=== PATIENT | female | born 1955 | race Caucasian/White ===

== ENCOUNTER → 2019-02-06 | Outpatient (CLI) | payer OTHER, MEDICARE, SELFPAY ==
[2019-02-06 11:37] VITALS: BMI 38.0
--- NOTE | 2019-02-06 12:14 | RAD_ITS ---
STUDY: X-RAY CHEST REASON FOR EXAM: Female, 63 years old. Cough. Cold like symptoms. TECHNIQUE: PA and lateral views of the chest. COMPARISON: None. FINDINGS: Minimal increased markings at the right lung base suggestive of atelectasis and/or early infiltrate. Hyperinflation. There is no demonstrated pleural abnormality. Normal size heart. Normal mediastinum and jenifer. Normal visualized pulmonary arteries. There is atherosclerotic calcification of the aortic arch with tortuosity. There are diffuse degenerative changes of the visualized thoracic spine. Normal visualized ribs, clavicles, and shoulders. There is no demonstrated abnormality of the visualized soft tissue structures of the upper abdomen. RAD/Chest PA and Lateral IMPRESSION: Mild degree of increased markings at the right lung base suggestive of atelectasis and/or early infiltrate. Hyperinflation. Electronically Signed: Aubrey Powell, at 12:35 EDT , Service support ,
== END | disposition home or self-care (01) ==
LOC: HPRAD 12:13
PROVIDERS: Family Provider Family Medicine; PCP Family Medicine; Referring Provider Physician Assistant Surgical; Visit Provider Physician Assistant Surgical
DX: R50.9 Fever, unspecified (principal); R05 Cough
CPT/HCPCS: 71046

== ENCOUNTER → 2019-11-26 11:34 | Outpatient (CLI) | payer OTHER, SELFPAY ==
[2019-11-26 09:08] VITALS: BMI 38.0
== END ==
PROVIDERS: PCP Family Medicine; Visit Provider Physician Assistant
DX: Z20.828 Contact with and (suspected) exposure to other viral communicable diseases (principal)
CPT/HCPCS: 87635; G2023; U0003

== ENCOUNTER → 2019-11-26 | Outpatient (CLI) | payer OTHER, MEDICARE, SELFPAY ==
[2019-11-26 09:08] VITALS: BMI 38.0
--- NOTE | 2019-11-26 09:30 | RAD_ITS ---
STUDY: X-RAY CHEST REASON FOR EXAM: Female, 64 years old. COUGH AND SORE THROAT X1 DAY TECHNIQUE: PA and lateral views of the chest. COMPARISON: 02/06/2019 FINDINGS: The lungs are clear and expanded. There is no demonstrated pleural abnormality. Normal size heart. Normal mediastinum and jenifer. Normal visualized pulmonary arteries. Normal visualized aortic arch and descending thoracic aorta. There are diffuse degenerative changes of the visualized thoracic spine. Normal visualized ribs, clavicles, and shoulders. There is no demonstrated abnormality of the visualized soft tissue structures of the upper abdomen. RAD/Chest PA and Lateral IMPRESSION: No acute pulmonary process Electronically Signed: Wilmer Benites MD at 9:47 EDT , Service support ,
== END | disposition home or self-care (01) ==
LOC: HPRAD 09:26
PROVIDERS: PCP Family Medicine; Referring Provider Physician Assistant; Visit Provider Physician Assistant
DX: R05 Cough (principal)
CPT/HCPCS: 71046

== ENCOUNTER → 2020-02-02 | Outpatient (CLI) | payer OTHER, SELFPAY ==
[2019-11-26 09:08] VITALS: BMI 38.0
--- NOTE | 2020-02-02 11:03 | BD_ITS ---
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 COMPARISON: None. FINDINGS: Lumbar Spine (L1-L4): g/cm2 (0.990) / T-score (-1.6) / Z-score (0.0) Findings are suggestive of osteopenia with a moderate fracture risk. Left Femur Total: g/cm2 (0.694) / T-score (-2.5) / Z-score (-1.2) Left Femoral Neck: g/cm2 (0.624) / T-score (-3.0) / Z-score (-1.5) Right Femur Total: g/cm2 (0.731) / T-score (-2.2) / Z-score (-0.9) Right Femoral Neck: g/cm2 (0.685) / T-score (-2.5) / Z-score (-1.0) BD/Dexa Bone Density Study IMPRESSION: The patient is considered osteoporotic as outlined below according to World Marcin Organization (WHO) criteria with a high fracture risk. Reference Information: The T-score is the number of standard deviations above or below the standard which is normal for young adults at their peak bone mineral density. The World Health Organization (WHO) interprets the T-scores as follows: Above -1 Normal bone density Between -1 and -2.5 Osteopenia Equal to / or below -2.5 Osteoporosis As a practical clinical guideline, osteopenia may be graded as follows: Mild -1 through -1.5 Moderate -1.6 through -2.0 Severe -2.1 through -2.4 The Z-score is the number of standard deviations above or below age-matched controls. A Z-score of less than -1.5 would be considered abnormal. References: 1. NIH Osteoporosis and Related Bone Diseases http://www.osteo.org 2. International Society for Clinical Densitometry http://www.iscd.org 3. National Osteoporosis Foundation http://www.nof.org Electronically Signed: Aubrey Powell, at 15:44 EDT , Service support ,
== END | disposition home or self-care (01) ==
LOC: OPBD 10:58
PROVIDERS: PCP Family Medicine; Referring Provider Nurse Practitioner Family; Visit Provider Nurse Practitioner Family
DX: Z78.0 Asymptomatic menopausal state (principal); Z13.820 Encounter for screening for osteoporosis
CPT/HCPCS: 77080

== ENCOUNTER → 2021-03-03 13:07 | Outpatient (CLI) | payer OTHER, SELFPAY ==
--- NOTE | 2021-03-03 11:57 | BI_ITS ---
MAMMOGRAPHY - BILATERAL SCREENING REASON FOR EXAM: Female, 65 years old. Routine annual screening examination. PERTINENT HISTORY: Non-contributory. TECHNIQUE: Digital bilateral breast neris (3D mammographic acquisition) in the CC and MLO projections. 2-D mediolateral oblique (MLO) and craniocaudad (CC) views of both breasts were obtained. CAD: Full Field Digital Mammography with Computer Added Detection was performed. COMPARISON: Comparison is made with prior outside examination dated 02/25/2020. FINDINGS: Breast Composition: The breasts are almost entirely fatty. There are no dominant masses or suspicious calcifications. Stable small benign-appearing bilateral axillary lymph nodes. No other significant abnormalities are identified. There has been no significant change since the prior study. BI/SCRN MAMM (CAD)W/NERIS BILAT IMPRESSION: Stable bilateral screening mammogram. Yearly follow-up mammogram recommended. (A) ASSESSMENT CATEGORY: BIRADS Category 2: Benign. A letter regarding these results will be sent to the patient by the facility within 30 days. Approximately 10% of breast cancers are not detected by mammography. A normal mammogram should not delay biopsy of a clinically suspicious abnormality. [id number] Electronically Signed: Aubrey Powell MD at 13:13 EDT , Service support ,
== END ==
PROVIDERS: PCP Family Medicine; Referring Provider Physician Assistant; Visit Provider Physician Assistant
DX: Z12.31 Encounter for screening mammogram for malignant neoplasm of breast (principal)
CPT/HCPCS: 77063; 77067

== ENCOUNTER → 2022-03-22 | Outpatient (CLI) | payer OTHER, SELFPAY ==
--- NOTE | 2022-03-22 10:31 | BI_ITS ---
MAMMOGRAPHY - BILATERAL SCREENING 3-D TOMOSYNTHESIS REASON FOR EXAM: Female, 66 years old. Routine screening PERTINENT HISTORY: No significant family history. TECHNIQUE: 2-D mammograms and 3-D Tomosynthesis of the breast (s) were performed. CAD was performed. COMPARISON: 2020, 2019 FINDINGS: The breast composition is almost entirely fat. Scattered benign calcifications are seen. No dense spiculated masses or suspicious microcalcifications are identified. No architectural distortion is identified. There is no skin thickening or retraction. There has been no significant change since the prior study. BI/SCRN MAMM (CAD)W/NERIS BILAT IMPRESSION: No mammographic signs of malignancy. Routine yearly mammograms recommended. ASSESSMENT CATEGORY: BIRADS Category 1: Negative. A letter regarding these results will be sent to the patient by the facility within 30 days. FOLLOW UP RECOMMENDATION: Yearly follow up mammogram recommended. (A) Approximately 10% of breast cancers are not detected by mammography. A normal mammogram should not delay biopsy of a clinically suspicious abnormality. Electronically Signed: Wilmer Benites MD at 13:20 EDT ,
--- NOTE | 2022-03-22 10:50 | BD_ITS ---
STUDY: DUAL ENERGY X-RAY ABSORPTIOMETRY / DXA REASON FOR EXAM: Female, 66 years old. M810 TECHNIQUE: Bone Mineral Density (BMD) measurements of lumbar spine and bilateral hips were obtained. COMPARISON: Comparison is made with prior study dated 02/02/2020. FINDINGS: Lumbar Spine (L1-L4): g/cm2 (0.845) / T-score (-2.3) / Z-score (-0.2) Findings are suggestive of osteopenia with a high fracture risk. Left Femur Total: g/cm2 (0.687) / T-score (-2.1) / Z-score (-0.7) Left Femoral Neck: g/cm2 (0.436) / T-score (-3.7) / Z-score (-2.0) Right Femur Total: g/cm2 (0.734) / T-score (-1.7) / Z-score (-0.3) Right Femoral Neck: g/cm2 (0.528) / T-score (-2.9) / Z-score (-1.2) The T-Scores on the most recent prior examination were: Lumbar Spine (L1-L4): There has been worsening of bone density since the previous examination. Left Femur Total: which represents an improvement of 80%. Right Femur Total: which represents an improvement of 9.2%. BD/Dexa Bone Density Study IMPRESSION: The patient is considered osteoporotic as outlined below according to World Marcin Organization (WHO) criteria with a high fracture risk. There has been improvement of bone density since the previous examination. Reference Information: The T-score is the number of standard deviations above or below the standard which is normal for young adults at their peak bone mineral density. The World Health Organization (WHO) interprets the T-scores as follows: Above -1 Normal bone density Between -1 and -2.5 Osteopenia Equal to / or below -2.5 Osteoporosis As a practical clinical guideline, osteopenia may be graded as follows: Mild -1 through -1.5 Moderate -1.6 through -2.0 Severe -2.1 through -2.4 The Z-score is the number of standard deviations above or below age-matched controls. A Z-score of less than -1.5 would be considered abnormal. References: 1. NIH Osteoporosis and Related Bone Diseases www osteo.org 2. International Society for Clinical Densitometry www iscd.org 3. National Osteoporosis Foundation www nof.org Electronically Signed: Aubrey Powell MD at 13:53 EDT ,
== END | disposition home or self-care (01) ==
LOC: OPBD 10:29
PROVIDERS: PCP Family Medicine; Referring Provider Physician Assistant; Visit Provider Physician Assistant
DX: Z12.31 Encounter for screening mammogram for malignant neoplasm of breast (principal); M81.0 Age-related osteoporosis without current pathological fracture
CPT/HCPCS: 77063; 77067; 77080

== ENCOUNTER 2023-01-16 14:36 | Emergency (ER) | payer OTHER, SELFPAY ==
[2023-01-16 14:38] VITALS: BP 150/89; PULSE 76; RESP 18; TEMP 36.1; O2SAT 95; BMI 40.1
--- NOTE | 2023-01-16 15:15 | EKG12_ITS ---
Test Reason : DIZZY Blood Pressure : / mmHG Vent. Rate : 065 BPM Atrial Rate : 065 BPM P-R Int : 134 ms QRS Dur : 070 ms QT Int : 432 ms P-R-T Axes : 059 017 017 degrees QTc Int : 449 ms Normal sinus rhythm Normal ECG Confirmed by TERESA RODRIGUEZ ([id number]), assistant film editor STORMY GRAHAM ([id number]) on 01/17/2023 11:33:47 AM Referred By: Confirmed By:TERESA RODRIGUEZ
--- NOTE | 2023-01-16 15:16 | EDS_ITS ---
HPI History of Present Illness Chief Complaint: Dizziness Informant: patient Onset/Context/Timing Onset: Today Narrative Narrative: Patient presents with vertigo symptoms that started overnight. She states each time she would get up to the restroom overnight she would feel dizzy and as if the room was spinning. It got worse each time. This morning she had some vomiting because of the dizziness. When she sits at rest she does not have symptoms. She went to a local urgent care who was concerned that she may be having a stroke and sent her to the emergency room. Patient does report 1 prior incidence of vertigo that got better with some oral medication. She states she did recently have a change in her blood pressure medications. [facility] Medical History (Updated 01/16/23 @ 17:[address] Ellen Browne MD) Hypertension Home Medications alendronate 70 mg tablet 70 mg PO QWEEK 01/30/22 [History Last Taken Unknown] mirabegron 50 mg tablet,extended release 24 hr (Myrbetriq) 50 mg PO DAILY 01/30/22 [History Last Taken Unknown] benzonatate 100 mg capsule 200 mg (2 x 100 mg) PO TID PRN cough #30 caps 07/16/22 [Rx Last Taken Unknown] triamcinolone acetonide 55 mcg nasal spray aerosol (Nasacort) 2 spray intranasal DAILY #16.9 mL 07/16/22 [Rx Last Taken Unknown] meclizine 25 mg tablet 25 mg PO TID PRN dizziness #14 tabs 01/16/23 [Rx Last Taken Unknown] Allergy/AdvReac Type Severity Reaction Status Date / Time venom-honey bee Allergy Unknown Verified 01/16/23 14:37 lisinopril AdvReac headache Verified 01/16/23 14:38 Family History Other Diabetes Surgical History History of back surgery Social History Smoking Status: Never smoker alcohol intake: never ROS ROS ED Constitutional Constitutional ED: Denies chills or fever(s) Eyes Eyes: Denies change in vision or discharge from eye(s) ENT ENT ED: Denies discharge from eye(s), rhinorrhea or sore throat Cardiovascular Cardiovascular: Denies chest pain or palpitations Respiratory/Chest Respiratory/Chest: Denies cough or dyspnea Gastrointestinal Gastrointestinal: Reports nausea and vomiting; Denies abdominal pain or diarrhea Genitourinary Genitourinary ED: Denies dysuria Musculoskeletal Musculoskeletal: Denies back pain or extremity pain Integumentary Denies Abrasions or rash Neurologic Neurologic: Denies headache(s) or weakness Psychiatric Psychiatric: Denies anxiety or depression Allergic/Immunologic Allergic/Immunologic ED: Denies lip swelling or urticaria EXAM Physical Exam Const Vital Signs: 01/16/23 14:38 01/16/23 14:59 Temperature 97 F L Temperature Source Temporal Pulse Rate 76 Respiratory Rate 18 Respiratory Effort Normal Non-Labored Respiratory Pattern Normal Blood Pressure 150/89 H Blood Pressure Mean 109 Pulse Ox 95 Oxygen Delivery Method Room Air Positive well nourished and well developed General Appearance ED: well developed HEENT Reports normocephalic and head/scalp atraumatic Eyes PERRL and EOMs intact bilaterally Neck supple Chest Wall inspection of chest normal and palpation of chest normal Resp normal respiratory effort and clear to auscultation bilaterally Cardio regular rate and regular rhythm GI normal to inspection, nondistended, normoactive bowel sounds Palpation: soft Extremity normal to inspection Neuro oriented x3 and no sensory deficits noted Neuro Narrative: Slight horizontal nystagmus noted. No evidence of facial droop or slurred speech at this time Sensorium / Orientation: alert Motor Exam: strength 5/5 throughout Psych mental status grossly normal Skin no rashes or lesions noted MDM MDM MDM Narrative Medical decision making narrative: Patient placed on personnel monitor. EKG obtained to evaluate for cardiac arrhythmia/ischemia. Labwork obtained to evaluate for leukocytosis, anemia, and electrolyte derangement. Patient given IV fluids along with meclizine. Lab Data Attestation: I reviewed the patient's lab results. Labs: Laboratory Results - last 24 hr 01/16/23 15:41 WBC 6.4 RBC 5.13 Hgb 15.3 H Hct 48.5 H MCV 94.5 MCH 29.8 MCHC 31.5 L RDW Std Deviation 49.1 H RDW Coeff of Shira 14.0 Plt Count 273 MPV 10.3 Immature Gran % (Auto) 0.200 Neut % (Auto) 74.7 H Lymph % (Auto) 17.4 L [place] % (Auto) 6.6 Eos % (Auto) 0.6 Baso % (Auto) 0.5 Absolute Neuts (auto) 4.8 Absolute Lymphs (auto) 1.11 Nucleated RBC % 0 Sodium 141 Potassium 4.0 Chloride 106 Carbon Dioxide 32.0 Anion Gap 3 L BUN 14 Creatinine 0.82 Estim Creat Clear Calc 51.21 Est GFR (MDRD) Af Amer 89 Est GFR (MDRD) Non-Af 74 BUN/Creatinine Ratio 17.1 Glucose 104 Calcium 9.1 EKG Initial EKG: Attestation: I personally reviewed and interpreted this EKG as follows: Interpretation: Sinus Rhythm (Sinus at 65 with no acute ischemia.) Treatment and Re-Evaluation :: Repeat evaluation patient feeling significantly improved. She is able to turn h er head side to side with no further episodes of dizziness. CBC reveals hemoglobin slightly concentrated at 15.3. Chemistry studies unremarkable. EKG is sinus rhythm with no acute ischemia. At this time patient's exam and findings are all consistent with peripheral vertigo. I will treat her with meclizine. I will also give her instructions on Kenneth maneuvers if she should need these at home. At this time patient reports significant improvement. Discharge Plan Triage Chief Complaint: Dizziness ED Provider: Ellen Browne Dx/Rx/DC Orders Clinical Impression: Peripheral vertigo Instructions: ED BPV Vertigo Prescriptions: New meclizine 25 mg tablet 25 mg PO TID PRN (Reason: dizziness) Qty: 14 0RF No Action Myrbetriq 50 mg tablet extended release 24 hr 50 mg PO DAILY alendronate 70 mg tablet 70 mg PO QWEEK benzonatate 100 mg capsule 200 mg PO TID PRN (Reason: cough) Qty: 30 0RF triamcinolone acetonide [Nasacort] 55 mcg aerosol,spray 2 spray intranasal DAILY Qty: 16.9 0RF Rx Instructions: administer into each nostril Primary Care Provider: Jamie Polanco Referrals: Jamie Polanco MD [Primary Care Provider] - 1-2 Weeks Disposition Disposition: Home, Self Care
--- NOTE | 2023-01-16 15:20 | NURSING ---
NO OLD EKGS
[2023-01-16] MEDS: Acetaminophen 500 MG Tablet 1000 MG PO (15:28)
[2023-01-16] MEDS: 0.9% Normal Saline 1,000 ML 150 ML IV (15:47)
[2023-01-16] MEDS: Meclizine HCl 25 MG Tablet PO (15:48)
[2023-01-16 16:10] LABS: Absolute Lymphocyte Count 1.11 X10^3/uL (0.83-4.51); Absolute Neutrophil Count 4.8 X10^3/uL (2.0-7.7); Basophil# 0.03 X10^3/uL; Basophil% 0.5 % (0-1); Eosinophil# 0.04 X10^3/uL; Eosinophils% 0.6 % (0-5); Hematocrit 48.5 % (37-47); Hemoglobin 15.3 g/dL (12.0-15.0); Lymphocyte # 1.11 X10^3/ul (0.83-4.51); Lymphocyte % 17.4 % (19-41); Mean Corp Hgb Conc 31.5 g/dL (32-36); Mean Corpuscular Hgb 29.8 pg (27.0-32.0); Mean Corpuscular Volume 94.5 fL (81-99); Mean Platelet Vol. 10.3 fl (6.2-12.0); Monocyte# 0.42 X10^3/uL; Monocyte% 6.6 % (0-10); NRBC Flagged by Analyzer 0 % (0-5); Neutrophil # 4.78 X10^3/uL (2.7-7.7); Neutrophil % 74.7 % (47-70); Platelet Count 273 K/mm3 (150-450); RBC Distribution Width SD 49.1 fl (35.1-43.9); Red Blood Count 5.13 M/mm3 (4.2-5.4); White Blood Count 6.4 K/mm3 (4.4-11.0)
[2023-01-16 16:41] LABS: Anion Gap 3 (5-15); BUN 14 mg/dL (7-18); BUN/Creat Ratio 17.1 RATIO (10-20); Calcium,Total 9.1 mg/dL (8.5-10.1); Chloride 106 mmol/L (98-107); Creatinine, Serum 0.82 mg/dL (0.55-1.02); EST Glomerular Filtration Rate 74 mL/min (>60); Est Glom Filt Rate - Afr Amer 89 mL/min (>60); Estimated Creatinine Clearance 51.21 ml/min; Glucose 104 mg/dL (74-106); Sodium Level 141 mmol/L (136-145)
[2023-01-16 17:42] VITALS: BP 134/69; PULSE 72; RESP 15; O2SAT 97
== END 2023-01-16 17:49 | disposition home or self-care (01) ==
PROVIDERS: Emergency Provider Emergency Medicine; PCP Family Medicine; Visit Provider Emergency Medicine
DX: H81.399 Other peripheral vertigo, unspecified ear (principal); I10 Essential (primary) hypertension; Z79.899 Other long term (current) drug therapy
CPT/HCPCS: 80048; 85025; 93005; 96360; 96361; 99284; J7030; A4216

== ENCOUNTER → 2023-03-25 | Outpatient (CLI) | payer OTHER, SELFPAY ==
--- NOTE | 2023-03-25 10:51 | BI_ITS ---
MAMMOGRAPHY - BILATERAL SCREENING REASON FOR EXAM: Female, 67 years old. Routine annual screening examination. PERTINENT HISTORY: Non-contributory. TECHNIQUE: Digital bilateral breast neris (3D mammographic acquisition) in the CC and MLO projections. 2-D mediolateral oblique (MLO) and craniocaudad (CC) views of both breasts were obtained. CAD: Full Field Digital Mammography with Computer Added Detection was performed. COMPARISON: Comparison is made with prior study March 22, 2022 and March 03, 2021. FINDINGS: Breast Composition: The breasts are almost entirely fatty. There are no dominant masses or suspicious calcifications. Stable small benign-appearing bilateral axillary lymph nodes. No other significant abnormalities are identified. There has been no significant change since the prior study. BI/SCRN MAMM (CAD)W/NERIS BILAT IMPRESSION: Stable bilateral screening mammogram. Yearly follow-up mammogram recommended. (A) ASSESSMENT CATEGORY: BIRADS Category 2: Benign. A letter regarding these results will be sent to the patient by the facility within 30 days. Approximately 10% of breast cancers are not detected by mammography. A normal mammogram should not delay biopsy of a clinically suspicious abnormality. [id number] Electronically Signed: Aubrey Powell MD at 12:14 EDT ,
== END | disposition home or self-care (01) ==
PROVIDERS: PCP Family Medicine; Referring Provider Physician Assistant; Visit Provider Physician Assistant
DX: Z12.31 Encounter for screening mammogram for malignant neoplasm of breast (principal)
CPT/HCPCS: 77063; 77067

== ENCOUNTER 2024-02-07 14:20 | Observation (INO) | payer OTHER, MEDICARE, SELFPAY ==
[2024-02-07] VITALS (8 sets, daily range): BP systolic 128–199; BP diastolic 67–97; PULSE 55–84; RESP 12–18; TEMP 35.8–36.6; O2SAT 94–96; BMI 42.0; BMI 40.6
--- NOTE | 2024-02-07 16:12 | ED.RN ---
PT C/O DIZZINESS AND SLIGHT HEADACHE FOR TWO DAYS. DENIES ANY OTHER SYMPTOMS AT THIS TIME.
--- NOTE | 2024-02-07 16:38 | EKG12_ITS ---
Test Reason : DIZZINESS Blood Pressure : / mmHG Vent. Rate : 056 BPM Atrial Rate : 056 BPM P-R Int : 142 ms QRS Dur : 072 ms QT Int : 450 ms P-R-T Axes : 050 018 018 degrees QTc Int : 434 ms Sinus bradycardia Otherwise normal ECG Confirmed by JOIE RUSH, SHANON ([id number]), editorial cartoonist STORMY GRAHAM ([id number]) on 02/10/2024 6:48:54 AM Referred By: Confirmed By:SHANON SALTER MD
--- NOTE | 2024-02-07 16:39 | EDS_ITS ---
HPI History of Present Illness Chief Complaint: Dizziness Narrative Narrative: 68-year-old female past medical history of hypertension, previous vertigo for which she takes Antivert, presents with 2 days of dizziness and vertiginous type symptoms. It is associated with mild nausea but no vomiting. No fevers or chills, no headache. She states she went to urgent care, they sent her to the emergency department because her pulse ox was 91% on room air. She denies overt history of COPD, but states she used to be a smoker but quit remotely. She denies any chest pain or shortness of breath. She states that over the last 2 days, she has had intermittent vertigo, it is worse when she wakes up and sits up in bed. States the room starts spinning and she feels off balance. Last time this happened to her was in May of last year, over 6 months ago, but she took Antivert and it went away. She states she is followed up with physicians regarding this. She is currently out of her meclizine. She denies other symptoms. No paresthesias. [facility] Medical History Hypertension Home Medications ?Medication ?Instructions ?Recorded ?Last Taken ?Type alendronate 70 mg tablet 70 mg PO QWEEK 01/30/22 Unknown History mirabegron 50 mg tablet,extended 50 mg PO DAILY 01/30/22 Unknown History release 24 hr (Myrbetriq) benzonatate 100 mg capsule 200 mg (2 x 100 mg) PO TID PRN 07/16/22 Unknown Rx cough #30 caps triamcinolone acetonide 55 mcg 2 spray intranasal DAILY #16.9 mL 07/16/22 Unknown Rx nasal spray aerosol (Nasacort) meclizine 25 mg tablet 25 mg PO TID PRN dizziness #14 tabs 01/16/23 Unknown Rx meclizine 25 mg tablet 25 mg PO TID #30 tabs 05/18/23 Unknown Rx ondansetron 4 mg disintegrating 4 mg PO Q8H #10 tabs 05/18/23 Unknown Rx tablet Allergy/AdvReac Type Severity Reaction Status Date / Time venom-honey bee Allergy Unknown Verified 02/07/24 14:21 lisinopril AdvReac headache Verified 02/07/24 14:21 Family History Other Diabetes Surgical History History of back surgery Social History Smoking Status: Never smoker alcohol intake: never ROS ROS ED ROS Narrative Constitutional: No fever, no chills. HEENT: No sore throat. No neck pain. No loss of vision. No rhinorrhea. Cardiovascular: No chest pain. No palpitations. No pedal edema. Respiratory: No cough, no shortness of breath. Abdominal: No abdominal pain. Slight nausea. No vomiting. Genitourinary: No dysuria. No hematuria. Musculoskeletal: No myalgias. No arthralgias. Neurologic: No headaches. Positive vertigo/dizziness. Worse when wakes up and sits up in bed. No lightheadedness. Skin: No rash. No change in color. Psychiatric: No depression. No anxiety. EXAM Physical Exam Narrative Exam Narrative: Afebrile. Vital signs noted. HEENT: Normocephalic. Atraumatic. PERRL, EOMI. Neck soft and supple. No point tenderness or step off. No meningismus. Cardiovascular: Regular rate and rhythm. No murmurs, rubs, or gallops appreciated. Respiratory: No tachypnea. Lungs clear to auscultation bilaterally. Gastrointestinal: Abdomen soft, nontender, with normoactive bowel sounds. No rebound or guarding. Neurological: Awake. Alert. Nonfocal, nonlateralizing. Exacerbation of vertiginous symptoms with movement of head [id number]. Neurovascular intact bilateral lower extremities. Normal cerebellar functioning as tested. Skin: No rash. Normal color. No pallor. Musculoskeletal: No pedal edema. Full range of motion extremities. Const Vital Signs: 02/07/24 14:23 02/07/24 16:20 02/07/24 18:00 Temperature 96.4 F L Temperature Source Temporal Pulse Rate 68 55 L 60 Respiratory Rate 18 12 13 Blood Pressure 138/82 H 155/97 H 199/89 H Blood Pressure Mean 100 116 125 Pulse Ox 95 94 96 Oxygen Delivery Method Room Air Room Air 02/07/24 18:42 02/07/24 20:23 Temperature Temperature Source Pulse Rate 72 71 Respiratory Rate 17 12 Blood Pressure 180/90 H Blood Pressure Mean 120 Pulse Ox 96 94 Oxygen Delivery Method MDM MDM MDM Narrative Medical decision making narrative: Differential diagnosis includes presyncope versus benign positional vertigo versus stroke. I have low suspicion for stroke because she shows no other symptoms. I do not feel CT of the brain is indicated as she has normal cerebellar functioning. She will be given a meclizine. I will check an EKG and basic laboratory work to look for signs of dehydration as she states she feels more off balance. EKG was obtained and interpreted by myself independently as sinus bradycardia at 56 bpm without ectopy or acute ST changes. No STEMI. I reviewed her laboratory work and she has normal white count of 4.8, hemoglobin 14.8 with hematocrit 47.0 platelet count normal at 248. Electrolyte panel is grossly unremarkable except for anion gap low at 4, glucose appropriately elevated at 98, normal sodium and normal potassium. Her blood pressure has normalized or at least come down to 150 systolic. Attempt was made to ambulate her but she needed assistance. As she had continued unsteady gait, I obtained a CT of the brain and reviewed the radiology report. She has no acute process, no hemorrhage. I saw her ambulating back to her room from the bathroom and she still had an unsteady gait. With concern for posterior circulation problem, I discussed patient with Dr. Deshpande for observation on PCU. Patient is in stable condition. History & Record Review Discussion w/independent historian: Patient Lab Data Attestation: I reviewed the patient's lab results. Labs: Laboratory Results - last 24 hr 02/07/24 16:44 WBC 4.8 RBC 5.05 Hgb 14.8 Hct 47.0 MCV 93.1 MCH 29.3 MCHC 31.5 L RDW Std Deviation 45.9 H RDW Coeff of Shira 13.4 Plt Count 248 MPV 10.0 Immature Gran % (Auto) 0.200 Neut % (Auto) 56.7 Lymph % (Auto) 30.4 [place] % (Auto) 9.4 Eos % (Auto) 2.3 Baso % (Auto) 1.0 Absolute Neuts (auto) 2.7 Absolute Lymphs (auto) 1.45 Nucleated RBC % 0 Sodium 140 Potassium 3.8 Chloride 104 Carbon Dioxide 32.0 Anion Gap 4 L BUN 15 Creatinine 0.71 Est GFR (MDRD) Af Amer 104 Est GFR (MDRD) Non-Af 86 BUN/Creatinine Ratio 21.0 H Glucose 98 Calcium 9.9 Radiography Diagnostic Testing: Clinical Impression(s) from Imaging Studies Brain CT 02/07/24 18:45 IMPRESSION: 1. Negative unenhanced CT scan of the brain. Electronically Signed: David Barrow MD at 21:04 EDT Reading Location ID and State: [facility] / [place] , Service support , Discharge Plan Triage Chief Complaint: Dizziness ED Provider: Tigre Lockhart Dx/Rx/DC Orders Prescriptions: No Action Myrbetriq 50 mg tablet extended release 24 hr 50 mg PO DAILY alendronate 70 mg tablet 70 mg PO QWEEK benzonatate 100 mg capsule 200 mg PO TID PRN (Reason: cough) Qty: 30 0RF triamcinolone acetonide [Nasacort] 55 mcg aerosol,spray 2 spray intranasal DAILY Qty: 16.9 0RF Rx Instructions: administer into each nostril meclizine 25 mg tablet 25 mg PO TID Qty: 30 0RF ondansetron 4 mg tablet,disintegrating 4 mg PO Q8H Qty: 10 0RF meclizine 25 mg tablet 25 mg PO TID PRN (Reason: dizziness) Qty: 14 0RF Primary Care Provider: Jamie Polanco Referrals: Jamie Polanco MD [Primary Care Provider] - Print Language: Upper Sorbian
[2024-02-07] MEDS: Meclizine HCl 25 MG Tablet PO ×2 (16:45→23:56)
[2024-02-07 16:55] LABS: Absolute Lymphocyte Count 1.45 X10^3/uL (0.83-4.51); Absolute Neutrophil Count 2.7 X10^3/uL (2.0-7.7); Basophil# 0.05 X10^3/uL; Eosinophil# 0.11 X10^3/uL; Eosinophils% 2.3 % (0-5); Hemoglobin 14.8 g/dL (12.0-15.0); Lymphocyte # 1.45 X10^3/ul (0.83-4.51); Lymphocyte % 30.4 % (19-41); Mean Corp Hgb Conc 31.5 g/dL (32-36); Mean Corpuscular Hgb 29.3 pg (27.0-32.0); Mean Corpuscular Volume 93.1 fL (81-99); Monocyte# 0.45 X10^3/uL; Monocyte% 9.4 % (0-10); NRBC Flagged by Analyzer 0 % (0-5); Neutrophil % 56.7 % (47-70); Platelet Count 248 K/mm3 (150-450); RBC Distribution Width CV 13.4 % (11.6-14.6); RBC Distribution Width SD 45.9 fl (35.1-43.9); Red Blood Count 5.05 M/mm3 (4.2-5.4); White Blood Count 4.8 K/mm3 (4.4-11.0)
[2024-02-07 17:09] LABS: Anion Gap 4 (5-15); BUN 15 mg/dL (7-18); Calcium,Total 9.9 mg/dL (8.5-10.1); Chloride 104 mmol/L (98-107); Creatinine, Serum 0.71 mg/dL (0.55-1.02); EST Glomerular Filtration Rate 86 mL/min (>60); Est Glom Filt Rate - Afr Amer 104 mL/min (>60); Glucose 98 mg/dL (74-106); Potassium 3.8 mmol/L (3.5-5.1); Sodium Level 140 mmol/L (136-145)
[2024-02-07] MEDS: hydrALAZINE 20 MG/ML Vial 10 MG IV (18:06)
--- NOTE | 2024-02-07 18:45 | CT_ITS ---
STUDY: CT BRAIN WITHOUT CONTRAST REASON FOR EXAM: Female, 68 years old. DIZZINESS. RADIATION DOSAGE (If Supplied By Facility): CTDIvol = ( 44.99 ) mGy, DLP = ( 812.98 ) mGycm TECHNIQUE: Transaxial CT imaging of the brain was performed without administration of intravenous contrast material. Individualized dose optimization techniques were used for this CT. COMPARISON: None. FINDINGS: Normal soft tissue structures. Normal calvarium. 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 Normal size ventricles and extra-axial spaces for the patient''s age. Normal white matter tracts of the cerebral hemispheres. There are small punctate calcifications of the basal ganglia which are seen in the aging brain as a normal variant. Normal brainstem. Normal cerebellum. There is no intracranial hemorrhage. There are no findings of an acute ischemic infarction. Normal visualized paranasal sinuses. CT/Brain/Head without Contrast IMPRESSION: 1. Negative unenhanced CT scan of the brain. Electronically Signed: David Barrow MD at 21:04 EDT ,
--- NOTE | 2024-02-07 21:35 | PCM.HP.STD ---
HPI - General General Date of Admission: 02/07/24 Date of Service: 02/07/24 Chief Complaint: Dizziness/imbalance, vertigo HPI Narrative The patient is a 68 y/o F w/ PMHx: Obesity, Suspected likely KELSEY, Former tobacco use, HTN, Hx BPPV who presents to the [facility] ED on 02/07/24 with history of 2 days of dizziness, vertiginous symptoms with mild nausea without emesis with difficulty ambulating with urgent care evaluation with concern as pulse oximeter reportedly 91% on room air prompting referral to the ED be cautious. She notes that her symptoms have been worse with movement more so to the right moving her head then to the left with the room sensation of spinning and being off balance similar to previous but given it has been ongoing to be cautious prompted ED evaluation. Workup in the ED includes T96.4, heart rate 68, BP 130/82, respiratory rate 18, 95% room air with BP increasing up to 199/89 transiently in the ED, CBC with WC 4.8, hemoglobin 14.8, platelet 248 without shift, unremarkable BMP, CT of the brain with no acute intracranial findings, EKG with sinus bradycardia with no acute evidence of ischemia. In the ED patient administered hydralazine 10 mg IV x 1 as well as meclizine 25 mg p.o. x 1. In the ED upon evaluation she does report that her symptoms are better and she is able to turn her neck without any significant vertiginous symptoms but still has issues with ambulation attempts. [facility] Medical History BPPV (benign paroxysmal positional vertigo) Obesity Suspected sleep apnea Hypertension Home Medications ?Medication ?Instructions ?Recorded ?Last Taken ?Type alendronate 70 mg tablet 70 mg PO QWEEK 01/30/22 Unknown History mirabegron 50 mg tablet,extended 50 mg PO DAILY 01/30/22 Unknown History release 24 hr (Myrbetriq) benzonatate 100 mg capsule 200 mg (2 x 100 mg) PO TID PRN 07/16/22 Unknown Rx cough #30 caps triamcinolone acetonide 55 mcg 2 spray intranasal DAILY #16.9 mL 07/16/22 Unknown Rx nasal spray aerosol (Nasacort) meclizine 25 mg tablet 25 mg PO TID PRN dizziness #14 tabs 01/16/23 Unknown Rx meclizine 25 mg tablet 25 mg PO TID #30 tabs 05/18/23 Unknown Rx ondansetron 4 mg disintegrating 4 mg PO Q8H #10 tabs 05/18/23 Unknown Rx tablet Allergy/AdvReac Type Severity Reaction Status Date / Time venom-honey bee Allergy Unknown Verified 02/07/24 14:21 lisinopril AdvReac headache Verified 02/07/24 14:21 Family History Mother Diabetes Father Heart disease Surgical History History of bilateral tubal ligation History of back surgery Social History household members: children and other details: Her son and her live in the same house on different sides. Smoking Status: Former smoker how long ago did patient quit smoking: Quit ~ 25 yrs prior, smoked 1/2 ppd since 16 years old until quit. alcohol intake: never substance use type: does not use ROS ROS Narrative Admission Review of Systems: CONSTITUTIONAL: No weight loss, fever, chills, + weakness or fatigue. HEENT: + Vertiginous symptoms especially with head movement. Eyes: No visual loss, blurred vision, double vision or yellow sclerae. Ears, Nose, Throat: No hearing loss, sneezing, congestion, runny nose or sore throat. SKIN: No rash or itching, lesions, wounds. CARDIOVASCULAR: No chest pain, chest pressure or chest discomfort, palpitations, edema, orthopnea, syncopal events. RESPIRATORY: No shortness of breath, cough or sputum, wheezing, hemoptysis. GASTROINTESTINAL: + Nausea, decreased appetite. No vomiting or diarrhea, abdominal pain, melena, BRBPR. GENITOURINARY: No dysuria, frequency, urgency or retention. NEUROLOGICAL: + Gait imbalance, vertiginous symptoms. No headache, syncope, paralysis, numbness or tingling in the extremities, focal weakness, change in bowel or bladder control, seizure. MUSCULOSKELETAL: + muscle, back pain, joint pain or stiffness. HEMATOLOGIC: No anemia, bleeding or bruising. LYMPHATICS: No enlarged nodes. No history of splenectomy. PSYCHIATRIC: No history of depression or anxiety. ENDOCRINOLOGIC: No reports of sweating, cold or heat intolerance. No polyuria or polydipsia. ALLERGIES: No history of asthma, hives, eczema or rhinitis. Vital Signs Vital Signs Vital Signs: 02/07/24 14:23 02/07/24 16:20 02/07/24 18:00 Temperature 96.4 F L Temperature Source Temporal Pulse Rate 68 55 L 60 Respiratory Rate 18 12 13 Blood Pressure 138/82 H 155/97 H 199/89 H Blood Pressure Mean 100 116 125 Pulse Ox 95 94 96 Oxygen Delivery Method Room Air Room Air 02/07/24 18:42 02/07/24 20:23 Temperature Temperature Source Pulse Rate 72 71 Respiratory Rate 17 12 Blood Pressure 180/90 H Blood Pressure Mean 120 Pulse Ox 96 94 Oxygen Delivery Method Physical Exam Narrative Physical Examination: General: Awake, alert, oriented x 3 and cooperative, seated upright in the ED bed, notes feeling improved since initial ED arrival, denies any current vertiginous symptoms. Skin: Normal color, normal turgor, no icterus, no cyanosis. HEENT: AT/NC, EOMI, PERRLA, dry MM, no carotid bruits or JVD noted. Lungs: CTA bilaterally, moderate effort, mild decrease BL bases, no rales, ronchi or wheezing. Heart: Regular rate and rhythm; no gallop, rub audible. Abdomen: Soft, obese, NTTP, mildly hyperactive BS, difficult to discern distention and HSM given habitus. Extremities: No cyanosis, no clubbing, mild bilateral ankle not markedly pitting edema. Neurological: Patient awake, alert, oriented as noted, cognitive function intact; pupils equally reactive to light and accommodation, cranial nerves gross normal, moving all 4 extremities, no focal deficits, strength preserved, sensation intact, finger-nose and [id number] appropriate, equivocal Babinski, unable to currently reproduce any vertiginous symptoms and no nystagmus noted. Psychiatric: Affect appears fatigued otherwise normal, no acute evidence of depressive or anxiety feelings. Results Lab / Micro Data 02/07/24 16:44 02/07/24 16:44 Labs: Laboratory Results - last 24 hr 02/07/24 16:44: WBC 4.8, RBC 5.05, Hgb 14.8, Hct 47.0, MCV 93.1, MCH 29.3, MCHC 31.5 L, RDW Std Deviation 45.9 H, RDW Coeff of Shira 13.4, Plt Count 248, MPV 10.0, Immature Gran % (Auto) 0.200, Neut % (Auto) 56.7, Lymph % (Auto) 30.4, Calhoun % (Auto) 9.4, Eos % (Auto) 2.3, Baso % (Auto) 1.0, Absolute Neuts (auto) 2.7, Absolute Lymphs (auto) 1.45, Nucleated RBC % 0, Sodium 140, Potassium 3.8, Chloride 104, Carbon Dioxide 32.0, Anion Gap 4 L, BUN 15, Creatinine 0.71, Est GFR (MDRD) Af Amer 104, Est GFR (MDRD) Non-Af 86, BUN/Creatinine Ratio 21.0 H, Glucose 98, Calcium 9.9 Imaging Radiology Impression Brain CT 02/07/24 18:45 IMPRESSION: 1. Negative unenhanced CT scan of the brain. Electronically Signed: David Barrow MD at 21:04 EDT Reading Location ID and State: [facility] / [place] , Service support , Assessment & Plan Assessment/Plan (1) Unsteady gait: (2) Vertigo: PLAN: Plan The patient is a 68 y/o F w/ PMHx: Obesity, Suspected likely KELSEY, HTN, Hx BPPV, Former tobacco use who presents to the [facility] ED on 02/07/24 with history of 2 days of dizziness, vertiginous symptoms with mild nausea without emesis with difficulty ambulating with urgent care evaluation with eventual referral to the ED. #1. Imbalance, Vertigo, suspect BPPV but cannot rule out TIA/CVA posteriorly: Will admit to PCU, will obtain CTA head and neck, will obtain MRI Brain, ECHO, PT/OT/Speech/Nutrition evaluation per protocol. Will allow permissive HTN, maintain on asa, statin w/ AM FLP, fall precautions. Mag, TSH, FLP, HgbA1c requested. Maintain on meclizine given symptoms improved with this regimen in the ED. If any concerning findings on MRI may consider Neurology involvement. #2. Hypertension: Will maintain permissive hypertension with as needed agents per stroke protocol. #3. Obesity: Weight loss and lifestyle changes encouraged. #4. Suspected KELSEY: Per discussion with patient and family present high suspicion for sleep apnea, will maintain on trending pulse oximeter but would benefit from outpatient assessment. #5. Former tobacco use: Encourage continued tobacco cessation. #6. DVT prophylaxis: Lovenox. #7. CODE status: Full Code. Charges/Coding Visit Charges Inpatient E&M: 06332 Init Hosp L2
--- NOTE | 2024-02-07 21:41 | CT_ITS ---
STUDY: CTA HEAD AND NECK WITH CONTRAST REASON FOR EXAM: Female, 68 years old. DIZZINESS DIZZINESS AND NAUSEA X 2 DAYS HX:HTN,VERTIGO RADIATION DOSAGE (If Supplied By Facility): CTDIvol = ( 18.18 ) mGy, DLP = ( 676.55 ) mGycm TECHNIQUE: CT angiography was performed with a multi-detector CT scanner. Data acquisition was obtained from the skull base through the vertex following intravenous administration of IV 100mL Isovue-370. MIP images were reconstructed from the axial data set. Post-processing of the angiographic images was performed, with multiplanar reformation and 3D reconstruction. Individualized dose optimization techniques were used for this CT. COMPARISON: Noncontrast head CT dated February 07, 2024 FINDINGS: Normal bilateral petrous carotid arteries. There is calcified plaque formation of the right cavernous carotid artery, without a cross-sectional luminal stenosis. There is calcified plaque formation of the left cavernous carotid artery, without a cross-sectional luminal stenosis. Normal right A1 segments of the anterior cerebral artery. Normal left A1 segments of the anterior cerebral artery. Normal intact anterior communicating artery (ACOM). Normal bilateral A2 segments of the anterior cerebral arteries. Normal right M1 and M2 segments of the middle cerebral arteries, with a normal M1 bifurcation. Normal left M1 and M2 segments of the middle cerebral arteries, with a normal M1 bifurcation. Normal right posterior communicating artery (PCOM). Normal left posterior communicating artery (PCOM). Normal bilateral vertebral arteries. Normal basilar artery with a normal basilar bifurcation. The visualized bilateral superior cerebellar (SCA) arteries are normal. Normal bilateral P1, P2 and visualized P3 segments of the posterior cerebral arteries. There is no demonstrated aneurysm of the [place]. No demonstrated thrombus or occlusion or hemodynamically significant stenosis of the major intracranial arteries. The major venous sinuses are completely patent and normally opacified. NECK CTA: Mild reactive subcentimeter superior mediastinal lymphadenopathy is partially visualized. AORTIC ARCH: There is atherosclerotic calcific plaque formation of the aortic arch and great vessels arising from the aortic arch, without a hemodynamically significant stenosis. There is a normal origin of the brachiocephalic, left common carotid, and left subclavian arteries. Normal origins of the brachiocephalic, left common carotid, and left subclavian arteries. RIGHT CAROTID ARTERIES: Normal right common carotid artery (CCA). There is mild atherosclerotic plaque formation with minimal narrowing of the right carotid bulb. Normal origin of the right internal carotid (ICA) artery without a hemodynamically significant stenosis. Normal visualized cervical portion of the right internal carotid artery. Normal origin of the right external carotid artery (ECA). LEFT CAROTID ARTERIES: Normal left common carotid artery (CCA). There is mild atherosclerotic plaque formation with minimal narrowing of the left carotid bulb. There is mild atherosclerotic plaque formation of the origin of the left internal carotid artery with less than 50% cross sectional diameter stenosis. Normal visualized cervical portion of the left internal carotid artery. Normal origin of the left external carotid artery (ECA). VERTEBRAL ARTERIES: Normal bilateral vertebral arteries. CT/CTA Head AND Neck W/ Contrast IMPRESSION: 1. Head CTA: There is no demonstrated aneurysm of the [place]. No demonstrated thrombus or occlusion or hemodynamically significant stenosis of the major intracranial arteries. The major venous sinuses are completely patent and normally opacified. 2. Neck CTA: Mild atherosclerotic stenosis of the right carotid bulb and origin of the left internal carotid artery. No hemodynamically significant stenosis or occlusion or thrombus is present. Electronically Signed: David Barrow MD at 22:44 EDT ,
--- NOTE | 2024-02-07 23:06 | ECHOCS_ITS ---
Reason For Study: TIA/CVA Procedure This was a 2D Doppler, Color Flow transthoracic echocardiogram. The study was technically difficult. Contrast injection was performed. Exam performed portable in patient room. Left Ventricle Normal LV size. Left ventricular systolic function is normal. The left ventricular ejection fraction is 55 %. Stage 1 diastolic dysfunction. No regional wall motion abnormalities noted. Right Ventricle Normal RV size. Normal systolic function. Atria Normal left atrium. Normal right atrium. Mitral Valve Normal mitral valve. Tricuspid Valve Normal tricuspid valve. Aortic Valve Normal aortic valve. Pulmonic Valve Normal pulmonic valve. Great Vessels Normal aortic root. The pulmonary artery is normal size. Normal inferior vena cava. Pericardium/Pleural No pericardial effusion. Medication Performed a rapid injection of agitated mix of 9 cc saline and 1cc air to assess for atrial septal defect. Diluted definity 2ml given slow IV push to enhance endocardial definition. MMode/2D Measurements & Calculations LVIDd: 4.1 cm IVSd: 1.2 cm LVOT diam: 1.9 cm LVIDs: 2.4 cm LVPWd: 1.0 cm RVDd: 3.1 cm FS: 42.0 % LVOT area: 2.9 cm2 Ao root diam: 2.6 cm LAV(MOD-bp): 38.7 ml LVAd ap4: 28.3 cm2 LAV(MOD-bp) Indexed: 18.9 ml/m2 LVLd ap4: 8.0 cm LAV(MOD-sp2): 37.1 ml EDV(MOD-sp4): 83.2 ml LAV(MOD-sp4): 40.2 ml EDV(sp4-el): 85.4 ml LVAs ap4: 18.8 cm2 LVLs ap4: 7.3 cm ESV(MOD-sp4): 42.5 ml ESV(sp4-el): 41.3 ml EF(MOD-sp4): 48.9 % EF(sp4-el): 51.7 % LVAd ap2: 30.4 cm2 SV(MOD-sp4): 40.7 ml SV(MOD-sp2): 53.3 ml LVLd ap2: 7.9 cm EDV(MOD-sp2): 93.4 ml EDV(sp2-el): 99.1 ml LVAs ap2: 17.5 cm2 LVLs ap2: 6.4 cm ESV(MOD-sp2): 40.1 ml ESV(sp2-el): 40.2 ml EF(MOD-sp2): 57.0 % SV(sp4-el): 44.1 ml LA dimension(2D): 4.1 cm LA A4 area: 15.8 cm2 RA A4 area: 11.6 cm2 TAPSE: 2.1 cm Time Measurements MV dec time: 0.24 sec Doppler Measurements & Calculations MV E max mckinley: 63.4 cm/sec Lat Peak E' Mckinley: 12.1 cm/sec Med Peak E' Mckinley: 10.5 cm/sec MV A max mckinley: 72.3 cm/sec E/E' lat: 5.3 E/E' med: 6.0 MV E/A: 0.88 Ao V2 max: 143.8 cm/sec LV V1 max: 115.5 cm/sec MV dec slope: 268.1 cm/sec2 Ao max P.3 mmHg LV V1 max P.3 mmHg Ao V2 mean: 103.4 cm/sec LV V1 mean P.2 mmHg Ao mean P.6 mmHg LV V1 mean: 87.4 cm/sec Ao V2 VTI: 31.0 cm LV V1 VTI: 25.9 cm AV (velocity ratio): 0.84 BRIDEGTTE(I,D): 2.4 cm2 BRIDGETTE(V,D): 2.3 cm2 SV(LVOT): 75.2 ml PA V2 max: 100.4 cm/sec PA max PG (full): 2.3 mmHg ECHO/Echo Complete W/ Contrast Interpretation Summary Normal LV size. Left ventricular systolic function is normal. The left ventricular ejection fraction is 55 %. Stage 1 diastolic dysfunction. Contrast injection was performed. Ordering Physician: Tammie Deshpande Performed By: Agnes Delgado RDCS
[2024-02-07 23:36] LABS: Magnesium 2.2 mg/dL (1.6-2.6)
[2024-02-07] MEDS: 0.9% Normal Saline (1000mL) 1,000 ML 100 ML IV (23:56)
[2024-02-07] MEDS: 0.9% Saline Lock 10 ML Syringe IV (23:58)
[2024-02-08] VITALS (9 sets, daily range): BP systolic 128–143; BP diastolic 53–98; PULSE 65–77; RESP 14–18; TEMP 36.3–36.6; O2SAT 90–97; BMI 40.6
[2024-02-08] MEDS: Aspirin 325 MG Tablet PO
--- NOTE | 2024-02-08 04:58 | NURSING ---
Previously in the night, patient was noted to be 30% with a good waveform on overnight trending pulse. At that time, improved rapidly when pt woke up. Noted alarm again, responded to room to find SpO2 at 49% with a good waveform. Woke patient up and saturations improved rapidly to the 90s. Respiratory therapy notified. Patient placed on 2L nasal cannula at this time.
[2024-02-08 06:39] LABS: Absolute Lymphocyte Count 1.39 X10^3/uL (0.83-4.51); Basophil# 0.04 X10^3/uL; Basophil% 0.8 % (0-1); Eosinophil# 0.16 X10^3/uL; Eosinophils% 3.1 % (0-5); Hematocrit 44.7 % (37-47); Hemoglobin 14.1 g/dL (12.0-15.0); Lymphocyte # 1.39 X10^3/ul (0.83-4.51); Lymphocyte % 27.3 % (19-41); Mean Corp Hgb Conc 31.5 g/dL (32-36); Mean Corpuscular Hgb 29.6 pg (27.0-32.0); Mean Corpuscular Volume 93.9 fL (81-99); Mean Platelet Vol. 10.2 fl (6.2-12.0); Monocyte% 9.8 % (0-10); NRBC Flagged by Analyzer 0 % (0-5); Neutrophil # 3.01 X10^3/uL (2.7-7.7); Platelet Count 243 K/mm3 (150-450); RBC Distribution Width CV 13.4 % (11.6-14.6); RBC Distribution Width SD 46.2 fl (35.1-43.9); Red Blood Count 4.76 M/mm3 (4.2-5.4); White Blood Count 5.1 K/mm3 (4.4-11.0)
[2024-02-08] MEDS: Meclizine HCl 25 MG Tablet PO ×2 (06:49→13:34)
[2024-02-08 07:15] LABS: AST(SGOT) 13 U/L (15-37); Alanine Aminotransfer ALT/SGPT 13 U/L (13-56); Alkaline Phosphatase 59 U/L (45-117); Anion Gap 5 (5-15); BUN 14 mg/dL (7-18); BUN/Creat Ratio 21.7 RATIO (10-20); Calcium,Total 8.6 mg/dL (8.5-10.1); Chloride 108 mmol/L (98-107); Cholesterol 153 mg/dL (200); Creatinine, Serum 0.64 mg/dL (0.55-1.02); EST Glomerular Filtration Rate 97 mL/min (>60); Est Glom Filt Rate - Afr Amer 117 mL/min (>60); Estimated Creatinine Clearance 74.07 ml/min; Glucose 96 mg/dL (74-106); High Density Lipoprotein 46 mg/dL; Potassium 3.7 mmol/L (3.5-5.1); Sodium Level 142 mmol/L (136-145); Triglycerides 55 mg/dL; Very Low Density Lipoprotein 11 mg/dL (5-40)
--- NOTE | 2024-02-08 07:50 | PCM.PN.HOSP ---
Reason for Visit Reason for Visit: Diagnoses Unsteadiness on feet (02/07/24) Dizziness and giddiness (02/07/24) Subjective Subjective Patient is a 68-year-old lady admitted with dizziness of 2 days duration Objective Data Objective Data Vital Signs: Vital Signs Temp Pulse Resp BP Pulse Ox O2 Del Method O2 Flow Rate 97.5 F L 65 16 132/72 H 97 Room Air 2 02/08/24 05:23 02/08/24 05:23 02/08/24 05:23 02/08/24 05:23 02/08/24 05:23 02/08/24 05:23 02/08/24 04:40 FiO2 21 02/08/24 00:55 Oxygen Flow Rate (L/min) 2 Oxygen Delivery Method Room Air Weight: 104.1 kg Body Mass Index (BMI) 40.6 Intake & Output: Intake and Output for Last 24 Hours 02/06/24 02/07/24 02/08/24 23:59 23:59 23:59 Intake Total 220 / 220 0 / 0 Balance 220 / 220 0 / 0 Lab / Micro Data 02/08/24 06:05 02/08/24 06:05 Labs: Laboratory Results - last 24 hr 02/07/24 16:44: WBC 4.8, RBC 5.05, Hgb 14.8, Hct 47.0, MCV 93.1, MCH 29.3, MCHC 31.5 L, RDW Std Deviation 45.9 H, RDW Coeff of Shira 13.4, Plt Count 248, MPV 10.0, Immature Gran % (Auto) 0.200, Neut % (Auto) 56.7, Lymph % (Auto) 30.4, Elliott % (Auto) 9.4, Eos % (Auto) 2.3, Baso % (Auto) 1.0, Absolute Neuts (auto) 2.7, Absolute Lymphs (auto) 1.45, Nucleated RBC % 0, Sodium 140, Potassium 3.8, Chloride 104, Carbon Dioxide 32.0, Anion Gap 4 L, BUN 15, Creatinine 0.71, Est GFR (MDRD) Af Amer 104, Est GFR (MDRD) Non-Af 86, BUN/Creatinine Ratio 21.0 H, Glucose 98, Calcium 9.9, Magnesium 2.2 02/08/24 06:05: WBC 5.1, RBC 4.76, Hgb 14.1, Hct 44.7, MCV 93.9, MCH 29.6, MCHC 31.5 L, RDW Std Deviation 46.2 H, RDW Coeff of Shira 13.4, Plt Count 243, MPV 10.2, Immature Gran % (Auto) 0.000, Neut % (Auto) 59.0, Lymph % (Auto) 27.3, Elliott % (Auto) 9.8, Eos % (Auto) 3.1, Baso % (Auto) 0.8, Absolute Neuts (auto) 3.0, Absolute Lymphs (auto) 1.39, Nucleated RBC % 0, Sodium 142, Potassium 3.7, Chloride 108 H, Carbon Dioxide 29.0, Anion Gap 5, BUN 14, Creatinine 0.64, Estim Creat Clear Calc 74.07, Est GFR (MDRD) Af Amer 117, Est GFR (MDRD) Non-Af 97, BUN/Creatinine Ratio 21.7 H, Glucose 96, Calcium 8.6, Total Bilirubin 0.60, AST 13 L, ALT 13, Alkaline Phosphatase 59, Total Protein 6.0 L, Albumin 3.0 L, Globulin 3.0, Albumin/Globulin Ratio 1.0, Triglycerides 55, Cholesterol 153, LDL Cholesterol 96, VLDL Cholesterol 11, HDL Cholesterol 46, TSH 3.150 Radiography Diagnostic Testing: Radiology Impression Brain CT 02/07/24 18:45 IMPRESSION: 1. Negative unenhanced CT scan of the brain. Electronically Signed: David Barrow MD at 21:04 EDT Reading Location ID and State: [address] [place] [address] , Service support , Physical Exam Narrative GENERAL: cooperative HEENT: Atraumatic; normocephalic EYES; Anicteric, Normal Conjunctiva NECK; supple, normal thyroid, RESPIRATORY: Diminished to auscultation CARDIOVASCULAR: Regular S1 S2, GI: soft, normoactive bowel sounds, : No Renal angle tenderness; EXTREMITIES: No edema, no clubbing, MUSCULOSKELETAL: no muscle wasting NEURO: Awake; no lateralizing signs. SKIN: No Rash PSYCH; Flat affect Assessment & Plan Assessment/Plan (1) Unsteady gait: (2) Vertigo: PLAN: Plan A 68-year-old female admitted with acute vertigo 1. Acute vertigo ? Suspected to secondary to BPPV. Patient has already been admitted to a monitored bed posterior circulation be ruled out with an MRI 2. Hypertension ? Blood pressure controlled, home medications continued with dose adjustment as needed 3. Class III obesity with BMI of 42.0 ? Complicating care weight loss advised 4. Osteoporosis ? Patient is on alendronate q. weekly 5. Overreactive bladder ? Patient is on mirabegron, continue 6. DVT prophylaxis ? On enoxaparin Charges/Coding Visit Charges Inpatient E&M: 42308 Subs Hosp L2
--- NOTE | 2024-02-08 09:00 | MRI_ITS ---
STUDY: MRI BRAIN WITHOUT CONTRAST REASON FOR EXAM: Female, 68 years old. Vertigo TECHNIQUE: Standardized multiplanar fat and water weighted pulse sequences were obtained. COMPARISON: CTA brain CT brain February 07, 2024 FINDINGS: Normal size of the ventricles and extra-axial spaces for the patient''s age. Normal white matter tracts of the supratentorial brain. There is no evidence for recent intracranial ischemia or other cause of cytotoxic edema on diffusion weighted imaging (DWI). Remote lacunar infarct right caudate. Normal thalami. There is no extra-axial fluid accumulation. Normal flow voids within the major intracranial circulation suggesting patency by spin echo criteria. Normal sella turcica, pituitary gland, infundibular stalk, optic chiasm and hypothalamus. Normal tectal plate and pineal gland. Normal midbrain, tee and medulla. Normal cerebellum. Normal basal cisterns. Normal bilateral temporal bones. Normal bilateral internal auditory canals. No demonstrated orbital abnormality, within the constraints of a routine brain study. Normal visualized paranasal sinuses. Normal calvarium and skull base. Normal visualized soft tissue structures. Normal visualized upper cervical spine. MRI/Brain without Contrast IMPRESSION: No acute disease Electronically Signed: Francis Koch MD at 16:32 EDT ,
[2024-02-08] MEDS: Vibegron 75 MG TABLET PO (10:07)
[2024-02-08] MEDS: Aspirin 81 MG TAB.CHEW PO (10:07)
[2024-02-08] MEDS: Enoxaparin 40 MG/0.4 ML Syringe SC (10:08)
--- NOTE | 2024-02-08 13:08 | CASEMGMT ---
MALI ARTHUR NOTE: Per therapy, aramals completed, pt ambulated w/hallway w/use of walker, and FWW is recommended. They also state vestibular therapy may be helpful and Dr Ortega provided script for OP vestibular therapy. Per therapy, pt did report some lightheadedness while ambulating in hallway and they state they will notify RN. MALI ARTHUR to room. Introduced self and role. Pt resting in bed. Discussed discharge planning. Pt states she lives in a [id number] suite next to her son and dtr-in-law. She states is aware a FWW is recommended and if needed, she would be agreeable to have one sent home w/her @ [place], and aware this would be billed through her insurance. She denies having preference of DME co and okay w/getting one through [facility]. She is aware they are affiliated w/[facility]. Discussed OP/vestibular therapy. She states she has done this in the past and it was helpful after just one therapy session but she is not sure if she will go again or if it will be needed. She states [place] it [place] so she can use if she decides to do this and aware she can take to any location of choice. She states her dtr-in-law would most likely be able to take her, but if not, she was made aware of [facility] tranportation option. She denies having other discharge needs/concerns. Green sheet placed on chart w/scripts for FWW and OP/vestibular therapy. FWW to be sent home w/pt and script for OP therapy to be given to pt. Tom DUTTON RN, CM
--- NOTE | 2024-02-08 14:27 | PCM.DC.SUM ---
Providers Date of Admission: 02/07/24 Date of Discharge: 02/08/24 Primary Care Physician: Dr. Jamie Polanco MD Reason For Visit: VERTIGO/IMBALANCE Diagnosis Discharge Diagnosis (1) Unsteady gait: Status: Acute Code(s): R26.81 - Unsteadiness on feet (2) Vertigo: Status: Acute Code(s): R42 - Dizziness and giddiness Plan A 68-year-old female admitted with acute vertigo 1. Acute vertigo ? Suspected to secondary to BPPV. Patient has already been admitted to a monitored bed posterior circulation be ruled out with an MRI ? Subsequent evaluation with a 2D echo did show Normal LV size. Left ventricular systolic function is normal. The left ventricular ejection fraction is 55 %. Stage 1 diastolic dysfunction. -MRI of the brain did show no acute disease. Was discharged home with outpatient vestibular therapy 2. Hypertension ? Blood pressure controlled, home medications continued with dose adjustment as needed 3. Class III obesity with BMI of 42.0 ? Complicating care weight loss advised 4. Osteoporosis ? Patient is on alendronate q. weekly 5. Overreactive bladder ? Patient is on mirabegron, continue 6. DVT prophylaxis ? On enoxaparin Medications at Discharge Home Medications alendronate 70 mg tablet 70 mg PO QWEEK 01/30/22 mirabegron 50 mg tablet,extended release 24 hr (Myrbetriq) 50 mg PO DAILY 01/30/22 calcium carbonate 500 mg-vitamin D3 3.125 mcg (125 unit) tablet 1 tab PO BID 02/07/24 hydrochlorothiazide 12.5 mg capsule 12.5 mg PO DAILY 02/07/24 losartan 25 mg tablet 25 mg PO DAILY 02/07/24 meclizine 25 mg tablet 25 mg PO TID #20 tabs 02/08/24 Physical Exam Narrative GENERAL: cooperative HEENT: Atraumatic; normocephalic EYES; Anicteric, Normal Conjunctiva NECK; supple, normal thyroid, RESPIRATORY: Diminished to auscultation CARDIOVASCULAR: Regular S1 S2, GI: soft, normoactive bowel sounds, : No Renal angle tenderness; EXTREMITIES: No edema, no clubbing, MUSCULOSKELETAL: no muscle wasting NEURO: Awake; no lateralizing signs. SKIN: No Rash PSYCH; Flat affect Weight / BMI Weight Weight: 104.1 kg Body Mass Index (BMI) 40.6 ABG / Lab / Microbiology Data 02/08/24 06:05 02/08/24 06:05 Laboratory: Laboratory Results - last 24 hr 02/07/24 16:44: WBC 4.8, RBC 5.05, Hgb 14.8, Hct 47.0, MCV 93.1, MCH 29.3, MCHC 31.5 L, RDW Std Deviation 45.9 H, RDW Coeff of Shira 13.4, Plt Count 248, MPV 10.0, Immature Gran % (Auto) 0.200, Neut % (Auto) 56.7, Lymph % (Auto) 30.4, [place] % (Auto) 9.4, Eos % (Auto) 2.3, Baso % (Auto) 1.0, Absolute Neuts (auto) 2.7, Absolute Lymphs (auto) 1.45, Nucleated RBC % 0, Sodium 140, Potassium 3.8, Chloride 104, Carbon Dioxide 32.0, Anion Gap 4 L, BUN 15, Creatinine 0.71, Est GFR (MDRD) Af Amer 104, Est GFR (MDRD) Non-Af 86, BUN/Creatinine Ratio 21.0 H, Glucose 98, Calcium 9.9, Magnesium 2.2 02/08/24 06:05: WBC 5.1, RBC 4.76, Hgb 14.1, Hct 44.7, MCV 93.9, MCH 29.6, MCHC 31.5 L, RDW Std Deviation 46.2 H, RDW Coeff of Shira 13.4, Plt Count 243, MPV 10.2, Immature Gran % (Auto) 0.000, Neut % (Auto) 59.0, Lymph % (Auto) 27.3, [place] % (Auto) 9.8, Eos % (Auto) 3.1, Baso % (Auto) 0.8, Absolute Neuts (auto) 3.0, Absolute Lymphs (auto) 1.39, Nucleated RBC % 0, Sodium 142, Potassium 3.7, Chloride 108 H, Carbon Dioxide 29.0, Anion Gap 5, BUN 14, Creatinine 0.64, Estim Creat Clear Calc 74.07, Est GFR (MDRD) Af Amer 117, Est GFR (MDRD) Non-Af 97, BUN/Creatinine Ratio 21.7 H, Glucose 96, Calcium 8.6, Total Bilirubin 0.60, AST 13 L, ALT 13, Alkaline Phosphatase 59, Total Protein 6.0 L, Albumin 3.0 L, Globulin 3.0, Albumin/Globulin Ratio 1.0, Triglycerides 55, Cholesterol 153, LDL Cholesterol 96, VLDL Cholesterol 11, HDL Cholesterol 46, TSH 3.150 Radiography Diagnostic Testing: Radiology Impression Brain CT 02/07/24 18:45 IMPRESSION: 1. Negative unenhanced CT scan of the brain. Electronically Signed: David Barrow MD at 21:04 EDT Reading Location ID and State: [facility] / [place] , Service support , D/C Instructions Discharge Diet: No restrictions Discharge Activity: Return to Normal Activity Call your doctor if you observe: Fever of 101 or Higher, Shortness of breath, Fainting spells and Chest pain Meaningful Use Info Meaningful Use Meaningful Use Diagnoses (Choose all that apply): None applicable Ischemic Stroke Statin Dosing Therapy Reference: STATIN DOSE THERAPY REFERENCE: * Patients > 75 years receive moderate or high dose statin therapy. * Patients 75 years or YOUNGER should receive HIGH intensity statin dose unless contraindicated. You will be required to document reason for non-treatment if statin daily dose does not meet guidelines. HIGH DOSE STATIN THERAPY DAILY Atorvastatin > than or = to 40 mg Rosuvastatin > than or = to 20 mg Amlodipine + Atorvastatin > than or = to 2.5/40 mg Ezetimibe + Simvastatin 10/80 mg Simvastatin 80mg Discharge Plan Admission Admit Date/Time: 02/07/24 21:37 Attending Provider: Kalin Ortega Primary Care Provider: Jamie Polanco Consulting Providers: Tammie Deshpande Discharge Orders/Prescriptions Prescriptions: New meclizine 25 mg tablet 25 mg PO TID Qty: 20 0RF Continued Myrbetriq 50 mg tablet extended release 24 hr 50 mg PO DAILY alendronate 70 mg tablet 70 mg PO QWEEK losartan 25 mg tablet 25 mg PO DAILY calcium carbonate-vitamin D3 500 mg-3.125 mcg (125 unit) tablet 1 tab PO BID hydrochlorothiazide 12.5 mg capsule 12.5 mg PO DAILY Referrals / Follow Up: Jamie Polanco MD [Primary Care Provider] - Disposition Disposition (needs filled in before D/C Order can be placed): Home, Self Care Charges/Coding Visit Charges Inpatient E&M: 81596 Disch Hosp >30min
[2024-02-10 08:04] LABS: Hemoglobin A1c 5.9 % (3.8-5.6)
== END 2024-02-08 16:43 | disposition home or self-care (01) ==
LOC: ED 21:26 → PCU 02-08 02:05
PROVIDERS: Admitting Provider Family Medicine; Emergency Provider Emergency Medicine; PCP Family Medicine; Visit Provider Internal Medicine
DX: R42 Dizziness and giddiness (principal); Z68.41 Body mass index [BMI] 40.0-44.9, adult; E66.01 Morbid (severe) obesity due to excess calories; I10 Essential (primary) hypertension; R26.81 Unsteadiness on feet; Z87.891 Personal history of nicotine dependence; Z79.899 Other long term (current) drug therapy; N32.81 Overactive bladder; M81.0 Age-related osteoporosis without current pathological fracture
CPT/HCPCS: 36415; 70450; 70496; 70498; 70551; 80048; 80053; 80061; 83036; 83735; 84443; 85025; 92610; 93005; 93306; 94762; 96361; 96372; 96374; 97162; 97166; 99221; 99285; J7030; Q9957; Q9967; A4216; C8929; G0378

== ENCOUNTER 2024-02-25 15:21 | Emergency (ER) | payer OTHER, SELFPAY ==
[2024-02-25] VITALS (7 sets, daily range): BP systolic 135–169; BP diastolic 69–92; PULSE 58–91; RESP 16–18; TEMP 36.2–36.7; O2SAT 95–99
[2024-02-25] MEDS: Meclizine HCl 25 MG Tablet PO (16:09)
[2024-02-25] MEDS: Acetaminophen 500 MG Tablet 1000 MG PO (16:32)
--- NOTE | 2024-02-25 17:29 | EDS_ITS ---
HPI History of Present Illness Chief Complaint: Dizziness Informant: patient Narrative Narrative: Dizziness with spinning while driving to work today. No nausea or vomiting. States headache. Denies head injuries. Similar symptoms ever worsen earlier this month, states he had multiple imagings that were negative. She is sent home with meclizine. States she would have in the mornings will take it and it would help her. She has been doing physical therapy last seen yesterday. She is shown maneuvers. She states yesterday was told by the therapist to stop her meclizine. However driving today she did have her medication she came dizzy she came to emergency department. Unsteady gait. Prior to earlier this month no similar symptoms in the past. She feels sinus congestion on the way to work today. No ear pain drainage or ringing. Prior similar symptoms: Yes PFSH PFSH Medical History BPPV (benign paroxysmal positional vertigo) Obesity Suspected sleep apnea Hypertension Home Medications ?Medication ?Instructions ?Recorded ?Last Taken ?Type alendronate 70 mg tablet 70 mg PO QWEEK 01/30/22 Unknown History mirabegron 50 mg tablet,extended 50 mg PO DAILY 01/30/22 Unknown History release 24 hr (Myrbetriq) calcium carbonate 500 mg-vitamin 1 tab PO BID 02/07/24 Unknown History D3 3.125 mcg (125 unit) tablet hydrochlorothiazide 12.5 mg capsule 12.5 mg PO DAILY 02/07/24 Unknown History losartan 25 mg tablet 25 mg PO DAILY 02/07/24 Unknown History meclizine 25 mg tablet 25 mg PO TID #20 tabs 02/08/24 Unknown Rx Allergy/AdvReac Type Severity Reaction Status Date / Time venom-honey bee Allergy Unknown Verified 02/25/24 15:23 lisinopril AdvReac headache Verified 02/25/24 15:23 Family History Mother Diabetes Father Heart disease Surgical History History of bilateral tubal ligation History of back surgery Social History household members: children and other details: Her son and her live in the same house on different sides. Smoking Status: Former smoker how long ago did patient quit smoking: Quit ~ 25 yrs prior, smoked 1/2 ppd since 16 years old until quit. alcohol intake: never substance use type: does not use EXAM Physical Exam Const Vital Signs: 02/25/24 15:23 02/25/24 17:23 02/25/24 17:23 Temperature 97.2 F L Temperature Source Temporal Pulse Rate 77 91 58 L Respiratory Rate 18 16 16 Blood Pressure 137/87 H 135/69 H 135/69 H Blood Pressure Mean 103 91 91 Pulse Ox 95 95 Oxygen Delivery Method Room Air 02/25/24 19:00 02/25/24 19:05 02/25/24 20:03 Temperature 97.6 F L Temperature Source Pulse Rate 78 Respiratory Rate 18 Blood Pressure 136/92 H 136/92 H Blood Pressure Mean 106 106 Pulse Ox 98 98 98 Oxygen Delivery Method Room Air Room Air 02/25/24 21:00 Temperature Temperature Source Pulse Rate 78 Respiratory Rate Blood Pressure 165/91 H Blood Pressure Mean 115 Pulse Ox 99 Oxygen Delivery Method Room Air Positive well nourished and well developed General Appearance ED: well developed and NAD HEENT Reports TM's clear and moist mucous membranes normocephalic and atraumatic Tympanic Membrane ED: Yes TM's clear Eyes PERRL, EOMs intact bilaterally and conjunctivae normal Eyes Narrative: No nystagmus General Eye ED: Yes normal appearance of both eyes Neck no lymphadenopathy and supple General: Negative for tenderness Chest Wall Chest: Negative for tenderness Resp normal respiratory effort and normal air movement Effort and Inspection: symmetric chest movement; Negative for respiratory distress Cardio regular rate, regular rhythm and no murmurs Peripheral Pulses: pulses 2+ throughout GI normal to inspection, nondistended, normoactive bowel sounds and non-tender Palpation: Negative for guarding or rebound tenderness present Back/Spine no CVA tenderness and no thoracic nor lumbar tenderness Extremity normal to inspection General Extremety ED: Negative for edema or tenderness General Extremity: Negative for edema Neuro oriented x3, CN's II-XII intact bilaterally and no sensory deficits noted Neuro Narrative: No focal deficits. NIH of 0. Sensorium / Orientation: awake and alert Skin no rashes or lesions noted and no wounds MDM MDM MDM Narrative Medical decision making narrative: Interventions / MDM: Differential diagnosis: Vertigo Diagnosis considered but do not suspect: ACS however EKG with no ischemic findings cardiac enzymes negative. My EKG interpretation: Sinus rhythm rate of 63, no ST or T wave changes. Imaging independently reviewed and interpreted by myself: 1 view chest x-ray: No acute process also read by radiology. External documents reviewed: Workup from earlier this month CT CT angiogram negative. MRI was negative. Test considered but not ordered:N/A ED course: Vertigo symptoms extensive workup recently with on and off symptoms. He has no nystagmus no focal deficits. Meclizine ordered in the ED will monitor. Reevaluation mildly improved symptoms ambulate here she is still has slight vertigo. Valium ordered for further treatment. Tylenol given for headache symptoms. 1919: Reevaluation after Valium clinically feeling better is ambulating more stability. However he states she had some chest, after taking the Valium. Headache improved. EKG ordered. 1939: EKG normal. 1954: Given water states she had mild burning discomfort in her mid chest. Cardiac labs will be ordered for further evaluation due to new symptoms while in the emergency room. 2224: Currently chest pain-free. Initial cardiac enzymes negative. Chest x-ray negative. Awaiting results of delta troponin. 2301: Delta troponin negative. Remains symptom-free. Vertigo symptoms also improved. Discharged with return precautions. Work note provided. Re-evaluation: stable Disposition discussed with patient/family/significant other: Patient Case discussed with consulting clinician: N/A This note was generated with [employer] dictation software. It may contain incorrect words, spelling, and punctuation that were not noted in checking the note before signing. Lab Data Attestation: I reviewed the patient's lab results. Labs: Laboratory Results - last 24 hr 02/25/24 02/25/24 20:00 21:58 WBC 5.5 RBC 4.99 Hgb 14.7 Hct 46.4 MCV 93.0 MCH 29.5 MCHC 31.7 L RDW Std Deviation 45.4 H RDW Coeff of Shira 13.4 Plt Count 254 MPV 9.8 Immature Gran % (Auto) 0.200 Neut % (Auto) 57.5 Lymph % (Auto) 28.8 [place] % (Auto) 10.0 Eos % (Auto) 2.6 Baso % (Auto) 0.9 Absolute Neuts (auto) 3.2 Absolute Lymphs (auto) 1.58 Nucleated RBC % 0 Sodium 140 Potassium 3.9 Chloride 106 Carbon Dioxide 31.0 Anion Gap 3 L BUN 15 Creatinine 0.73 Est GFR (MDRD) Af Amer 101 Est GFR (MDRD) Non-Af 84 BUN/Creatinine Ratio 20.6 H Glucose 105 Calcium 9.0 Troponin I High Sens 6 7 Radiography Diagnostic Testing: Clinical Impression(s) from Imaging Studies Chest X-Ray 02/25/24 20:05 IMPRESSION: No radiographic evidence of acute cardiopulmonary disease. Electronically Signed: Miles Abrams MD at 20:48 EDT , Discharge Plan Triage Chief Complaint: Dizziness ED Provider: Piero Gregory Dx/Rx/DC Orders Clinical Impression: Vertigo, Chest pain Instructions: ED Chest Pain, Uncertain Cause, ED Vertigo, Unspecified Prescriptions: No Action Myrbetriq 50 mg tablet extended release 24 hr 50 mg PO DAILY alendronate 70 mg tablet 70 mg PO QWEEK losartan 25 mg tablet 25 mg PO DAILY calcium carbonate-vitamin D3 500 mg-3.125 mcg (125 unit) tablet 1 tab PO BID hydrochlorothiazide 12.5 mg capsule 12.5 mg PO DAILY meclizine 25 mg tablet 25 mg PO TID Qty: 20 0RF Stand Alone Forms: ED Work / School Excuse Primary Care Provider: Jamie Polanco Referrals: Jamie Polanco MD [Primary Care Provider] - 3-5 Days Activity Restrictions/Additional Instructions: Recurrent vertigo symptoms. Your recent workup negative CT and MRIs. Symptoms improved medication ED. He developed chest pain in the ED. Cardiac workup negative including 2 heart enzymes. Follow-up with your doctor. If you develop recurrent symptoms worsen, return to the ED for reevaluation. Print Language: Danish Disposition Disposition: Home, Self Care
[2024-02-25] MEDS: diazePAM 5 MG Tablet 2.5 MG PO (17:52)
--- NOTE | 2024-02-25 19:55 | EKG12_ITS ---
Test Reason : DYSRHYTHMIA Blood Pressure : / mmHG Vent. Rate : 063 BPM Atrial Rate : 063 BPM P-R Int : 142 ms QRS Dur : 068 ms QT Int : 456 ms P-R-T Axes : 049 027 029 degrees QTc Int : 466 ms Normal sinus rhythm Normal ECG Confirmed by Michelet Langford ([id number]), script editor TUCKER SIMMONS ([id number]) on 02/26/2024 10:34:11 AM Referred By: Confirmed By:Michelet Langford
--- NOTE | 2024-02-25 20:05 | RAD_ITS ---
EXAM: XR CHEST, 1 VIEW CLINICAL INDICATION: chest pain TECHNIQUE: Frontal view of the chest. COMPARISON: 11/26/2019 FINDINGS: LUNGS AND PLEURAL SPACES: Unremarkable. No consolidation or edema. No pneumothorax. No effusion. HEART: Unremarkable. Cardiac silhouette not enlarged. MEDIASTINUM: Central airways and mediastinal contour are unremarkable. BONES/JOINTS: Unremarkable. No acute fracture. SOFT TISSUES: Unremarkable. RAD/Chest 1 View (Portable) IMPRESSION: No radiographic evidence of acute cardiopulmonary disease. Electronically Signed: Miles Abrams MD at 20:48 EDT ,
[2024-02-25 20:07] LABS: Absolute Lymphocyte Count 1.58 X10^3/uL (0.83-4.51); Absolute Neutrophil Count 3.2 X10^3/uL (2.0-7.7); Basophil# 0.05 X10^3/uL; Basophil% 0.9 % (0-1); Eosinophil# 0.14 X10^3/uL; Eosinophils% 2.6 % (0-5); Hematocrit 46.4 % (37-47); Hemoglobin 14.7 g/dL (12.0-15.0); Lymphocyte # 1.58 X10^3/ul (0.83-4.51); Lymphocyte % 28.8 % (19-41); Mean Corp Hgb Conc 31.7 g/dL (32-36); Mean Corpuscular Hgb 29.5 pg (27.0-32.0); Mean Platelet Vol. 9.8 fl (6.2-12.0); Monocyte# 0.55 X10^3/uL; NRBC Flagged by Analyzer 0 % (0-5); Neutrophil # 3.15 X10^3/uL (2.7-7.7); Neutrophil % 57.5 % (47-70); Platelet Count 254 K/mm3 (150-450); RBC Distribution Width CV 13.4 % (11.6-14.6); RBC Distribution Width SD 45.4 fl (35.1-43.9); Red Blood Count 4.99 M/mm3 (4.2-5.4); White Blood Count 5.5 K/mm3 (4.4-11.0)
[2024-02-25 20:50] LABS: Anion Gap 3 (5-15); BUN 15 mg/dL (7-18); BUN/Creat Ratio 20.6 RATIO (10-20); Chloride 106 mmol/L (98-107); Creatinine, Serum 0.73 mg/dL (0.55-1.02); EST Glomerular Filtration Rate 84 mL/min (>60); Est Glom Filt Rate - Afr Amer 101 mL/min (>60); Glucose 105 mg/dL (74-106); Potassium 3.9 mmol/L (3.5-5.1); Sodium Level 140 mmol/L (136-145); Troponin-I HS (w/2H Reflex) 6 pg/mL (3.0-54.0)
[2024-02-25 22:04] LABS: Reflex Troponin-HS? (from REC) Y
[2024-02-25 23:01] LABS: Troponin-I HS 7 pg/mL (3.0-54.0)
== END 2024-02-25 23:21 | disposition home or self-care (01) ==
PROVIDERS: Emergency Provider Emergency Medicine; PCP Family Medicine; Visit Provider Emergency Medicine
DX: H81.10 Benign paroxysmal vertigo, unspecified ear (principal); R51.9 Headache, unspecified; R07.89 Other chest pain; I10 Essential (primary) hypertension; E66.9 Obesity, unspecified; Z79.899 Other long term (current) drug therapy; Z87.891 Personal history of nicotine dependence
CPT/HCPCS: 71045; 80048; 84484; 85025; 93005; 99285; A4216

== ENCOUNTER → 2024-02-28 | Outpatient (CLI) | payer OTHER, SELFPAY ==
[2024-02-28 12:41] LABS: ALB/GLOB Ratio 0.9 RATIO (0.9-2.4); AST(SGOT) 13 U/L (15-37); Alanine Aminotransfer ALT/SGPT 16 U/L (13-56); Albumin, Serum 3.2 g/dL (3.2-5.0); Alkaline Phosphatase 76 U/L (45-117); Anion Gap 3 (5-15); BUN 15 mg/dL (7-18); BUN/Creat Ratio 17.2 RATIO (10-20); Calcium,Total 9.1 mg/dL (8.5-10.1); Chloride 105 mmol/L (98-107); Cholesterol 159 mg/dL (200); Creatinine, Serum 0.87 mg/dL (0.55-1.02); EST Glomerular Filtration Rate 68 mL/min (>60); Est Glom Filt Rate - Afr Amer 82 mL/min (>60); Globulin 3.5 g/dL (2.2-4.2); Glucose 94 mg/dL (74-106); High Density Lipoprotein 44 mg/dL; Potassium 3.5 mmol/L (3.5-5.1); Protein, Total 6.7 g/dL (6.4-8.2); Sodium Level 140 mmol/L (136-145); Triglycerides 139 mg/dL; Very Low Density Lipoprotein 28 mg/dL (5-40)
[2024-02-28 13:07] LABS: Bacteria 0 SEEN /hpf (None Seen); Mucous, Urine 0 SEEN /hpf (<or=2+); Red Blood Cells-Urine 0 SEEN /hpf (0-5); White Blood Cells 0 SEEN /hpf (0-5)
[2024-02-28 14:00] LABS: Color, Urine Yellow (Yellow); Glucose, Dipstick Normal (Normal); Ketone-Dipstick Negative (Negative); Leukocyte Esterase-Dipstick Negative /ul (Negative); Nitrite-Dipstick Negative (Negative); Occult Blood-Urine Negative /ul (Negative); Protein-Dipstick Negative (Negative); Urine Bilirubin Dipstick Negative (Negative); Urine Clarity Clear (Clear); Urine Urobilinogen Normal (Normal)
[2024-02-28 14:34] LABS: Squamous Epithelial Cells - UA 0-5 SEEN /hpf (5-10)
[2024-02-28 14:56] LABS: Hemoglobin A1c 5.9 % (3.8-5.6)
== END | disposition home or self-care (01) ==
LOC: LAB 11:42
PROVIDERS: PCP Family Medicine; Referring Provider Family Medicine; Visit Provider Family Medicine
DX: I10 Essential (primary) hypertension (principal); R73.09 Other abnormal glucose
CPT/HCPCS: 36415; 80053; 80061; 81001; 83036

== ENCOUNTER → 2024-02-28 | Outpatient (CLI) | payer OTHER, SELFPAY | END | disposition home or self-care (01) | LOC: SL 19:52 | PROVIDERS: PCP Family Medicine; Referring Provider Nurse Practitioner Family; Visit Provider Nurse Practitioner Family | DX: G47.30 Sleep apnea, unspecified (principal) | CPT/HCPCS: 95811 ==

== ENCOUNTER → 2024-03-13 | Outpatient (CLI) | payer OTHER, SELFPAY | END | disposition home or self-care (01) | LOC: SL 11:54 | PROVIDERS: PCP Family Medicine; Visit Provider Nurse Practitioner Family | DX: Z46.89 Encounter for fitting and adjustment of other specified devices (principal) ==

== ENCOUNTER 2024-03-30 12:30 | Outpatient (RCR) | payer OTHER, SELFPAY ==
--- NOTE | 2024-02-19 14:34 | HP.PTEVAL_ITS ---
Patient's Visit Information Visit Information Visit Information: LEANDRO FONTANEZ is a 68 year old F referred to Physical Therapy by Dr. Kalin Ortega MD with a diagnosis of vertigo. Date of Evaluation: 02/19/24 Physical Therapist: Robert Batista, DPT, OCS, CSCS Visit Plan Frequency: 1-2x /Week Duration: 2-4 Weeks Plan: 1-2x/week as needed for 2-4 weeks for positional treatments and balance as needed/gait progression Subjective Subjective: H/o vertigo. This bout started early in february. Got bad enough to visit ER 02/06. Getting up at night the room spins, eases quickly, stand up and it spins. Better now where it is more floaty and not spinny. Can wallk now but could not earlier in the month. Still has to be careful. Yucky in between these episodes. Looking up can cause. ER checked BP and O2, many tests, catscan. US to heart, MRI, All tests were OK. Meclizine given adn it helps. Still takes it. Seen at F since then and getting more meclizine. Balance is no good when spinning. Feels a little off. No falls, No AD used but has walker at home that she used at first. 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 Has to be careful with movements. Sleep is OK, maybe sleep apnea. Lives with son in house. All I. drives Ok. Objective Objective: Walks into PT I with wide ALEJANDRO, somewhat unsteady but able, slow to move upon standing. Trasnfers are I albeit slow chair and bed. Steps with 2 rails with either leg, holding on. cervical aROM WFL and without pain. - R HD. + L HD for up torsional nystagmus of 10 seconds. Treated with L mery and then negative test. Educated on keeping head movement to minimum and using walker as needed. Balance/Special Test Scores Functional Gait Assessment Score: 22 % Disability: 26.6700 Dizziness Score: 26 Goals Goal 1:: Pt feel 100% back to normal activity and sensations Goal Time Frame: 2-4 Weeks Goal 2:: 25/30 FGA to minimize fallr isk. Goal Time Frame: 2-4 Weeks Goal 3:: abolkish vertigo Goal Time Frame: 2-4 Weeks Goal 4:: DHI score 10 or less Goal Time Frame: 2-4 Weeks Rehabilitation Potential Physical Therapy Diagnosis: dizzyness with positional changes effecting balance and activity Rehabilitation Potential: Good Anticipated Interventions Patient/Client Instruction: Educate patient on: Condition and Plan of Care For the Purpose of:: To increase tolerance to activity/condition/position and To improve safety Therapeutic Exercise to Include: Balance training Comment: positional exercises and maneuvers. For the Purpose of:: To increase tolerance to activity/condition/position Text: Thank you for the opportunity to evaluate your patient. For Medicare and Medicare HMO plans, please review the plan of care and approve it. It will need to be FAXED BACK to us at [phone] for Medicare purposes. For Medicare only, by signing this I certify the plan of care. Please let me know if there are questions or concerns regarding this plan of care. Physician Signature: Date:
--- NOTE | 2024-03-30 13:04 | HP.PTDCSUM ---
Discharge Summary D/C summary: It has been my pleasure to treat LEANDRO FONTANEZ referred by Dr. Kalin Ortega MD, with the diagnosis of vertigo for a total of 6 visit(s). Discharge Date: 03/30/24 Please see the following information for a summary of their discharge status. Subjective Subjective: Same old aactivities. Still doing exercises daily, still gets a little bit lying and sitting up for short time. No other problems with dizzyness. Doing all activities at home normally. No doctor visit until August.Sleeps on back with pillow or on L side. Overall Improvement % Improvement: 99 Objective Objective/Function: FGA normal for age and much better than day one. - R HD adn still positive slight L HD for dizzyness and treated with mery again. Since no funcitonal deficts at this point and BD make her worse feeling adn nothing else does, then we shall stop the exercise at home adn pt to live life adn let doctor know if diuzzyness returns. culomotor WNL today without nystagmus , - skew eye deviation, - ocular tilt Goals Goal 1:: Pt feel 100% back to normal activity and sensations Goal Progress: 99% Goal 2:: FGA to minimize fallr isk. Goal Progress: Goal Met Goal 3:: abolkish vertigo Goal Progress: 99% Goal 4:: DHI score 10 or less Goal Progress: Progressing Plan Plan: d/c D/C Information Discharge Comments: Pt with stubbornly positive L HD but negative for any dizzyness now effecting her life and back to normal balance. Will hold on BD exercises which were the only thing stirring up her problem and let doctor know if problem resumes. Discontinue PT at this time. d/c sentence: If there are questions or concerns regarding this patient's physical therapy, please feel free to call me at [phone]. Thank you for the referral of this patient. Sincerely, Robert Batista, DPT, OCS, CSCS Balance/Gait/Functional tests Balance/Special Test Scores Functional Gait Assessment Score: 26 % Disability: 13.3400 Dizziness Score: 12 Improvement % Improvement: 99
== END 2024-03-30 19:00 | disposition home or self-care (01) ==
LOC: PT 12:30
PROVIDERS: PCP Family Medicine; Referring Provider Internal Medicine; Visit Provider Internal Medicine
DX: R42 Dizziness and giddiness (principal)
CPT/HCPCS: 97161; 97164; 97530

== ENCOUNTER → 2024-03-31 | Outpatient (CLI) | payer OTHER, SELFPAY ==
--- NOTE | 2024-03-31 13:31 | BI_ITS ---
MAMMOGRAPHY - BILATERAL SCREENING REASON FOR EXAM: Female, 68 years old. Routine annual screening examination. PERTINENT HISTORY: Non-contributory. TECHNIQUE: Digital bilateral breast neris (3D mammographic acquisition) in the CC and MLO projections. 2-D mediolateral oblique (MLO) and craniocaudad (CC) views of both breasts were obtained. CAD: Full Field Digital Mammography with Computer Added Detection was performed. COMPARISON: Comparison is made with prior study March 25, 2023 and March 22, 2022. FINDINGS: Breast Composition: The breasts are almost entirely fatty. There are no dominant masses or suspicious calcifications. Stable small benign-appearing bilateral axillary lymph nodes. No other significant abnormalities are identified. There has been no significant change since the prior study. BI/SCRN MAMM (CAD)W/NERIS BILAT IMPRESSION: Stable bilateral screening mammogram. Yearly follow-up mammogram recommended. (A) ASSESSMENT CATEGORY: BIRADS Category 2: Benign. A letter regarding these results will be sent to the patient by the facility within 30 days. Approximately 10% of breast cancers are not detected by mammography. A normal mammogram should not delay biopsy of a clinically suspicious abnormality. [id number] Electronically Signed: Aubrey Powell MD at 14:49 EDT ,
--- NOTE | 2024-03-31 13:35 | BD_ITS ---
STUDY: DUAL ENERGY X-RAY ABSORPTIOMETRY / DXA REASON FOR EXAM: Female, 68 years old. 733.00OsteoporosisBONE DENSITY REASON FOR EXAM TECHNIQUE: Bone Mineral Density (BMD) measurements of lumbar spine and bilateral hips were obtained. COMPARISON: Comparison is made with prior study March 22, 2022. FINDINGS: Lumbar Spine (L1-L4): g/cm2 (0.825) / T-score (-2.5) / Z-score (-0.2) Findings are suggestive of osteopenia with a high fracture risk. Left Femur Total: g/cm2 (0.672) / T-score (-2.2) / Z-score (-0.7) Left Femoral Neck: g/cm2 (0.501) / T-score (-3.1) / Z-score (-1.3) Right Femur Total: g/cm2 (0.695) / T-score (-2.0) / Z-score (-0.5) Right Femoral Neck: g/cm2 (0.544) / T-score (-2.7) / Z-score (-0.9) The T-Scores on the most recent prior examination were: Lumbar Spine (L1-L4): There has been worsening of bone density since the previous examination. Left Femur Total: which represents a worsening of 2.3%. Right Femur Total: which represents a worsening of 5.4%. BD/Dexa Bone Density Study IMPRESSION: The patient is considered osteoporotic as outlined below according to World Marcin Organization (WHO) criteria with a high fracture risk. There has been worsening of bone density since the previous examination. Reference Information: The T-score is the number of standard deviations above or below the standard which is normal for young adults at their peak bone mineral density. The World Health Organization (WHO) interprets the T-scores as follows: Above -1 Normal bone density Between -1 and -2.5 Osteopenia Equal to / or below -2.5 Osteoporosis As a practical clinical guideline, osteopenia may be graded as follows: Mild -1 through -1.5 Moderate -1.6 through -2.0 Severe -2.1 through -2.4 The Z-score is the number of standard deviations above or below age-matched controls. A Z-score of less than -1.5 would be considered abnormal. References: 1. NIH Osteoporosis and Related Bone Diseases www osteo.org 2. International Society for Clinical Densitometry www iscd.org 3. National Osteoporosis Foundation www nof.org Electronically Signed: Aubrey Powell MD at 13:49 EDT ,
--- OUTSIDE RECORDS SUMMARY | 2024-03-31 19:08 | XMS RPT_ITS | CCD ---
Author Organization [facility] Care Team Providers Care Pals Nurse Name Role Phone Jamie Juarez MD Primary Care Provider JAMIE JUAREZ Primary Care Unavailable VERONIQUE FUENTES Referring Unavailable Jamie Juarez MD Primary Care Provider [phone] JAMIE JUAREZ Primary Care Unavailable RONNIE LAY Referring Unavailable LARRY, JAMIE A Primary Care Unavailable LARRY, JAMIE Fatima Referring Unavailable LARRY, JAMIE A Primary Care Unavailable LARRY, JAMIE A Primary Care Unavailable EVE CUI Attending Unavailable LARRY, JAMIE A Primary Care Unavailable DAVID BERGER Referring Unavailable LARRY, JAMIE A Primary Care Unavailable DAVID BERGER Referring Unavailable LARRY, JAMIE A Primary Care Unavailable DAVID BERGER Referring Unavailable CANDELARIO HALL Attending Unavailable LARRY, JAMIE A Primary Care Unavailable DAVID BERGER Referring Unavailable CANDELARIO HALL Attending Unavailable LARRY, JAMIE A Primary Care Unavailable DAVID BERGER Referring Unavailable CANDELARIO HALL Attending Unavailable LARRY, JAMIE A Primary Care Unavailable LARRYJAMIE SR Attending Unavailable LARRY, JAMIE A Primary Care Unavailable SELF Referring Unavailable EVE CUI Attending Unavailable LARRY, JAMIE A Primary Care Unavailable LARRY, JAMIE A Referring Unavailable SHAHRZAD EWING Attending Unavailable LARRY, JAMIE A Primary Care Unavailable LARRY, JAMIE A Primary Care Unavailable RONNIE LAY Referring Unavailable DAVID BERGER Attending Unavailable LARRY, JAMIE A Primary Care Unavailable LARRY, JAMIE A Primary Care Unavailable ALBINA SALCEDO Referring Unavailable LARRY JAMIE A Attending Unavailable LARRY, JAMIE A Primary Care Unavailable MEME CROW Referring Unavailable LARRY, JAMIE A Primary Care Unavailable SHAHRZAD EWING Referring Unavailable LARRY, JAMIE A Referring Unavailable LARRY, JAMIE A Primary Care Unavailable LARRYJAMIE SR A Attending Unavailable LARRY, JAMIE A Primary Care Unavailable DAVID BERGER Referring Unavailable CANDELARIO HALL Attending Unavailable JAMIE JUAREZ Primary Care Unavailable DAVID BERGER Referring Unavailable JAMIE JUAREZ Primary Care Unavailable DAVID BERGER Referring Unavailable JAMIE JUAREZ Primary Care Unavailable JAMIE JUAREZ Referring Unavailable JAMIE JUAREZ Primary Care Unavailable JAMIE JUAREZ Referring Unavailable JAMIE JUAREZ Primary Care Unavailable SHAHRZAD EWING Referring Unavailable JAMIE JUAREZ Primary Care Unavailable JAMIE JUAREZ Primary Care Unavailable DAVID BERGER Referring Unavailable JAMIE JUAREZ Primary Care Unavailable DAVID BERGER Referring Unavailable CANDELARIO HALL Attending Unavailable Allergies Allergy Classification Reported Allergen(s) Allergy Type Date of Onset Reaction(s) Facility Angiotensin Converting Enzyme (STEVO) Inhibitors (1 source) Lisinopril Drug Allergy 11-27-2022 [facility] (20 sources) Bee Sting; Translations: [BEE STING] Propensity to adverse reactions 01-25-2015 [facility] Work Phone: (20 sources) Lisinopril; Translations: [LISINOPRIL] Drug Allergy 11-27-2022 [facility] Work Phone: Medications Current Medications Medication Drug Class(es) Dates Sig (Normalized) Sig (Original) acetaminophen 500 mg oral tablet (20 sources) take 2 tablets by mouth once daily acetaminophen (TYLENOL EXTRA STRENGTH) 500 mg tablet Take 1,000 mg by mouth once daily. Active alendronic acid 70 mg oral tablet (20 sources) Bisphosphonate Start: 08-02-2021 End: 01-01-2024 take 1 tablet by mouth every week alendronate (FOSAMAX) 70 mg tablet Take 1 tablet by mouth one time a week. Take with a full glass of water, on an empty stomach; do NOT lie down for 30minutes. 4 tablet 11 01/01/2024 Active Start: 02-05-2020 End: 01-27-2021 take 1 tablet by mouth every week alendronate (FOSAMAX) 70 mg tablet Take 1 tablet by mouth one time a week. Take with a full glass of water, on an empty stomach; do NOT lie down for 30minutes. 12 tablet 3 02/05/2020 01/27/2021 Discontinued Comment on above: Take 1 tablet by [facility] one time a week. Take with a full glass of water, on an empty stomach; do NOT lie down for 30minutes. amoxicillin 875 mg / clavulanate 125 mg oral tablet (2 sources) Penicillin-class Antibacterial Start: 11-04-19 End: 11-09-19 take 1 tablet by mouth twice daily amoxicillin-clavulan ic acid (AUGMENTIN) 875-125 mg per tablet Take 1 tablet by mouth twice daily for 5 days. 10 tablet 0 11/03/2022 11/08/2022 Active Comment on above: Take 1 tablet by [facility] twice daily for 5 days. azithromycin 250 mg oral tablet (3 sources) Macrolide Antimicrobial Start: 08-30-19 End: 09-04-19 azithromycin (ZITHROMAX Z-YAW) 250 mg tablet Take 2 tablets day one, then, 1 tablet daily until gone. 6 tablet 0 08/30/2023 09/04/2023 Active Start: 11-03-2022 End: 11-08-2022 take 2 tablets by mouth once daily, then take 1 tablet by mouth once daily azithromycin (ZITHROMAX) 250 mg tablet Take 2 tablets by mouth once daily for 1 day, THEN 1 tablet once daily for 4 days. 6 tablet 0 11/03/2022 11/08/2022 Active Comment on above: Take 2 tablets by [facility] once daily for 1 day, THEN 1 tablet once daily for 4 days. Take 2 tablets day o ne, then, 1 tablet daily until gone. calcium carbonate 1500 mg / cholecalciferol 1000 unt oral capsule (20 sources) Vitamin D Start: 2019 take 1 capsule by mouth twice daily calcium carbonate-vitamin D3 600mg (1,500mg) -1,000 unit cap Take 1 capsule by mouth twice daily. 02/04/2020 Active Comment on above: Take 1 capsule by [facility] twice daily. codeine phosphate 2 mg/ml / guaiFENesin 20 mg/ml oral solution (1 source) Opioid Agonist Start: 2022 End: 2022 take 5 mL by mouth three times daily as needed for cough codeine-guaiFENesin (ROBITUSSIN AC) 10-100 mg/5 mL syrup Indications: Bacterial pneumonia Take 5 mL by mouth three times daily as needed for cough for up to 5 days. 120 mL 0 11/05/2022 11/10/2022 Active Comment on above: Take 5 mL by mouth t hree times daily as needed for cough for up to 5 days. hydroCHLOROthiazide 12.5 mg oral capsule (17 sources) Thiazide Diuretic Start: 2023 take 1 capsule by mouth once daily hydroCHLOROthiazide 12.5 mg capsule Take 1 capsule by mouth once daily. 30 capsule 5 01/14/2024 Active losartan potassium 25 mg oral tablet (20 sources) Angiotensin 2 Receptor Werner Start: 2022 End: 2023 take 1 tablet by mouth once daily losartan (COZAAR) 25 mg tablet Indications: Hypertension, essential Take 1 tablet by mouth once daily. 90 tablet 1 03/02/2024 Active Start: 11-27-2022 take 1 tablet by maida th once daily losartan (COZAAR) 25 mg tablet Take 1 tablet by mouth once daily. 30 tablet 5 11/27/2022 Active Comment on above: Take 1 tablet by maida th once daily. meclizine hydrochloride 25 mg oral tablet (16 sources) Antiemetic Start: End: take 1 tablet by mouth three times daily meclizine (ANTIVERT) 25 mg tab Indications: Benign paroxysmal positional vertigo, unspecified laterality Take 1 tablet by mouth three times a day. 30 tablet 02/28/2024 Active Start: 07-04-2021 End: 11-27-2022 take 1 tablet by mouth every six hours as needed for dizziness and dizziness meclizine (ANTIVERT) 25 mg tab Indications: Dizziness Take 1 tablet by mouth every 6 hours as needed (dizziness). 60 tablet 1 07/04/2021 11/27/2022 Discontinued Comment on above: Take 1 tablet by maida th every 6 hours as needed (dizziness). methylPREDNISolone (1 source) Corticosteroid Start: 2023 End: 2023 methylPREDNISolone (MEDROL, YAW,) 4 mg Dose-Pack Follow dosing instructions, take with food. 21 tablet 0 08/30/2023 09/05/2023 Active Comment on above: Follow dosing instru ctions, take with food. 24 hr mirabegron 50 mg extended release oral tablet (20 sources) beta3-Adrenergic Agonist Start: 2021 End: 2023 take 1 tablet by mouth once daily mirabegron (MYRBETRIQ) 50 mg Tb24 Take 1 tablet by mouth once daily. 90 tablet 3 12/19/2023 Active Comment on above: Take 1 tablet by maida th once daily. multivitamin tablet (20 sources) take 1 tablet by mouth once daily multivitamin tablet Take 1 tablet by mouth once daily. Active take 1 tablet by mouth once jennifer y multivitamin tablet Take 1 tablet by mouth once daily. 0 Active Comment on above: Take 1 tablet by maida th once daily. predniSONE 20 mg oral tablet (1 source) Start: 10-11-2023 End: 10-16-2023 take 1 tablet by mouth once daily predniSONE (DELTASONE) 20 mg tablet Indications: Pain Take 1 tablet by mouth once daily for 5 days. 5 tablet 0 10/11/2023 10/16/2023 Active Completed/Discontinued Medications Medication Drug Class(es) Dates Sig (Normalized) Sig (Original) [id number] 200 actuat albuterol 0.09 mg/actuat metered dose inhaler (2 sources) beta2-Adrenergic Agonist Start: 06-14-2023 take 2 puff(s) by inhalation every six hours as needed albuterol HFA (PROAIR HFA) 90 mcg/actuation inhaler Indications: Viral URI Inhale 2 Puffs as instructed every 6 hours as needed. 1 Each 0 06/14/2023 Active Comment on above: Inhale 2 Puffs as in structed every 6 hours as needed. benzonatate 100 mg oral capsule (5 sources) Non-narcotic Antitussive Start: 06-14-2023 take 2 capsules by mouth three times daily as needed benzonatate (TESSALON PERLES) 100 mg capsule Indications: Viral URI Take 2 capsules by mouth three times a day as needed. 30 capsule 0 06/14/2023 Active Start: 11-03-2022 End: 11-27-2022 take 1 capsule by mouth every eight hours as needed Benzonatate 200 mg capsule Take 1 capsule by mouth three times daily as needed. 21 capsule 0 11/03/2022 11/27/2022 Discontinued Comment on above: Take 1 capsule by mo uth three times daily as needed. Take 2 capsules by m outh three times a day as needed. cholecalciferol 0.025 mg oral capsule (13 sources) Vitamin D End: take 1 capsule by mouth once daily Cholecalciferol, Vitamin D3, 25 mcg (1,000 unit) cap Take 1,000 Units by mouth once daily. 03/01/2023 Discontinued Comment on above: Take 1,000 Units by mouth once daily. cyclobenzaprine hydrochloride 10 mg oral tablet (20 sources) Muscle Relaxant Start: End: take 1 tablet by mouth every eight hours as needed cyclobenzaprine (FLEXERIL) 10 mg tablet Take 1 tablet by mouth three times a day as needed for muscle spasm. 20 tablet 03/01/2023 02/28/2024 Discontinued Comment on above: Take 1 tablet by maida three times a day as needed for muscle spasm. Ibuprofen (20 sources) Nonsteroidal Anti-inflammatory Drug End: IBUPROFEN (MOTRIN ORAL) Take by mouth once daily. 02/28/2024 Discontinued IBUPROFEN (MOTRI N ORAL) Take by mouth once daily. Active IBUPROFEN (MOTRI N ORAL) Take by mouth once daily. 0 Active Comment on above: Take by mouth once d aily. lisinopril 10 mg oral tablet (4 sources) Angiotensin Converting Enzyme Inhibitor Start: 08-30-19 End: 11-28-19 take 1 tablet by mouth once daily lisinopril (ZESTRIL) 10 mg tablet Take 1 tablet by mouth once daily. 30 tablet 5 08/29/2022 11/27/2022 Discontinued (Side Effects) Comment on above: Take 1 tablet by maida once daily. loperamide hydrochloride 2 mg oral capsule (2 sources) Opioid Agonist Start: 11-06-19 End: 11-28-19 take 1 capsule by mouth every six hours as needed loperamide (IMODIUM A-D) 2 mg cap(s) Take 1 capsule by mouth four times daily as needed for diarrhea. 30 capsule 0 11/05/2022 11/27/2022 Discontinued Comment on above: Take 1 capsule by mo [facility] four times daily as needed for diarrhea. meloxicam 15 mg oral tablet (3 sources) Nonsteroidal Anti-inflammatory Drug Start: 09-24-19 End: 05-23-20 24 take 1 tablet by mouth once daily meloxicam (MOBIC) 15 mg tablet Take 1 tablet by mouth once daily. 30 tablet 1 09/24/2023 10/24/2023 oxybutynin chloride 5 mg oral tablet (1 source) Cholinergic Muscarinic Antagonist Start: 04-18-20 End: 10-26-19 21 take 1 tablet by mouth four times daily oxybutynin (DITROPAN) 5 mg tablet Indications: Urge incontinence Take 1 tablet by mouth four times daily. 360 tablet 1 04/18/2020 10/25/2020 Discontinued Problems Active Problems Problem Classification Problem Date Documented Da te Episodic/Chronic Essential hypertension (20 sources) Essential hypertension; Translations: [Essential (primary) hypertension] Onset: 08-29-2022 Chronic Genitourinary symptoms and ill-defined conditions (20 sources) Urge incontinence of urine; Translations: [Urge incontinence] Onset: 01-25-2015 08-02-2021 Chronic Immunizations and screening for infectious disease (2 sources) Vaccination needed; Translations: [Encounter for immunization] Onset: 02-28-2024 02-28-2024 Episodic Osteoarthritis (3 sources) 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; Translations: [Secondary osteoarthritis, unspecified ankle and foot] Onset: 09-23-2023 09-23-2023 Chronic Osteoporosis (20 sources) Senile osteoporosis; Translations: [Age-related osteoporosis without current pathological fracture] Onset: 02-04-2020 Chronic Other aftercare (1 source) Post-discharge follow-up; Translations: [Encounter for follow-up examination after completed treatment for conditions other than malignant neoplasm] 02-11-2024 Episodic Other aftercare (1 source) Encounter for follow-up examination after completed treatment for conditions other than malignant neoplasm; Translations: [Hospital discharge follow-up] Onset: 02-11-2024 Episodic Other connective tissue disease (1 source) Swelling of lower leg; Translations: [Pain in unspecified lower leg] 01-08-2024 Episodic Other connective tissue disease (2 sources) Swelling of lower limb; Translations: [Other specified soft tissue disorders] 01-14-2024 Episodic Other connective tissue disease (1 source) Other specified soft tissue disorders; Translations: [Leg swelling] Onset: 01-28-2024 Episodic Other gastrointestinal disorders (1 source) Diarrhea; Translations: [Diarrhea, unspecified] Episodic Other injuries and conditions due to external causes (2 sources) Injury of left foot; Translations: [Unspecified injury of left foot, initial encounter] Episodic Other lower respiratory disease (3 sources) Cough; Translations: [Acute cough] Episodic Other lower respiratory disease (2 sources) Wheezing; Translations: [Wheezing] Episodic Other lower respiratory disease (1 source) Chronic cough; Translations: [Chronic cough] Episodic Other lower respiratory disease (2 sources) Dyspnea; Translations: [Shortness of breath] 01-14-2024 Episodic Other lower respiratory disease (1 source) Hypoxia; Translations: [Hypoxemia] 02-07-2024 Episodic Other lower respiratory disease (1 source) Shortness of breath; Translations: [SOB (shortness of breath)] Onset: 01-28-2024 Episodic Other nervous system disorders (1 source) Other chronic pain; Translations: [Chronic bilateral low back pain without sciatica] Onset: 11-22-2023 Chronic Other non-traumatic joint disorders (3 sources) Ankle pain; Translations: [Pain in right ankle and joints of right foot] 09-19-2023 Episodic Other non-traumatic joint disorders (1 source) Acute ankle pain; Translations: [Pain in left ankle and joints of left foot] 07-15-2020 Episodic Other nutritional; endocrine; and metabolic disorders (20 sources) Body mass index 40+ - severely obese; Translations: [Morbid (severe) obesity due to excess calories] Onset: 01-22-2020 Chronic Other nutritional; endocrine; and metabolic disorders (1 source) Morbid obesity; Translations: [Morbid (severe) obesity due to excess calories] 11-08-2023 Chronic Other nutritional; endocrine; and metabolic disorders (1 source) Morbid (severe) obesity due to excess calories; Translations: [Obesity, Class III, BMI 40-49.9 (morbid obesity) (HCC)] Onset: 08-02-2021 Chronic Pneumonia (except that caused by tuberculosis or sexually transmitted disease) (3 sources) Bacterial pneumonia; Translations: [Unspecified bacterial pneumonia] Episodic Prolapse of female genital organs (20 sources) Midline cystocele; Translations: [Cystocele, midline] Onset: 06-13-2015 11-08-2015 Chronic Residual codes; unclassified (2 sources) Sleep apnea; Translations: [Sleep apnea, unspecified] 02-11-2024 Chronic Residual codes; unclassified (1 source) Sleep apnea, unspecified; Translations: [Sleep apnea, unspecified type] Onset: 02-11-2024 Chronic Residual codes; unclassified (2 sources) Pain; Translations: [Pain, unspecified] 10-11-2023 Episodic Screening and history of mental health and substance abuse codes (1 source) Encounter for screening for depression; Translations: [Screening for depression] Onset: 03-02-2024 Episodic Unclassified (1 source) Chronic bilateral low back pain without sciatica; Translations: [Chronic bilateral low back pain without sciatica] Onset: 11-22-2023 Unclassified (1 source) Acute cough; Translations: [Acute cough] Onset: 06-14-2023 Past or Other Problems Problem Classification Problem Date Documented Da te Episodic/Chronic Acute and chronic tonsillitis (1 source) Acute tonsillitis, unspecified; Translations: [Tonsillitis] Onset: 08-30-2023 Episodic Administrative/social admission (20 sources) Advance directive discussed with patient; Translations: [Other specified counseling] Onset: 02-27-2022 Episodic Chronic obstructive pulmonary disease and bronchiectasis (1 source) Bronchitis, not specified as acute or chronic; Translations: [Bronchitis] Onset: 08-30-2023 Episodic Conditions associated with dizziness or vertigo (20 sources) Benign paroxysmal positional vertigo; Translations: [Benign paroxysmal vertigo, unspecified ear] Onset: 07-13-2021 Episodic Diabetes mellitus without complication (20 sources) High hemoglobin A1c level; Translations: [Other abnormal glucose] Onset: 01-22-2020 Episodic Malaise and fatigue (20 sources) Physical deconditioning; Translations: [Other malaise] Onset: 11-22-2023 11-08-2023 Episodic Other circulatory disease (5 sources) Elevated blood-pressure reading without diagnosis of hypertension; Translations: [Elevated blood-pressure reading, without diagnosis of hypertension] Onset: 01-25-2015 Episodic Other connective tissue disease (20 sources) Right achilles tendonitis; Translations: [Achilles tendinitis, right leg] Onset: 01-25-2015 07-12-2017 Episodic Other non-traumatic joint disorders (20 sources) Hip pain; Translations: [Pain in left hip] Onset: 06-03-2016 01-22-2020 Episodic Other non-traumatic joint disorders (1 source) Pain in right ankle and joints of right foot; Translations: [Bilateral ankle pain, unspecified chronicity] Onset: 09-23-2023 Episodic Other non-traumatic joint disorders (1 source) Pain in left ankle and joints of left foot; Translations: [Bilateral ankle pain, unspecified chronicity] Onset: 09-23-2023 Episodic Other screening for suspected conditions (not mental disorders or infectious disease) (20 sources) Patient encounter status; Translations: [Encounter for screening mammogram for malignant neoplasm of breast] Onset: 11-01-2015 Episodic Other skin disorders (20 sources) Mass of head; Translations: [Localized swelling, mass and lump, head] Onset: 01-25-2015 07-12-2017 Episodic Other upper respiratory infections (1 source) Acute upper respiratory infection, unspecified; Translations: [URI, acute] Onset: 08-30-2023 Episodic Residual codes; unclassified (20 sources) Peripheral edema; Translations: [Edema, unspecified] Onset: 01-27-2021 Episodic Residual codes; unclassified (1 source) Localized edema; Translations: [Peripheral edema] Onset: 08-02-2021 Episodic Residual codes; unclassified (1 source) Pain, unspecified; Translations: [Pain] Onset: 10-11-2023 Episodic Spondylosis; intervertebral disc disorders; other back problems (20 sources) Chronic low back pain; Translations: [Chronic bilateral low back pain without sciatica] Onset: 11-22-2023 11-08-2023 Episodic Results Test Name Value Interpretation Reference Range Facility [facility] 03-02-2024 [facility] Office Visit ([facility] ) LEANDRO FONTANEZ ([id number]) 1955 F Date Time Provider Department 03/02/24 2:20 PM EVE CUI During your visit today, we recorded the following information about you: Pulse Respiration Blood pressure Weight 79/minute 16/minute 117/78 106.6 kg Eve Cui, [email or web address]PLICATION DEVELOPER 03/02/2024 2:43 PM Signed Chief Complaint Patient presents with: Follow Up HPI Leandro Fontanez is a 68 year old female who presents here today for Above Complaints.. Patient is here for a follow-up for blood pressure. No concerns today. Currently have a flare of vertigo, saw PT earlier day. Past medical history, appointments, medications, allergies reviewed. Previous Medical History PAST MEDICAL HISTORY Diagnosis Date Benign paroxysmal positional vertigo 07/13/2021 Chronic bilateral low back pain without sciatica 11/22/2023 Elevated hemoglobin A1c 01/22/2020 Hypertension, essential 08/29/2022 Left hip pain 2016 Obesity, Class III, BMI 40-49.9 (morbid obesity) ([facility]) 01/22/2020 Peripheral edema 01/27/2021 Urge incontinence 01/25/2015 Previous Surgical History PAST SURGICAL HISTORY Procedure Laterality Date COLONOSCOPY FLX DX W/COLLJ SPEC WHEN PFRMD 07/15/15 normal 10 year follow up DANDC (INCOMPLETE AB), ANY TRIMESTER FECAL OCCULT BLOOD TEST 07/15/2017 negative LAMINECTOMY W/O FFD 1/2 VERT SEG LUMBAR N/A 1999 Family History FAMILY HISTORY Problem Relation Age of Onset Heart Mother Diabetes Mother Heart Father not sure of exact issue No Known Problems Brother No Known Problems Brother No Known Problems Brother Diabetes Maternal Grandmother No Known Problems Daughter No Known Problems Son No Known Problems Son No Known Problems Son Patient Allergies ALLERGIES Allergen Reactions Bee Sting Swelling Has not had SOB or other issues other than extreme swelling at site of sting Lisinopril Cough Current Medications Current Outpatient Medications on File Prior to Visit Medication Sig meclizine (ANTIVERT) 25 mg tab Take 1 tablet by mouth three times a day. hydroCHLOROthiazide 12.5 mg capsule Take 1 capsule by mouth once daily. alendronate (FOSAMAX) 70 mg tablet Take 1 tablet by mouth one time a week. Take with a full glass of water, on an empty stomach; do NOT lie down for 30minutes. mirabegron (MYRBETRIQ) 50 mg Tb24 Take 1 tablet by mouth once daily. losartan (COZAAR) 25 mg tablet Take 1 tablet by mouth once daily. acetaminophen (TYLENOL EXTRA STRENGTH) 500 mg tablet Take 1,000 mg by mouth once daily. calcium carbonate-vitamin D3 600mg (1,500mg) -1,000 unit cap Take 1 capsule by mouth twice daily. multivitamin tablet Take 1 tablet by mouth once daily. No current facility-administered medications on file prior to visit. Social History Social History Tobacco Use Smoking status: Former Current packs/day: 0.00 Average packs/day: 0.5 packs/day for 7.0 years (3.5 ttl pk-yrs) Types: Cigarettes Start date: 05/03/1996 Quit date: 05/03/2003 Years since quittin.8 Smokeless tobacco: Never Vaping Use Vaping status: Never Used Substance Use Topics Alcohol use: No Drug use: No Review of Symptoms REVIEW OF SYSTEMS SEE HPI EXAM: BP 117/78 Pulse 79 Resp 16 Wt 106.6 kg (235 lb) BMI 43.25 kg/m? General Appearance: Well appearing, alert, in no acute distress, well-hydrated, well nourished.. Skin: Skin color, texture, turgor normal, no suspicious rashes or lesions. Lungs: Lungs clear to auscultation. No wheezing, rhonchi, rales.. Heart: RRR without murmur, gallop, or rubs. No ectopy. Abdomen: Normal abdominal exam, Abdomen soft, non-tender. Bowel sounds normal. No masses, organomegaly. Musculoskeletal: No joint swelling, deformity, or tenderness. Health Maintenance List Depression Screening Never done Bone Density Screening due on 02/01/2022 Mammogram Screening due on 03/22/2023 Influenza Vaccine(1) due on 11/30/2024 RSV Vaccine(1 - Risk 60-74 years 1-dose series) due on 02/27/2025 Anxiety Screening due on 02/27/2025 Annual PCP Team Chronic Disease Visit due on 02/27/2025 BP Controlled (<130/80) due on 02/27/2025 Colorectal Cancer Screening due on 07/15/2025 Diabetes Screening due on 02/27/2027 Lipid Screening due on 02/27/2029 DTaP,Tdap,Td Vaccine(3 - Td or Tdap) due on 02/27/2034 Advance Directive Discussion Completed Hepatitis C Screening Completed Shingrix Vaccine Completed Pneumococcal Vaccine: 65+ Completed Covid-19 Vaccine Discontinued Data reviewed Labs reviewed from [facility] ASSESSMENT/PLAN: 1. Hypertension, essential - ICD9: 401.9, ICD10: I10 (primary diagnosis) - Controlled - Continue current medications - Recommend home blood pressure monitoring, to bring results to next visit - Encouraged sodium restriction, DASH or Mediterranean diet - Recommend regular aerobic exercise - Discussed nee (more content not included)... Normal [facility] CNPNon 03-02-2024 CNPN Telephone (FAMPWS) LEANDRO FONTANEZ ([id number]) 1955 F Date Time Provider Department 03/02/24 J[facility]AREZ [facility] During your visit today, we recorded the following information about you: Jamie Juarez MD 03/02/2024 1:34 PM Signed Let patient know A1c is still slightly elevated at 5.9%. continue to work on reduced sugars, sweets, carbs and starches in diet to help get it below 5.7%. Rest of the labs were ok. Susie Rios LPN 03/02/2024 2:24 PM Signed Spoke with pt gave information provided. Pt voices understanding. Allergies As of Date: 03/02/2024 Noted Allergy Reaction BEE STING 01/25/2015 7 - Swelling Comments: Has not had SOB or other issues other than extreme swelling at site of sting LISINOPRIL 11/27/2022 3 - Cough Date Reviewed: 03/02/2024 Reviewed by: Saima Carlson MA - Fully Assessed Reason for Visit: Results [95] Prescriptions as of 03/02/2024 - meclizine (ANTIVERT) 25 mg tab Take 1 tablet by mouth three times a day. - hydroCHLOROthiazide 12.5 mg capsule Take 1 capsule by mouth once daily. - alendronate (FOSAMAX) 70 mg tablet Take 1 tablet by mouth one time a week. Take with a full glass of water, on an empty stomach; do NOT lie down for 30minutes. - mirabegron (MYRBETRIQ) 50 mg Tb24 Take 1 tablet by mouth once daily. - losartan (COZAAR) 25 mg tablet Take 1 tablet by mouth once daily. - acetaminophen (TYLENOL EXTRA STRENGTH) 500 mg tablet Take 1,000 mg by mouth once daily. - calcium carbonate-vitamin D3 600mg (1,500mg) -1,000 unit cap Take 1 capsule by mouth twice daily. - multivitamin tablet Take 1 tablet by mouth once daily. Problem List As Of Date 03/02/2024 Noted Resolved Urge incontinence [N39.41] 01/25/2015 Tendonitis, Achilles, right [M76.61] 01/25/2015 Head lump [R22.0] 01/25/2015 Midline cystocele [N81.11] 06/13/2015 Encounter for routine gynecological examination*11/08/2015 Well adult exam [Z00.00] 11/08/2015 Encounter for screening mammogram for breast ca*07/12/2017 Screening for colon cancer [Z12.11] 07/12/2017 Left hip pain [M25.552] 2017 Obesity, Class III, BMI 40-49.9 (morbid obesity*01/22/2020 Elevated hemoglobin A1c [R73.09] 01/22/2020 Age-related osteoporosis without current pathol*02/04/2020 Peripheral edema [R60.0] 01/27/2021 Benign paroxysmal positional vertigo [H81.10] 07/13/2021 Advance directive discussed with patient [Z71.8*02/27/2022 Hypertension, essential [I10] 08/29/2022 Chronic bilateral low back pain without sciatic*11/22/2023 Physical deconditioning [R53.81] 11/22/2023 Encounter Status:Closed by SUSIE RIOS on 03/02/24 [facility] CNOVon 02-28-2024 CNOV Office Visit (FAMPWS ) LEANDRO FONTANEZ ([id number]) 1955 F Date Time Provider Department 02/28/24 10:20 AM JAMIE JUAREZ During your visit today, we recorded the following information about you: Pulse Respiration Blood pressure Weight 93/minute 16/minute 118/66 105.8 kg Height 1.57 m Jamie Juarez MD 02/28/2024 11:47 AM Signed Chief Complaint Patient presents with: Physical HPI Leandro Fontanez is a 68 year old female who presents here today for physical. Patient still on private insurance Patient with hx of HTN, BPPV, elevated a1c, osteoporosis, and those as below. Patient was seen in the ER 02/25/2024 for dizziness/chest pain. D/C summary instructed patient to follow up in 3-5 days. Patient was seen in in early Feb for BPV and hd CT head, MRI head and Echo which were all normal. Last hospital follow up; patient was placed on meclizine and told to follow up with PT Patient is in PHYSICAL THERAPY for vestibular Tx. Has noted reduced frequency of symptoms. Past medical history, appointments, medications, allergies reviewed. Previous Medical History PAST MEDICAL HISTORY Diagnosis Date Benign paroxysmal positional vertigo 07/13/2021 Elevated hemoglobin A1c 01/22/2020 Hypertension, essential 08/29/2022 Left hip pain 2016 Obesity, Class III, BMI 40-49.9 (morbid obesity) ([facility]) 01/22/2020 Peripheral edema 01/27/2021 Urge incontinence 01/25/2015 Previous Surgical History PAST SURGICAL HISTORY Procedure Laterality Date COLONOSCOPY FLX DX W/COLLJ SPEC WHEN PFRMD 07/15/15 normal 10 year follow up DANDC (INCOMPLETE AB), ANY TRIMESTER FECAL OCCULT BLOOD TEST 07/15/2017 negative LAMINECTOMY W/O FFD 1/2 VERT SEG LUMBAR N/A 1999 Family History FAMILY HISTORY Problem Relation Age of Onset Heart Mother Diabetes Mother Heart Father not sure of exact issue No Known Problems Brother No Known Problems Brother No Known Problems Brother Diabetes Maternal Grandmother No Known Problems Daughter No Known Problems Son No Known Problems Son No Known Problems Son Patient Allergies ALLERGIES Allergen Reactions Bee Sting Swelling Has not had SOB or other issues other than extreme swelling at site of sting Lisinopril Cough Current Medications Current Outpatient Medications on File Prior to Visit Medication Sig meclizine (ANTIVERT) 25 mg tab Take 1 tablet by mouth three times a day. hydroCHLOROthiazide 12.5 mg capsule Take 1 capsule by mouth once daily. alendronate (FOSAMAX) 70 mg tablet Take 1 tablet by mouth one time a week. Take with a full glass of water, on an empty stomach; do NOT lie down for 30minutes. mirabegron (MYRBETRIQ) 50 mg Tb24 Take 1 tablet by mouth once daily. losartan (COZAAR) 25 mg tablet Take 1 tablet by mouth once daily. acetaminophen (TYLENOL EXTRA STRENGTH) 500 mg tablet Take 1,000 mg by mouth once daily. cyclobenzaprine (FLEXERIL) 10 mg tablet Take 1 tablet by mouth three times a day as needed for muscle spasm. (Patient not taking: Reported on 08/30/2023) calcium carbonate-vitamin D3 600mg (1,500mg) -1,000 unit cap Take 1 capsule by mouth twice daily. multivitamin tablet Take 1 tablet by mouth once daily. IBUPROFEN (MOTRIN ORAL) Take by mouth once daily. (Patient not taking: Reported on 11/08/2023) No current facility-administered medications on file prior to visit. Social History Social History Tobacco Use Smoking status: Former Current packs/day: 0.00 Average packs/day: 0.5 packs/day for 7.0 years (3.5 ttl pk-yrs) Types: Cigarettes Start date: 05/03/1996 Quit date: 05/03/2003 Years since quittin.8 Smokeless tobacco: Never Vaping Use Vaping status: Never Used Substance Use Topics Alcohol use: No Drug use: No Review of Symptoms REVIEW OF SYSTEMS GENERAL: No weight loss, malaise or fevers HEENT: Negative for frequent or significant headaches, No changes in hearing or vision, no nose bleeds or other nasal problems NECK: Negative for lumps, goiter, pain and significant neck swelling RESPIRATORY: Negative for cough, hemoptysis, wheezing, COPD, dyspnea or shortness of breath CARDIOVASCULAR: Negative for chest pain, leg swelling, hypertension, CHF or palpitations GI: No nausea, vomiting, or diarrhea, No heartburn or reflux symptoms, and no blood : No history of dysuria, frequency or blood MUSCULOSKELETAL: Negative for new or changes in her typical joint pain or swelling, back pain or muscle pain SKIN: Negative for lesions, rash, and itching PSYCH: Negative for sleep disturbance, mood disorder and recent psychosocial stressors HEMATOLOGY/LYMPHOLOGY: Negative for prolonged bleeding, bruising easily or swollen nodes ENDOCRINE: Negative for cold or heat intolerance, polyuria, polydipsia and goiter NEURO: No history of headaches, syncope, paralysis, seizures or tremors. See HPI EXAM: B (more content not included)... [facility] LEAN[facility]ONT[facility] ([id number]) 1955 F Date Time Provider Department 02/17/24 EVE CUI [facility] During your visit today, we recorded the following information about you: Kaylan Ruiz LPN 02/17/2024 11:55 AM Signed Pt was seen 02/10 for hospital discharge for vertigo. Pt was prescribed meclizine 25 mg tid and set up with [facility] for 02/18 for vestibular therapy. Pt reports vertigo was only bothering her when she got up in the morning and at night. Pt reports today she has had vertigo the whole morning. Pt reports whenever she moves her head. Pt reports she is about out of meclizine and is asking if provider will send in a rx for medication. Pt is also asking if she needs to be seen or if she can wait it out until vestibular therapy on . Pt also asking if there is anything else she should or could do for the dizziness. Please review and advise. TONIO Manzo Danielle, APRN.SQL APPLICATION DEVELOPER 02/17/2024 1:00 PM Signed Recommend seeing PT on Saturday. Herminia Holder MA 02/17/2024 1:14 PM Signed Pt notified and voiced understanding. Herminia Holder MA Allergies As of Date: 02/17/2024 Noted Allergy Reaction BEE STING 01/25/2015 7 - Swelling Comments: Has not had SOB or other issues other than extreme swelling at site of sting LISINOPRIL 11/27/2022 3 - Cough Date Reviewed: 02/11/2024 Reviewed by: Saima Carlson MA - Fully Assessed Reason for Visit: Vertigo [3853] Primary Visit Diagnosis:Benign paroxysmal positional vertigo, unspecified laterality [H81.10] Order(s):meclizine (ANTIVERT) 25 mg tabTake 1 tablet by mouth three times a day.Disp: 30 tabletRfl: 0 Prescriptions as of 02/17/2024 - meclizine (ANTIVERT) 25 mg tab Take 1 tablet by mouth three times a day. - hydroCHLOROthiazide 12.5 mg capsule Take 1 capsule by mouth once daily. - alendronate (FOSAMAX) 70 mg tablet Take 1 tablet by mouth one time a week. Take with a full glass of water, on an empty stomach; do NOT lie down for 30minutes. - mirabegron (MYRBETRIQ) 50 mg Tb24 Take 1 tablet by mouth once daily. - losartan (COZAAR) 25 mg tablet Take 1 tablet by mouth once daily. - acetaminophen (TYLENOL EXTRA STRENGTH) 500 mg tablet Take 1,000 mg by mouth once daily. - cyclobenzaprine (FLEXERIL) 10 mg tablet Take 1 tablet by mouth three times a day as needed for muscle spasm. - calcium carbonate-vitamin D3 600mg (1,500mg) -1,000 unit cap Take 1 capsule by mouth twice daily. - multivitamin tablet Take 1 tablet by mouth once daily. - IBUPROFEN (MOTRIN ORAL) Take by mouth once daily. Problem List As Of Date 02/17/2024 Noted Resolved Urge incontinence [N39.41] 01/25/2015 Tendonitis, Achilles, right [M76.61] 01/25/2015 Head lump [R22.0] 01/25/2015 Midline cystocele [N81.11] 06/13/2015 Encounter for screening for cardiovascular diso*11/01/2015 Encounter for routine gynecological examination*11/08/2015 Well adult exam [Z00.00] 11/08/2015 Encounter for screening mammogram for breast ca*07/12/2017 Screening for colon cancer [Z12.11] 07/12/2017 Left hip pain [M25.552] 2017 Obesity, Class III, BMI 40-49.9 (morbid obesity*01/22/2020 Elevated hemoglobin A1c [R73.09] 01/22/2020 Age-related osteoporosis without current pathol*02/04/2020 Peripheral edema [R60.0] 01/27/2021 Benign paroxysmal positional vertigo [H81.10] 07/13/2021 Advance directive discussed with patient [Z71.8*02/27/2022 Hypertension, essential [I10] 08/29/2022 Chronic bilateral low back pain without sciatic*11/22/2023 Physical deconditioning [R53.81] 11/22/2023 Prescriptions ordered this encounter Disp Refills Start End MECLIZINE 25 MG TABLET 30 t* 0 02/17/2024 Route: ORAL Sig: Take 1 tablet by mouth three times a day. Encounter Status:Closed by EVE CUI on 02/17/24 [facility] CNOVon 02-11-2024 CNOV [facility] LEANDRO FONTANEZ ([id number]) 1955 F Date Time Provider Department 02/11/24 9:20 AM EVE CUI During your visit today, we recorded the following information about you: Pulse Respiration Blood pressure Weight 88/minute 16/minute 119/77 106.1 kg Eve Cui, [email or web address] APPLICATION DEVELOPER 02/11/2024 9:41 AM Signed Chief Complaint Patient presents with: ER F/U HPI Leandro Chapmannes is a 68 year old female who presents here today for Above Complaints.. Patient presents for hospital follow up. Patient reports she was admitted for dizziness and CT and echo were done. Echo shows stage 1 diastolic dysfunction with normal EF. CT and MRI negative for stroke. Given referral to PT for vestibular therapy. Was noted to have low pulse ox at night during hospital stay and recommended to have sleep study done. Past medical history, appointments, medications, allergies reviewed. Previous Medical History PAST MEDICAL HISTORY 07/13/2021: Benign paroxysmal positional vertigo 01/22/2020: Elevated hemoglobin A1c 08/29/2022: Hypertension, essential 2017: Left hip pain 01/22/2020: Obesity, Class III, BMI 40-49.9 (morbid obesity) ([facility]) 01/27/2021: Peripheral edema 01/25/2015: Urge incontinence Previous Surgical History PAST SURGICAL HISTORY 07/15/15: COLONOSCOPY FLX DX W/COLLJ SPEC WHEN PFRMD Comment: normal 10 year follow up No date: DANDC (INCOMPLETE AB), ANY TRIMESTER 07/15/2017: FECAL OCCULT BLOOD TEST Comment: negative 1999: LAMINECTOMY W/O FFD 06/04 VERT SEG LUMBAR; N/A Family History FAMILY HISTORY Problem Relation Age of Onset Heart Mother Diabetes Mother Heart Father not sure of exact issue No Known Problems Brother No Known Problems Brother No Known Problems Brother Diabetes Maternal Grandmother No Known Problems Daughter No Known Problems Son No Known Problems Son No Known Problems Son Patient Allergies ALLERGIES Allergen Reactions Bee Sting Swelling Has not had SOB or other issues other than extreme swelling at site of sting Lisinopril Cough Current Medications Current Outpatient Medications on File Prior to Visit Medication Sig hydroCHLOROthiazide 12.5 mg capsule Take 1 capsule by mouth once daily. alendronate (FOSAMAX) 70 mg tablet Take 1 tablet by mouth one time a week. Take with a full glass of water, on an empty stomach; do NOT lie down for 30minutes. mirabegron (MYRBETRIQ) 50 mg Tb24 Take 1 tablet by mouth once daily. losartan (COZAAR) 25 mg tablet Take 1 tablet by mouth once daily. acetaminophen (TYLENOL EXTRA STRENGTH) 500 mg tablet Take 1,000 mg by mouth once daily. cyclobenzaprine (FLEXERIL) 10 mg tablet Take 1 tablet by mouth three times a day as needed for muscle spasm. (Patient not taking: Reported on 08/30/2023) calcium carbonate-vitamin D3 600mg (1,500mg) -1,000 unit cap Take 1 capsule by mouth twice daily. multivitamin tablet Take 1 tablet by mouth once daily. IBUPROFEN (MOTRIN ORAL) Take by mouth once daily. (Patient not taking: Reported on 11/08/2023) No current facility-administered medications on file prior to visit. Social History Social History Tobacco Use Smoking status: Former Current packs/day: 0.00 Average packs/day: 0.5 packs/day for 7.0 years (3.5 ttl pk-yrs) Types: Cigarettes Start date: 05/03/1996 Quit date: 05/03/2003 Years since quittin.7 Smokeless tobacco: Never Vaping Use Vaping status: Never Used Substance Use Topics Alcohol use: No Drug use: No Review of Symptoms REVIEW OF SYSTEMS SEE HPI EXAM: BP 119/77 Pulse 88 Resp 16 Wt 106.1 kg (234 lb) SpO2 97% BMI 41.45 kg/m? General Appearance: Well appearing, alert, in no acute distress, well-hydrated, well nourished.. Lungs: Lungs clear to auscultation. No wheezing, rhonchi, rales.. Heart: RRR without murmur, gallop, or rubs. No ectopy. Peripheral Pulses: Normal. Neurologic: Gait normal. Reflexes normal and symmetric. Sensation grossly intact.. Health Maintenance List Depression Screening Never done Anxiety Screening Never done BP Controlled (<130/80) Never done RSV Vaccine(1 - 1-dose 60+ series) Never done Bone Density Screening due on 02/01/2022 Mammogram Screening due on 03/22/2023 Advance Directive Discussion due on 06/03/2023 DTaP,Tdap,Td Vaccine(2 - Td or Tdap) due on 07/06/2023 Covid-19 Vaccine(3 - 2022- season) due on 02/02/2024 Influenza Vaccine(1) due on 02/02/2024 Annual PCP Team Chronic Disease Visit due on 01/13/2025 Colorectal Cancer Screening due on 07/15/2025 Diabetes Screening due on 01/13/2027 Lipid Screening due on 02/21/2028 Hepatitis C Screening Completed Shingrix Vaccine Completed Pneumococcal Vaccine: 65+ Completed ASSESSMENT/PLAN: 1. Hospital discharge follow-up - ICD9: V67.59, ICD10: Z09 (primary diagnosis) -Patient d/c'd 02/07 [facility] for BPPV 2. Sleep apnea, unspecifie (more content not included)... Normal [facility] Felicity [facility] LEANDRO FONTANEZ ([id number]) 1955 F Date Time Provider Department 02/11/24 EVE CUI During your visit today, we recorded the following information about you: Alicia Lopez LPN 02/11/2024 12:26 PM Signed Patient is asking for an order Sleep Study to go to [facility]. Advised Patient once the order, information needed has been faxed, [facility] will contact her to schedule. Eve Moeller LPN, APRN.SQL APPLICATION DEVELOPER 02/11/2024 1:32 PM Signed This order was placed and faxed during patient appt. Saima Carlson MA 02/11/2024 1:39 PM Signed Refaxed- pt notified and verbalized understanding Saima Carlson MA Allergies As of Date: 02/11/2024 Noted Allergy Reaction BEE STING 01/25/2015 7 - Swelling Comments: Has not had SOB or other issues other than extreme swelling at site of sting LISINOPRIL 11/27/2022 3 - Cough Date Reviewed: 02/11/2024 Reviewed by: Saima Carlson MA - Fully Assessed Reason for Visit: Results [95] Prescriptions as of 02/11/2024 - hydroCHLOROthiazide 12.5 mg capsule Take 1 capsule by mouth once daily. - alendronate (FOSAMAX) 70 mg tablet Take 1 tablet by mouth one time a week. Take with a full glass of water, on an empty stomach; do NOT lie down for 30minutes. - mirabegron (MYRBETRIQ) 50 mg Tb24 Take 1 tablet by mouth once daily. - losartan (COZAAR) 25 mg tablet Take 1 tablet by mouth once daily. - acetaminophen (TYLENOL EXTRA STRENGTH) 500 mg tablet Take 1,000 mg by mouth once daily. - cyclobenzaprine (FLEXERIL) 10 mg tablet Take 1 tablet by mouth three times a day as needed for muscle spasm. - calcium carbonate-vitamin D3 600mg (1,500mg) -1,000 unit cap Take 1 capsule by mouth twice daily. - multivitamin tablet Take 1 tablet by mouth once daily. - IBUPROFEN (MOTRIN ORAL) Take by mouth once daily. Problem List As Of Date 02/11/2024 Noted Resolved Urge incontinence [N39.41] 01/25/2015 Tendonitis, Achilles, right [M76.61] 01/25/2015 Head lump [R22.0] 01/25/2015 Midline cystocele [N81.11] 06/13/2015 Encounter for screening for cardiovascular diso*11/01/2015 Encounter for routine gynecological examination*11/08/2015 Well adult exam [Z00.00] 11/08/2015 Encounter for screening mammogram for breast ca*07/12/2017 Screening for colon cancer [Z12.11] 07/12/2017 Left hip pain [M25.552] 2016 Obesity, Class III, BMI 40-49.9 (morbid obesity*01/22/2020 Elevated hemoglobin A1c [R73.09] 01/22/2020 Age-related osteoporosis without current pathol*02/04/2020 Peripheral edema [R60.0] 01/27/2021 Benign paroxysmal positional vertigo [H81.10] 07/13/2021 Advance directive discussed with patient [Z71.8*02/27/2022 Hypertension, essential [I10] 08/29/2022 Chronic bilateral low back pain without sciatic*11/22/2023 Physical deconditioning [R53.81] 11/22/2023 Encounter Status:Closed by SAIMA CARLSON CMA on 02/11/24 Normal [facility] CNOVdavid 02-07-2024 CNOV Office Visit (UCWSTR ) LEANDRO FONTANEZ ([id number]) 1955 F Date Time Provider Department 02/07/24 2:15 PM ESTEE KAUR [facility] During your visit today, we recorded the following information about you: Temperature Pulse Respiration Blood pressure 97.5 degrees 66/minute 18/minute 147/91 Weight 105.5 kg Estee Kaur PA 02/07/2024 2:11 PM Signed This note was created using tab ticketbroker. Subjective Leandro Fontanez is a 68 year old female. HPI 68-year-old female presents for dizziness. Patient states that she has been dizzy upon standing for the past 3 days. She states that today the dizziness is more constant. She states whenever she stands, turns her head she becomes dizzy. She has unable to walk without holding onto somebody or the wall due to dizziness and feeling off balance. No numbness or weakness in the arms or legs. She has been diagnosed with vertigo in the past and states that she has been given a pill which helps. However, she states that today's dizziness seems worse than normal. She denies any headaches. No chest pain or shortness of breath. No cough. Patient was seen about a month ago for leg swelling and had a DVT study which was negative. She denies any recent travel, hospitalization or surgery. PAST MEDICAL HISTORY 07/13/2021: Benign paroxysmal positional vertigo 01/22/2020: Elevated hemoglobin A1c 08/29/2022: Hypertension, essential 2017: Left hip pain 01/22/2020: Obesity, Class III, BMI 40-49.9 (morbid obesity) ([facility]) 01/27/2021: Peripheral edema 01/25/2015: Urge incontinence PAST SURGICAL HISTORY 07/15/15: COLONOSCOPY FLX DX W/COLLJ SPEC WHEN PFRMD Comment: normal 10 year follow up No date: DANDC (INCOMPLETE AB), ANY TRIMESTER 07/15/2017: FECAL OCCULT BLOOD TEST Comment: negative 1999: LAMINECTOMY W/O FFD 1/2 VERT SEG LUMBAR; N/A ALLERGIES Bee Sting and Lisinopril MEDICATIONS hydroCHLOROthiazide 12.5 mg capsule Take 1 capsule by mouth once daily. alendronate (FOSAMAX) 70 mg tablet Take 1 tablet by mouth one time a week. Take with a full glass of water, on an empty stomach; do NOT lie down for 30minutes. mirabegron (MYRBETRIQ) 50 mg Tb24 Take 1 tablet by mouth once daily. losartan (COZAAR) 25 mg tablet Take 1 tablet by mouth once daily. acetaminophen (TYLENOL EXTRA STRENGTH) 500 mg tablet Take 1,000 mg by mouth once daily. cyclobenzaprine (FLEXERIL) 10 mg tablet Take 1 tablet by mouth three times a day as needed for muscle spasm. (Patient not taking: Reported on 08/30/2023) calcium carbonate-vitamin D3 600mg (1,500mg) -1,000 unit cap Take 1 capsule by mouth twice daily. multivitamin tablet Take 1 tablet by mouth once daily. IBUPROFEN (MOTRIN ORAL) Take by mouth once daily. (Patient not taking: Reported on 11/08/2023) FAMILY HISTORY Problem Relation Age of Onset Heart Mother Diabetes Mother Heart Father not sure of exact issue No Known Problems Brother No Known Problems Brother No Known Problems Brother Diabetes Maternal Grandmother No Known Problems Daughter No Known Problems Son No Known Problems Son No Known Problems Son Social History Tobacco Use Smoking status: Former Current packs/day: 0.00 Average packs/day: 0.5 packs/day for 7.0 years (3.5 ttl pk-yrs) Types: Cigarettes Start date: 05/03/1996 Quit date: 05/03/2003 Years since quittin.7 Smokeless tobacco: Never Vaping Use Vaping status: Never Used Substance Use Topics Alcohol use: No Drug use: No Review of Systems Constitutional: Negative for chills and fever. HENT: Negative for congestion, ear pain and sore throat. Respiratory: Negative for cough and shortness of breath. Cardiovascular: Negative for chest pain. Gastrointestinal: Negative for diarrhea and vomiting. Neurological: Positive for dizziness. Objective BP 147/91 Pulse 66 Temp 36.4 ?C (97.5 ?F) Resp 18 Wt 105.5 kg (232 lb 9.4 oz) SpO2 91% BMI 41.20 kg/m? Physical Exam Vitals and nursing note reviewed. Constitutional: General: She is not in acute distress. Appearance: Normal appearance. She is not toxic-appearing. Eyes: Extraocular Movements: Extraocular movements intact. Conjunctiva/sclera: Conjunctivae normal. Pupils: Pupils are equal, round, and reactive to light. Cardiovascular: Rate and Rhythm: Normal rate and regular rhythm. Pulmonary: Effort: Pulmonary effort is normal. Breath sounds: Normal breath sounds. Skin: General: Skin is warm and dry. Neurological: Mental Status: She is alert and oriented to person, place, and time. Cranial Nerves: No facial asymmetry. Gait: Gait abnormal. Comments: No facial asymmetry. No arm drift. Patient unable to ambulate straight. She needs to hold onto the wall to ambulate. Assessment and Plan ASSESSMENT/PLAN: 1. Dizziness - ICD9: 780.4, ICD10: R42 (primary diagnosis) -Dizziness today, patient states worse than her (more content not included)... Normal [facility] 02-03-2024 [facility] Telephone (FAMWS) LEANDRO FONTANEZ ([id number]) 1955 F Date Time Provider Department 02/03/24 JAMIE JUAREZ [facility] During your visit today, we recorded the following information about you: Jamie Juraez MD 02/03/2024 1:45 PM Signed Let patient know the US of her heart was ok. Barb Garcia LPN 02/04/2024 9:12 AM Signed Left message for pt to contact office. TONIO Nielsen Krista, LPN 02/04/2024 1:08 PM Signed Pt notified of results. Kaylan Ruiz LPN Allergies As of Date: 02/03/2024 Noted Allergy Reaction BEE STING 01/25/2015 7 - Swelling Comments: Has not had SOB or other issues other than extreme swelling at site of sting LISINOPRIL 11/27/2022 3 - Cough Date Reviewed: 01/14/2024 Reviewed by: Jamie Juarez MD - Fully Assessed Reason for Visit: Results [95] Prescriptions as of 02/04/2024 - hydroCHLOROthiazide 12.5 mg capsule Take 1 capsule by mouth once daily. - alendronate (FOSAMAX) 70 mg tablet Take 1 tablet by mouth one time a week. Take with a full glass of water, on an empty stomach; do NOT lie down for 30minutes. - mirabegron (MYRBETRIQ) 50 mg Tb24 Take 1 tablet by mouth once daily. - losartan (COZAAR) 25 mg tablet Take 1 tablet by mouth once daily. - acetaminophen (TYLENOL EXTRA STRENGTH) 500 mg tablet Take 1,000 mg by mouth once daily. - cyclobenzaprine (FLEXERIL) 10 mg tablet Take 1 tablet by mouth three times a day as needed for muscle spasm. - calcium carbonate-vitamin D3 600mg (1,500mg) -1,000 unit cap Take 1 capsule by mouth twice daily. - multivitamin tablet Take 1 tablet by mouth once daily. - IBUPROFEN (MOTRIN ORAL) Take by mouth once daily. Problem List As Of Date 02/03/2024 Noted Resolved Urge incontinence [N39.41] 01/25/2015 Tendonitis, Achilles, right [M76.61] 01/25/2015 Head lump [R22.0] 01/25/2015 Midline cystocele [N81.11] 06/13/2015 Encounter for screening for cardiovascular diso*11/01/2015 Encounter for routine gynecological examination*11/08/2015 Well adult exam [Z00.00] 11/08/2015 Encounter for screening mammogram for breast ca*07/12/2017 Screening for colon cancer [Z12.11] 07/12/2017 Left hip pain [M25.552] 2017 Obesity, Class III, BMI 40-49.9 (morbid obesity*01/22/2020 Elevated hemoglobin A1c [R73.09] 01/22/2020 Age-related osteoporosis without current pathol*02/04/2020 Peripheral edema [R60.0] 01/27/2021 Benign paroxysmal positional vertigo [H81.10] 07/13/2021 Advance directive discussed with patient [Z71.8*02/27/2022 Hypertension, essential [I10] 08/29/2022 Chronic bilateral low back pain without sciatic*11/22/2023 Physical deconditioning [R53.81] 11/22/2023 Encounter Status:Closed by KAYLAN RUIZ on 02/04/24 Normal [facility] ECHOon 01-28-2024 Echocardiography Echocardiography Report: Transthoracic Echo [facility] Date of service: 01/28/2024 10:28:25 AM CLERK Ordering physician: JAMIE JUAREZ Indication: Shortness of Breath Technologist: Diya Edmondson [facility] Interpreting physician: Jamie Esquivel MD PATIENT: Name: MS. LEANDRO FONTANEZ : 1955 Age: 68 years Gender: F History of hypertension. Primary rhythm: sinus. Height: 160.02 cm BSA: 2.17 m Weight: 106.14 kg BMI: 41.5 kg/m Heart rate 82 bpm Technically difficult exam due to body habitus. Color Doppler was utilized to interrogate the cardiac valves assessed and spectral Doppler was utilized to determine the flow velocities and pressure gradients reported in this exam. MEASUREMENTS: Value Indexed Normal Max aortic dimension 2.7 cm Ao < 3.8 LV ID (diastole) 3.8 cm (2D) 1.77 cm/m LV ID (systole) 2.4 cm (2D) 1.12 cm/m IVS, leaflet tips 0.9 cm (2D) Posterior wall thickness 1.0 cm (2D) Left ventricular mass 114 g (2D) 53 g/m Ejection Fraction 55 % (visual est.) EF > 54 FINDINGS: LEFT VENTRICLE The left ventricle is normal in size. Left ventricular systolic function is normal. Grade I left ventricular diastolic dysfunction. Wall Motion: All scored segments are normal. RIGHT VENTRICLE The right ventricle is normal in size. Right ventricular systolic function is normal. RV systolic tissue Doppler velocity is 11.0 cm/s. Tricuspid annular displacement is 1.9 cm. Estimated right atrial pressure is not included as the IVC was not seen. LEFT ATRIUM Unable to reliably measure LA volume due to technical limitations. RIGHT ATRIUM Unable to reliably measure RA volume due to technical limitations. MITRAL VALVE The mitral valve leaflets are structurally normal. There is no mitral valve regurgitation. The pressure half time is 65 msec. The peak mitral E/A ratio is 0.82. The mitral flow deceleration time is 223 msec. TRICUSPID VALVE The tricuspid valve leaflets are structurally normal. There is no tricuspid valve regurgitation. AORTIC VALVE The aortic valve cusps are structurally normal. There is no aortic valve regurgitation. Tricuspid aortic valve. The peak gradient is 6 mmHg (peak velocity = 121.3 cm/s). PULMONIC VALVE The pulmonic valve cusps are structurally normal. There is no pulmonic valve regurgitation. AORTA The visualized aorta is normal in size. Measurements - Mid ascending aorta 2.7 cm. INTERATRIAL SEPTUM The interatrial septum is mobile. PERICARDIUM There is no pericardial effusion. There is an epicardial fat pad. CONCLUSIONS: - Technically difficult exam due to body habitus. - Exam indication: Shortness of Breath - The left ventricle is normal in size. Left ventricular systolic function is normal. EF = 55 5% (visual est.) Grade I left ventricular diastolic dysfunction. - The right ventricle is normal in size. Right ventricular systolic function is normal. - There are no significant valvular abnormalities. - Definity unavailable. - The patient has not had a prior CC echocardiographic exam for comparison. * * * Final * * * [facility] [email or web address] [facility] Image : [id number] [id number] Normal [facility] 01-15-2024 [facility] (excentosWS[facility] LEANDRO FONTANEZ ([id number]) 1955 F Date Time Provider Department 01/15/24 ALBINA SALCEDO [facility] During your visit today, we recorded the following information about you: Albina Salcedo PA-C 01/15/2024 12:23 PM Signed Labs look okay. Continue as discussed with dr. Juarez. Barb Garcia LPN 01/15/2024 12:33 PM Signed Left message for pt to contact office. TONIO Nielsen Stephanie, RN 01/15/2024 1:33 PM Signed Patient notified of results and provider's instructions. Patient verbalizes understanding. Diya Quintana RN Allergies As of Date: 01/15/2024 Noted Allergy Reaction BEE STING 01/25/2015 7 - Swelling Comments: Has not had SOB or other issues other than extreme swelling at site of sting LISINOPRIL 11/27/2022 3 - Cough Date Reviewed: 01/14/2024 Reviewed by: Jamie Juarez MD - Fully Assessed Reason for Visit: Results [95] Prescriptions as of 01/15/2024 - hydroCHLOROthiazide 12.5 mg capsule Take 1 capsule by mouth once daily. - alendronate (FOSAMAX) 70 mg tablet Take 1 tablet by mouth one time a week. Take with a full glass of water, on an empty stomach; do NOT lie down for 30minutes. - mirabegron (MYRBETRIQ) 50 mg Tb24 Take 1 tablet by mouth once daily. - losartan (COZAAR) 25 mg tablet Take 1 tablet by mouth once daily. - acetaminophen (TYLENOL EXTRA STRENGTH) 500 mg tablet Take 1,000 mg by mouth once daily. - cyclobenzaprine (FLEXERIL) 10 mg tablet Take 1 tablet by mouth three times a day as needed for muscle spasm. - calcium carbonate-vitamin D3 600mg (1,500mg) -1,000 unit cap Take 1 capsule by mouth twice daily. - multivitamin tablet Take 1 tablet by mouth once daily. - IBUPROFEN (MOTRIN ORAL) Take by mouth once daily. Problem List As Of Date 01/15/2024 Noted Resolved Urge incontinence [N39.41] 01/25/2015 Tendonitis, Achilles, right [M76.61] 01/25/2015 Head lump [R22.0] 01/25/2015 Midline cystocele [N81.11] 06/13/2015 Encounter for screening for cardiovascular diso*11/01/2015 Encounter for routine gynecological examination*11/08/2015 Well adult exam [Z00.00] 11/08/2015 Encounter for screening mammogram for breast ca*07/12/2017 Screening for colon cancer [Z12.11] 07/12/2017 Left hip pain [M25.552] 2017 Obesity, Class III, BMI 40-49.9 (morbid obesity*01/22/2020 Elevated hemoglobin A1c [R73.09] 01/22/2020 Age-related osteoporosis without current pathol*02/04/2020 Peripheral edema [R60.0] 01/27/2021 Benign paroxysmal positional vertigo [H81.10] 07/13/2021 Advance directive discussed with patient [Z71.8*02/27/2022 Hypertension, essential [I10] 08/29/2022 Chronic bilateral low back pain without sciatic*11/22/2023 Physical deconditioning [R53.81] 11/22/2023 Encounter Status:Closed by DIYA QUINTANA on 01/15/24 [facility] CNTHERAPYon 01-15-2024 CNTHERAPY OT/PT/Speech Visit (PTWS) LEANDRO FONTANEZ ([id number]) 1955 F Date Time Provider Department 01/15/24 12:00 PM CANDELARIO HALL PTWS Date Time Provider Department [place] 01/15/2024 12:00 PM [id number], BRENT PTWS Liza Monteiro Reason for Visit: PT Progress Note [1596] Physical Therapy [503] PT Discharge [752] Primary Visit Diagnosis:Chronic bilateral low back pain without sciatica [M54.50, G89.29] Other Visit Diagnosis:Physical deconditioning [R53.81] Allergies As of Date: 01/15/2024 Noted Allergy Reaction BEE STING 01/25/2015 7 - Swelling Comments: Has not had SOB or other issues other than extreme swelling at site of sting LISINOPRIL 11/27/2022 3 - Cough Date Reviewed: 01/14/2024 Reviewed by: Jamie Juarez MD - Fully Assessed Prescriptions as of 01/15/2024 - hydroCHLOROthiazide 12.5 mg capsule Take 1 capsule by mouth once daily. - alendronate (FOSAMAX) 70 mg tablet Take 1 tablet by mouth one time a week. Take with a full glass of water, on an empty stomach; do NOT lie down for 30minutes. - mirabegron (MYRBETRIQ) 50 mg Tb24 Take 1 tablet by mouth once daily. - losartan (COZAAR) 25 mg tablet Take 1 tablet by mouth once daily. - acetaminophen (TYLENOL EXTRA STRENGTH) 500 mg tablet Take 1,000 mg by mouth once daily. - cyclobenzaprine (FLEXERIL) 10 mg tablet Take 1 tablet by mouth three times a day as needed for muscle spasm. - calcium carbonate-vitamin D3 600mg (1,500mg) -1,000 unit cap Take 1 capsule by mouth twice daily. - multivitamin tablet Take 1 tablet by mouth once daily. - IBUPROFEN (MOTRIN ORAL) Take by mouth once daily. Manager Economic: Addendum Therapy (PT/OT/Speech/Resp) ID: [id number] 01/15/2024 12:45 PM Author: CANDELARIO HALL Signed by CANDELARIO HALL PT on 01/15/2024 at 12:45 PM * * * This document replaces document [id number] * * * Document text: Program_ID:[id number] Access Code: [email or web address] URL: [email or web address]/ Date: 01-15-2024 Prepared By: Candelario Hall Program Notes Exercises - Hooklying Single Knee to Chest Stretch with Towel - 3 x daily - 7 x weekly - sets - 3 reps - Supine Double Knee to Chest - 3 x daily - 7 x weekly - sets - 3 reps - Supine Transversus Abdominis Bracing - Hands on Ground - 2-3 x daily - 7 x weekly - 2 sets - 10 reps - Supine Pelvic Tilt with Straight Leg Raise - 2-3 x daily - 7 x weekly - 2 sets - 10 reps - Sidelying Hip Abduction - 2-3 x daily - 7 x weekly - 2 sets - 10 reps - Clamshell - 2-3 x daily - 7 x weekly - 2 sets - 10 reps - Seated Anti-Rotation Press With Anchored Resistance - 2 x daily - 7 x weekly - 2 sets - 10 reps - Stir the Pot - 2 x daily - 7 x weekly - 2 sets - 10 reps Normal [facility] THERAPY NTon 01-15-2024 THERAPY NT HNO ID: [id number] Author: CANDELARIO HALL PT Service: ? Author Type: Physical Therapist Type: Therapy (PT/OT/Speech/Resp) Filed: 01/15/2024 12:45 Note Text: Program_ID:[id number] Access Code: [email or web address] URL: [email or web address] Date: 01-15-2024 Prepared By: Candelario Hall Program Notes Exercises - Hooklying Single Knee to Chest Stretch with Towel - 3 x daily - 7 x weekly - sets - 3 reps - Supine Double Knee to Chest - 3 x daily - 7 x weekly - sets - 3 reps - Supine Transversus Abdominis Bracing - Hands on Ground - 2-3 x daily - 7 x weekly - 2 sets - 10 reps - Supine Pelvic Tilt with Straight Leg Raise - 2-3 x daily - 7 x weekly - 2 sets - 10 reps - Sidelying Hip Abduction - 2-3 x daily - 7 x weekly - 2 sets - 10 reps - Clamshell - 2-3 x daily - 7 x weekly - 2 sets - 10 reps - Seated Anti-Rotation Press With Anchored Resistance - 2 x daily - 7 x weekly - 2 sets - 10 reps - Stir the Pot - 2 x daily - 7 x weekly - 2 sets - 10 reps Normal [facility] Basic metabolic 2000 panelon 01-14-2024 Anion gap [Moles/Vol] 13 mmol/L Normal 8-15 [facility] Comment on above: Order Comment: Speci men Type: BLOOD SPECIMENOrdering Facility: [facility] Address: [address] [place], [place] [address] Performed By: #### 2 4321-2, 56090-6 ####[facility] LABCLIA [id number] [address] [address] [place] Calcium [Mass/Vol] 9.3 mg/dL Normal 8.5-10.2 [facility] Comment on above: Order Comment: Speci men Type: BLOOD SPECIMENOrdering Facility: [facility] Address: [address] [place], [place] [address] Performed By: #### 2 4321-2, 83539-3 ####[facility] LABCLIA [id number] [place] [address] [place] Chloride [Moles/Vol] 104 mmol/L Normal 98-107 [facility] Comment on above: Order Comment: Speci men Type: BLOOD SPECIMENOrdering Facility: [facility] Address: [address] [place] [address] Performed By: #### 2 4321-2, 46717-4 ####[facility] LABCLIA [id number] [place] [address] [place] CO2 [Moles/Vol] 27 mmol/L Normal 22-30 [facility] Comment on above: Order Comment: Speci men Type: BLOOD SPECIMENOrdering Facility: [facility] Address: [address] [place], [place] [address] Performed By: #### 2 4321-2, 71072-6 ####[facility] LABCLIA [id number] [place] [id number] [place] Creatinine [Mass/Vol] 0.84 mg/dL Normal 0.58-0.96 [facility] Comment on above: Order Comment: Speci men Type: BLOOD SPECIMENOrdering Facility: [facility] Address: [address] [place], [place] [address] Performed By: #### 2 4321-2, 15738-5 ####[facility] LABCLIA [id number] [place] [address] [place] [address] [facility] Creatinine and Glomerular filtration rate.predicted panel (S/P/Bld) 75 mL/min/1.73m??? Normal >=60 [facility] Comment on above: Order Comment: Ariadne rios Type: BLOOD SPECIMENOrdering Facility: [facility] Address: [address] [place] [address] Result Comment: Prema mated Glomerular Filtration Rate (eGFR) is calculated using the 2020 CKD-EPI creatinine equation. This equation utilizes serum creatinine, sex, and age as parameters. The creatinine assay has traceable calibration to isotope dilution-mass spectrometry. Refer to KDIGO guidelines for clinical interpretation. In patients with unstable renal function, e.g. those with acute kidney injury, the eGFR may not accurately reflect actual GFR. Performed By: #### 2 4321-2, 72011-3 ####[facility] LABCLIA [id number] [place] [address] [place] Glucose [Mass/Vol] 97 mg/dL Normal 74-99 [facility] Comment on above: Order Comment: Ariadne rios Type: BLOOD SPECIMENOrdering Facility: [facility] Address: [address] [place] [address] Result Comment: The [place] [employer] (ADA) provides guidance for cutoff values for fasting glucose and random glucose. The ADA defines fasting as no caloric intake for at least 8 hours. Fasting plasma glucose results between 100 to 125 mg/dL indicate increased risk for diabetes (prediabetes). Fasting plasma glucose results greater than or equal to 126 mg/dL meet the criteria for diagnosis of diabetes. In the absence of unequivocal hyperglycemia, results should be confirmed by repeat testing. In a patient with classic symptoms of hyperglycemia or hyperglycemic crisis, random plasma glucose results greater than or equal to 200 mg/dL meet the criteria for diagnosis of diabetes. Reference: Standards of Medical Care in Diabetes 2016, [place] [employer]. Diabetes Care. 2016.39(Suppl 1). Performed By: #### 2 4321-2, 42558-3 ####[facility] LABCLIA [id number] [place] [address] [place] Potassium [Moles/Vol] 4.2 mmol/L Normal 3.7-5.1 [facility] Comment on above: Order Comment: Speci men Type: BLOOD SPECIMENOrdering Facility: [facility] Address: [address] [place] [address] Performed By: #### 2 4321-2, 12887-1 ####[facility] LABIA [id number] [place] [address] [place] Sodium [Moles/Vol] 144 mmol/L Normal 136-144 [facility] Comment on above: Order Comment: Speci men Type: BLOOD SPECIMENOrdering Facility: [facility] Address: [address] [place] [address] Performed By: #### 2 4321-2, 89441-9 ####[facility] LABIA [id number] [place] [address] [place] Urea nitrogen [Mass/Vol] 15 mg/dL Normal 7-21 [facility] Comment on above: Order Comment: Speci men Type: BLOOD SPECIMENOrdering Facility: [facility] Address: [address] [place] [address] Performed By: #### 2 4321-2, 93973-4 ####[facility] LABIA [id number] [place] [address] [place] CNOVon 01-14-2024 CNOV Office Visit (FAMPWS ) LEANDRO FONTANEZ ([id number]) 1955 F Date Time Provider Department 01/14/24 10:40 AM JAMIE JUAREZ During your visit today, we recorded the following information about you: Pulse Respiration Blood pressure Weight 98/minute 18/minute 128/64 106.3 kg Jamie Juarez MD 01/14/2024 3:24 PM Signed Chief Complaint Patient presents with: Follow Up: Seen in for bilateral leg pain and swelling, US completed which was negative for DVT HPI Leandro Fontanez is a 68 year old female who presents here today for follow up from . Patient was seen in on 01/08/2024 for swelling/pain in lower extremity: US was negative and was instructed to wear compression stockings. Patient did get a pair of compression socks and has been wearing them daily. They do help but still getting swelling in the lower legs and pain with the swelling. Denies excessive salt intake while she was in [place] or increased intake now at home. She has had swelling in her ankles and feet in the past after vacations and this would typically resolve but this is the first time it extended up the legs to the knees. Was not walking or siting an excessive amount while on vacation. No chest pain, palpitations or atypical cough. Slight shortness of breath with climbing a set of steps. Past medical history, appointments, medications, allergies reviewed. Previous Medical History PAST MEDICAL HISTORY 07/13/2021: Benign paroxysmal positional vertigo 01/22/2020: Elevated hemoglobin A1c 08/29/2022: Hypertension, essential 2017: Left hip pain 01/22/2020: Obesity, Class III, BMI 40-49.9 (morbid obesity) ([facility]) 01/27/2021: Peripheral edema 01/25/2015: Urge incontinence Previous Surgical History PAST SURGICAL HISTORY 07/15/15: COLONOSCOPY FLX DX W/COLLJ SPEC WHEN PFRMD Comment: normal 10 year follow up No date: DANDC (INCOMPLETE AB), ANY TRIMESTER 07/15/2017: FECAL OCCULT BLOOD TEST Comment: negative 1999: LAMINECTOMY W/O FFD 1/2 VERT SEG LUMBAR; N/A Family History FAMILY HISTORY Problem Relation Age of Onset Heart Mother Diabetes Mother Heart Father not sure of exact issue No Known Problems Brother No Known Problems Brother No Known Problems Brother Diabetes Maternal Grandmother No Known Problems Daughter No Known Problems Son No Known Problems Son No Known Problems Son Patient Allergies ALLERGIES Allergen Reactions Bee Sting Swelling Has not had SOB or other issues other than extreme swelling at site of sting Lisinopril Cough Current Medications Current Outpatient Medications on File Prior to Visit Medication Sig alendronate (FOSAMAX) 70 mg tablet Take 1 tablet by mouth one time a week. Take with a full glass of water, on an empty stomach; do NOT lie down for 30minutes. mirabegron (MYRBETRIQ) 50 mg Tb24 Take 1 tablet by mouth once daily. losartan (COZAAR) 25 mg tablet Take 1 tablet by mouth once daily. acetaminophen (TYLENOL EXTRA STRENGTH) 500 mg tablet Take 1,000 mg by mouth once daily. cyclobenzaprine (FLEXERIL) 10 mg tablet Take 1 tablet by mouth three times a day as needed for muscle spasm. (Patient not taking: Reported on 08/30/2023) calcium carbonate-vitamin D3 600mg (1,500mg) -1,000 unit cap Take 1 capsule by mouth twice daily. multivitamin tablet Take 1 tablet by mouth once daily. IBUPROFEN (MOTRIN ORAL) Take by mouth once daily. (Patient not taking: Reported on 11/08/2023) No current facility-administered medications on file prior to visit. Social History Social History Tobacco Use Smoking status: Former Packs/day: 0.50 Years: 7.00 Additional pack years: 0.00 Total pack years: 3.50 Types: Cigarettes Quit date: 05/03/2003 Years since quittin.7 Smokeless tobacco: Never Vaping Use Vaping Use: Never used Substance Use Topics Alcohol use: No Drug use: No Review of Symptoms REVIEW OF SYSTEMS See HPI EXAM: BP 128/64 (BP Site: Left Arm, BP Position: Sitting) Pulse 98 Resp 18 Wt 106.3 kg (234 lb 6.4 oz) SpO2 95% BMI 41.52 kg/m? General Appearance: Well appearing, alert, in no acute distress, well-hydrated, well nourished.. Lungs: Lungs clear to auscultation. No wheezing, rhonchi, rales.. Heart: RRR without murmur, gallop, or rubs. No ectopy. Extremities: No deformities, skin discoloration. Good capillary refill. Has 1+ pitting edema up to mid shine on both sides. No calf tenderness to palpation and homans' was neg. Health Maintenance List Depression Screening Never done Anxiety Screening Never done BP Controlled (<130/80) Never done RSV Vaccine(1 - 1-dose 60+ series) Never done Bone Density Screening due on 02/01/2022 Covid-19 Vaccine(3 - season) due on 02/01/2023 Mammogram Screening due on 03/22/2023 Advance Directive Discussion due on 06/03/2023 DTaP,Tdap,Td Vaccine(2 - Td or Tdap) due on (more content not included)... Normal [facility] CNP[facility]-14-2024 [facility]FAM[facility] LEANDRO FONTANEZ ([id number]) 1955 F Date Time Provider Department 01/14/24 [facility] During your visit today, we recorded the following information about you: Jamie Juarez MD 01/14/2024 11:11 PM Signed Let patient know chest x-ray was ok. Barb Garcia LPN 01/15/2024 8:34 AM Signed Pt notified of same. Barb Garcia LPN Allergies As of Date: 01/14/2024 Noted Allergy Reaction BEE STING 01/25/2015 7 - Swelling Comments: Has not had SOB or other issues other than extreme swelling at site of sting LISINOPRIL 11/27/2022 3 - Cough Date Reviewed: 01/14/2024 Reviewed by: Jamie Juarez MD - Fully Assessed Reason for Visit: Results [95] Prescriptions as of 01/15/2024 - hydroCHLOROthiazide 12.5 mg capsule Take 1 capsule by mouth once daily. - alendronate (FOSAMAX) 70 mg tablet Take 1 tablet by mouth one time a week. Take with a full glass of water, on an empty stomach; do NOT lie down for 30minutes. - mirabegron (MYRBETRIQ) 50 mg Tb24 Take 1 tablet by mouth once daily. - losartan (COZAAR) 25 mg tablet Take 1 tablet by mouth once daily. - acetaminophen (TYLENOL EXTRA STRENGTH) 500 mg tablet Take 1,000 mg by mouth once daily. - cyclobenzaprine (FLEXERIL) 10 mg tablet Take 1 tablet by mouth three times a day as needed for muscle spasm. - calcium carbonate-vitamin D3 600mg (1,500mg) -1,000 unit cap Take 1 capsule by mouth twice daily. - multivitamin tablet Take 1 tablet by mouth once daily. - IBUPROFEN (MOTRIN ORAL) Take by mouth once daily. Problem List As Of Date 01/14/2024 Noted Resolved Urge incontinence [N39.41] 01/25/2015 Tendonitis, Achilles, right [M76.61] 01/25/2015 Head lump [R22.0] 01/25/2015 Midline cystocele [N81.11] 06/13/2015 Encounter for screening for cardiovascular diso*11/01/2015 Encounter for routine gynecological examination*11/08/2015 Well adult exam [Z00.00] 11/08/2015 Encounter for screening mammogram for breast ca*07/12/2017 Screening for colon cancer [Z12.11] 07/12/2017 Left hip pain [M25.552] 2017 Obesity, Class III, BMI 40-49.9 (morbid obesity*01/22/2020 Elevated hemoglobin A1c [R73.09] 01/22/2020 Age-related osteoporosis without current pathol*02/04/2020 Peripheral edema [R60.0] 01/27/2021 Benign paroxysmal positional vertigo [H81.10] 07/13/2021 Advance directive discussed with patient [Z71.8*02/27/2022 Hypertension, essential [I10] 08/29/2022 Chronic bilateral low back pain without sciatic*11/22/2023 Physical deconditioning [R53.81] 11/22/2023 Encounter Status:Closed by BARB GARCIA on 01/15/24 Normal [facility] Natriuretic peptide.B prohormone N-Terminal [Mass/Vol] 151 pg/mL High <125 [facility] Comment on above: Order Comment: Speci men Type: BLOOD SPECIMENOrdering Facility: [facility] Address: [address] [place] [address] Performed By: #### 2 4321-2, 40974-6 ####[facility] LABCLIA [id number] [id number] [id number] [place] XR CHEST 2V FRONTAL/LATon XR CHEST 2V FRONTAL/LAT * * *Final Report* * * DATE OF EXAM: Jan 14 2024 11:27AM WOX 5291 - XR CHEST 2V FRONTAL/LAT / PROCEDURE REASON: multiple diagnoses * * * * Physician Interpretation * * * * EXAMINATION: CHEST RADIOGRAPH (2 VIEW FRONTAL and LATERAL) CLINICAL HISTORY: Leg swelling Hypertension, essential MQ: XC2_6 EXAM DATE/TIME: 01/14/2024 11:27 AM COMPARISON: 06/14/2023 RESULT: Lines, tubes, and devices: None. Lungs and pleura: No consolidation. No lung mass. No pleural effusion. No pneumothorax. Cardiomediastinal silhouette: Normal cardiomediastinal silhouette. Bones and soft tissues: Multilevel degenerative change and osteophytosis. IMPRESSION: No acute radiographic abnormality. Banjo Repair Person: KELLY Transcribe Date/Time: Jan 14 2024 4:06P Dictated by : KATIA DA SILVA MD This examination was interpreted and the report reviewed and electronically signed by: KATIA DA SILVA MD on Jan 14 2024 4:09PM EST [id number] Normal [facility] XR Chest PA and Lateralon IMPRESSION: No acute radiographic abnormality. Banjo Repair Person: PSCB Transcribe Date/Time: Jan 14 2024 4:06P Dictated by : KATIA DA SILVA MD This examination was interpreted and the report reviewed and electronically signed by: KATIA DA SILVA MD on Jan 14 2024 4:09PM EST DIVISION OF RADIOLOGY * * *Final Report* * * DATE OF EXAM: Jan 14 2024 11:27AM WOX 5291 - XR CHEST 2V FRONTAL/LAT / PROCEDURE REASON: multiple diagnoses * * * * Physician Interpretation * * * * EXAMINATION: CHEST RADIOGRAPH (2 VIEW FRONTAL & LATERAL) CLINICAL HISTORY: Leg swelling Hypertension, essential MQ: XC2_6 EXAM DATE/TIME: 01/14/2024 11:27 AM COMPARISON: 06/14/2023 RESULT: Lines, tubes, and devices: None. Lungs and pleura: No consolidation. No lung mass. No pleural effusion. No pneumothorax. Cardiomediastinal silhouette: Normal cardiomediastinal silhouette. Bones and soft tissues: Multilevel degenerative change and osteophytosis. DIVISION OF RADIOLOGY Provider, Mikki Sousa - 01/14/2024 * * *Final Report* * * DATE OF EXAM: Jan 14 2024 11:27AM WOX 5291 - XR CHEST 2V FRONTAL/LAT / PROCEDURE REASON: multiple diagnoses * * * * Physician Interpretation * * * * EXAMINATION: CHEST RADIOGRAPH (2 VIEW FRONTAL & LATERAL) CLINICAL HISTORY: Leg swelling Hypertension, essential MQ: XC2_6 EXAM DATE/TIME: 01/14/2024 11:27 AM COMPARISON: 06/14/2023 RESULT: Lines, tubes, and devices: None. Lungs and pleura: No consolidation. No lung mass. No pleural effusion. No pneumothorax. Cardiomediastinal silhouette: Normal cardiomediastinal silhouette. Bones and soft tissues: Multilevel degenerative change and osteophytosis. IMPRESSION IMPRESSION: No acute radiographic abnormality. Banjo Repair Person: PSCDavid Transcribe Date/Time: Jan 14 2024 4:06P Dictated by : KATIA DA SILVA MD This examination was interpreted and the report reviewed and electronically signed by: KATIA DA SILVA MD on Jan 14 2024 4:09PM [facility] Radiology Study observation (narrative) [facility] XR Chest PA and LateralOrder ed By: [facility] Provider on 01-14-2024 [facility] CNTHERAPYon 01-13-2024 CNTHERAPY OT/PT/Speech Visit (PTWS) LEANDRO FONTANEZ ([id number]) 1955 F Date Time Provider Department 01/13/24 11:45 AM JENNIFER SUMMERS PTWS Date Time Provider Department [place] 01/13/2024 11:45 AM [id number], MARIAH PTWS Liza Adair Reason for Visit: Physical Therapy [503] Primary Visit Diagnosis:Chronic bilateral low back pain without sciatica [M54.50, G89.29] Other Visit Diagnosis:Physical deconditioning [R53.81] Allergies As of Date: 01/13/2024 Noted Allergy Reaction BEE STING 01/25/2015 7 - Swelling Comments: Has not had SOB or other issues other than extreme swelling at site of sting LISINOPRIL 11/27/2022 3 - Cough Date Reviewed: 01/08/2024 Reviewed by: Delaney Dunlap MA - Fully Assessed Prescriptions as of 01/13/2024 - alendronate (FOSAMAX) 70 mg tablet Take 1 tablet by mouth one time a week. Take with a full glass of water, on an empty stomach; do NOT lie down for 30minutes. - mirabegron (MYRBETRIQ) 50 mg Tb24 Take 1 tablet by mouth once daily. - losartan (COZAAR) 25 mg tablet Take 1 tablet by mouth once daily. - acetaminophen (TYLENOL EXTRA STRENGTH) 500 mg tablet Take 1,000 mg by mouth once daily. - cyclobenzaprine (FLEXERIL) 10 mg tablet Take 1 tablet by mouth three times a day as needed for muscle spasm. - calcium carbonate-vitamin D3 600mg (1,500mg) -1,000 unit cap Take 1 capsule by mouth twice daily. - multivitamin tablet Take 1 tablet by mouth once daily. - IBUPROFEN (MOTRIN ORAL) Take by mouth once daily. Normal [facility] CNTHERAPYon 01-10-2024 CNTHERAPY OT/PT/Speech Visit (PTWS) LEANDRO FONTANEZ ([id number]) 1955 F Date Time Provider Department 01/10/24 11:15 AM CANDELARIO HALL PTADIS Date Time Provider Department [place] 01/10/2024 11:15 AM [id number] HALL Liza Adair Reason for Visit: Physical Therapy [503] Primary Visit Diagnosis:Chronic bilateral low back pain without sciatica [M54.50, G89.29] Other Visit Diagnosis:Physical deconditioning [R53.81] Allergies As of Date: 01/10/2024 Noted Allergy Reaction BEE STING 01/25/2015 7 - Swelling Comments: Has not had SOB or other issues other than extreme swelling at site of sting LISINOPRIL 11/27/2022 3 - Cough Date Reviewed: 01/08/2024 Reviewed by: Delaney Dunlap MA - Fully Assessed Prescriptions as of 01/10/2024 - alendronate (FOSAMAX) 70 mg tablet Take 1 tablet by mouth one time a week. Take with a full glass of water, on an empty stomach; do NOT lie down for 30minutes. - mirabegron (MYRBETRIQ) 50 mg Tb24 Take 1 tablet by mouth once daily. - losartan (COZAAR) 25 mg tablet Take 1 tablet by mouth once daily. - acetaminophen (TYLENOL EXTRA STRENGTH) 500 mg tablet Take 1,000 mg by mouth once daily. - cyclobenzaprine (FLEXERIL) 10 mg tablet Take 1 tablet by mouth three times a day as needed for muscle spasm. - calcium carbonate-vitamin D3 600mg (1,500mg) -1,000 unit cap Take 1 capsule by mouth twice daily. - multivitamin tablet Take 1 tablet by mouth once daily. - IBUPROFEN (MOTRIN ORAL) Take by mouth once daily. Normal [facility] CNOVon 01-08-2024 CNOV Office Visit (UCWSTR ) LEANDRO FONTANEZ ([id number]) 1955 F Date Time Provider Department 01/08/24 12:45 PM VERONIQUE FUENTES [facility] During your visit today, we recorded the following information about you: Temperature Pulse Respiration Blood pressure 97.8 degrees 64/minute 18/minute 142/102 Weight 108.1 kg Veronique Fuentes APRN.SQL APPLICATION DEVELOPER 01/08/2024 6:39 PM Signed Subjective HPI HPI Leandro Fontanez is a 68 year old female who presents today for CC of bilat lower leg pain/swelling. This started 2 weeks ago while on vacation. Was in car for 12 hours X2 driving and walked a lot on vacation. Has tried nothing for relief. Symptoms are worsened by rom/walking. Denies cp/sob. Denies injury. Reports has not taken bp meds yet today .Patient presents with: Musculoskeletal Problem: bilateral legs painful and swollen x 2 weeks PAST MEDICAL HISTORY 07/13/2021: Benign paroxysmal positional vertigo 01/22/2020: Elevated hemoglobin A1c 08/29/2022: Hypertension, essential 2017: Left hip pain 01/22/2020: Obesity, Class III, BMI 40-49.9 (morbid obesity) ([facility]) 01/27/2021: Peripheral edema 01/25/2015: Urge incontinence PAST SURGICAL HISTORY 07/15/15: COLONOSCOPY FLX DX W/COLLJ SPEC WHEN PFRMD Comment: normal 10 year follow up No date: DANDC (INCOMPLETE AB), ANY TRIMESTER 07/15/2017: FECAL OCCULT BLOOD TEST Comment: negative 1999: LAMINECTOMY W/O FFD /2 VERT SEG LUMBAR; N/A ALLERGIES Bee Sting and Lisinopril MEDICATIONS alendronate (FOSAMAX) 70 mg tablet Take 1 tablet by mouth one time a week. Take with a full glass of water, on an empty stomach; do NOT lie down for 30minutes. mirabegron (MYRBETRIQ) 50 mg Tb24 Take 1 tablet by mouth once daily. losartan (COZAAR) 25 mg tablet Take 1 tablet by mouth once daily. acetaminophen (TYLENOL EXTRA STRENGTH) 500 mg tablet Take 1,000 mg by mouth once daily. calcium carbonate-vitamin D3 600mg (1,500mg) -1,000 unit cap Take 1 capsule by mouth twice daily. multivitamin tablet Take 1 tablet by mouth once daily. cyclobenzaprine (FLEXERIL) 10 mg tablet Take 1 tablet by mouth three times a day as needed for muscle spasm. (Patient not taking: Reported on 08/30/2023) IBUPROFEN (MOTRIN ORAL) Take by mouth once daily. (Patient not taking: Reported on 11/08/2023) FAMILY HISTORY Problem Relation Age of Onset Heart Mother Diabetes Mother Heart Father not sure of exact issue No Known Problems Brother No Known Problems Brother No Known Problems Brother Diabetes Maternal Grandmother No Known Problems Daughter No Known Problems Son No Known Problems Son No Known Problems Son Social History Tobacco Use Smoking status: Former Packs/day: 0.50 Years: 7.00 Additional pack years: 0.00 Total pack years: 3.50 Types: Cigarettes Quit date: 05/03/2003 Years since quittin.6 Smokeless tobacco: Never Vaping Use Vaping Use: Never used Substance Use Topics Alcohol use: No Drug use: No ROS Objective Blood pressure 142/102, pulse 64, temperature 36.6 ?C (97.8 ?F), resp. rate 18, weight 108.1 kg (238 lb 5.1 oz), SpO2 96%. Physical Exam Constitutional: General: She is not in acute distress. Appearance: She is not toxic-appearing or diaphoretic. HENT: Head: Normocephalic and atraumatic. Pulmonary: Effort: Pulmonary effort is normal. No accessory muscle usage or respiratory distress. Neurological: Mental Status: She is alert and oriented to person, place, and time. ASSESSMENT/PLAN: 1. Pain and swelling of lower leg, unspecified laterality - ICD9: 729.5, 729.81, ICD10: M79.669, M79.89 Ultrasound negative Advised compression stalkings Will schedule recheck with pcp in 3-4 days. - US DVT LOWER BILATERAL Veronique Fuentes APRN.SQL APPLICATION DEVELOPER Allergies As of Date: 01/08/2024 Noted Allergy Reaction BEE STING 01/25/2015 7 - Swelling Comments: Has not had SOB or other issues other than extreme swelling at site of sting LISINOPRIL 11/27/2022 3 - Cough Date Reviewed: 01/08/2024 Reviewed by: Delaney Dunlap MA - Fully Assessed Reason for Visit: Musculoskeletal Problem [69] Cmt: bilateral legs painful and swollen x 2 weeks Primary Visit Diagnosis:Pain and swelling of lower leg, unspecified laterality [M79.669, M79.89] Order(s):US DVT LOWER BILATERAL [[id number]] Order #: [id number]. #:[id number] Prescriptions as of 01/08/2024 - alendronate (FOSAMAX) 70 mg tablet Take 1 tablet by mouth one time a week. Take with a full glass of water, on an empty stomach; do NOT lie down for 30minutes. - mirabegron (MYRBETRIQ) 50 mg Tb24 Take 1 tablet by mouth once daily. - losartan (COZAAR) 25 mg tablet Take 1 tablet by mouth once daily. - acetaminophen (TYLENOL EXTRA STRENGTH) 500 mg tablet Take 1,000 mg by mouth once daily. - cyclobenzaprine (FLEXERIL) 10 mg tablet Take 1 tablet by mouth three times a day as needed for muscle spas (more content not included)... Normal [facility] Felicity 01-08-2024 HECTORN Telephone (UCTR) LEANDRO FONTANEZ ([id number]) 1955 F Date Time Provider Department 01/08/24 VERONIQUE FUENTES During your visit today, we recorded the following information about you: Veronique Fuentes APRN.CNP 01/08/2024 5:46 PM Signed I tried calling patient to discuss ultrasound results. Ultrasound negative for dvt. I advise patient to wear compression stalkings and we will call to make follow up appointment next week. Vika Siddiqi MA 01/08/2024 6:27 PM Signed Left VM with both patient and patient son asking for patient to return call to discuss results. WESLEY Matson Alexandra, MA 01/08/2024 7:08 PM Signed Patient notified of results, verbalized understanding of instructions given and will follow up with Dr. Juarez on 01/14/24. Vika Siddiqi MA Allergies As of Date: 01/08/2024 Noted Allergy Reaction BEE STING 01/25/2015 7 - Swelling Comments: Has not had SOB or other issues other than extreme swelling at site of sting LISINOPRIL 11/27/2022 3 - Cough Date Reviewed: 01/08/2024 Reviewed by: Delaney Dunlap MA - Fully Assessed Reason for Visit: Results [95] Prescriptions as of 01/08/2024 - alendronate (FOSAMAX) 70 mg tablet Take 1 tablet by mouth one time a week. Take with a full glass of water, on an empty stomach; do NOT lie down for 30minutes. - mirabegron (MYRBETRIQ) 50 mg Tb24 Take 1 tablet by mouth once daily. - losartan (COZAAR) 25 mg tablet Take 1 tablet by mouth once daily. - acetaminophen (TYLENOL EXTRA STRENGTH) 500 mg tablet Take 1,000 mg by mouth once daily. - cyclobenzaprine (FLEXERIL) 10 mg tablet Take 1 tablet by mouth three times a day as needed for muscle spasm. - calcium carbonate-vitamin D3 600mg (1,500mg) -1,000 unit cap Take 1 capsule by mouth twice daily. - multivitamin tablet Take 1 tablet by mouth once daily. - IBUPROFEN (MOTRIN ORAL) Take by mouth once daily. Problem List As Of Date 01/08/2024 Noted Resolved Urge incontinence [N39.41] 01/25/2015 Tendonitis, Achilles, right [M76.61] 01/25/2015 Head lump [R22.0] 01/25/2015 Midline cystocele [N81.11] 06/13/2015 Encounter for screening for cardiovascular diso*11/01/2015 Encounter for routine gynecological examination*11/08/2015 Well adult exam [Z00.00] 11/08/2015 Encounter for screening mammogram for breast ca*07/12/2017 Screening for colon cancer [Z12.11] 07/12/2017 Left hip pain [M25.552] 2016 Obesity, Class III, BMI 40-49.9 (morbid obesity*01/22/2020 Elevated hemoglobin A1c [R73.09] 01/22/2020 Age-related osteoporosis without current pathol*02/04/2020 Peripheral edema [R60.0] 01/27/2021 Benign paroxysmal positional vertigo [H81.10] 07/13/2021 Advance directive discussed with patient [Z71.8*02/27/2022 Hypertension, essential [I10] 08/29/2022 Chronic bilateral low back pain without sciatic*11/22/2023 Physical deconditioning [R53.81] 11/22/2023 Encounter Status:Closed by VIKA SIDDIQI on 01/08/24 Normal [facility] US DVT LOWER BILon US DVT LOWER TOMI * * *Final Report* * * DATE OF EXAM: Jan 08 2024 3:44PM MDU 1005 - US DVT LOWER TOMI / PROCEDURE REASON: multiple diagnoses * * * * Physician Interpretation * * * * EXAMINATION: RIGHT AND LEFT LOWER EXTREMITY DEEP VENOUS ULTRASOUND WITH DOPPLER IMAGING CLINICAL HISTORY: Bilateral lower extremity swelling TECHNIQUE: Grayscale with compression maneuvers, color Doppler and spectral Doppler imaging of the right and left proximal deep veins was performed. Grayscale with compression maneuvers of the right and left peroneal and posterior tibial veins was performed. The right and left great and small saphenous veins were evaluated at their insertion to the deep system. Images were obtained and stored in a permanent archive. MQ: USLEB_1 COMPARISON: None RESULT: RIGHT LOWER EXTREMITY PROXIMAL DEEP VEINS Distal External Iliac, Common Femoral and Proximal Profunda Veins: Compression: Normal Doppler: Normal, spontaneous respirophasic flow. Normal response to augmentation. Femoral vein: Compression: Normal Doppler: Normal, spontaneous respirophasic flow. Normal response to augmentation. Popliteal vein: Compression: Normal Doppler: Normal, spontaneous respirophasic flow. Normal response to augmentation. CALF DEEP VEINS Peroneal veins: Normal compression. Posterior tibial veins: Normal compression. Gastrocnemius and Soleal veins: Not imaged. SUPERFICIAL VEINS Great saphenous: Patent and compressible at insertion into common femoral vein; not otherwise assessed. Small Saphenous: Patent and compressible in the proximal calf, not otherwise assessed. LEFT LOWER EXTREMITY PROXIMAL DEEP VEINS Distal External Iliac, Common Femoral and Proximal Profunda Veins: Compression: Normal Doppler: Normal, spontaneous respirophasic flow. Normal response to augmentation. Femoral vein: Compression: Normal Doppler: Normal, spontaneous respirophasic flow. Normal response to augmentation. Popliteal vein: Compression: Normal Doppler: Normal, spontaneous respirophasic flow. Normal response to augmentation. CALF DEEP VEINS Peroneal veins: Normal compression. Posterior tibial veins: Normal compression. Gastrocnemius and Soleal veins: Not imaged. SUPERFICIAL VEINS Great saphenous: Patent and compressible at insertion into common femoral vein; not otherwise assessed. Small Saphenous: Patent and compressible in the proximal calf, not otherwise assessed. IMPRESSION: Negative study for proximal DVT in the left and right lower extremities. Negative study for calf DVT in the left and right lower extremities. Negative study for superficial thrombophlebitis in the imaged segments of the left and right lower extremities. Banjo Repair Person: KELLY Transcribe Date/Time: Jan 08 2024 3:45P Dictated by : GEORGE MALONEY MD This examination was interpreted and the report reviewed and electronically signed by: GEORGE MALONEY MD on Jan 08 2024 3:46PM EST [id number] Normal [facility] US Lower extremity vein - bi lateralon 01-08-2024 IMPRESSION: Negative study for proximal DVT in the left and right lower extremities. Negative study for calf DVT in the left and right lower extremities. Negative study for superficial thrombophlebitis in the imaged segments of the left and right lower extremities. Banjo Repair Person: KELLY Transcribe Date/Time: Jan 08 2024 3:45P Dictated by : GEORGE MALONEY MD This examination was interpreted and the report reviewed and electronically signed by: GEORGE MALONEY MD on Jan 08 2024 3:46PM [facility] * * *Final Report* * * DATE OF EXAM: Jan 08 2024 3:44PM [facility] 1005 - US DVT LOWER TOMI / PROCEDURE REASON: multiple diagnoses * * * * Physician Interpretation * * * * EXAMINATION: RIGHT AND LEFT LOWER EXTREMITY DEEP VENOUS ULTRASOUND WITH DOPPLER IMAGING CLINICAL HISTORY: Bilateral lower extremity swelling TECHNIQUE: Grayscale with compression maneuvers, color Doppler and spectral Doppler imaging of the right and left proximal deep veins was performed. Grayscale with compression maneuvers of the right and left peroneal and posterior tibial veins was performed. The right and left great and small saphenous veins were evaluated at their insertion to the deep system. Images were obtained and stored in a permanent archive. MQ: USLEB_1 COMPARISON: None RESULT: RIGHT LOWER EXTREMITY PROXIMAL DEEP VEINS Distal External Iliac, Common Femoral and Proximal Profunda Veins: Compression: Normal Doppler: Normal, spontaneous respirophasic flow. Normal response to augmentation. Femoral vein: Compression: Normal Doppler: Normal, spontaneous respirophasic flow. Normal response to augmentation. Popliteal vein: Compression: Normal Doppler: Normal, spontaneous respirophasic flow. Normal response to augmentation. CALF DEEP VEINS Peroneal veins: Normal compression. Posterior tibial veins: Normal compression. Gastrocnemius and Soleal veins: Not imaged. SUPERFICIAL VEINS Great saphenous: Patent and compressible at insertion into common femoral vein; not otherwise assessed. Small Saphenous: Patent and compressible in the proximal calf, not otherwise assessed. LEFT LOWER EXTREMITY PROXIMAL DEEP VEINS Distal External Iliac, Common Femoral and Proximal Profunda Veins: Compression: Normal Doppler: Normal, spontaneous respirophasic flow. Normal response to augmentation. Femoral vein: Compression: Normal Doppler: Normal, spontaneous respirophasic flow. Normal response to augmentation. Popliteal vein: Compression: Normal Doppler: Normal, spontaneous respirophasic flow. Normal response to augmentation. CALF DEEP VEINS Peroneal veins: Normal compression. Posterior tibial veins: Normal compression. Gastrocnemius and Soleal veins: Not imaged. SUPERFICIAL VEINS Great saphenous: Patent and compressible at insertion into common femoral vein; not otherwise assessed. Small Saphenous: Patent and compressible in the proximal calf, not otherwise assessed. [facility] Provider, Mikki Alegre [facility] - 01/08/2024 * * *Final Report* * * DATE OF EXAM: Jan 08 2024 3:44PM [facility] 1005 - US DVT LOWER TOMI / PROCEDURE REASON: multiple diagnoses * * * * Physician Interpretation * * * * EXAMINATION: RIGHT AND LEFT LOWER EXTREMITY DEEP VENOUS ULTRASOUND WITH DOPPLER IMAGING CLINICAL HISTORY: Bilateral lower extremity swelling TECHNIQUE: Grayscale with compression maneuvers, color Doppler and spectral Doppler imaging of the right and left proximal deep veins was performed. Grayscale with compression maneuvers of the right and left peroneal and posterior tibial veins was performed. The right and left great and small saphenous veins were evaluated at their insertion to the deep system. Images were obtained and stored in a permanent archive. MQ: USLEB_1 COMPARISON: None RESULT: RIGHT LOWER EXTREMITY PROXIMAL DEEP VEINS Distal External Iliac, Common Femoral and Proximal Profunda Veins: Compression: Normal Doppler: Normal, spontaneous respirophasic flow. Normal response to augmentation. Femoral vein: Compression: Normal Doppler: Normal, spontaneous respirophasic flow. Normal response to augmentation. Popliteal vein: Compression: Normal Doppler: Normal, spontaneous respirophasic flow. Normal response to augmentation. CALF DEEP VEINS Peroneal veins: Normal compression. Posterior tibial veins: Normal compression. Gastrocnemius and Soleal veins: Not imaged. SUPERFICIAL VEINS Great saphenous: Patent and compressible at insertion into common femoral vein; not otherwise assessed. Small Saphenous: Patent and compressible in the proximal calf, not otherwise assessed. LEFT LOWER EXTREMITY PROXIMAL DEEP VEINS Distal External Iliac, Common Femoral and Proximal Profunda Veins: Compression: Normal Doppler: Normal, spontaneous respirophasic flow. Normal response to augmentation. Femoral vein: Compression: Normal Doppler: Normal, spontaneous respirophasic flow. Normal response to augmentation. Popliteal vein: Compression: Normal Doppler: Normal, spontaneous respirophasic flow. Normal response to augmentation. CALF DEEP VEINS Peroneal veins: Normal compression. Posterior tibial veins: Normal compression. Gastrocnemius and Soleal veins: Not imaged. SUPERFICIAL VEINS Great saphenous: Patent and compressible at insertion into common femoral vein; not otherwise assessed. Small Saphenous: Patent and compressible in the proximal calf, not otherwise assessed. IMPRESSION IMPRESSION: Negative study for proximal DVT in the left and right lower extremities. Negative study for calf DVT in the left and right lower extremities. Negative study for superficial thrombophlebitis in the imaged segments of the left and right lower extremities. Banjo Repair Person: KELLY Transcribe Date/Time: Jan 08 2024 3:45P Dictated by : GEORGE MALONEY MD This examination was interpreted and the report reviewed and electronically signed by: GEORGE MALONEY MD on Jan 08 2024 3:46PM EST [facility] Radiology Study observation (narrative) [facility] US Lower extremity vein - bi lateralOrdered By: Ccf Provider on 01-08-2024 [facility] CNTHERAPYon 01-06-2024 CNTHERAPY OT/PT/Speech Visit (PTWS) LEANDRO FONTANEZ ([id number]) 1955 F Date Time Provider Department 01/06/24 11:45 AM JENNIFER SUMMERS Date Time Provider Department Center 01/06/2024 11:45 AM [id number], MARIAH PTADIS Monte[place] Reason for Visit: Physical Therapy [503] Primary Visit Diagnosis:Chronic bilateral low back pain without sciatica [M54.50, G89.29] Other Visit Diagnosis:Physical deconditioning [R53.81] Allergies As of Date: 01/06/2024 Noted Allergy Reaction BEE STING 01/25/2015 7 - Swelling Comments: Has not had SOB or other issues other than extreme swelling at site of sting LISINOPRIL 11/27/2022 3 - Cough Date Reviewed: 11/08/2023 Reviewed by: Daniela Carrasquillo MA - Fully Assessed Prescriptions as of 01/06/2024 - alendronate (FOSAMAX) 70 mg tablet Take 1 tablet by mouth one time a week. Take with a full glass of water, on an empty stomach; do NOT lie down for 30minutes. - mirabegron (MYRBETRIQ) 50 mg Tb24 Take 1 tablet by mouth once daily. - losartan (COZAAR) 25 mg tablet Take 1 tablet by mouth once daily. - acetaminophen (TYLENOL EXTRA STRENGTH) 500 mg tablet Take 1,000 mg by mouth once daily. - cyclobenzaprine (FLEXERIL) 10 mg tablet Take 1 tablet by mouth three times a day as needed for muscle spasm. - calcium carbonate-vitamin D3 600mg (1,500mg) -1,000 unit cap Take 1 capsule by mouth twice daily. - multivitamin tablet Take 1 tablet by mouth once daily. - IBUPROFEN (MOTRIN ORAL) Take by mouth once daily. Normal [facility] CNTHERAPYon 12-18-2023 CNTHERAPY OT/PT/Speech Visit (PTWS) LEANDRO FONTANEZ ([id number]) 1955 F Date Time Provider Department 12/18/23 12:00 PM CANDELARIO HALL Date Time Provider Department Center 12/18/2023 12:00 PM [id number], BRENT PTADIS [facility] [place] Reason for Visit: PT Progress Note [1596] Physical Therapy [503] Primary Visit Diagnosis:Chronic bilateral low back pain without sciatica [M54.50, G89.29] Other Visit Diagnosis:Physical deconditioning [R53.81] Allergies As of Date: 12/18/2023 Noted Allergy Reaction BEE STING 01/25/2015 7 - Swelling Comments: Has not had SOB or other issues other than extreme swelling at site of sting LISINOPRIL 11/27/2022 3 - Cough Date Reviewed: 11/08/2023 Reviewed by: Daniela Carrasquillo MA - Fully Assessed Prescriptions as of 12/18/2023 - losartan (COZAAR) 25 mg tablet Take 1 tablet by mouth once daily. - acetaminophen (TYLENOL EXTRA STRENGTH) 500 mg tablet Take 1,000 mg by mouth once daily. - alendronate (FOSAMAX) 70 mg tablet Take 1 tablet by mouth one time a week. Take with a full glass of water, on an empty stomach; do NOT lie down for 30minutes. - cyclobenzaprine (FLEXERIL) 10 mg tablet Take 1 tablet by mouth three times a day as needed for muscle spasm. - mirabegron (MYRBETRIQ) 50 mg Tb24 Take 1 tablet by mouth once daily. - calcium carbonate-vitamin D3 600mg (1,500mg) -1,000 unit cap Take 1 capsule by mouth twice daily. - multivitamin tablet Take 1 tablet by mouth once daily. - IBUPROFEN (MOTRIN ORAL) Take by mouth once daily. Normal [facility] CNTHERAPYon 12-16-2023 CNTHERAPY OT/PT/Speech Visit (PTWS) LEANDRO FONTANEZ ([id number]) 1955 F Date Time Provider Department 12/16/23 11:45 AM JENNIFER SUMMERS PTADIS Date Time Provider Department [place] 12/16/2023 11:45 AM [id number] SUMMERS Reason for Visit: Physical Therapy [503] Primary Visit Diagnosis:Chronic bilateral low back pain without sciatica [M54.50, G89.29] Other Visit Diagnosis:Physical deconditioning [R53.81] Allergies As of Date: 12/16/2023 Noted Allergy Reaction BEE STING 01/25/2015 7 - Swelling Comments: Has not had SOB or other issues other than extreme swelling at site of sting LISINOPRIL 11/27/2022 3 - Cough Date Reviewed: 11/08/2023 Reviewed by: Daniela Carrasquillo MA - Fully Assessed Prescriptions as of 12/16/2023 - losartan (COZAAR) 25 mg tablet Take 1 tablet by mouth once daily. - acetaminophen (TYLENOL EXTRA STRENGTH) 500 mg tablet Take 1,000 mg by mouth once daily. - alendronate (FOSAMAX) 70 mg tablet Take 1 tablet by mouth one time a week. Take with a full glass of water, on an empty stomach; do NOT lie down for 30minutes. - cyclobenzaprine (FLEXERIL) 10 mg tablet Take 1 tablet by mouth three times a day as needed for muscle spasm. - mirabegron (MYRBETRIQ) 50 mg Tb24 Take 1 tablet by mouth once daily. - calcium carbonate-vitamin D3 600mg (1,500mg) -1,000 unit cap Take 1 capsule by mouth twice daily. - multivitamin tablet Take 1 tablet by mouth once daily. - IBUPROFEN (MOTRIN ORAL) Take by mouth once daily. Normal [facility] CNTHERAPYon 12-12-2023 CNTHERAPY OT/PT/Speech Visit (PTWS) LEANDRO FONTANEZ ([id number]) 1955 F Date Time Provider Department 12/12/23 11:45 AM JENNIFER SUMMERS PTWS Date Time Provider Department [place] 12/12/2023 11:45 AM [id number] SUMMERS Liza Monteiro Reason for Visit: Physical Therapy [503] Primary Visit Diagnosis:Chronic bilateral low back pain without sciatica [M54.50, G89.29] Other Visit Diagnosis:Physical deconditioning [R53.81] Allergies As of Date: 12/12/2023 Noted Allergy Reaction BEE STING 01/25/2015 7 - Swelling Comments: Has not had SOB or other issues other than extreme swelling at site of sting LISINOPRIL 11/27/2022 3 - Cough Date Reviewed: 11/08/2023 Reviewed by: Daniela Carrasquillo MA - Fully Assessed Prescriptions as of 12/12/2023 - losartan (COZAAR) 25 mg tablet Take 1 tablet by mouth once daily. - acetaminophen (TYLENOL EXTRA STRENGTH) 500 mg tablet Take 1,000 mg by mouth once daily. - alendronate (FOSAMAX) 70 mg tablet Take 1 tablet by mouth one time a week. Take with a full glass of water, on an empty stomach; do NOT lie down for 30minutes. - cyclobenzaprine (FLEXERIL) 10 mg tablet Take 1 tablet by mouth three times a day as needed for muscle spasm. - mirabegron (MYRBETRIQ) 50 mg Tb24 Take 1 tablet by mouth once daily. - calcium carbonate-vitamin D3 600mg (1,500mg) -1,000 unit cap Take 1 capsule by mouth twice daily. - multivitamin tablet Take 1 tablet by mouth once daily. - IBUPROFEN (MOTRIN ORAL) Take by mouth once daily. Manager Economic: Therapy (PT/OT/Speech/Resp) ID: [id number] 12/12/2023 12:07 PM Author: JENNIFER SUMMERS Signed by JENNIFER SUMMERS ACCESSIONER on 12/12/2023 at 12:07 PM Document text: Program_ID:[id number] Access Code: [email or web address] URL: [email or web address]/ Date: 12-12-2023 Prepared By: Candelario Hall Program Notes Exercises - Hooklying Single Knee to Chest Stretch with Towel - 3 x daily - 7 x weekly - sets - 3 reps - Supine Double Knee to Chest - 3 x daily - 7 x weekly - sets - 3 reps - Supine Transversus Abdominis Bracing - Hands on Ground - 2-3 x daily - 7 x weekly - 2 sets - 10 reps - Supine Pelvic Tilt with Straight Leg Raise - 2-3 x daily - 7 x weekly - 2 sets - 10 reps - Sidelying Hip Abduction - 2-3 x daily - 7 x weekly - 2 sets - 10 reps - Clamshell - 2-3 x daily - 7 x weekly - 2 sets - 10 reps Normal [facility] THERAPY NTon 12-12-2023 THERAPY NT HNO ID: [id number] Author: JENNIFER SUMMERS PTA Service: ? Author Type: Real Property Evaluator Type: Therapy (PT/OT/Speech/Resp) Filed: 12/12/2023 12:07 Note Text: Program_ID:[id number] Access Code: [email or web address] URL: [email or web address]/ Date: 12-12-2023 Prepared By: Candelario Hall Program Notes Exercises - Hooklying Single Knee to Chest Stretch with Towel - 3 x daily - 7 x weekly - sets - 3 reps - Supine Double Knee to Chest - 3 x daily - 7 x weekly - sets - 3 reps - Supine Transversus Abdominis Bracing - Hands on Ground - 2-3 x daily - 7 x weekly - 2 sets - 10 reps - Supine Pelvic Tilt with Straight Leg Raise - 2-3 x daily - 7 x weekly - 2 sets - 10 reps - Sidelying Hip Abduction - 2-3 x daily - 7 x weekly - 2 sets - 10 reps - Clamshell - 2-3 x daily - 7 x weekly - 2 sets - 10 reps Normal [facility] CNTHERAPYon 12-09-2023 CNTHERAPY OT/PT/Speech Visit (PTWS) ESTEELEANDRO Ravi ([id number]) 1955 F Date Time Provider Department 12/09/23 11:45 AM JENNIFER SUMMERS PTADIS Date Time Provider Department Center 12/09/2023 11:45 AM [id number], MARIAH PTWS Liza Monteiro Reason for Visit: Physical Therapy [503] Primary Visit Diagnosis:Chronic bilateral low back pain without sciatica [M54.50, G89.29] Other Visit Diagnosis:Physical deconditioning [R53.81] Allergies As of Date: 12/09/2023 Noted Allergy Reaction BEE STING 01/25/2015 7 - Swelling Comments: Has not had SOB or other issues other than extreme swelling at site of sting LISINOPRIL 11/27/2022 3 - Cough Date Reviewed: 11/08/2023 Reviewed by: Daniela Carrasquillo MA - Fully Assessed Prescriptions as of 12/09/2023 - losartan (COZAAR) 25 mg tablet Take 1 tablet by mouth once daily. - acetaminophen (TYLENOL EXTRA STRENGTH) 500 mg tablet Take 1,000 mg by mouth once daily. - alendronate (FOSAMAX) 70 mg tablet Take 1 tablet by mouth one time a week. Take with a full glass of water, on an empty stomach; do NOT lie down for 30minutes. - cyclobenzaprine (FLEXERIL) 10 mg tablet Take 1 tablet by mouth three times a day as needed for muscle spasm. - mirabegron (MYRBETRIQ) 50 mg Tb24 Take 1 tablet by mouth once daily. - calcium carbonate-vitamin D3 600mg (1,500mg) -1,000 unit cap Take 1 capsule by mouth twice daily. - multivitamin tablet Take 1 tablet by mouth once daily. - IBUPROFEN (MOTRIN ORAL) Take by mouth once daily. Normal [facility] CNTHERAPYon 11-25-2023 CNTHERAPY OT/PT/Speech Visit (PTWS) LEANDRO FONTANEZ ([id number]) 1955 F Date Time Provider Department 11/25/23 9:30 AM CANDELARIO HALL PTADIS Date Time Provider Department [place] 11/25/2023 9:30 AM [id number], BRENT PTADIS Monteiro Reason for Visit: Physical Therapy [503] Primary Visit Diagnosis:Chronic bilateral low back pain without sciatica [M54.50, G89.29] Other Visit Diagnosis:Physical deconditioning [R53.81] Allergies As of Date: 11/25/2023 Noted Allergy Reaction BEE STING 01/25/2015 7 - Swelling Comments: Has not had SOB or other issues other than extreme swelling at site of sting LISINOPRIL 11/27/2022 3 - Cough Date Reviewed: 11/08/2023 Reviewed by: Daniela Carrasquillo MA - Fully Assessed Prescriptions as of 11/25/2023 - acetaminophen (TYLENOL EXTRA STRENGTH) 500 mg tablet Take 1,000 mg by mouth once daily. - alendronate (FOSAMAX) 70 mg tablet Take 1 tablet by mouth one time a week. Take with a full glass of water, on an empty stomach; do NOT lie down for 30minutes. - losartan (COZAAR) 25 mg tablet Take 1 tablet by mouth once daily. - cyclobenzaprine (FLEXERIL) 10 mg tablet Take 1 tablet by mouth three times a day as needed for muscle spasm. - mirabegron (MYRBETRIQ) 50 mg Tb24 Take 1 tablet by mouth once daily. - calcium carbonate-vitamin D3 600mg (1,500mg) -1,000 unit cap Take 1 capsule by mouth twice daily. - multivitamin tablet Take 1 tablet by mouth once daily. - IBUPROFEN (MOTRIN ORAL) Take by mouth once daily. Manager Economic: Addendum Therapy (PT/OT/Speech/Resp) ID: [id number] 11/25/2023 10:21 AM Author: CANDELARIO HALL Signed by CANDELARIO HALL PT on 11/25/2023 at 10:21 AM * * * This document replaces document [id number] * * * Document text: Program_ID:[id number] Access Code: [email or web address] URL: [email or web address]/ Date: 11-25-2023 Prepared By: Candelario Hall Program Notes Exercises - Hooklying Single Knee to Chest Stretch with Towel - 3 x daily - 7 x weekly - sets - 3 reps - Supine Double Knee to Chest - 3 x daily - 7 x weekly - sets - 3 reps - Supine Transversus Abdominis Bracing - Hands on Ground - 2-3 x daily - 7 x weekly - 2 sets - 10 reps - Supine Pelvic Tilt with Straight Leg Raise - 2-3 x daily - 7 x weekly - 2 sets - 10 reps - Sidelying Hip Abduction - 2-3 x daily - 7 x weekly - 2 sets - 10 reps Normal [facility] THERAPY NTon 11-25-2023 THERAPY NT HNO ID: [id number] Author: CANDELARIO HALL PT Service: ? Author Type: Physical Therapist Type: Therapy (PT/OT/Speech/Resp) Filed: 11/25/2023 10:21 Note Text: Program_ID:[id number] Access Code: [email or web address] URL: [email or web address]/ Date: 11-25-2023 Prepared By: Candelario Hall Program Notes Exercises - Hooklying Single Knee to Chest Stretch with Towel - 3 x daily - 7 x weekly - sets - 3 reps - Supine Double Knee to Chest - 3 x daily - 7 x weekly - sets - 3 reps - Supine Transversus Abdominis Bracing - Hands on Ground - 2-3 x daily - 7 x weekly - 2 sets - 10 reps - Supine Pelvic Tilt with Straight Leg Raise - 2-3 x daily - 7 x weekly - 2 sets - 10 reps - Sidelying Hip Abduction - 2-3 x daily - 7 x weekly - 2 sets - 10 reps Normal [facility] CNTHERAPYon 11-22-2023 CNTHERAPY OT/PT/Speech Visit (PTWS) LEANDRO FONTANEZ ([id number]) 1955 F Date Time Provider Department 11/22/23 9:30 AM CANDELARIO HALL PTWS Date Time Provider Department Center 11/22/2023 9:30 AM [id number], BRENT PTWS [facility] [place] Reason for Visit: PT Eval [747] Visit Diagnoses:Chronic bilateral low back pain without sciatica [M54.50, G89.29] Physical deconditioning [R53.81] Allergies As of Date: 11/22/2023 Noted Allergy Reaction BEE STING 01/25/2015 7 - Swelling Comments: Has not had SOB or other issues other than extreme swelling at site of sting LISINOPRIL 11/27/2022 3 - Cough Date Reviewed: 11/08/2023 Reviewed by: Daniela Carrasquillo MA - Fully Assessed Prescriptions as of 11/22/2023 - acetaminophen (TYLENOL EXTRA STRENGTH) 500 mg tablet Take 1,000 mg by mouth once daily. - alendronate (FOSAMAX) 70 mg tablet Take 1 tablet by mouth one time a week. Take with a full glass of water, on an empty stomach; do NOT lie down for 30minutes. - losartan (COZAAR) 25 mg tablet Take 1 tablet by mouth once daily. - cyclobenzaprine (FLEXERIL) 10 mg tablet Take 1 tablet by mouth three times a day as needed for muscle spasm. - mirabegron (MYRBETRIQ) 50 mg Tb24 Take 1 tablet by mouth once daily. - calcium carbonate-vitamin D3 600mg (1,500mg) -1,000 unit cap Take 1 capsule by mouth twice daily. - multivitamin tablet Take 1 tablet by mouth once daily. - IBUPROFEN (MOTRIN ORAL) Take by mouth once daily. Manager Economic: Therapy (PT/OT/Speech/Resp) ID: [id number] 11/22/2023 10:13 AM Author: CANDELARIO HALL Signed by CANDELARIO HALL PT on 11/22/2023 at 10:14 AM Document text: Program_ID:[id number] Access Code: [email or web address] URL: [email or web address]/ Date: 11-22-2023 Prepared By: Candelario Hall Program Notes Exercises - Hooklying Single Knee to Chest Stretch with Towel - 3 x daily - 7 x weekly - sets - 3 reps - Supine Double Knee to Chest - 3 x daily - 7 x weekly - sets - 3 reps Disposition: Return in about 17 days (around 12/09/2023). Follow-up and Disposition History for Encounter Date Provider Department Center 11/22/2023 [id number], BRENT PTWS Liza [facility] THERAPY NTon 11-22-2023 THERAPY NT HNO ID: [id number] Author: CANDELARIO HALL PT Service: ? Author Type: Physical Therapist Type: Therapy (PT/OT/Speech/Resp) Filed: 11/22/2023 10:14 Note Text: Program_ID:[id number] Access Code: [email or web address] URL: [email or web address]/ Date: 11-22-2023 Prepared By: Candelario Hall Program Notes Exercises - Hooklying Single Knee to Chest Stretch with Towel - 3 x daily - 7 x weekly - sets - 3 reps - Supine Double Knee to Chest - 3 x daily - 7 x weekly - sets - 3 reps Normal [facility] CNOVon 11-08-2023 CNOV Office Visit (SPNMED ) LEANDRO FONTANEZ ([id number]) 1955 F Date Time Provider Department 11/08/23 12:30 PM DAVID BERGER SPNMED During your visit today, we recorded the following information about you: Pulse Blood pressure Weight Height 80/minute 132/64 104 kg 1.6 m David Berger PA-C 11/08/2023 1:08 PM Signed [facility]re [facility] [address] [facility] [address] [place] [address] 11/08/2023 ASSESSMENT AND PLAN: Assessment : Encounter Diagnosis ICD-10-CM 1. Chronic bilateral low back pain without sciatica M54.50 CONSULT TO PHYSICAL THERAPY G89.29 2. Physical deconditioning R53.81 CONSULT [facility] CONSULT TO PHYSICAL THERAPY 3. Morbid obesity (HCC) E66.01 CONSULT [facility]AT[facility] Discussion: Ms. Fontanez is a pleasant 68-year-old female here for evaluation of low back pain over a number of years but it has gotten a little bit worse recently and she wanted to have this evaluated. She notices symptoms on the upper posterior buttocks left or right depending on the day. She takes Tylenol at home and it seems to work as well or better than OTC NSAIDs. She had a fairly severe surgical episode back in 1994 that required urgent lumbar decompression for apparent possible cauda equina syndrome EXAM Highlights: A little bit slow to mobilize from sitting standing posture but is able to stand erect. When she walks, she waddles from [id number] and does not pickling solution maker her knees very much at all. Her feet are somewhat everted as she walks. She has pain on palpation bilaterally over PSIS. The remainder of the neurologic exam is normal as noted below. IMAGING: We reviewed her October 11, 2023 lumbar plain radiographs and [facility]. She does have age-appropriate degenerative findings throughout with lower lumbar facet arthrosis but no instability or apparent fracture. Sacrum has a moderately acute kyphotic shape and the tailbone appears to be properly lined up with the distal sacral trajectory. On the spot lateral of the lumbar spine, there appears to be tiny anterior listhesis at the lowest mobile segment. There appears to be some disc space calcification at what would be a transitional segment below the tiny listhesis. The level of the presumed listhesis is just below the level of the iliac crests on the lateral views SUMMARY/PLAN: It appears that her symptoms today are limited to mechanical type pain at bilateral PSIS. I do not see any neurologic deficit. I think she would benefit from supervised PT and home exercises. I also would like her to consider nonsurgical bariatric care at [facility] to see if it could also help her with her low back symptoms over a longer course of time. Plan : REFERAL FOR SERVICES: -Physical therapy will be instituted. -Referral to [facility] nonsurgical bariatrics ACTIVITY RECOMMENDATIONS: -The patient is encouraged to avoid bed rest and maintain normal activity. NUTRITION RECOMMENDATIONS: -The patient is carrying a significant amount of weight above an ideal BMI. We discussed how this impacts overall health and back pain. FOLLOW-UP: -The patient is instructed to return as needed. ADDITIONAL DISCUSSION: -We discussed the difference between hurt vs harm as it relates to chronic pain. This document has been created with the use of voice recognition technology. It may contain inaccuracies: (e.g. misspellings, inaccurate syntax or word sense) that have escaped review. Time spent: 40 minutes today with this patient visit. This includes mgpb-gj-zkje time, review of chart records regarding conservative care history, spine-pertinent imaging, and communication/care coordination with referring provider, problem-specific history-taking and counseling/education regarding treatment options. cc: Ronnie Lay [address] [place] [phone] Results of consultation to be transmitted via electronic medical record for those providers who practice within [facility] or with access to [employer] via MD Connect, or via letter. ___ ####################### ####################### ####################### ### CHIEF COMPLAINT: Patient is here for the lower back pain, and buttocks area, both sides- pain goes from left to right buttocks area. Has this pain for years. Level of the pain is at 3/10. Pain will get worse depends on what she was going. HPI: see Discussion above History of bowel or bladder dysfunction (not IBS or constipation): Yes, Urge incontinence, frequency History of previous spinal surgery: Yes, performed in 1994 at [place]. The procedure was a Lumbar. Before surgery she could barely walk, and couldn't control her bladder. (more content not included)... Normal [facility] CNOVon 10-11-2023 CNOV Office Visit (UCWSTR ) LEANDRO FONTANEZ ([id number]) 1955 F Date Time Provider Department 10/11/23 11:30 AM RONNIE LAY [facility] During your visit today, we recorded the following information about you: Temperature Pulse Respiration Blood pressure 97.5 degrees 85/minute 22/minute 128/82 Weight 104 kg Ronnie Lay APRN.SQL APPLICATION DEVELOPER 10/11/2023 12:44 PM Signed Subjective Patient came in with complaints of lower back pain. Patient says she did not injure it in any way. Patient says it tends to hurt more after she has worked all day on it. Patient says it just feels achy. Denies any radiating pain numbness or tingling down the leg. Denies any difficulty having bowel movements or urinating. Scribes the pain as an achy pain The history is provided by the patient. No language teacher was used. Back Pain Review of Systems Constitutional: Negative. Musculoskeletal: Positive for back pain. Skin: Negative. Objective Physical Exam Constitutional: Appearance: Normal appearance. Pulmonary: Effort: Pulmonary effort is normal. Skin: Comments: Patient says she is has pain in the area marked above slightly tender when palpated no deformities noted. Patient was able to lift legs and range of motion within normal limits. Neurological: Mental Status: She is alert. PAST MEDICAL HISTORY Diagnosis Date Benign paroxysmal positional vertigo 07/13/2021 Elevated hemoglobin A1c 01/22/2020 Hypertension, essential 08/29/2022 Left hip pain 2016 Obesity, Class III, BMI 40-49.9 (morbid obesity) ([facility]) 01/22/2020 Peripheral edema 01/27/2021 Urge incontinence 01/25/2015 PAST SURGICAL HISTORY Procedure Laterality Date COLONOSCOPY FLX DX W/COLLJ SPEC WHEN PFRMD 07/15/15 normal 10 year follow up DANDC (INCOMPLETE AB), ANY TRIMESTER FECAL OCCULT BLOOD TEST 07/15/2017 negative LAMINECTOMY W/O FFD / VERT SEG LUMBAR N/A 1999 ALLERGIES Bee Sting and Lisinopril MEDICATIONS meloxicam (MOBIC) 15 mg tablet Take 1 tablet by mouth once daily. alendronate (FOSAMAX) 70 mg tablet Take 1 tablet by mouth one time a week. Take with a full glass of water, on an empty stomach; do NOT lie down for 30minutes. losartan (COZAAR) 25 mg tablet Take 1 tablet by mouth once daily. mirabegron (MYRBETRIQ) 50 mg Tb24 Take 1 tablet by mouth once daily. calcium carbonate-vitamin D3 600mg (1,500mg) -1,000 unit cap Take 1 capsule by mouth twice daily. multivitamin tablet Take 1 tablet by mouth once daily. IBUPROFEN (MOTRIN ORAL) Take by mouth once daily. cyclobenzaprine (FLEXERIL) 10 mg tablet Take 1 tablet by mouth three times a day as needed for muscle spasm. (Patient not taking: Reported on 08/30/2023) FAMILY HISTORY Problem Relation Age of Onset Heart Mother Diabetes Mother Heart Father not sure of exact issue No Known Problems Brother No Known Problems Brother No Known Problems Brother Diabetes Maternal Grandmother No Known Problems Daughter No Known Problems Son No Known Problems Son No Known Problems Son Social History Tobacco Use Smoking status: Former Packs/day: 0.50 Years: 7.00 Additional pack years: 0.00 Total pack years: 3.50 Types: Cigarettes Quit date: 05/03/2003 Years since quittin.4 Smokeless tobacco: Never Vaping Use Vaping Use: Never used Substance Use Topics Alcohol use: No Drug use: No ASSESSMENT/PLAN: 1. Pain - ICD9: 780.96, ICD10: R52 - XR SACRUM/COCCYX 3V AP/LAT - XR LUMBAR GENERAL 3V AP/LAT/L5-S1 * * * * Physician Interpretation * * * * X-ray lumbosacral spine, AP, lateral and L5-S1 views X-ray sacrum and coccyx, AP and lateral views Indication: Low back pain Comparison: X-ray lumbar spine 01/22/2020 Counting reference: Lumbosacral junction. For the purposes of this report, L5S1 is considered the last lumbar type disc space and L4-5 is considered the level of the iliac crest. Transitional vertebra at S1. No fracture is visualized. There is good alignment of the vertebrae. There is degenerative disc disease at multiple levels of the lumbar spine with endplate sclerosis, intervertebral disc space narrowing and osteophyte formation. Sacroiliac joints appear normal. IMPRESSION IMPRESSION: No acute fracture. Degenerative disease of the lumbar spine. Banjo Repair Person: KELLY Transcribe Date/Time: Oct 11 2023 12:32P Dictated by : ERYN MEADOWS MD - CONSULT TO SPINE [facility] Is on daily for 5 days. Patient will make her own spine appointment. Was okay with this care plan. Ronnie Lay APRN.SQL APPLICATION DEVELOPER Allergies As of Date: 10/11/2023 Noted Allergy Reaction BEE STING 01/25/2015 7 - Swelling Comments: Has not had SOB or other issues other than extreme swelling at site of sting LISINOPRIL 11/27/2022 3 - Cough Date Reviewed: 10/11/2023 Reviewed by: Arlet Smith LPN - Fully Assessed Reason for Visit: Back Pain [12] Cmt: Lower back pain (more content not included)... Normal [facility] No Panel Informationon 10-10 IMPRESSION: No acute fracture. Degenerative disease of the lumbar spine. Banjo Repair Person: KELLY Transcribe Date/Time: Oct 11 2023 12:32P Dictated by : ERYN MEADOWS MD This examination was interpreted and the report reviewed and electronically signed by: ERYN MEADOWS MD on Oct 11 2023 12:35PM [facility] DIVISION OF RADIOLOGY Radiology Study observation (narrative) [facility] No Panel InformationOrdered By: Ccf Provider on 10-11-2023 [facility] XR LUMBAR 3V AP/LAT/L5-S1on 10-11-2023 XR LUMBAR 3V AP/LAT/L5-S1 * * *Final Report* * * DATE OF EXAM: Oct 11 2023 12:17PM WOX 5228 - XR LUMBAR 3V AP/LAT/L5-S1 / PROCEDURE REASON: Pain * * * * Physician Interpretation * * * * X-ray lumbosacral spine, AP, lateral and L5-S1 views X-ray sacrum and coccyx, AP and lateral views Indication: Low back pain Comparison: X-ray lumbar spine 01/22/2020 Counting reference: Lumbosacral junction. For the purposes of this report, L5S1 is considered the last lumbar type disc space and L4-5 is considered the level of the iliac crest. Transitional vertebra at S1. No fracture is visualized. There is good alignment of the vertebrae. There is degenerative disc disease at multiple levels of the lumbar spine with endplate sclerosis, intervertebral disc space narrowing and osteophyte formation. Sacroiliac joints appear normal. IMPRESSION: No acute fracture. Degenerative disease of the lumbar spine. Banjo Repair Person: KELLY Transcribe Date/Time: Oct 11 2023 12:32P Dictated by : ERYN MEADOWS MD This examination was interpreted and the report reviewed and electronically signed by: ERYN MEADOWS MD on Oct 11 2023 12:35PM EST [id number] Normal [facility] XR Lumbar spine 3 Viewson * * *Final Report* * * DATE OF EXAM: Oct 11 2023 12:17PM WOX 5228 - XR LUMBAR 3V AP/LAT/L5-S1 / PROCEDURE REASON: Pain * * * * Physician Interpretation * * * * X-ray lumbosacral spine, AP, lateral and L5-S1 views X-ray sacrum and coccyx, AP and lateral views Indication: Low back pain Comparison: X-ray lumbar spine 01/22/2020 Counting reference: Lumbosacral junction. For the purposes of this report, L5S1 is considered the last lumbar type disc space and L4-5 is considered the level of the iliac crest. Transitional vertebra at S1. No fracture is visualized. There is good alignment of the vertebrae. There is degenerative disc disease at multiple levels of the lumbar spine with endplate sclerosis, intervertebral disc space narrowing and osteophyte formation. Sacroiliac joints appear normal. DIVISION OF RADIOLOGY [facility] * * *Final Report* * * DATE OF EXAM: Oct 11 2023 12:17PM WOX 5228 - XR LUMBAR 3V AP/LAT/L5-S1 / PROCEDURE REASON: Pain * * * * Physician Interpretation * * * * X-ray lumbosacral spine, AP, lateral and L5-S1 views X-ray sacrum and coccyx, AP and lateral views Indication: Low back pain Comparison: X-ray lumbar spine 01/22/2020 Counting reference: Lumbosacral junction. For the purposes of this report, L5S1 is considered the last lumbar type disc space and L4-5 is considered the level of the iliac crest. Transitional vertebra at S1. No fracture is visualized. There is good alignment of the vertebrae. There is degenerative disc disease at multiple levels of the lumbar spine with endplate sclerosis, intervertebral disc space narrowing and osteophyte formation. Sacroiliac joints appear normal. IMPRESSION IMPRESSION: No acute fracture. Degenerative disease of the lumbar spine. Banjo Repair Person: KELLY Transcribe Date/Time: Oct 11 2023 12:32P Dictated by : ERYN MEADOWS MD This examination was interpreted and the report reviewed and electronically signed by: ERYN MEADOWS MD on Oct 11 2023 12:35PM [facility] XR SACRUM/COCCYX 3V AP/LATon 10-11-2023 XR SACRUM/COCCYX 3V AP/LAT * * *Final Report* * * DATE OF EXAM: Oct 11 2023 12:17PM WOX 5246 - XR SACRUM/COCCYX 3V AP/LAT / PROCEDURE REASON: Pain * * * * Physician Interpretation * * * * X-ray lumbosacral spine, AP, lateral and L5-S1 views X-ray sacrum and coccyx, AP and lateral views Indication: Low back pain Comparison: X-ray lumbar spine 01/22/2020 Counting reference: Lumbosacral junction. For the purposes of this report, L5S1 is considered the last lumbar type disc space and L4-5 is considered the level of the iliac crest. Transitional vertebra at S1. No fracture is visualized. There is good alignment of the vertebrae. There is degenerative disc disease at multiple levels of the lumbar spine with endplate sclerosis, intervertebral disc space narrowing and osteophyte formation. Sacroiliac joints appear normal. IMPRESSION: No acute fracture. Degenerative disease of the lumbar spine. Banjo Repair Person: KELLY Transcribe Date/Time: Oct 11 2023 12:32P Dictated by : ERYN MEADOWS MD This examination was interpreted and the report reviewed and electronically signed by: ERYN MEADOWS MD on Oct 11 2023 12:35PM EST [id number] Normal [facility] XR Sacrum and Coccyx 3 Views on 10-11-2023 * * *Final Report* * * DATE OF EXAM: Oct 11 2023 12:17PM WOX 5246 - XR SACRUM/COCCYX 3V AP/LAT / PROCEDURE REASON: Pain * * * * Physician Interpretation * * * * X-ray lumbosacral spine, AP, lateral and L5-S1 views X-ray sacrum and coccyx, AP and lateral views Indication: Low back pain Comparison: X-ray lumbar spine 01/22/2020 Counting reference: Lumbosacral junction. For the purposes of this report, L5S1 is considered the last lumbar type disc space and L4-5 is considered the level of the iliac crest. Transitional vertebra at S1. No fracture is visualized. There is good alignment of the vertebrae. There is degenerative disc disease at multiple levels of the lumbar spine with endplate sclerosis, intervertebral disc space narrowing and osteophyte formation. Sacroiliac joints appear normal. DIVISION OF RADIOLOGY Provider, [facility] - 10/11/2023 * * *Final Report* * * DATE OF EXAM: Oct 11 2023 12:17PM WOX 5246 - XR SACRUM/COCCYX 3V AP/LAT / PROCEDURE REASON: Pain * * * * Physician Interpretation * * * * X-ray lumbosacral spine, AP, lateral and L5-S1 views X-ray sacrum and coccyx, AP and lateral views Indication: Low back pain Comparison: X-ray lumbar spine 01/22/2020 Counting reference: Lumbosacral junction. For the purposes of this report, L5S1 is considered the last lumbar type disc space and L4-5 is considered the level of the iliac crest. Transitional vertebra at S1. No fracture is visualized. There is good alignment of the vertebrae. There is degenerative disc disease at multiple levels of the lumbar spine with endplate sclerosis, intervertebral disc space narrowing and osteophyte formation. Sacroiliac joints appear normal. IMPRESSION IMPRESSION: No acute fracture. Degenerative disease of the lumbar spine. Banjo Repair Person: PSCB Transcribe Date/Time: Oct 11 2023 12:32P Dictated by : ERYN MEADOWS MD This examination was interpreted and the report reviewed and electronically signed by: ERYN MEADOWS MD on Oct 11 2023 12:35PM [facility] CNOVon 09-23-2023 CNOV Office Visit (PODIWS ) LEANDRO FONTANEZ ([id number]) 1955 F Date Time Provider Department 09/23/23 10:15 AM SHAHRZAD EWING PODIWS During your visit today, we recorded the following information about you: Melany Vargas RN 09/23/2023 11:00 AM Signed AMB ROOMING INTAKE FLOWSHEET DATA Pain Pain Level: 5 Pain Location: Other: See Comment (bilateral ankles) Description: Throbbing, Aching Duration Units: Years Frequency: Continuous Intervention/Comfort measure: Relaxation, Reposition Patient presents with: Right Ankle - New, Pain, Swelling Left Ankle - New, Pain, Swelling Patient presents for bilateral ankle pain and swelling. States that it has been ongoing for years and worsened recently. Patient states that Left is worse than right. Pain and swelling worse at the end of the day. XR prior to appointment. Shahrzad Ewing 09/23/2023 11:00 AM Signed Consultation requested by Dr. Juarez for an opinion regarding b/l ankle pain. My final recommendations will be communicated back to the requesting physician by way of shared Medical record or letter to requesting physician via US mail. Initial Podiatric Office Visit: Chief Complaint: This 68 year old female who presents with chief complaint: b/l ankle pain HPI Patient presents to clinic with complaint of b/l ankle pain. She has pain to b/l lower extremity that has been present for several years. She states the pain is very intermittent, worse with walking. Does fear that her ankles are going to give out. Currently not doing much for the pain Has xrays to review. If the pain gets really bad, she will take motrin PAIN EVALUATION 09/23/2023 1027 Pain Level: 5 Pain Location: Other: See Comment bilateral ankles Description: Throbbing;Aching Duration Units: Years Frequency: Continuous Intervention/Comfort measure: Relaxation;Reposition Hemoglobin A1C (%) Date Value 02/20/2023 5.7 01/26/2022 6.0 08/02/2021 5.8 01/27/2021 5.9 01/25/2020 5.9 08/08/2018 5.8 07/15/2017 5.8 Hemoglobin A1C (POCT) (%) Date Value 08/29/2022 5.9 PCP: Jamie Juarez MD PAST MEDICAL HISTORY Diagnosis Date Benign paroxysmal positional vertigo 07/13/2021 Elevated hemoglobin A1c 01/22/2020 Hypertension, essential 08/29/2022 Left hip pain 2016 Obesity, Class III, BMI 40-49.9 (morbid obesity) (HCC) 01/22/2020 Peripheral edema 01/27/2021 Urge incontinence 01/25/2015 Current Outpatient Medications Medication Sig alendronate (FOSAMAX) 70 mg tablet Take 1 tablet by mouth one time a week. Take with a full glass of water, on an empty stomach; do NOT lie down for 30minutes. losartan (COZAAR) 25 mg tablet Take 1 tablet by mouth once daily. mirabegron (MYRBETRIQ) 50 mg Tb24 Take 1 tablet by mouth once daily. calcium carbonate-vitamin D3 600mg (1,500mg) -1,000 unit cap Take 1 capsule by mouth twice daily. multivitamin tablet Take 1 tablet by mouth once daily. IBUPROFEN (MOTRIN ORAL) Take by mouth once daily. cyclobenzaprine (FLEXERIL) 10 mg tablet Take 1 tablet by mouth three times a day as needed for muscle spasm. (Patient not taking: Reported on 08/30/2023) No current facility-administered medications for this visit. ALLERGIES Allergen Reactions Bee Sting Swelling Has not had SOB or other issues other than extreme swelling at site of sting Lisinopril Cough PAST SURGICAL HISTORY Procedure Laterality Date COLONOSCOPY FLX DX W/COLLJ SPEC WHEN PFRMD 07/15/15 normal 10 year follow up DANDC (INCOMPLETE AB), ANY TRIMESTER FECAL OCCULT BLOOD TEST 07/15/2017 negative LAMINECTOMY W/O FFD 06/04 VERT SEG LUMBAR N/A 1999 FAMILY HISTORY Problem Relation Age of Onset Heart Mother Diabetes Mother Heart Father not sure of exact issue No Known Problems Brother No Known Problems Brother No Known Problems Brother Diabetes Maternal Grandmother No Known Problems Daughter No Known Problems Son No Known Problems Son No Known Problems Son Social History Tobacco Use Smoking status: Former Packs/day: 0.50 Years: 7.00 Additional pack years: 0.00 Total pack years: 3.50 Types: Cigarettes Quit date: 05/03/2003 Years since quittin.4 Smokeless tobacco: Never Vaping Use Vaping Use: Never used Substance Use Topics Alcohol use: No Drug use: No REVIEW OF SYSTEMS GENERAL: Negative for Malaise, significant weight loss, fever RESPIRATORY: Negative for cough, wheezing and shortness of breath CARDIOVASCULAR: Negative for chest pain, leg swelling and palpitations GI: Negative for abdominal discomfort, blood in stools or black stools and change in bowel habits : Negative for dysuria, frequency and incontinence MUSCULOSKELETAL: Negative for joint pain or swelling, back pain, and muscle pain. SKIN: Negative for lesions, rash, and itching. HEMATOLOGY/LYMPHOLOGY Negative for prolonged bleeding, bruising easily, and (more content not included)... Normal [facility] (PODIWS) LEANDRO FONTANEZ ([id number]) 1955 F Date Time Provider Department 09/23/23 SHAHRZAD EWING During your visit today, we recorded the following information about you: Shahrzad Ewing 09/23/2023 12:42 PM Signed Please call patient to inform her that her blood work is fine. If she wishes for me to call in an anti-inflammatory, let us know what pharmacy works the best and I will call that in. CHARLOTTE Briceno Amanda, MALI 09/23/2023 1:57 PM Signed Attempted to call patient to relay below message. No answer, left voicemail for her to call office back Ellen Stacy 09/23/2023 3:55 PM Signed Pt returned called. Message below from Dr. Ewing received. She said she would try the anti-inflammatory. [facility] pharmacy would be her choice for pharmacy. Macrina Sheldon LPN 09/24/2023 8:15 AM Signed Shahrzad Ewing 39 minutes ago (7:36 AM) Order for mobic sent to [facility]. She can take once daily with food. CHARLOTTE Briceno Amelia, LPN 09/25/2023 9:07 AM Signed Called patient to inform her medication had been sent in. No response. Left VM. TONIO Pierce Amelia, LPN 09/30/2023 4:13 PM Signed Patient picked up medication. Macrina Sheldon LPN Allergies As of Date: 09/23/2023 Noted Allergy Reaction BEE STING 01/25/2015 7 - Swelling Comments: Has not had SOB or other issues other than extreme swelling at site of sting LISINOPRIL 11/27/2022 3 - Cough Date Reviewed: 09/23/2023 Reviewed by: Melany Vargas, RN - Fully Assessed Reason for Visit: Patient Update [1234] Prescriptions as of 09/30/2023 - meloxicam (MOBIC) 15 mg tablet Take 1 tablet by mouth once daily. - alendronate (FOSAMAX) 70 mg tablet Take 1 tablet by mouth one time a week. Take with a full glass of water, on an empty stomach; do NOT lie down for 30minutes. - losartan (COZAAR) 25 mg tablet Take 1 tablet by mouth once daily. - cyclobenzaprine (FLEXERIL) 10 mg tablet Take 1 tablet by mouth three times a day as needed for muscle spasm. - mirabegron (MYRBETRIQ) 50 mg Tb24 Take 1 tablet by mouth once daily. - calcium carbonate-vitamin D3 600mg (1,500mg) -1,000 unit cap Take 1 capsule by mouth twice daily. - multivitamin tablet Take 1 tablet by mouth once daily. - IBUPROFEN (MOTRIN ORAL) Take by mouth once daily. Problem List As Of Date 09/23/2023 Noted Resolved Urge incontinence [N39.41] 01/25/2015 Tendonitis, Achilles, right [M76.61] 01/25/2015 Head lump [R22.0] 01/25/2015 Midline cystocele [N81.11] 06/13/2015 Encounter for screening for cardiovascular diso*11/01/2015 Encounter for routine gynecological examination*11/08/2015 Well adult exam [Z00.00] 11/08/2015 Encounter for screening mammogram for breast ca*07/12/2017 Screening for colon cancer [Z12.11] 07/12/2017 Left hip pain [M25.552] 2016 Obesity, Class III, BMI 40-49.9 (morbid obesity*01/22/2020 Elevated hemoglobin A1c [R73.09] 01/22/2020 Age-related osteoporosis without current pathol*02/04/2020 Peripheral edema [R60.0] 01/27/2021 Benign paroxysmal positional vertigo [H81.10] 07/13/2021 Advance directive discussed with patient [Z71.8*02/27/2022 Hypertension, essential [I10] 08/29/2022 Encounter Status:Closed by MACRINA SHELDON on 09/30/23 Normal [facility] Comprehensive metabolic 2000 panelOrdered By: Maxine Norwood on 09-23-2023 Albumin [Mass/Vol] 3.9 g/dL 3.9 - 4.9 g/dL [facility] ALP [Catalytic activity/Vol] 80 U/L 34 - 123 U/L [facility] ALT [Catalytic activity/Vol] 12 U/L 7 - 38 U/L [facility] Anion gap [Moles/Vol] 7 mmol/L Low 9 - 18 mmol/L [facility] AST [Catalytic activity/Vol] 14 U/L 13 - 35 U/L [facility] Bilirubin [Mass/Vol] 0.5 mg/dL 0.2 - 1 .3 mg/dL [facility] Calcium [Mass/Vol] 9.7 mg/dL 8.5 - 10. 2 mg/dL [facility] Chloride [Moles/Vol] 103 mmol/L 97 - 10 5 mmol/L [facility] CO2 [Moles/Vol] 31 mmol/L High 22 - 30 mmol/L [facility] Creatinine [Mass/Vol] 0.77 mg/dL 0.58 - 0.96 mg/dL [facility] GFR/1.73 sq M.predicted among non-blacks MDRD (S/P/Bld) [Vol rate/Area] 83 mL/min/{1.73_m2} - PINF [facility] Comment on above: Estimated Glomerular Filtration Rate (eGFR) is calculated using the 2020 CKD-EPI creatinine equation. This equation utilizes serum creatinine, sex, and age as parameters. The creatinine assay has traceable calibration to isotope dilution-mass spectrometry. Refer to KDIGO guidelines for clinical interpretation. In patients with unstable renal function, e.g. those with acute kidney injury, the eGFR may not accurately reflect actual GFR. Glucose [Mass/Vol] 79 mg/dL 74 - 99 mg/dL [facility] Comment on above: The [place] [employer] (ADA) provides guidance for cutoff values for fasting glucose and random glucose. The ADA defines fasting as no caloric intake for at least 8 hours. Fasting plasma glucose results between 100 to 125 mg/dL indicate increased risk for diabetes (prediabetes). Fasting plasma glucose results greater than or equal to 126 mg/dL meet the criteria for diagnosis of diabetes. In the absence of unequivocal hyperglycemia, results should be confirmed by repeat testing. In a patient with classic symptoms of hyperglycemia or hyperglycemic crisis, random plasma glucose results greater than or equal to 200 mg/dL meet the criteria for diagnosis of diabetes. Reference: Standards of Medical Care in Diabetes 2016, [employer] [place] [employer]. Diabetes Care. 2016.39(Suppl 1). Interpretation and review of laboratory results Abnormal [facility] Potassium [Moles/Vol] 3.9 mmol/L 3.7 - 5.1 mmol/L [facility] Protein [Mass/Vol] 6.8 g/dL 6.3 - 8.0 g/dL [facility] Sodium [Moles/Vol] 141 mmol/L 136 - 144 mmol/L [facility] Urea nitrogen [Mass/Vol] 15 mg/dL 7 - 21 mg/dL [facility] Comprehensive metabolic 2000 panelon 09-23-2023 Albumin [Mass/Vol] 3.9 g/dL Normal 3.9-4.9 [facility] Comment on above: Order Comment: Speci men Type: BLOOD SPECIMENOrdering Facility: [facility] Address: [address] [place] [address] Performed By: #### 2 4323-8 ####[facility] LIZA MILLTOWNCLIA [id number] [place] [address] [place] ALP [Catalytic activity/Vol] 80 U/L Normal 34-123 [facility] Comment on above: Order Comment: Speci men Type: BLOOD SPECIMENOrdering Facility: [facility] Address: [address] [place] [address] Performed By: #### 2 4323-8 ####[facility] MILLWNCLIA [id number] [place] [address] [place] ALT [Catalytic activity/Vol] 12 U/L Normal 7-38 [facility] Comment on above: Order Comment: Speci men Type: BLOOD SPECIMENOrdering Facility: [facility] Address: [address] [place] [address] Performed By: #### 2 4323-8 ####[facility] MILLTOWNCLIA [id number] [place] [address] [place] Anion gap [Moles/Vol] 7 mmol/L Low 9-18 [facility] Comment on above: Order Comment: Speci men Type: BLOOD SPECIMENOrdering Facility: [facility] Address: [address] [place] [address] Performed By: #### 2 4323-8 ####[facility] LIZA MILLTOWNCLIA [id number] [place] [address] [place] AST [Catalytic activity/Vol] 14 U/L Normal 13-35 [facility] Comment on above: Order Comment: Speci men Type: BLOOD SPECIMENOrdering Facility: [facility] Address: [address] [place] [address] Performed By: #### 2 4323-8 ####[facility] LIZA MILLTOWNCLIA [id number] [place] [address] [place] Bilirubin [Mass/Vol] 0.5 mg/dL Normal 0.2-1.3 [facility] Comment on above: Order Comment: Speci men Type: BLOOD SPECIMENOrdering Facility: [facility] Address: [address] [place] [address] Performed By: #### 2 4323-8 ####[facility] LIZA MILLTOWNCLIA [id number] [place] [address] [place] Calcium [Mass/Vol] 9.7 mg/dL Normal 8.5-10.2 [facility] Comment on above: Order Comment: Speci men Type: BLOOD SPECIMENOrdering Facility: [facility] Address: [address] [place] [address] Performed By: #### 2 4323-8 ####[facility] EMERGENCYWAMINATALIA [id number] [place] [address] [place] Chloride [Moles/Vol] 103 mmol/L Normal 97-105 [facility] Comment on above: Order Comment: Speci men Type: BLOOD SPECIMENOrdering Facility: [facility] Address: [address] [place] [address] Performed By: #### 2 4323-8 ####[facility] MILLWNCLIA [id number] [place] [address] [place] CO2 [Moles/Vol] 31 mmol/L High 22-30 [facility] Comment on above: Order Comment: Speci men Type: BLOOD SPECIMENOrdering Facility: [facility] Address: [address] [place] [address] Performed By: #### 2 4323-8 ####[facility] MILLTOWNCLIA [id number] [place] [address] [place] Creatinine [Mass/Vol] 0.77 mg/dL Normal 0.58-0.96 [facility] Comment on above: Order Comment: Ariadne rios Type: BLOOD SPECIMENOrdering Facility: [facility] Address: [address] [place] [address] Performed By: #### 2 4323-8 ####[facility] [id number] [place] [address] [place] Creatinine and Glomerular filtration rate.predicted panel (S/P/Bld) 83 mL/min/1.73m??? Normal >=60 [facility] Comment on above: Order Comment: Ariadne rios Type: BLOOD SPECIMENOrdering Facility: [facility] Address: [address] [place] [address] Result Comment: Prema mated Glomerular Filtration Rate (eGFR) is calculated using the 2020 CKD-EPI creatinine equation. This equation utilizes serum creatinine, sex, and age as parameters. The creatinine assay has traceable calibration to isotope dilution-mass spectrometry. Refer to KDIGO guidelines for clinical interpretation. In patients with unstable renal function, e.g. those with acute kidney injury, the eGFR may not accurately reflect actual GFR. Performed By: #### 2 4323-8 ####[facility] [id number] [place] [address] [place] Glucose [Mass/Vol] 79 mg/dL Normal 74-99 [facility] Comment on above: Order Comment: Ariadne rios Type: BLOOD SPECIMENOrdering Facility: [facility] Address: [address] [place] [address] Result Comment: The [place] Diabetes [employer] (ADA) provides guidance for cutoff values for fasting glucose and random glucose. The ADA defines fasting as no caloric intake for at least 8 hours. Fasting plasma glucose results between 100 to 125 mg/dL indicate increased risk for diabetes (prediabetes). Fasting plasma glucose results greater than or equal to 126 mg/dL meet the criteria for diagnosis of diabetes. In the absence of unequivocal hyperglycemia, results should be confirmed by repeat testing. In a patient with classic symptoms of hyperglycemia or hyperglycemic crisis, random plasma glucose results greater than or equal to 200 mg/dL meet the criteria for diagnosis of diabetes. Reference: Standards of Medical Care in Diabetes 2016, [place] [employer]. Diabetes Care. 2016.39(Suppl 1). Performed By: #### 2 4323-8 ####[facility] [id number] [place] [address] [place] Potassium [Moles/Vol] 3.9 mmol/L Normal 3.7-5.1 [facility] Comment on above: Order Comment: Speci men Type: BLOOD SPECIMENOrdering Facility: [facility] Address: [address] [place] [address] Performed By: #### 2 4323-8 ####[facility] [id number] [place] [address] [place] Protein [Mass/Vol] 6.8 g/dL Normal 6.3-8.0 [facility] Comment on above: Order Comment: Speci men Type: BLOOD SPECIMENOrdering Facility: [facility] Address: [address] [place] [address] Performed By: #### 2 4323-8 ####[facility] [id number] [place] [address] [place] Sodium [Moles/Vol] 141 mmol/L Normal 136-144 [facility] Comment on above: Order Comment: Speci men Type: BLOOD SPECIMENOrdering Facility: [facility] Address: [address] [place] [address] Performed By: #### 2 4323-8 ####[facility] [id number] [place] [address] [place] Urea nitrogen [Mass/Vol] 15 mg/dL Normal 7-21 [facility] Comment on above: Order Comment: Speci men Type: BLOOD SPECIMENOrdering Facility: [facility] Address: [address] [place] [address] Performed By: #### 2 4323-8 ####[facility] [id number] [place] [id number] [place] [address] [facility] XR ANKLE 3V AP/LAT/OBL BILon 09-23-2023 XR ANKLE 3V AP/LAT/OBL TOMI * * *Final Report* * * DATE OF EXAM: Sep 23 2023 10:06AM [id number] [id number] - XR ANKLE 3V AP/LAT/OBL TOMI / PROCEDURE REASON: multiple diagnoses * * * * Physician Interpretation * * * * EXAMINATION: XR ANKLE 3V AP/LAT/OBL TOMI CLINICAL HISTORY: Bilateral ankle pain Technique: XR ANKLE 3V AP/LAT/OBL TOMI -- BILATERAL with 3 views on 5 images Comparison: X-ray left ankle 07/15/2020 RESULT: Right ankle: No acute fracture or dislocation. Joint spaces are maintained. Posterior calcaneal spur. Left ankle: No acute fracture or dislocation. Joint spaces are maintained. Plantar and posterior calcaneal spurs. IMPRESSION: No acute osseous abnormality Banjo Repair Person: PSCB Transcribe Date/Time: Sep 26 2023 12:01P Dictated by : ERYN MEADOWS MD This examination was interpreted and the report reviewed and electronically signed by: ERYN MEADOWS MD on Sep 26 2023 12:03PM EST [id number] Normal [facility] LEANDRO FONTANEZ ([id number]) 1955 F Date Time Provider Department 09/02/23 ALBINA SALCEDO [facility] During your visit today, we recorded the following information about you: Albina Salcedo PA-C 09/02/2023 8:45 AM Signed Covid/flu/rsv negative. Continue as discussed with Dr. Juarez. Nguyen Lay MA 09/02/2023 8:52 AM Signed Left message for patient to contact office. WESLEY Adan Krista TOOL CLERK 09/02/2023 1:47 PM Signed Pt notified of results and provider message. Kaylan Ruiz LPN Allergies As of Date: 09/02/2023 Noted Allergy Reaction BEE STING 01/25/2015 7 - Swelling Comments: Has not had SOB or other issues other than extreme swelling at site of sting LISINOPRIL 11/27/2022 3 - Cough Date Reviewed: 08/30/2023 Reviewed by: Nguyen Lay MA - Fully Assessed Reason for Visit: Results [95] Prescriptions as of 09/02/2023 - methylPREDNISolone (MEDROL, YAW,) 4 mg Dose-Pack Follow dosing instructions, take with food. - azithromycin (ZITHROMAX Z-YAW) 250 mg tablet Take 2 tablets day one, then, 1 tablet daily until gone. - alendronate (FOSAMAX) 70 mg tablet Take 1 tablet by mouth one time a week. Take with a full glass of water, on an empty stomach; do NOT lie down for 30minutes. - losartan (COZAAR) 25 mg tablet Take 1 tablet by mouth once daily. - cyclobenzaprine (FLEXERIL) 10 mg tablet Take 1 tablet by mouth three times a day as needed for muscle spasm. - mirabegron (MYRBETRIQ) 50 mg Tb24 Take 1 tablet by mouth once daily. - calcium carbonate-vitamin D3 600mg (1,500mg) -1,000 unit cap Take 1 capsule by mouth twice daily. - multivitamin tablet Take 1 tablet by mouth once daily. - IBUPROFEN (MOTRIN ORAL) Take by mouth once daily. Problem List As Of Date 09/02/2023 Noted Resolved Urge incontinence [N39.41] 01/25/2015 Tendonitis, Achilles, right [M76.61] 01/25/2015 Head lump [R22.0] 01/25/2015 Midline cystocele [N81.11] 06/13/2015 Encounter for screening for cardiovascular diso*11/01/2015 Encounter for routine gynecological examination*11/08/2015 Well adult exam [Z00.00] 11/08/2015 Encounter for screening mammogram for breast ca*07/12/2017 Screening for colon cancer [Z12.11] 07/12/2017 Left hip pain [M25.552] 2017 Obesity, Class III, BMI 40-49.9 (morbid obesity*01/22/2020 Elevated hemoglobin A1c [R73.09] 01/22/2020 Age-related osteoporosis without current pathol*02/04/2020 Peripheral edema [R60.0] 01/27/2021 Benign paroxysmal positional vertigo [H81.10] 07/13/2021 Advance directive discussed with patient [Z71.8*02/27/2022 Hypertension, essential [I10] 08/29/2022 Encounter Status:Closed by KAYLAN RUIZ on 09/02/23 Normal [facility] CNOVon 08-30-2023 CNOV Office Visit (FAMPWS ) LEANDRO FONTANEZ ([id number]) 1955 F Date Time Provider Department 08/30/23 11:00 AM JAMIE JUAREZ During your visit today, we recorded the following information about you: Temperature Pulse Respiration Blood pressure 98.8 degrees 82/minute 22/minute 112/70 Weight 103.9 kg Jamie Juarez MD 08/30/2023 12:35 PM Signed Chief Complaint Patient presents with: Cough HPI Leandro Fontanez is a 68 year old female who presents here today for Acute onset of cough.. Patient indicated cough started on Saturday. No fevers or chills. Slight ear discomfort. Headache in the forehead and worse with coughing. No nasal discharge. Post nasal drainage. Slight throat irritation yesterday. Has a dry cough. No nausea, vomiting diarrhea. No new body aches. Past medical history, appointments, medications, allergies reviewed. Previous Medical History PAST MEDICAL HISTORY Diagnosis Date Benign paroxysmal positional vertigo 07/13/2021 Elevated hemoglobin A1c 01/22/2020 Hypertension, essential 08/29/2022 Left hip pain 2017 Obesity, Class III, BMI 40-49.9 (morbid obesity) ([facility]) 01/22/2020 Peripheral edema 01/27/2021 Urge incontinence 01/25/2015 Previous Surgical History PAST SURGICAL HISTORY Procedure Laterality Date COLONOSCOPY FLX DX W/COLLJ SPEC WHEN PFRMD 07/15/15 normal 10 year follow up DANDC (INCOMPLETE AB), ANY TRIMESTER FECAL OCCULT BLOOD TEST 07/15/2017 negative LAMINECTOMY W/O FFD 06/04 VERT SEG LUMBAR N/A 1999 Family History FAMILY HISTORY Problem Relation Age of Onset Heart Mother Diabetes Mother Heart Father not sure of exact issue No Known Problems Brother No Known Problems Brother No Known Problems Brother Diabetes Maternal Grandmother No Known Problems Daughter No Known Problems Son No Known Problems Son No Known Problems Son Patient Allergies ALLERGIES Allergen Reactions Lisinopril Cough Bee Sting Swelling Has not had SOB or other issues other than extreme swelling at site of sting Current Medications Current Outpatient Medications on File Prior to Visit Medication Sig alendronate (FOSAMAX) 70 mg tablet Take 1 tablet by mouth one time a week. Take with a full glass of water, on an empty stomach; do NOT lie down for 30minutes. losartan (COZAAR) 25 mg tablet Take 1 tablet by mouth once daily. mirabegron (MYRBETRIQ) 50 mg Tb24 Take 1 tablet by mouth once daily. calcium carbonate-vitamin D3 600mg (1,500mg) -1,000 unit cap Take 1 capsule by mouth twice daily. multivitamin tablet Take 1 tablet by mouth once daily. IBUPROFEN (MOTRIN ORAL) Take by mouth once daily. albuterol HFA (PROAIR HFA) 90 mcg/actuation inhaler Inhale 2 Puffs as instructed every 6 hours as needed. (Patient not taking: Reported on 08/30/2023) benzonatate (TESSALON PERLES) 100 mg capsule Take 2 capsules by mouth three times a day as needed. (Patient not taking: Reported on 08/30/2023) cyclobenzaprine (FLEXERIL) 10 mg tablet Take 1 tablet by mouth three times a day as needed for muscle spasm. (Patient not taking: Reported on 08/30/2023) No current facility-administered medications on file prior to visit. Social History Social History Tobacco Use Smoking status: Former Packs/day: 0.50 Years: 7.00 Additional pack years: 0.00 Total pack years: 3.50 Types: Cigarettes Quit date: 05/03/2003 Years since quittin.3 Smokeless tobacco: Never Vaping Use Vaping Use: Never used Substance Use Topics Alcohol use: No Drug use: No Review of Symptoms REVIEW OF SYSTEMS See HPI EXAM: BP 112/70 (BP Site: Left Arm, BP Position: Sitting, BP Cuff Size: Large Adult) Pulse 82 Temp 37.1 ?C (98.8 ?F) (Tympanic) Resp 22 Wt 103.9 kg (229 lb) SpO2 94% BMI 41.87 kg/m? General Appearance: Well appearing, alert, in no acute distress, well-hydrated, well nourished. and Morbidly obese. Eyes: Anicteric sclera. Pupils are equally round and reactive to light. Extraocular movements are intact. . Ears: External ears normal, canals clear. Nose/Sinuses: Nares normal, septum midline, mucosa normal, no drainage or sinus tenderness. Oropharynx: Lips, mucosa, and tongue normal, teeth and gums normal, oropharynx normal. Right tonsil is enlarged. Neck: Supple, no adenopathy; thyroid symmetric, normal size, no bruits. Lungs: Lungs clear to auscultation. No wheezing, rhonchi, rales.. Heart: RRR without murmur, gallop, or rubs. No ectopy. Abdomen: Normal abdominal exam, Abdomen soft, non-tender. Bowel sounds normal. No masses, organomegaly. Health Maintenance List BP Controlled (<130/80) Never done RSV Vaccine(1 - 1-dose 60+ series) Never done Covid-19 Vaccine(2022- season) due on 02/01/2023 Mammogram Screening due on 03/22/2023 Advance Directive Discussion due on 06/03/2023 Depression Assessment Never done DTaP,Tdap,Td Vaccine(2 - Td or Tdap (more content not included)... Normal [facility] COVID AND INFLUENZA A/B AND RSV NAAT, ROUTINEon 08-30-2023 SARS-CoV-2 (COVID-19) RNA TITO+probe Ql (Unsp spec) COVID 19 RESULT: Not detected The method used is RT-PCR or an equivalent NAAT method. Reference Range (the expected result in uninfected individuals): Not detected INFLUENZA A PCR: Not detected INFLUENZA B PCR: Not detected RSV PCR: Not detected [facility] Comment on above: Performed By: #### C VFLRS ####[facility] RAD [id number] [place] [address] [place] CNOVon 06-14-2023 CNOV Office Visit (UCWSTR ) LEANDRO FONTANEZ ([id number]) 1955 F Date Time Provider Department 06/14/23 10:00 AM [facility] During your visit today, we recorded the following information about you: Temperature Pulse Respiration Blood pressure 98.4 degrees 84/minute 22/minute 137/85 Weight 102.1 kg Arlet Smith LPN 06/14/2023 10:34 AM Signed 2.5 solution aerosol treatment given per provider's orders. Prior to treatment O2 sat is 90-93%. Treatment completed. O2 sat is 92. Tolerated well. Meme Crow PA-C 06/14/2023 10:59 AM Signed This note was created using DWNLDriter. Subjective Leandro Fontanez is a 67 year old female. HPI Patient presents with a chief complaint of cough, nasal congestion, sore throat over the past 4 days. She was seen at another urgent care and had a COVID flu test that was negative. She states she had gotten the test back within 45 minutes so she thinks it was rapid. She denies shortness of breath. Cough sometimes keeps her up at night. She denies history of asthma or COPD. Sometimes it hurts in her chest when she coughs. No diarrhea or vomiting. Review of Systems Constitutional: Positive for fatigue. Negative for fever. HENT: Positive for congestion, rhinorrhea and sore throat. Negative for ear pain. Respiratory: Positive for cough. Negative for shortness of breath and wheezing. Cardiovascular: Negative. Gastrointestinal: Negative. Genitourinary: Negative. Musculoskeletal: Negative. All other systems reviewed and are negative. PAST MEDICAL HISTORY Diagnosis Date Benign paroxysmal positional vertigo 07/13/2021 Elevated hemoglobin A1c 01/22/2020 Hypertension, essential 08/29/2022 Left hip pain 2016 Obesity, Class III, BMI 40-49.9 (morbid obesity) (HCC) 01/22/2020 Peripheral edema 01/27/2021 Urge incontinence 01/25/2015 Current Outpatient Medications Medication Sig Dispense Refill losartan (COZAAR) 25 mg tablet Take 1 tablet by mouth once daily. 30 tablet 5 cyclobenzaprine (FLEXERIL) 10 mg tablet Take 1 tablet by mouth three times a day as needed for muscle spasm. 20 tablet 0 mirabegron (MYRBETRIQ) 50 mg Tb24 Take 1 tablet by mouth once daily. 90 tablet 3 alendronate (FOSAMAX) 70 mg tablet Take 1 tablet by mouth one time a week. Take with a full glass of water, on an empty stomach; do NOT lie down for 30minutes. 4 tablet 11 calcium carbonate-vitamin D3 600mg (1,500mg) -1,000 unit cap Take 1 capsule by mouth twice daily. multivitamin tablet Take 1 tablet by mouth once daily. IBUPROFEN (MOTRIN ORAL) Take by mouth once daily. albuterol HFA (PROAIR HFA) 90 mcg/actuation inhaler Inhale 2 Puffs as instructed every 6 hours as needed. 1 Each 0 benzonatate (TESSALON PERLES) 100 mg capsule Take 2 capsules by mouth three times a day as needed. 30 capsule 0 No current facility-administered medications for this visit. PAST SURGICAL HISTORY Procedure Laterality Date COLONOSCOPY FLX DX W/COLLJ SPEC WHEN PFRMD 07/15/15 normal 10 year follow up DANWV (INCOMPLETE AB), ANY TRIMESTER FECAL OCCULT BLOOD TEST 07/15/2017 negative LAMINECTOMY W/O FFD 06/04 VERT SEG LUMBAR N/A 1999 FAMILY HISTORY Problem Relation Age of Onset Heart Mother Diabetes Mother Heart Father not sure of exact issue No Known Problems Brother No Known Problems Brother No Known Problems Brother Diabetes Maternal Grandmother No Known Problems Daughter No Known Problems Son No Known Problems Son No Known Problems Son Social History Tobacco Use Smoking status: Former Packs/day: 0.50 Years: 7.00 Additional pack years: 0.00 Total pack years: 3.50 Types: Cigarettes Quit date: 05/03/2003 Years since quittin.1 Smokeless tobacco: Never Vaping Use Vaping Use: Never used Substance Use Topics Alcohol use: No Drug use: No Objective BP 137/85 Pulse 84 Temp 36.9 ?C (98.4 ?F) Resp 22 Wt 102.1 kg (225 lb) SpO2 93% BMI 41.14 kg/m? Physical Exam Vitals reviewed. Constitutional: Appearance: Normal appearance. HENT: Head: Normocephalic and atraumatic. Right Ear: Tympanic membrane, ear canal and external ear normal. Left Ear: Tympanic membrane, ear canal and external ear normal. Nose: Congestion present. Mouth/Throat: Mouth: Mucous membranes are moist. Pharynx: Oropharynx is clear. Cardiovascular: Rate and Rhythm: Normal rate and regular rhythm. Heart sounds: Normal heart sounds. Pulmonary: Effort: Pulmonary effort is normal. Breath sounds: Normal breath sounds. Musculoskeletal: Cervical back: Neck supple. Skin: General: Skin is warm and dry. Findings: No rash. Neurological: General: No focal deficit present. Mental Status: She is alert. Assessment and Plan ASSESSMENT/PLAN: 1. Viral URI - ICD9: 465.9, ICD10: J06.9 - Discussed viral etiology and rationale for treatment. - Symptomatic treatment with prn analgesi (more content not included)... Normal [facility] LEAN[facility] FONTANE[facility] ([id number]) 1955 F Date Time Provider Department 06/14/23 JAMIE MORROW ADIS During your visit today, we recorded the following information about you: Jamie Morrow APRN.CNP 06/14/2023 7:00 PM Signed COVID-19, influenza A, and influenza B PCR test are negative. Continue supportive therapies as discussed during visit. Follow-up with PCP if symptoms are not improving. Jamie Morrow APRN.Vika Brumfield MA 06/14/2023 8:02 PM Signed Left VM instructing patient to return call to receive results. WESLEY MatsonDelaney ulloa 06/16/2023 8:29 AM Signed Patient given results and verbalized understanding of instructions given. Delaney Dunlap Allergies As of Date: 06/14/2023 Noted Allergy Reaction LISINOPRIL 11/27/2022 3 - Cough BEE STING 01/25/2015 7 - Swelling Comments: Has not had SOB or other issues other than extreme swelling at site of sting Date Reviewed: 06/14/2023 Reviewed by: Arlet Smith LPN - Fully Assessed Reason for Visit: Results [95] Prescriptions as of 06/16/2023 - albuterol HFA (PROAIR HFA) 90 mcg/actuation inhaler Inhale 2 Puffs as instructed every 6 hours as needed. - benzonatate (TESSALON PERLES) 100 mg capsule Take 2 capsules by mouth three times a day as needed. - losartan (COZAAR) 25 mg tablet Take 1 tablet by mouth once daily. - cyclobenzaprine (FLEXERIL) 10 mg tablet Take 1 tablet by mouth three times a day as needed for muscle spasm. - mirabegron (MYRBETRIQ) 50 mg Tb24 Take 1 tablet by mouth once daily. - alendronate (FOSAMAX) 70 mg tablet Take 1 tablet by mouth one time a week. Take with a full glass of water, on an empty stomach; do NOT lie down for 30minutes. - calcium carbonate-vitamin D3 600mg (1,500mg) -1,000 unit cap Take 1 capsule by mouth twice daily. - multivitamin tablet Take 1 tablet by mouth once daily. - IBUPROFEN (MOTRIN ORAL) Take by mouth once daily. Problem List As Of Date 06/14/2023 Noted Resolved Urge incontinence [N39.41] 01/25/2015 Tendonitis, Achilles, right [M76.61] 01/25/2015 Head lump [R22.0] 01/25/2015 Midline cystocele [N81.11] 06/13/2015 Encounter for screening for cardiovascular diso*11/01/2015 Encounter for routine gynecological examination*11/08/2015 Well adult exam [Z00.00] 11/08/2015 Encounter for screening mammogram for breast ca*07/12/2017 Screening for colon cancer [Z12.11] 07/12/2017 Left hip pain [M25.552] 2017 Obesity, Class III, BMI 40-49.9 (morbid obesity*01/22/2020 Elevated hemoglobin A1c [R73.09] 01/22/2020 Age-related osteoporosis without current pathol*02/04/2020 Peripheral edema [R60.0] 01/27/2021 Benign paroxysmal positional vertigo [H81.10] 07/13/2021 Advance directive discussed with patient [Z71.8*02/27/2022 Hypertension, essential [I10] 08/29/2022 Encounter Status:Closed by DELANEY DUNLAP on 06/16/23 Normal [facility] COVID AND INFLUENZA A/B AND RSV NAAT, ROUTINEon 06-14-2023 SARS-CoV-2 (COVID-19) RNA TITO+probe Ql (Unsp spec) COVID 19 RESULT: Not detected The method used is RT-PCR or an equivalent NAAT method. Reference Range (the expected result in uninfected individuals): Not detected INFLUENZA A PCR: Not detected INFLUENZA B PCR: Not detected RSV PCR: Not detected Normal [facility] Comment on above: Performed By: #### C VFS ####[facility] LABCLIA [id number] [place] [address] [place] XR CHEST 2V FRONTAL/LATon XR CHEST 2V FRONTAL/LAT * * *Final Report* * * DATE OF EXAM: Jun 14 2023 10:43AM WOX [id number] - XR CHEST 2V FRONTAL/LAT / PROCEDURE REASON: Acute cough * * * * Physician Interpretation * * * * EXAMINATION: CHEST RADIOGRAPH (2 VIEW FRONTAL and LATERAL) CLINICAL HISTORY: Acute cough MQ: XC2_6 EXAM DATE/TIME: 06/14/2023 10:43 AM COMPARISON: Chest x-ray on 11/27/2022 RESULT: Lines, tubes, and devices: None. Lungs and pleura: No consolidation. No lung mass. No pleural effusion. No pneumothorax. Cardiomediastinal silhouette: Stable cardiomediastinal silhouette. Bones and soft tissues: There are degenerative changes in the spine. IMPRESSION: No acute radiographic abnormality. Banjo Repair Person: PSCB Transcribe Date/Time: Jun 14 2023 10:43A Dictated by : BRYSON VELÁSQUEZ MD This examination was interpreted and the report reviewed and electronically signed by: BRYSON VELÁSQUEZ MD on Jun 14 2023 10:44AM EST [id number] Normal [facility] XR Chest PA and Lateralon IMPRESSION: No acute radiographic abnormality. Banjo Repair Person: PSCB Transcribe Date/Time: Jun 14 2023 10:43A Dictated by : BRYSON VELÁSQUEZ MD This examination was interpreted and the report reviewed and electronically signed by: BRYSON VELÁSQUEZ MD on Jun 14 2023 10:44AM EST DIVISION OF RADIOLOGY * * *Final Report* * * DATE OF EXAM: Jun 14 2023 10:43AM WOX [id number] - XR CHEST 2V FRONTAL/LAT / PROCEDURE REASON: Acute cough * * * * Physician Interpretation * * * * EXAMINATION: CHEST RADIOGRAPH (2 VIEW FRONTAL & LATERAL) CLINICAL HISTORY: Acute cough MQ: XC2_6 EXAM DATE/TIME: 06/14/2023 10:43 AM COMPARISON: Chest x-ray on 11/27/2022 RESULT: Lines, tubes, and devices: None. Lungs and pleura: No consolidation. No lung mass. No pleural effusion. No pneumothorax. Cardiomediastinal silhouette: Stable cardiomediastinal silhouette. Bones and soft tissues: There are degenerative changes in the spine. DIVISION OF RADIOLOGY Provider, [facility] - 06/14/2023 * * *Final Report* * * DATE OF EXAM: Jun 14 2023 10:43AM WOX [id number] - XR CHEST 2V FRONTAL/LAT / PROCEDURE REASON: Acute cough * * * * Physician Interpretation * * * * EXAMINATION: CHEST RADIOGRAPH (2 VIEW FRONTAL & LATERAL) CLINICAL HISTORY: Acute cough MQ: XC2_6 EXAM DATE/TIME: 06/14/2023 10:43 AM COMPARISON: Chest x-ray on 11/27/2022 RESULT: Lines, tubes, and devices: None. Lungs and pleura: No consolidation. No lung mass. No pleural effusion. No pneumothorax. Cardiomediastinal silhouette: Stable cardiomediastinal silhouette. Bones and soft tissues: There are degenerative changes in the spine. IMPRESSION IMPRESSION: No acute radiographic abnormality. Banjo Repair Person: PSCB Transcribe Date/Time: Jun 14 2023 10:43A Dictated by : BRYSON VELÁSQUEZ MD This examination was interpreted and the report reviewed and electronically signed by: BRYSON VELÁSQUEZ MD on Jun 14 2023 10:44AM EST [facility] Radiology Study observation (narrative) [facility] XR Chest PA and LateralOrder ed By: [facility] Provider on 06-14-2023 [facility] XR CHEST 2V FRONTAL/LATon [facility] XR Chest PA and Lateralon IMPRESSION: No acute radiographic abnormality. [facility] Repair [facility] Transcribe Date/Time: Nov 27 2022 4:23P Dictated by : KATIA DA SILVA MD This examination was interpreted and the report reviewed and electronically signed by: KATIA DA SILVA MD on Nov 27 2022 4:24PM [facility] DIVISION OF RADIOLOGY * * *Final Report* * * DATE OF EXAM: Nov 27 2022 11:57AM WOX 5291 - XR CHEST 2V FRONTAL/LAT / PROCEDURE REASON: Bacterial pneumonia * * * * Physician Interpretation * * * * EXAMINATION: CHEST RADIOGRAPH (2 VIEW FRONTAL & LATERAL) CLINICAL HISTORY: Bacterial pneumonia MQ: XC2_6 EXAM DATE/TIME: 11/27/2022 11:57 AM COMPARISON: 11/03/2022 RESULT: Lines, tubes, and devices: None. Lungs and pleura: No consolidation. No lung mass. No pleural effusion. No pneumothorax. Cardiomediastinal silhouette: Normal cardiomediastinal silhouette. Bones and soft tissues: Multilevel degenerative change and osteophytosis. [facility] * * *Final Report* * * DATE OF EXAM: Nov 27 2022 11:57AM WOX [id number] - XR CHEST 2V FRONTAL/LAT / PROCEDURE REASON: Bacterial pneumonia * * * * Physician Interpretation * * * * EXAMINATION: CHEST RADIOGRAPH (2 VIEW FRONTAL & LATERAL) CLINICAL HISTORY: Bacterial pneumonia MQ: XC2_6 EXAM DATE/TIME: 11/27/2022 11:57 AM COMPARISON: 11/03/2022 RESULT: Lines, tubes, and devices: None. Lungs and pleura: No consolidation. No lung mass. No pleural effusion. No pneumothorax. Cardiomediastinal silhouette: Normal cardiomediastinal silhouette. Bones and soft tissues: Multilevel degenerative change and osteophytosis. IMPRESSION IMPRESSION: No acute radiographic abnormality. Banjo Repair Person: KELLY Transcribe Date/Time: Nov 27 2022 4:23P Dictated by : KATIA DA SILVA MD This examination was interpreted and the report reviewed and electronically signed by: KATIA DA SILVA MD on Nov 27 2022 4:24PM EST [facility] Radiology Study observation (narrative) [facility] XR Chest PA and LateralOrder ed By: Ccf Provider on 11-27-2022 [facility] XR CHEST 2V FRONTAL/LATon [facility] XR Chest PA and Lateralon IMPRESSION: Findings as discussed under Results portion of report. Banjo Repair Person: KELLY Transcribe Date/Time: Nov 03 2022 12:53P Dictated by : YESSI SHAFER DO This examination was interpreted and the report reviewed and electronically signed by: YESSI SHAFER DO on Nov 03 2022 12:54PM EST DIVISION OF RADIOLOGY * * *Final Report* * * DATE OF EXAM: Nov 03 2022 11:22AM WOX [id number] - XR CHEST 2V FRONTAL/LAT / PROCEDURE REASON: multiple diagnoses * * * * Physician Interpretation * * * * EXAMINATION: CHEST RADIOGRAPH (2 VIEW FRONTAL & LATERAL) CLINICAL HISTORY: Acute cough Wheezing MQ: XC2_6 EXAM DATE/TIME: 11/03/2022 11:22 AM COMPARISON: No relevant prior studies available. RESULT: Lines, tubes, and devices: None. Lungs and pleura: Question some bibasilar atelectasis or infiltrate. Cardiomediastinal silhouette: Normal cardiomediastinal silhouette. Bones and soft tissues: Unremarkable. DIVISION OF RADIOLOGY Provider, Mikki Alegre [facility] - 11/03/2022 * * *Final Report* * * DATE OF EXAM: Nov 03 2022 11:22AM WOX [id number] - XR CHEST 2V FRONTAL/LAT / PROCEDURE REASON: multiple diagnoses * * * * Physician Interpretation * * * * EXAMINATION: CHEST RADIOGRAPH (2 VIEW FRONTAL & LATERAL) CLINICAL HISTORY: Acute cough Wheezing MQ: XC2_6 EXAM DATE/TIME: 11/03/2022 11:22 AM COMPARISON: No relevant prior studies available. RESULT: Lines, tubes, and devices: None. Lungs and pleura: Question some bibasilar atelectasis or infiltrate. Cardiomediastinal silhouette: Normal cardiomediastinal silhouette. Bones and soft tissues: Unremarkable. IMPRESSION IMPRESSION: Findings as discussed under Results portion of report. Banjo Repair Person: KELLY Transcribe Date/Time: Nov 03 2022 12:53P Dictated by : YESSI SHAFER DO This examination was interpreted and the report reviewed and electronically signed by: YESSI SHAFER DO on Nov 03 2022 12:54PM [facility] Radiology Study observation (narrative) [facility] XR Chest PA and LateralOrder ed By: Ccf Provider on 11-03-2022 [facility] XR FOOT GENERAL 3V AP/LAT/OB L LEFTon 08-27-2022 [facility] XR Foot - left AP and Latera l and obliqueon 08-27-2022 IMPRESSION: No acute radiographic abnormalities seen in the left foot. Patient can be reevaluated in 10-14 days if symptoms persist. Banjo Repair Person: KELLY Transcribe Date/Time: Aug 27 2022 11:09A Dictated by : BRYSON VELÁSQUEZ MD This examination was interpreted and the report reviewed and electronically signed by: BRYSON VELÁSQUEZ MD on Aug 27 2022 11:12AM [facility] DIVISION OF RADIOLOGY * * *Final Report* * * DATE OF EXAM: Aug 27 2022 10:49AM WOX [id number] - XR FOOT 3V AP/LAT/OBL LT / PROCEDURE REASON: Injury of left foot, initial encounter * * * * Physician Interpretation * * * * EXAM TITLE: XR FOOT 3V AP/LAT/OBL LT EXAM DATE/TIME: 08/27/2022 10:49 AM COMPARISON: None CLINICAL INDICATION/HISTORY: Injury TECHNIQUE: AP, lateral and oblique views of the left foot are presented. FINDINGS: No acute fractures or subluxations are noted. Achilles/calcaneal enthesophyte is noted. The joint spaces are well preserved. The bones are osteopenic. There is no significant soft tissue swelling. DIVISION OF RADIOLOGY Provider, Mikki Alegre [facility] - 08/27/2022 * * *Final Report* * * DATE OF EXAM: Aug 27 2022 10:49AM WOX [id number] - XR FOOT 3V AP/LAT/OBL LT / PROCEDURE REASON: Injury of left foot, initial encounter * * * * Physician Interpretation * * * * EXAM TITLE: XR FOOT 3V AP/LAT/OBL LT EXAM DATE/TIME: 08/27/2022 10:49 AM COMPARISON: None CLINICAL INDICATION/HISTORY: Injury TECHNIQUE: AP, lateral and oblique views of the left foot are presented. FINDINGS: No acute fractures or subluxations are noted. Achilles/calcaneal enthesophyte is noted. The joint spaces are well preserved. The bones are osteopenic. There is no significant soft tissue swelling. IMPRESSION IMPRESSION: No acute radiographic abnormalities seen in the left foot. Patient can be reevaluated in 10-14 days if symptoms persist. Banjo Repair Person: KELLY Transcribe Date/Time: Aug 27 2022 11:09A Dictated by : BRYSON VELÁSQUEZ MD This examination was interpreted and the report reviewed and electronically signed by: BRYSON VELÁSQUEZ MD on Aug 27 2022 11:12AM EST [facility] Radiology Study observation (narrative) [facility] XR Foot - left AP and Latera l and obliqueOrdered By: Cc Provider on 08-27-2022 [facility] XR Ankle - left AP and Later al and obliqueon 07-15-2020 IMPRESSION: Soft tissue swelling of the ankle. No acute osseous abnormality identified. Banjo Repair Person: [facility] Transcribe Date/Time: Jul 15 2020 2:19P Dictated by : MULU BROWNLEE MD This examination was interpreted and the report reviewed and electronically signed by: MULU BROWNLEE MD on Jul 15 2020 2:20PM [facility] DIVISION OF RADIOLOGY * * *Final Report* * * DATE OF EXAM: Jul 15 2020 2:15PM WOX [id number] - XR ANKLE 3V AP/LAT/OBL LT / PROCEDURE REASON: Acute left ankle pain * * * * Physician Interpretation * * * * Left ankle HISTORY: 65 years old Clinical information: Acute left ankle pain Left medial ankle pain x 1 day after having a muscle spasm. TECHNIQUE: Images: XR ANKLE 3V AP/LAT/OBL LT Comparison: None. RESULT: Findings: No fracture or dislocation. Plantar calcaneal spur. Enthesophyte at the Achilles insertion site on the calcaneus. Ankle mortise is congruent. Soft tissue swelling of the ankle. DIVISION OF RADIOLOGY Provider, Mikki quinn [place] - 07/15/2020 * * *Final Report* * * DATE OF EXAM: Jul 15 2020 2:15PM WOX 5298 - XR ANKLE 3V AP/LAT/OBL LT / PROCEDURE REASON: Acute left ankle pain * * * * Physician Interpretation * * * * Left ankle HISTORY: 65 years old Clinical information: Acute left ankle pain Left medial ankle pain x 1 day after having a muscle spasm. TECHNIQUE: Images: XR ANKLE 3V AP/LAT/OBL LT Comparison: None. RESULT: Findings: No fracture or dislocation. Plantar calcaneal spur. Enthesophyte at the Achilles insertion site on the calcaneus. Ankle mortise is congruent. Soft tissue swelling of the ankle. IMPRESSION IMPRESSION: Soft tissue swelling of the ankle. No acute osseous abnormality identified. Banjo Repair Person[facility] Transcribe Date/Time: Jul 15 2020 2:19P Dictated by : MULU BROWNLEE MD This examination was interpreted and the report reviewed and electronically signed by: MULU BROWNLEE MD on Jul 15 2020 2:20PM EST [facility] Radiology Study observation (narrative) [facility] XR Ankle - left AP and Later al and obliqueOrdered By: Ccf Provider on 07-15-2020 [facility] Vital Signs Date Time Vital Sign Value Performing Clinician Sharif schaffer 03-02-2024 14:04-0400 Body mass index (BMI) [Ratio] 43.25 kg/m2 Eve Cui APRN.CNP Work Phone: [facility] 03-02-2024 14:04-0400 Body weight 106.59 kg Eve Cui APRN.CNP Work Phone: [facility] 03-02-2024 14:04-0400 Diastolic blood pressure 78 mm[Hg] Eve Cui APRN.CNP Work Phone: [facility] 03-02-2024 14:04-0400 Heart rate 79 /min Eve Cui [employer] DEVEL[employer] Work Phone: [facility] 03-02-2024 14:04-0400 Respiratory rate 16 /min Eve Cui [employer] DEVELOPER Work Phone: [facility] 03-02-2024 14:04-0400 Systolic blood pressure 117 mm[Hg] Eve Cui [employer] DEVELOPER Work Phone: [facility] 02-28-2024 10:18-0400 Body height 157 cm Jamie Juarez MD Work Phone: [facility] 02-28-2024 10:18-0400 Body mass index (BMI) [Ratio] 42.91 kg/m2 Jamie Juarez MD Work Phone: [facility] 02-28-2024 10:18-0400 Body weight 105.78 kg Jamie Juarez MD Work Phone: [facility] 02-28-2024 10:18-0400 Diastolic blood pressure 66 mm[Hg] Jamie Juarez MD Work Phone: [facility] 02-28-2024 10:18-0400 Heart rate 93 /min Jamie Juarez MD Work Phone: [facility] 02-28-2024 10:18-0400 Respiratory rate 16 /min Jamie Juarez MD Work Phone: [facility] 02-28-2024 10:18-0400 SaO2% (BldA) [Mass fraction] 93 % Jamie Juarez MD Work Phone: [facility] 02-28-2024 10:18-0400 Systolic blood pressure 118 mm[Hg] Jamie Juarez MD Work Phone: [facility] 02-11-2024 09:21-0400 Body mass index (BMI) [Ratio] 41.45 kg/m2 Eve Cui [employer]EL[employer] Work Phone: [facility] 02-11-2024 09:21-0400 Body weight 106.14 kg Eve Cui APRN.SQL APPLICATION DEVELOPER Work Phone: [facility] 02-11-2024 09:21-0400 Diastolic blood pressure 77 mm[Hg] Eve Cui APRN.SQL APPLICATION DEVELOPER Work Phone: [facility] 02-11-2024 09:21-0400 Heart rate 88 /min Eve Cui APRN.SQL APPLICATION DEVELOPER Work Phone: [facility] 02-11-2024 09:21-0400 Respiratory rate 16 /min Eve Cui APRN.SQL APPLICATION DEVELOPER Work Phone: [facility] 02-11-2024 09:21-0400 SaO2% (BldA) [Mass fraction] 97 % Eve Cui APRN.SQL APPLICATION DEVELOPER Work Phone: [facility] 02-11-2024 09:21-0400 Systolic blood pressure 119 mm[Hg] Eve Cui APRN.SQL APPLICATION DEVELOPER Work Phone: [facility] 02-07-2024 14:03-0400 Body mass index (BMI) [Ratio] 41.2 kg/m2 Krislyn Aberegg PA Work Phone: [facility] 02-07-2024 14:03-0400 Body temperature 97.5 [degF] Krislyn Aberegg PA Work Phone: [facility] 02-07-2024 14:03-0400 Body weight 105.5 kg Krislyn Aberegg PA Work Phone: [facility] 02-07-2024 14:03-0400 Diastolic blood pressure 91 mm[Hg] Krislyn Aberegg PA Work Phone: [facility] 02-07-2024 14:03-0400 Heart rate 66 /min Krislyn Aberegg PA Work Phone: [facility] 02-07-2024 14:03-0400 Respiratory rate 18 /min Krislyn Aberegg PA Work Phone: [facility] 02-07-2024 14:03-0400 SaO2% (BldA) [Mass fraction] 91 % Estee BECERRA Work Phone: [facility] 02-07-2024 14:03-0400 Systolic blood pressure 147 mm[Hg] Estee Kaur PA Work Phone: [facility] 01-14-2024 10:31-0400 Body mass index (BMI) [Ratio] 41.52 kg/m2 Jamie Juarez MD Work Phone: [facility] 01-14-2024 10:31-0400 Body weight 106.32 kg Jamie Juarez MD Work Phone: [facility] 01-14-2024 10:31-0400 Diastolic blood pressure 64 mm[Hg] Jamie Juarez MD Work Phone: [facility] 01-14-2024 10:31-0400 Heart rate 98 /min Jamie Juarez MD Work Phone: [facility] 01-14-2024 10:31-0400 Respiratory rate 18 /min Jamie Juarez MD Work Phone: [facility] 01-14-2024 10:31-0400 SaO2% (BldA) [Mass fraction] 95 % Jamie Juarez MD Work Phone: [facility] 01-14-2024 10:31-0400 Systolic blood pressure 128 mm[Hg] Jamie Juarez MD Work Phone: [facility] 01-08-2024 12:41-0400 Body mass index (BMI) [Ratio] 42.22 kg/m2 Veronique Fuentes APRN.SQL APPLICATION DEVELOPER Work Phone: [facility] 01-08-2024 12:41-0400 Body temperature 97.81 [degF] Veronique Fuentes APRN.SQL APPLICATION DEVELOPER Work Phone: [facility] 01-08-2024 12:41-0400 Body weight 108.1 kg Veronique Fuentes APRN.SQL APPLICATION DEVELOPER Work Phone: [facility] 01-08-2024 12:41-0400 Diastolic blood pressure 102 mm[Hg] Veronique King [employer] DEVELOPER Work Phone: [facility] 01-08-2024 12:41-0400 Heart rate 64 /min Veronique Fuentes [employer] DEVELOPER Work Phone: [facility] 01-08-2024 12:41-0400 Respiratory rate 18 /min Veronique Fuentes [employer] DEVELOPER Work Phone: [facility] 01-08-2024 12:41-0400 SaO2% (BldA) [Mass fraction] 96 % Veronique Fuentes [employer] DEVELOPER Work Phone: [facility] 01-08-2024 12:41-0400 Systolic blood pressure 142 mm[Hg] Veronique Fuentes [employer] DEVELOPER Work Phone: [facility] 11-22-2023 09:00-0400 Diastolic blood pressure 80 mm[Hg] Candelario Golias PT Work Phone: [facility] 11-22-2023 09:00-0400 Heart rate 78 /min Candelario Golias PT Work Phone: [facility] 11-22-2023 09:00-0400 Systolic blood pressure 122 mm[Hg] Candelario Golias PT Work Phone: [facility] 11-08-2023 12:21-0400 Body height 160 cm David BECERRA-C Work Phone: [facility] 11-08-2023 12:21-0400 Body mass index (BMI) [Ratio] 40.61 kg/m2 David BECERRA-C Work Phone: [facility] 11-08-2023 12:21-0400 Body weight 104 kg David BECERRA-C Work Phone: [facility] 11-08-2023 12:21-0400 Diastolic blood pressure 64 mm[Hg] David BECERRA-C Work Phone: [facility] 11-08-2023 12:21-0400 Heart rate 80 /min David BECERRA-C Work Phone: [facility] 11-08-2023 12:21-0400 SaO2% (BldA) [Mass fraction] 93 % David Berger PA-C Work Phone: [facility] 11-08-2023 12:21-0400 Systolic blood pressure 132 mm[Hg] David Berger PA-C Work Phone: [facility] 10-11-2023 11:38-0400 Body mass index (BMI) [Ratio] 41.92 kg/m2 Ronnie Lay APRN.SQL APPLICATION DEVELOPER Work Phone: [facility] 10-11-2023 11:38-0400 Body temperature 97.5 [degF] Ronnie Lay APRN.SQL APPLICATION DEVELOPER Work Phone: [facility] 10-11-2023 11:38-0400 Body weight 104 kg Ronnie Lay APRN.SQL APPLICATION DEVELOPER Work Phone: [facility] 10-11-2023 11:38-0400 Diastolic blood pressure 82 mm[Hg] Ronnie Lay APRN.SQL APPLICATION DEVELOPER Work Phone: [facility] 10-11-2023 11:38-0400 Heart rate 85 /min Ronnie Lay APRN.SQL APPLICATION DEVELOPER Work Phone: [facility] 10-11-2023 11:38-0400 Respiratory rate 22 /min Ronnie Lay APRN.SQL APPLICATION DEVELOPER Work Phone: [facility] 10-11-2023 11:38-0400 SaO2% (BldA) [Mass fraction] 94 % Ronnie Lay APRN.SQL APPLICATION DEVELOPER Work Phone: [facility] 10-11-2023 11:38-0400 Systolic blood pressure 128 mm[Hg] Ronnie Lay APRN.SQL APPLICATION DEVELOPER Work Phone: [facility] 11-27-2022 10:44-0400 Body temperature 97.9 [degF] Albina Salcedo PA-C Work Phone: [facility] 11-27-2022 10:44-0400 Body weight 102.06 kg Albina Salcedo PA-C Work Phone: [facility] 11-27-2022 10:44-0400 Diastolic blood pressure 80 mm[Hg] Albina Salcedo PA-C Work Phone: [facility] 11-27-2022 10:44-0400 Heart rate 80 /min Albina Salcedo PA-C Work Phone: [facility] 11-27-2022 10:44-0400 Respiratory rate 18 /min Albina Salcedo PA-C Work Phone: [facility] 11-27-2022 10:44-0400 SaO2% (BldA) [Mass fraction] 96 % Albina Salcedo PA-C Work Phone: [facility] 11-27-2022 10:44-0400 Systolic blood pressure 112 mm[Hg] Albina Salcedo PA-C Work Phone: [facility] 11-05-2022 10:08-0400 Body temperature 98.4 [degF] Albina Salcedo PA-C Work Phone: [facility] 11-05-2022 10:08-0400 Body weight 100.25 kg Albina Salcedo PA-C Work Phone: [facility] 11-05-2022 10:08-0400 Diastolic blood pressure 78 mm[Hg] Albina Salcedo PA-C Work Phone: [facility] 11-05-2022 10:08-0400 Heart rate 82 /min Albina Salcedo PA-C Work Phone: [facility] 11-05-2022 10:08-0400 Respiratory rate 18 /min Albina Salcedo PA-C Work Phone: [facility] 11-05-2022 10:08-0400 Systolic blood pressure 108 mm[Hg] Albina Salcedo PA-C Work Phone: [facility] 11-03-2022 10:41-0400 Body temperature 97.81 [degF] Patti Older [employer] AP[employer] DEVELOPER Work Phone: [facility] 11-03-2022 10:41-0400 Body weight 101.15 kg Patti Older [employer] APPLICATION DEVELOPER Work Phone: [facility] 11-03-2022 10:41-0400 Diastolic blood pressure 78 mm[Hg] Patti Older [employer] APPLICATION DEVELOPER Work Phone: [facility] 11-03-2022 10:41-0400 Heart rate 86 /min Patti Older [employer] APPLICATION DEVELOPER Work Phone: [facility] 11-03-2022 10:41-0400 Respiratory rate 18 /min Patti Older [employer] APPLICATION DEVELOPER Work Phone: [facility] 11-03-2022 10:41-0400 SaO2% (BldA) [Mass fraction] 96 % Patti Older [employer] APPLICATION DEVELOPER Work Phone: [facility] 11-03-2022 10:41-0400 Systolic blood pressure 112 mm[Hg] Patti Older [employer] APPLICATION DEVELOPER Work Phone: [facility] 09-28-2022 11:27-0400 Body temperature 97.81 [degF] Albina Salcedo PA-C Work Phone: [facility] 09-28-2022 11:27-0400 Body weight 100.25 kg Albina Salcedo PA-C Work Phone: [facility] 09-28-2022 11:27-0400 Diastolic blood pressure 76 mm[Hg] Albina Salcedo PA-C Work Phone: [facility] 09-28-2022 11:27-0400 Heart rate 72 /min Albina Salcedo PA-C Work Phone: [facility] 09-28-2022 11:27-0400 Respiratory rate 18 /min Albina Salcedo PA-C Work Phone: [facility] 09-28-2022 11:27-0400 Systolic blood pressure 126 mm[Hg] Albina Salcedo PA-C Work Phone: [facility] 08-27-2022 10:13-0400 Body temperature 97.39 [degF] Jamie Pendlebury [employer]SQL APPLICATION DEVELOPER Work Phone: [facility] 08-27-2022 10:13-0400 Body weight 100.25 [facility] [employer] APPLICATION DEVELOPER Work Phone: [facility] 08-27-2022 10:13-0400 Diastolic blood pressure 84 mm[Hg] Jamie Pendlebury [employer] APPLICATION DEVELOPER Work Phone: [facility] 08-27-2022 10:13-0400 Heart rate 82 /min [facility] [employer] APPLICATION DEVELOPER Work Phone: [facility] 08-27-2022 10:13-0400 Respiratory rate 18 /min [facility] [employer]SQL APPLICATION DEVELOPER Work Phone: [facility] 08-27-2022 10:13-0400 SaO2% (BldA) [Mass fraction] 95 % [facility] [employer] APPLICATION DEVELOPER Work Phone: [facility] 08-27-2022 10:13-0400 Systolic blood pressure 136 mm[Hg] [facility] [employer] APPLICATION DEVELOPER Work Phone: [facility] 02-27-2022 11:56-0400 Body height 158 cm Albina Salcedo PA-C Work Phone: [facility] 02-27-2022 11:56-0400 Body temperature 97.59 [degF] Albina Salcedo PA-C Work Phone: [facility] 02-27-2022 11:56-0400 Body weight 100.25 kg Albina Salcedo PA-C Work Phone: [facility] 02-27-2022 11:56-0400 Diastolic blood pressure 86 mm[Hg] Albina Salcedo PA-C Work Phone: [facility] 02-27-2022 11:56-0400 Heart rate 72 /min Albina Salcedo PA-C Work Phone: [facility] 02-27-2022 11:56-0400 Respiratory rate 18 /min Albina Salcedo PA-C Work Phone: [facility] 02-27-2022 11:56-0400 Systolic blood pressure 126 mm[Hg] Albina Salcedo PA-C Work Phone: [facility] Encounters Encounter Date Encounter Type Care Provider Facility Start: 03-30-2024 End: 03-30-2024 Chart abstracting Jamie Juarez MD Work Phone: [facility] Comment on above: Outside PT Start: 03-02-2024 End: 03-02-2024 Patient encounter procedure Eve Cui APRN.CNP Work Phone: [facility] Comment on above: Hypertension, essent ial (Primary Dx); Screening for depression; Benign paroxysmal positional vertigo, unspecified laterality; Elevated hemoglobin A1c; Age-related osteoporosis without current pathological fracture; Obesity, Class III, BMI 40-49.9 (morbid obesity) (HCC); Sleep apnea, unspecified type Start: 03-02-2024 End: 03-02-2024 Telephone encounter Jamie Juarez MD Work Phone: [facility] Comment on above: Results Start: 03-02-2024 End: 03-02-2024 ambulatory JAMIE JUAREZ Facility:[facility] Start: 02-28-2024 End: 02-28-2024 Chart abstracting Jamie Juarez MD Work Phone: [facility] Start: 02-28-2024 Encounter for genera l adult medical examination without abnormal findings JAMIE JUAREZ [facility] Start: 02-28-2024 End: 02-28-2024 Patient encounter procedure Jamie Juarez MD Work Phone: [facility] Comment on above: Well adult exam (Lily corey Dx); Hypertension, essential; Elevated hemoglobin A1c; Obesity, Class III, BMI 40-49.9 (morbid obesity) (HCC); Peripheral edema; Age-related osteoporosis without current pathological fracture; Benign paroxysmal positional vertigo, unspecified laterality; Need for vaccination Start: 02-28-2024 End: 02-28-2024 Patient encounter status Jamie Juarez MD Work Phone: [facility] Work Phone: Start: 02-28-2024 End: 02-28-2024 ambulatory JAMIE JUAREZ Facility:[facility] Start: 02-17-2024 End: 02-17-2024 Telephone encounter Eve Cui APRN.SQL APPLICATION DEVELOPER Work Phone: [facility] Comment on above: Vertigo Start: 02-11-2024 End: 02-11-2024 Telephone encounter Eve Cui APRN.SQL APPLICATION DEVELOPER Work Phone: [facility] Comment on above: Results Start: 02-11-2024 End: 02-11-2024 Patient encounter procedure Eve Cui APRN.SQL APPLICATION DEVELOPER Work Phone: [facility] Comment on above: Hospital discharge f ollow-up (Primary Dx); Sleep apnea, unspecified type; Benign paroxysmal positional vertigo, unspecified laterality Start: 02-11-2024 End: 02-11-2024 ambulatory JAMIE JUAREZ Facility:[facility] Start: 02-10-2024 End: 02-10-2024 Chart abstracting Nguyen Lay MA [facility] Comment on above: Hospital F/U ([facility] ) Start: 02-07-2024 End: 02-07-2024 Patient encounter procedure Estee BECERRA Work Phone: [facility] Comment on above: Dizziness (Primary D x); Hypoxia Start: 02-07-2024 End: 02-07-2024 ambulatory JAMIE JUAREZ Facility:[facility] Start: 02-05-2024 End: 02-10-2024 ambulatory Jamie Juarez MD Work Phone: Internal Medicine [facility] Start: 02-03-2024 End: 02-04-2024 Telephone encounter Jamie Juarez MD Work Phone: [facility] [place] Comment on above: Results Start: 01-28-2024 End: 01-28-2024 ambulatory JAMIE JUAREZ Facility:[facility] Start: 01-15-2024 Telephone encounter Albina bowen PA-C Work Phone: [facility] Comment on above: Results Start: 01-15-2024 End: 01-15-2024 ambulatory Candelario Golias PT Work Phone: [facility] Comment on above: Chronic bilateral lo w back pain without sciatica (Primary Dx); Physical deconditioning Start: 01-14-2024 Telephone encounter Jamie Juarez MD Work Phone: [facility] Comment on above: Results Start: 01-14-2024 End: 01-14-2024 Subsequent hospital visit by physician [facility] [place] Work Phone: Radiology Comment on above: Leg swelling [M79.89 ] Start: 01-14-2024 End: 01-14-2024 Patient encounter procedure Jamie Juarez MD Work Phone: [facility] Comment on above: Leg swelling (Primar y Dx); Hypertension, essential; SOB (shortness of breath) Start: 01-14-2024 End: 01-14-2024 ambulatory JAMIE JUAREZ Facility:[facility] Start: 01-13-2024 End: 01-13-2024 ambulatory Jennifer Summers ACCESSIONER Work Phone: [facility] Comment on above: Chronic bilateral lo w back pain without sciatica (Primary Dx); Physical deconditioning Start: 01-10-2024 End: 01-10-2024 ambulatory Candelario Golias PT Work Phone: [facility] Comment on above: Chronic bilateral lo w back pain without sciatica (Primary Dx); Physical deconditioning Start: 01-08-2024 ambulatory JAMIE JUAREZ Facili ty:[facility] Start: 01-08-2024 End: 01-08-2024 Subsequent hospital visit by physician [facility] Work Phone: Radiology Comment on above: Pain and swelling of lower leg, unspecified laterality [M79.669, M79.89] Start: 01-08-2024 Telephone encounter Veronique zhang APRN.CNP Work Phone: [facility] Comment on above: Results Start: 01-08-2024 End: 01-08-2024 ambulatory JAMIE JUAREZ Facility:[facility] Start: 01-08-2024 End: 01-08-2024 Patient encounter procedure Veronique Fuentes SQL APPLICATION DEVELOPER Work Phone: [facility] Comment on above: Pain and swelling of lower leg, unspecified laterality (Primary Dx) Start: 01-06-2024 End: 01-06-2024 ambulatory Jennifer Bridger ACCESSIONER Work Phone: [facility] Comment on above: Chronic bilateral lo w back pain without sciatica (Primary Dx); Physical deconditioning Start: 01-01-2024 Refill Jamie sr MD Work Phone: [facility] Comment on above: Refill Request Start: 12-19-2023 Refill Jamie sr MD Work Phone: [facility] Comment on above: Refill Request Start: 12-18-2023 End: 12-18-2023 ambulatory Candelarioeddie Hall PT Work Phone: [facility] Comment on above: Chronic bilateral lo w back pain without sciatica (Primary Dx); Physical deconditioning Start: 12-16-2023 End: 12-16-2023 ambulatory Jennifer Summers ACCESSIONER Work Phone: [facility] Comment on above: Chronic bilateral lo w back pain without sciatica (Primary Dx); Physical deconditioning Start: 12-12-2023 End: 12-12-2023 ambulatory Jennifer Summers ACCESSIONER Work Phone: [facility] Comment on above: Chronic bilateral lo w back pain without sciatica (Primary Dx); Physical deconditioning Start: 12-09-2023 End: 12-09-2023 ambulatory Jennifer Summers ACCESSIONER Work Phone: [facility] Comment on above: Chronic bilateral lo w back pain without sciatica (Primary Dx); Physical deconditioning Start: 12-02-2023 Refill Jamie sr MD Work Phone: [facility] Comment on above: Refill Request Start: 11-25-2023 End: 11-25-2023 ambulatory Candelarioeddie Hall PT Work Phone: [facility] Comment on above: Chronic bilateral lo w back pain without sciatica (Primary Dx); Physical deconditioning Start: 11-22-2023 End: 11-22-2023 ambulatory Candelario Golias PT Work Phone: [facility] Comment on above: Chronic bilateral lo w back pain without sciatica; Physical deconditioning Start: 11-08-2023 End: 11-08-2023 ambulatory JAMIE JUAREZ Facility:[facility] Start: 11-08-2023 End: 11-08-2023 Patient encounter procedure David Berger PA-C Work Phone: [facility] Comment on above: Chronic bilateral lo w back pain without sciatica (Primary Dx); Physical deconditioning; Morbid obesity (HCC) Start: 10-11-2023 End: 10-11-2023 Subsequent hospital visit by physician Merle [facility] Work Phone: Radiology Comment on above: Pain [R52] Start: 10-11-2023 End: 10-11-2023 ambulatory JAMIE JUAREZ Facility:[facility] Start: 10-11-2023 End: 10-11-2023 Patient encounter procedure Ronnie Lay APRN.SQL APPLICATION DEVELOPER Work Phone: [facility] Comment on above: Pain (Primary Dx) Start: 09-24-2023 Orders Only Shahrzad max Work Phone: Podiatry Start: 09-23-2023 Telephone encounter Shahrzad Blue Work Phone: Podiatry Comment on above: Patient Update Start: 09-23-2023 End: 09-23-2023 ambulatory JAMIE JUAREZ Facility:[facility] Start: 09-23-2023 End: 09-23-2023 Patient encounter procedure Shahrzad Ewing Work Phone: Podiatry Comment on above: 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); Bilateral ankle pain, unspecified chronicity Start: 09-23-2023 End: 09-23-2023 ambulatory JAMIE JUAREZ Facility:[facility] Start: 09-23-2023 End: 09-23-2023 Subsequent hospital visit by physician [facility] [place] Cummins Work Phone: Radiology Comment on above: Bilateral ankle pain , unspecified chronicity [M25.571, M25.572] Start: 09-19-2023 Orders Only Shahrzad [place] mansoor Work Phone: Podiatry Comment on above: Bilateral ankle pain , unspecified chronicity (Primary Dx) Start: 09-02-2023 Telephone encounter Albina bowen PA-C Work Phone: [facility] [place] Comment on above: Results Start: 08-30-2023 End: 08-30-2023 ambulatory JAMIE JUAREZ Facility:[facility] Start: 08-12-2023 Refill Jamie sr MD Work Phone: [facility] [place] Comment on above: Refill Request Start: 06-14-2023 Telephone encounter Jamie ford APRN.CNP Work Phone: [facility] Comment on above: Results Start: 06-14-2023 End: 06-14-2023 Subsequent hospital visit by physician Merle dominik De Jesus Work Phone: Radiology Comment on above: Acute cough [R05.1] Start: 06-14-2023 End: 06-14-2023 ambulatory JAMIE JUAREZ Facility:[facility] Start: 03-25-2023 Telephone encounter Jamie Juarez MD Work Phone: [facility] [place] Comment on above: Results (mammogram) Start: 03-01-2023 Patient encounter status Kareem Juarez MD Work Phone: [facility] Work Phone: Start: 01-31-2023 Telephone encounter Jamie Juarez MD Work Phone: [facility] [place] Comment on above: Patient Update (From ER visit/) Start: 01-16-2023 End: 01-16-2023 Patient encounter procedure Eve Cui APRN.SQL APPLICATION DEVELOPER Work Phone: [facility] Comment on above: Dizziness (Primary D x) Start: 01-16-2023 ambulatory Jamie sr MD Work Phone: [facility] [place] Comment on above: Dizziness Start: 12-17-2022 Refill Jamie sr MD Work Phone: [facility] [place] Comment on above: Refill Request Start: 11-27-2022 End: 11-27-2022 Subsequent hospital visit by physician [facility] [place] Work Phone: Radiology Comment on above: Bacterial pneumonia [J15.9] Start: 11-27-2022 End: 11-27-2022 Patient encounter procedure Albina Salcedo PA-C Work Phone: [facility] [place] Comment on above: Bacterial pneumonia (Primary Dx); Chronic cough Start: 11-05-2022 End: 11-05-2022 Office outpatient visit 25 minutes Albina Salcedo PA-C Work Phone: [facility] [place] Comment on above: Bacterial pneumonia (Primary Dx); Diarrhea, unspecified type Start: 11-03-2022 End: 11-03-2022 Subsequent hospital visit by physician [facility] [place] Work Phone: Radiology Comment on above: Acute cough [R05.1] Start: 11-03-2022 End: 11-03-2022 Patient encounter procedure Patti Garland APRN.SQL APPLICATION DEVELOPER Work Phone: [facility] Comment on above: Acute cough (Primary Dx); Wheezing Start: 09-28-2022 End: 09-28-2022 Patient encounter procedure Albina Salcedo PA-C Work Phone: [facility] Comment on above: Hypertension, essent ial (Primary Dx) Start: 08-27-2022 End: 08-27-2022 Subsequent hospital visit by physician [facility] [place] Work Phone: Radiology Comment on above: Injury of left foot, initial encounter [S99.922A] Start: 08-27-2022 End: 08-27-2022 Patient encounter procedure Jamie Morrow APRN.CNP Work Phone: [facility] Comment on above: Injury of left foot, initial encounter (Primary Dx) Start: 03-27-2022 Telephone encounter Albina bowen PA-C Work Phone: [facility] [place] Comment on above: Results Start: 03-20-2022 Telephone encounter Albina bowen PA-C Work Phone: [facility] [place] Comment on above: Patient Request Start: 02-27-2022 End: 02-27-2022 Patient encounter procedure Albina Salcedo PA-C Work Phone: [facility] [place] Comment on above: Well adult exam ([facility] corey Dx); Advance directive discussed with patient; Elevated hemoglobin A1c; Obesity, Class III, BMI 40-49.9 (morbid obesity) ([facility]); Elevated blood pressure reading without diagnosis of hypertension; Benign paroxysmal positional vertigo, unspecified laterality; Age-related osteoporosis without current pathological fracture; Screening mammogram for breast cancer; Peripheral edema Start: 02-27-2022 End: 02-27-2022 Patient encounter status Albina Salcedo PA-C Work Phone: [facility] [place] Start: 07-15-2020 End: 07-15-2020 Subsequent hospital visit by physician [facility] [place] Work Phone: Radiology Comment on above: Acute left ankle karyn n [M25.572] Start: 11-08-2015 Patient encounter status Norma Salcedo PA-C Work Phone: [facility] Work Phone: Procedures Date Procedure Procedure Detail Performing Clinician Start: 03-02-2024 Adult depression screening assessment Jamie Juarez MD Work Phone: Start: 02-28-2024 Lipid 1996 panel - S sally or Plasma Jamie Juarez MD Work Phone: Start: 01-14-2024 Radiologic exam ches t 2 views Jamie Juarez MD Work Phone: Start: 01-08-2024 Dup-scan xtr veins complete bilateral study Veronique Alfredo [employer].SQL APPLICATION DEVELOPER Work Phone: Start: 10-11-2023 Radex spine lumbosac ral 2/3 views Ronnie Lay [employer].SQL APPLICATION DEVELOPER Work Phone: Start: 06-14-2023 Radiologic exam ches t 2 views Meme Crow PA-C Work Phone: Start: 02-20-2023 Lipid 1996 panel - S sally or Plasma Jamie Juarez MD Work Phone: Start: 11-27-2022 Radiologic exam ches t 2 views Albina Salcedo PA-C Work Phone: Start: 11-03-2022 Radiologic exam ches t 2 views Patti Her [employer]SQL APPLICATION DEVELOPER Work Phone: Start: 08-27-2022 Radex foot complete minimum 3 views Jamie Morrow [employer]SQL APPLICATION DEVELOPER Work Phone: Start: 03-22-2022 Mammography Albina Tg benzon PA-C Work Phone: Start: 03-03-2021 Mammography Albina Ro binson PA-C Work Phone: Start: 07-15-2020 Radex ankle complete minimum 3 views Jamie Morrow [employer]SQL APPLICATION DEVELOPER Work Phone: Start: 07-15-2015 Colonoscopy Albina Tg benzon PA-C Work Phone: Plan of Treatment Date Care Activity Detail Author Start: 02-27-2034 Urine microalbumin profile DTa P,Tdap,Td Vaccine (3 - Td or Tdap) [facility] Start: 02-27-2029 Lipid panel Lipid Screening [facility] Start: 02-21-2028 Lipid 1996 panel - S sally or Plasma Lipid Screening [facility] Start: 02-21-2028 Lipid panel Lipid Screening [facility] Start: 02-27-2027 Diabetes Screening Diabetes Screenin [facility] Start: 01-26-2027 LIPID SCREEN LIPID SCREEN [facility] Start: 01-13-2027 Diabetes Screening Diabetes Screenin g [facility] Start: 09-22-2026 Diabetes Screening Diabetes Screenin g [facility] Start: 02-20-2026 Diabetes Screening Diabetes Screenin g [facility] Start: 08-29-2025 DIABETES SCREEN DIABETES SCREEN [facility] Start: 07-15-2025 Colonoscopy COLONOSCOPY [facility] Start: 07-15-2025 COLORECTAL CANCER SCREENING COLORECTAL CANCER SCREENING [facility] Start: 07-15-2025 Screening for malign ant neoplasm of colon [facility] Start: 03-02-2025 Annual PCP Team Host Hostess therese Disease Visit Annual PCP Team Chronic Disease Visit [facility] Start: 03-02-2025 BP Controlled (<130/80) BP Controlle d (<130/80) [facility] Start: 03-02-2025 Depression Screening Depression Scre ening [facility] Start: 02-27-2025 Annual PCP Team Host Hostess therese Disease Visit Annual PCP Team Chronic Disease Visit [facility] Start: 02-27-2025 Anxiety Screening Anxiety Screening [facility] Comment on above: Postponed from 07/14 (Declined at this time) Start: 02-27-2025 BP Controlled (<130/80) BP Controlle d (<130/80) [facility] Start: 02-27-2025 RSV Vaccine (1 - Ris k 60-74 years 1-dose series) RSV Vaccine (1 - Risk 60-74 years 1-dose series) [facility] Comment on above: Postponed from 07/14 (Insurance Coverage) Start: 02-10-2025 Annual PCP Team Host Hostess therese Disease Visit Annual PCP Team Chronic Disease Visit [facility] Start: 02-10-2025 BP Controlled (<130/80) BP Controlle d (<130/80) [facility] Start: 01-26-2025 DIABETES SCREEN DIABETES SCREEN [facility] Start: 01-13-2025 Annual PCP Team Host Hostess therese Disease Visit Annual PCP Team Chronic Disease Visit [facility] Start: 01-13-2025 BP Controlled (<130/80) BP Controlle d (<130/80) [facility] Start: 11-30-2024 Influenza vaccination Influenza Vacc ine (#1) [facility] Comment on above: Postponed from 02/01 (Currently Scheduled) Start: 08-29-2024 Annual PCP Team Host Hostess therese Disease Visit Annual PCP Team Chronic Disease Visit [facility] Start: 08-29-2024 BP Controlled (<130/80) BP Controlle d (<130/80) [facility] Start: 08-24-2024 End: 08-24-2024 Patient encounter procedure Family [facility] Comment on above: 6 month follow up Start: 03-01-2024 Annual PCP Team Host Hostess therese Disease Visit Annual PCP Team Chronic Disease Visit [facility] Start: 03-01-2024 BP Controlled (<130/80) BP Controlle d (<130/80) [facility] Start: 02-28-2024 End: 05-29-2024 Comprehensive metabolic 2000 panel - Serum or Plasma COMPREHENSIVE METABOLIC PANEL Lab Routine Hypertension, essential Expected: 02/28/2024, Expires: 05/29/2024 [facility] Comment on above: Expected: 02/28/2024 , Expires: 05/29/2024 Start: 02-28-2024 [facility] (Declined at this time) Start: 02-28-2024 End: 05-29-2024 Hemoglobin A1c in Blood HEMOGLOBIN A1C Lab Routine Elevated hemoglobin A1c Expected: 02/28/2024, Expires: 05/29/2024 [facility] Comment on above: Expected: 02/28/2024 , Expires: 05/29/2024 Start: 02-28-2024 End: 05-29-2024 LIPID PANEL, NONFASTING LIPID PANEL, NONFASTING Lab Routine Hypertension, essential Expected: 02/28/2024, Expires: 05/29/2024 [facility] Comment on above: Expected: 02/28/2024 , Expires: 05/29/2024 Start: 02-28-2024 End: 05-29-2024 Urinalysis complete panel - Urine URINALYSIS, WITH MICROSCOPIC Lab Routine Hypertension, essential Expected: 02/28/2024, Expires: 05/29/2024 [facility] Comment on above: Expected: 02/28/2024 , Expires: 05/29/2024 Start: 02-28-2024 End: 02-28-2024 Patient encounter procedure 02/28/2024 11:40 AM EDT Office Visit Family Elizabeth De Jesus [address] [facility] [place] [address] Jamie Juarez MD [address] [facility], [place] [id number] 6 month follow up Family [facility] [place] Comment on above: 6 month follow up Start: 02-28-2024 End: 02-28-2024 Patient encounter procedure 02/28/2024 10:20 AM EDT Office Visit [facility] [address] [place], [place] [phone] Jamie Juarez MD [address] [place], [place] [id number] Physical [facility] [place] Comment on above: Physical Start: 02-11-2024 End: 02-11-2024 Patient encounter procedure 02/11/2024 9:20 AM EDT Office Visit [facility] [address] [place] [address] Eve Cui APRN.[facility] [address] [place], [place] [id number] [facility] ER f/u 02/06 - 02/07 dizziness/ vertigo [facility] Comment on above: [facility] ER f/u 02/06 - 02/07 dizziness/ vertigo Start: 02-02-2024 Covid-19 Vaccine ( season) Covid-19 Vaccine ( season) [facility] Start: 02-02-2024 Covid-19 Vaccine ( season) Covid-19 Vaccine ( season) [facility] Start: 02-02-2024 Influenza vaccination Influenza Vacc ine (#1) [facility] Start: 01-28-2024 End: 01-28-2024 Patient encounter procedure 01/28/2024 10:30 AM EDT Office Visit Cardiology [address] [facility], [place] [id number] Leg swelling [M79.89]; Hypertension, essential [I10]; SOB (shortness of breath) [R06.02] Cardiology Comment on above: Leg swelling [M79.89 ]; Hypertension, essential [I10]; SOB (shortness of breath) [R06.02] Start: 01-15-2024 End: 01-15-2024 ambulatory 01/15/2024 12:00 PM EDT OT/PT/Speech Visit [facility] [address] [place] [address] Candelario Hall, PT [address] [place] [address] Chronic bilateral low back pain without sciatica [M54.50, G89.29] [facility] Comment on above: Chronic bilateral lo w back pain without sciatica [M54.50, G89.29] Start: 01-14-2024 End: 04-14-2024 Basic metabolic 2000 panel - Serum or Plasma [facility] Comment on above: Expected: 01/14/2024 , Expires: 04/14/2024 Start: 01-14-2024 End: 04-14-2024 Natriuretic peptide.B prohormone N-Terminal [Mass/volume] in Serum or Plasma [facility] Comment on above: Expected: 01/14/2024 , Expires: 04/14/2024 Start: 01-14-2024 End: 01-14-2024 Patient encounter procedure 01/14/2024 10:40 AM EDT Office Visit [facility] [address] [facility] [place] [address] Jamie Juarez MD [address] [facility] [place] [address] Urgent care follow up [facility] Comment on above: Urgent care follow u p Start: 01-13-2024 End: 01-13-2024 ambulatory 01/13/2024 11:45 AM EDT OT/PT/Speech Visit [facility] [address] [place] [address] Jennifer Summers, ACCESSIONER [address] [place] [address] Chronic bilateral low back pain without sciatica [M54.50, G89.29] [facility] Comment on above: Chronic bilateral lo w back pain without sciatica [M54.50, G89.29] Start: 01-10-2024 End: 01-10-2024 ambulatory 01/10/2024 11:15 AM EDT OT/PT/Speech Visit [facility] [address] [place] [address] Candelario Hall, PT [address] [place] [address] Chronic bilateral low back pain without sciatica [M54.50, G89.29] [facility] Comment on above: Chronic bilateral lo w back pain without sciatica [M54.50, G89.29] Start: 01-06-2024 End: 01-06-2024 ambulatory 01/06/2024 11:45 AM EDT OT/PT/Speech Visit [facility] [address] [place] [address] Jennifer Summers, ACCESSIONER [address] [place] [address] Chronic bilateral low back pain without sciatica [M54.50, G89.29] [facility] Comment on above: Chronic bilateral lo w back pain without sciatica [M54.50, G89.29] Start: 12-22-2023 ANNUAL PCP TEAM MANAGER TRANSPORTATION THERESE DISEASE VISIT ANNUAL PCP TEAM CHRONIC DISEASE VISIT [facility] Start: 12-18-2023 End: 12-18-2023 ambulatory 12/18/2023 12:00 PM EDT OT/PT/Speech Visit [facility] [address] [place] [address] Candelario Hall, PT [address] [place] [address] Chronic bilateral low back pain without sciatica [M54.50, G89.29] [facility] Comment on above: Chronic bilateral lo w back pain without sciatica [M54.50, G89.29] Start: 12-16-2023 End: 12-16-2023 ambulatory 12/16/2023 11:45 AM EDT OT/PT/Speech Visit [facility] [address] [place] [address] Jennifer Summers, ACCESSIONER [address] [place] [address] Chronic bilateral low back pain without sciatica [M54.50, G89.29] [facility] Comment on above: Chronic bilateral lo w back pain without sciatica [M54.50, G89.29] Start: 12-12-2023 End: 12-12-2023 ambulatory 12/12/2023 11:45 AM EDT OT/PT/Speech Visit [facility] [address] [place] [address] Jennifer Summers, ACCESSIONER [address] [place] [address] Chronic bilateral low back pain without sciatica [M54.50, G89.29] [facility] Comment on above: Chronic bilateral lo w back pain without sciatica [M54.50, G89.29] Start: 12-09-2023 End: 12-09-2023 ambulatory 12/09/2023 11:45 AM EDT OT/PT/Speech Visit [facility] [address] [place] [address] Jennifer Summers, ACCESSIONER [address] [place] [address] Chronic bilateral low back pain without sciatica [M54.50, G89.29] [facility] Comment on above: Chronic bilateral lo w back pain without sciatica [M54.50, G89.29] Start: 11-28-2023 ANNUAL PCP TEAM MANAGER TRANSPORTATION THERESE DISEASE VISIT ANNUAL PCP TEAM CHRONIC DISEASE VISIT [facility] Start: 11-25-2023 End: 11-25-2023 ambulatory 11/25/2023 9:30 AM EDT OT/PT/Speech Visit [facility] [address] [place] [address] Candelario Hall, PT [address] [place] [address] Chronic bilateral low back pain without sciatica [M54.50, G89.29] [facility] Comment on above: Chronic bilateral lo w back pain without sciatica [M54.50, G89.29] Start: 11-08-2023 End: 11-08-2023 Patient encounter procedure 11/08/2023 12:30 PM EDT Office Visit [facility] [address] [phone] David Berger PA-C [address] [place] [phone] Pain [R52] [facility] Comment on above: Pain [R52] Start: 11-06-2023 ANNUAL PCP TEAM MANAGER TRANSPORTATION THERESE DISEASE VISIT ANNUAL PCP TEAM CHRONIC DISEASE VISIT [facility] Start: 11-06-2023 BP CONTROLLED (<130/80) BP CONTROLLE D (<130/80) [facility] Start: 11-04-2023 BP CONTROLLED (<130/80) BP CONTROLLE D (<130/80) [facility] Start: 09-29-2023 ANNUAL PCP TEAM MANAGER TRANSPORTATION THERESE DISEASE VISIT ANNUAL PCP TEAM CHRONIC DISEASE VISIT [facility] Start: 09-29-2023 BP CONTROLLED (<130/80) BP CONTROLLE D (<130/80) [facility] Start: 09-29-2023 COVID-19 VACCINE (3 - Booster for Moderna series) COVID-19 VACCINE (3 - Booster for Moderna series) [facility] Comment on above: Postponed from 08/30 (Declined at this time) Start: 09-29-2023 COVID-19 VACCINE (3 - Moderna series) COVID-19 VACCINE (3 - Moderna series) [facility] Comment on above: Postponed from 08/30 (Declined at this time) Start: 07-06-2023 Urine microalbumin profile [facility] Start: 06-03-2023 Advance Directive Discussion Advance Directive Discussion [facility] Start: 06-03-2023 Behavioral Health Screening Behavioral Health Screening [facility] Start: 06-03-2023 Depression Assessment Depression Ass essment [facility] Start: 06-02-2023 Depression Assessment Depression Ass essment [facility] Comment on above: Postponed from 06/03 (Declined at this time) Start: 03-22-2023 Mammography [facility] Start: 03-22-2023 Screening for malign ant neoplasm of breast Mammogram Screening [facility] Start: 02-01-2023 Covid-19 Vaccine () Covid-19 Vaccine () [facility] Start: 02-01-2023 Influenza vaccination C [facility] Start: 06-03-2022 ADVANCE DIRECTIVE DISCUSSION ADVANCE DIRECTIVE DISCUSSION [facility] Start: 06-03-2022 DEPRESSION ASSESSMENT DEPRESSION ASS ESSMENT [facility] Start: 03-03-2022 Mammography MAMMOGRAM [facility] Start: 02-01-2022 Influenza vaccination INFLUENZA (#1) [facility] Start: 02-01-2022 Screening for osteoporosis Bone Dens ity Screening [facility] Start: 06-03-2021 DEPRESSION ASSESSMENT DEPRESSION ASS ESSMENT [facility] Start: 08-30-2020 COVID-19 VACCINE (3 - Booster for Moderna series) COVID-19 VACCINE (3 - Booster for Moderna series) [facility] Start: 08-12-2019 FECAL OCCULT BLOOD FECAL OCCULT BLOO D [facility] Start: 08-12-2019 Screening for malign ant neoplasm of colon Fecal Occult Blood [facility] Start: 2013 RSV Vaccine (1 - 1-d ose 60+ series) RSV Vaccine (1 - 1-dose 60+ series) [facility] Start: 2013 RSV Vaccine (1 - Ris k 60-74 years 1-dose series) RSV Vaccine (1 - Risk 60-74 years 1-dose series) [facility] Start: 1998 COLOGUARD (FIT-DNA) COLOGUARD (FIT-D NA) [facility] Start: [address] COLONOGRAPHY [facility] Start: 1998 Screening for malign ant neoplasm of colon [facility] Start: 1998 SIGMOIDOSCOPY SIGMOIDOSCOPY [facility] Start: 1971 Anxiety Screening Anxiety Screening [facility] Start: 1971 BP CONTROLLED (<130/80) BP CONTROLLE D (<130/80) [facility] Start: 1971 Depression Screening Depression Scre ening [facility] End: 03-29-2025 BD DXA TRABECULAR BONE SCORE (TBS) BD DXA TRABECULAR BONE SCORE (TBS) Radiology Routine Age-related osteoporosis without current pathological fracture 1 Occurrences starting 02/28/2024 until 03/29/2025 [facility] Comment on above: 1 Occurrences starti ng 02/28/2024 until 03/29/2025 End: 03-06-2025 DBT Breast - bilateral screening CARLOS SCREENING W NERIS Radiology Routine Encounter for screening mammogram for breast cancer 1 Occurrences starting 02/05/2024 until 03/06/2025 [facility] Work Phone: Comment on above: 1 Occurrences starti ng 02/05/2024 until 03/06/2025 End: 03-29-2023 Dxa bone density study 1/> sites axial skel DXA-AXIAL SKELETON Radiology Routine Age-related osteoporosis without current pathological fracture 1 Occurrences starting 02/27/2022 until 03/29/2023 [facility] Work Phone: Comment on above: 1 Occurrences starti ng 02/27/2022 until 03/29/2023 End: 03-29-2025 DXA Skeletal system.axial Views for bone density DXA-AXIAL SKELETON Radiology Routine Age-related osteoporosis without current pathological fracture 1 Occurrences starting 02/28/2024 until 03/29/2025 [facility] Work Phone: Comment on above: 1 Occurrences starti ng 02/28/2024 until 03/29/2025 End: 01-13-2025 Echocardiography ECHO Cardiology Routine Leg swelling Hypertension, essential SOB (shortness of breath) 1 Occurrences starting 01/14/2024 until 01/13/2025 [facility] Work Phone: Comment on above: 1 Occurrences starti ng 01/14/2024 until 01/13/2025 End: 04-19-2023 CARLOS SCREENING W NERIS CARLOS SCREENING W NERIS Radiology Routine Screening mammogram for breast cancer 1 Occurrences starting 03/20/2022 until 04/19/2023 [facility] Work Phone: Comment on above: 1 Occurrences starti ng 03/20/2022 until 04/19/2023 End: 02-10-2025 Polysomnogram POLYSOMNOGRAM (PSG) Procedures Routine Sleep apnea, unspecified type 1 Occurrences starting 02/11/2024 until 02/10/2025 [facility] Work Phone: Comment on above: 1 Occurrences starti ng 02/11/2024 until 02/10/2025 End: 03-29-2023 Screening mammography bi 2-view breast inc cad CARLOS SCREENING Radiology Routine Screening mammogram for breast cancer 1 Occurrences starting 02/27/2022 until 03/29/2023 [facility] Work Phone: Comment on above: 1 Occurrences starti ng 02/27/2022 until 03/29/2023 End: 10-18-2024 XR Ankle - bilateral AP and Lateral and oblique XR ANKLE GENERAL 3V AP/LAT/OBL BILATERAL Radiology Routine Bilateral ankle pain, unspecified chronicity 1 Occurrences starting 09/19/2023 until 10/18/2024 [facility] Work Phone: Comment on above: 1 Occurrences starti ng 09/19/2023 until 10/18/2024 XR Ankle - bilateral AP and Lateral and oblique XR ANKLE GENERAL 3V AP/LAT/OBL BILATERAL Radiology Routine Bilateral ankle pain, unspecified chronicity 09/23/2023 10:06 AM EDT [facility] Work Phone: [facility] Immunizations Immunization Date Immunization Notes Care Provider Hyacinth tony 02-28-2024 tetanus toxoid, redu johanny diphtheria toxoid, and acellular pertussis vaccine, adsorbed Jamie Juarez MD Work Phone: [facility] 03-06-2023 influenza virus vacc ine, unspecified formulation Jamie Juarez MD Work Phone: [facility] 03-02-2022 influenza virus vacc ine, unspecified formulation Jmaie Juarez MD Work Phone: [facility] 01-27-2021 pneumococcal polysaccharide vaccine, 23 valent Albina Salcedo PA-C Work Phone: [facility] 01-27-2021 zoster vaccine recombinant Albina Salcedo PA-C Work Phone: [facility] 07-05-2020 COVID-19 original vaccine, full dose, monovalent (MODERNA) Albina Salcedo PA-C Work Phone: [facility] 06-07-2020 COVID-19 original vaccine, full dose, monovalent (MODERNA) Albina Salcedo PA-C Work Phone: [facility] 08-08-2018 pneumococcal conjuga te vaccine, 13 valent Albina Salcedo PA-C Work Phone: [facility] 08-08-2018 zoster vaccine recombinant Albina Salcedo PA-C Work Phone: [facility] 02-15-2017 influenza, seasonal, injectable Albina Salcedo PA-C Work Phone: [facility] 03-02-2015 influenza, seasonal, injectable Albina Salcedo PA-C Work Phone: [facility] Work Phone: 09-09-2013 hepatitis B vaccine, pediatric or pediatric/adolescent dosage Albina Salcedo PA-C Work Phone: [facility] 09-07-2013 hepatitis B vaccine, adult dosage Albina Salcedo PA-C Work Phone: [facility] Work Phone: 07-06-2013 tetanus toxoid, redu johanny diphtheria toxoid, and acellular pertussis vaccine, adsorbed Albina Salcedo PA-C Work Phone: [facility] Work Phone: 04-06-2013 hepatitis B vaccine, pediatric or pediatric/adolescent dosage Albina Salcedo PA-C Work Phone: [facility] 03-16-2013 hepatitis B vaccine, adult dosage Albina Salcedo PA-C Work Phone: [facility] Work Phone: 02-16-2013 hepatitis B vaccine, adult dosage Albina Salcedo PA-C Work Phone: [facility] Work Phone: Payers Date Payer Category Payer Private Health Insurance [id number] 2022 Private Health Insurance [id number] 2019 Unknown [id number] 2018 Medicare MEDICARE MEDICAR E A [id number] 2018-Present [phone] [address] [place] [address] Medicare [id number] Social History Date Type Detail Facility Start: 02-27-2022 End: 02-07-2024 Tobacco smoking status NHIS Ex-smoker [facility] Start: 05-03-1996 End: 05-03-2003 History of tobacco use Current smoker [facility] Start: 05-03-1996 End: 05-03-2003 History of tobacco use Cigarette Smoker [facility] Start: 02-27-2022 End: 02-28-2024 Cigarettes smoked current (pack per day) - Reported 0.5 [facility] Start: 02-27-2022 End: 02-07-2024 Tobacco use and exposure Smokeless tobacco non-user [facility] Start: 02-27-2022 End: 02-28-2024 Alcohol intake Current non-drinker of alcohol (finding) [facility] Start: 1955 Sex Assigned At Female C [facility] Work Phone: Start: 06-15-2020 End: 02-27-2022 Exposure to SARS-CoV-2 (event) Not sure [facility] Start: 11-27-2022 End: 02-28-2024 Tobacco use panel [facility] Adult Depression Screening Assessment 0 [facility] Start: 01-22-2020 Gender identity Identifies as female gender (finding) [facility] Work Phone: Clinical Notes 07-15-2020 to 03-30-2024 Barb Garcia LPN - 03/30/2024 1:59 PM EDTEve Cui APRN.SQL APPLICATION DEVELOPER - 03/02/2024 2:27 PM EDTTelephone Encounter - Susie Rios LPN - 03/02/2024 2:23 PM EDTPatient Instructions Note Date & Type Note Facility 03-30-2024 Note HNO ID: [id number] Author: BARB GARCIA LPN Service: ? Author Type: LICENSED NURSE Type: Progress Notes Filed: 03/30/2024 13:59 Note Text: Scan on 03/30/2024 1:16 PM by Provider, Anand, PA-C: Consultation - PT/OT/Speech [facility] 03-30-2024 History of Present illness Narrative Scan on 03/30/2024 1:16 PM by Provider, Anand, PA-C: Consultation - PT/OT/Speech documented in this encounter [facility] 03-02-2024 Note HNO ID: [id number] Author: EVE CUI APRN.SQL APPLICATION DEVELOPER Service: ? Author Type: Nurse Practitioner Type: Progress Notes Filed: 03/02/2024 14:43 Note Text: Chief Complaint Patient presents with: Follow Up HPI Leandro Fontanez is a 68 year old female who presents here today for Above Complaints.. Patient is here for a follow-up for blood pressure. No concerns today. Currently have a flare of vertigo, saw PT earlier day. Past medical history, appointments, medications, allergies reviewed. Previous Medical History PAST MEDICAL HISTORY Diagnosis Date Benign paroxysmal positional vertigo 07/13/2021 Chronic bilateral low back pain without sciatica 11/22/2023 Elevated hemoglobin A1c 01/22/2020 Hypertension, essential 08/29/2022 Left hip pain 2017 Obesity, Class III, BMI 40-49.9 (morbid obesity) (HCC) 01/22/2020 Peripheral edema 01/27/2021 Urge incontinence 01/25/2015 Previous Surgical History PAST SURGICAL HISTORY Procedure Laterality Date COLONOSCOPY FLX DX W/COLLJ SPEC WHEN PFRMD 07/15/15 normal 10 year follow up DANDC (INCOMPLETE AB), ANY TRIMESTER FECAL OCCULT BLOOD TEST 07/15/2017 negative LAMINECTOMY W/O FFD / VERT SEG LUMBAR N/A 2000 Family History FAMILY HISTORY Problem Relation Age of Onset Heart Mother Diabetes Mother Heart Father not sure of exact issue No Known Problems Brother No Known Problems Brother No Known Problems Brother Diabetes Maternal Grandmother No Known Problems Daughter No Known Problems Son No Known Problems Son No Known Problems Son Patient Allergies ALLERGIES Allergen Reactions Bee Sting Swelling Has not had SOB or other issues other than extreme swelling at site of sting Lisinopril Cough Current Medications Current Outpatient Medications on File Prior to Visit Medication Sig meclizine (ANTIVERT) 25 mg tab Take 1 tablet by mouth three times a day. hydroCHLOROthiazide 12.5 mg capsule Take 1 capsule by mouth once daily. alendronate (FOSAMAX) 70 mg tablet Take 1 tablet by mouth one time a week. Take with a full glass of water, on an empty stomach; do NOT lie down for 30minutes. mirabegron (MYRBETRIQ) 50 mg Tb24 Take 1 tablet by mouth once daily. losartan (COZAAR) 25 mg tablet Take 1 tablet by mouth once daily. acetaminophen (TYLENOL EXTRA STRENGTH) 500 mg tablet Take 1,000 mg by mouth once daily. calcium carbonate-vitamin D3 600mg (1,500mg) -1,000 unit cap Take 1 capsule by mouth twice daily. multivitamin tablet Take 1 tablet by mouth once daily. No current facility-administered medications on file prior to visit. Social History Social History Tobacco Use Smoking status: Former Current packs/day: 0.00 Average packs/day: 0.5 packs/day for 7.0 years (3.5 ttl pk-yrs) Types: Cigarettes Start date: 05/03/1996 Quit date: 05/03/2003 Years since quittin.8 Smokeless tobacco: Never Vaping Use Vaping status: Never Used Substance Use Topics Alcohol use: No Drug use: No Review of Symptoms REVIEW OF SYSTEMS SEE HPI EXAM: BP 117/78 Pulse 79 Resp 16 Wt 106.6 kg (235 lb) BMI 43.25 kg/m? General Appearance: Well appearing, alert, in no acute distress, well-hydrated, well nourished.. Skin: Skin color, texture, turgor normal, no suspicious rashes or lesions. Lungs: Lungs clear to auscultation. No wheezing, rhonchi, rales.. Heart: RRR without murmur, gallop, or rubs. No ectopy. Abdomen: Normal abdominal exam, Abdomen soft, non-tender. Bowel sounds normal. No masses, organomegaly. Musculoskeletal: No joint swelling, deformity, or tenderness. Health Maintenance List Depression Screening Never done Bone Density Screening due on 02/01/2022 Mammogram Screening due on 03/22/2023 Influenza Vaccine(1) due on 11/30/2024 RSV Vaccine(1 - Risk 60-74 years 1-dose series) due on 02/27/2025 Anxiety Screening due on 02/27/2025 Annual PCP Team Chronic Disease Visit due on 02/27/2025 BP Controlled (<130/80) due on 02/27/2025 Colorectal Cancer Screening due on 07/15/2025 Diabetes Screening due on 02/27/2027 Lipid Screening due on 02/27/2029 DTaP,Tdap,Td Vaccine(3 - Td or Tdap) due on 02/27/2034 Advance Directive Discussion Completed Hepatitis C Screening Completed Shingrix Vaccine Completed Pneumococcal Vaccine: 65+ Completed Covid-19 Vaccine Discontinued Data reviewed Labs reviewed from [facility] ASSESSMENT/PLAN: 1. Hypertension, essential - ICD9: 401.9, ICD10: I10 (primary diagnosis) - Controlled - Continue current medications - Recommend home blood pressure monitoring, to bring results to next visit - Encouraged sodium restriction, DASH or Mediterranean diet - Recommend regular aerobic exercise - Discussed need for and benefit of weight loss. BMI 43.25 kg/(m2) - LOSARTAN 25 MG TABLET 2. Screening for depression - ICD9: V79.0, ICD10: Z13.31 - DEPRESSION SCREENING 3. Benign paroxysmal positional vertigo, unspecified laterality - ICD9: 386.11, ICD10: H81.10 -See (more content not included)... [facility] 03-02-2024 History of Present illness Narrative Chief Complaint Patient presents with: Follow Up HPI Leandro Fontanez is a 68 year old female who presents here today for Above Complaints.. Patient is here for a follow-up for blood pressure. No concerns today. Currently have a flare of vertigo, saw PT earlier day. Past medical history, appointments, medications, allergies reviewed. Previous Medical History PAST MEDICAL HISTORY Diagnosis Date Benign paroxysmal positional vertigo 07/13/2021 Chronic bilateral low back pain without sciatica 11/22/2023 Elevated hemoglobin A1c 01/22/2020 Hypertension, essential 08/29/2022 Left hip pain 2016 Obesity, Class III, BMI 40-49.9 (morbid obesity) (HCC) 01/22/2020 Peripheral edema 01/27/2021 Urge incontinence 01/25/2015 Previous Surgical History PAST SURGICAL HISTORY Procedure Laterality Date COLONOSCOPY FLX DX W/COLLJ SPEC WHEN PFRMD 07/15/15 normal 10 year follow up D&C (INCOMPLETE AB), ANY TRIMESTER FECAL OCCULT BLOOD TEST 07/15/2017 negative LAMINECTOMY W/O FFD 06/04 VERT SEG LUMBAR N/A 1999 Family History FAMILY HISTORY Problem Relation Age of Onset Heart Mother Diabetes Mother Heart Father not sure of exact issue No Known Problems Brother No Known Problems Brother No Known Problems Brother Diabetes Maternal Grandmother No Known Problems Daughter No Known Problems Son No Known Problems Son No Known Problems Son Patient Allergies ALLERGIES Allergen Reactions Bee Sting Swelling Has not had SOB or other issues other than extreme swelling at site of sting Lisinopril Cough Current Medications Current Outpatient Medications on File Prior to Visit Medication Sig meclizine (ANTIVERT) 25 mg tab Take 1 tablet by mouth three times a day. hydroCHLOROthiazide 12.5 mg capsule Take 1 capsule by mouth once daily. alendronate (FOSAMAX) 70 mg tablet Take 1 tablet by mouth one time a week. Take with a full glass of water, on an empty stomach; do NOT lie down for 30minutes. mirabegron (MYRBETRIQ) 50 mg Tb24 Take 1 tablet by mouth once daily. losartan (COZAAR) 25 mg tablet Take 1 tablet by mouth once daily. acetaminophen (TYLENOL EXTRA STRENGTH) 500 mg tablet Take 1,000 mg by mouth once daily. calcium carbonate-vitamin D3 600mg (1,500mg) -1,000 unit cap Take 1 capsule by mouth twice daily. multivitamin tablet Take 1 tablet by mouth once daily. No current facility-administered medications on file prior to visit. Social History Social History Tobacco Use Smoking status: Former Current packs/day: 0.00 Average packs/day: 0.5 packs/day for 7.0 years (3.5 ttl pk-yrs) Types: Cigarettes Start date: 05/03/1996 Quit date: 05/03/2003 Years since quittin.8 Smokeless tobacco: Never Vaping Use Vaping status: Never Used Substance Use Topics Alcohol use: No Drug use: No Review of Symptoms REVIEW OF SYSTEMS SEE HPI EXAM: BP 117/78 Pulse 79 Resp 16 Wt 106.6 kg (235 lb) BMI 43.25 kg/m General Appearance: Well appearing, alert, in no acute distress, well-hydrated, well nourished.. Skin: Skin color, texture, turgor normal, no suspicious rashes or lesions. Lungs: Lungs clear to auscultation. No wheezing, rhonchi, rales.. Heart: RRR without murmur, gallop, or rubs. No ectopy. Abdomen: Normal abdominal exam, Abdomen soft, non-tender. Bowel sounds normal. No masses, organomegaly. Musculoskeletal: No joint swelling, deformity, or tenderness. Health Maintenance List Depression Screening Never done Bone Density Screening due on 02/01/2022 Mammogram Screening due on 03/22/2023 Influenza Vaccine(1) due on 11/30/2024 RSV Vaccine(1 - Risk 60-74 years 1-dose series) due on 02/27/2025 Anxiety Screening due on 02/27/2025 Annual PCP Team Chronic Disease Visit due on 02/27/2025 BP Controlled (<130/80) due on 02/27/2025 Colorectal Cancer Screening due on 07/15/2025 Diabetes Screening due on 02/27/2027 Lipid Screening due on 02/27/2029 DTaP,Tdap,Td Vaccine(3 - Td or Tdap) due on 02/27/2034 Advance Directive Discussion Completed Hepatitis C Screening Completed Shingrix Vaccine Completed Pneumococcal Vaccine: 65+ Completed Covid-19 Vaccine Discontinued Data reviewed Labs reviewed from [facility] ASSESSMENT/PLAN: 1. Hypertension, essential - ICD9: 401.9, ICD10: I10 (primary diagnosis) - Controlled - Continue current medications - Recommend home blood pressure monitoring, to bring results to next visit - Encouraged sodium restriction, DASH or Mediterranean diet - Recommend regular aerobic exercise - Discussed need for and benefit of weight loss. BMI 43.25 kg/(m^2) - LOSARTAN 25 MG TABLET 2. Screening for depression - ICD9: V79.0, ICD10: Z13.31 - DEPRESSION SCREENING 3. Benign paroxysmal positional vertigo, unspecified laterality - ICD9: 386.11, ICD10: H81.10 -Seeing PT, continue meclizine 4. Elevated hemoglobin A1c - ICD9: 790.29, ICD10: R73.09 -Stable 5.9 5. Age-related osteoporosis without current pathological fracture - ICD9: 733.01, ICD10: M81.0 - continue tx with alendronate (Fosamax) - Reviewed the need for Calcium and Vitamin D supplements and weight bearing exercise as tolerated 6. Obesity, Class III, BMI 40-49.9 (morbid obesity) (HCC) - ICD9: 278.01, ICD10: E66.01 Stable 7. Sleep apnea, unspecified type - ICD9: 780.57, ICD10: G47.30 -Had sleep study 02/27, will await report Eve Cui APRN.SQL APPLICATION DEVELOPER documented in this encounter [facility] 03-02-2024 Telephone encounter Note Spoke with pt gave information provided. Pt voices understanding. [facility] 03-02-2024 Miscellaneous Notes Spoke with pt gave information provided. Pt voices understanding. Let patient know A1c is still slightly elevated at 5.9%. continue to work on reduced sugars, sweets, carbs and starches in diet to help get it below 5.7%. Rest of the labs were ok. documented in this encounter [facility] 03-02-2024 Telephone encounter Note Let patient know A1c is still slightly elevated at 5.9%. continue to work on reduced sugars, sweets, carbs and starches in diet to help get it below 5.7%. Rest of the labs were ok. [facility] 02-28-2024 Note HNO ID: [id number] Author: TARSHA MATHEWS MA Service: ? Author Type: Needle [employer] Felt Goods Supervisor Type: Progress Notes Filed: 02/28/2024 16:01 Note Text: Scan on 02/28/2024 3:12 PM by ProviderAnand PA-C: Chemistry Scan on 02/28/2024 1:22 PM by Anand Rivero PA-C: Lipid [facility] 02-28-2024 History of Present illness Narrative Scan on 02/28/2024 3:12 PM by Anand Rivero PA-C: Chemistry Scan on 02/28/2024 1:22 PM by ProviderAnand PA-C: Lipid documented in this encounter [facility] 02-28-2024 Instructions Jamie Juarez MD - 02/28/2024 10:38 AM EDT Consider getting a RSV vaccine but check with insurance t see if covered. documented in this encounter [facility] 02-28-2024 History of Present illness Narrative Chief Complaint Patient presents with: Physical HPI Leandro Fontanez is a 68 year old female who presents here today for physical. Patient still on private insurance Patient with hx of HTN, BPPV, elevated a1c, osteoporosis, and those as below. Patient was seen in the ER 02/25/2024 for dizziness/chest pain. D/C summary instructed patient to follow up in 3-5 days. Patient was seen in in early Feb for BPV and hd CT head, MRI head and Echo which were all normal. Last hospital follow up; patient was placed on meclizine and told to follow up with PT Patient is in PHYSICAL THERAPY for vestibular Tx. Has noted reduced frequency of symptoms. Past medical history, appointments, medications, allergies reviewed. Previous Medical History PAST MEDICAL HISTORY Diagnosis Date Benign paroxysmal positional vertigo 07/13/2021 Elevated hemoglobin A1c 01/22/2020 Hypertension, essential 08/29/2022 Left hip pain 2016 Obesity, Class III, BMI 40-49.9 (morbid obesity) (HCC) 01/22/2020 Peripheral edema 01/27/2021 Urge incontinence 01/25/2015 Previous Surgical History PAST SURGICAL HISTORY Procedure Laterality Date COLONOSCOPY FLX DX W/COLLJ SPEC WHEN PFRMD 07/15/15 normal 10 year follow up D&C (INCOMPLETE AB), ANY TRIMESTER FECAL OCCULT BLOOD TEST 07/15/2017 negative LAMINECTOMY W/O FFD 06/04 VERT SEG LUMBAR N/A 1999 Family History FAMILY HISTORY Problem Relation Age of Onset Heart Mother Diabetes Mother Heart Father not sure of exact issue No Known Problems Brother No Known Problems Brother No Known Problems Brother Diabetes Maternal Grandmother No Known Problems Daughter No Known Problems Son No Known Problems Son No Known Problems Son Patient Allergies ALLERGIES Allergen Reactions Bee Sting Swelling Has not had SOB or other issues other than extreme swelling at site of sting Lisinopril Cough Current Medications Current Outpatient Medications on File Prior to Visit Medication Sig meclizine (ANTIVERT) 25 mg tab Take 1 tablet by mouth three times a day. hydroCHLOROthiazide 12.5 mg capsule Take 1 capsule by mouth once daily. alendronate (FOSAMAX) 70 mg tablet Take 1 tablet by mouth one time a week. Take with a full glass of water, on an empty stomach; do NOT lie down for 30minutes. mirabegron (MYRBETRIQ) 50 mg Tb24 Take 1 tablet by mouth once daily. losartan (COZAAR) 25 mg tablet Take 1 tablet by mouth once daily. acetaminophen (TYLENOL EXTRA STRENGTH) 500 mg tablet Take 1,000 mg by mouth once daily. cyclobenzaprine (FLEXERIL) 10 mg tablet Take 1 tablet by mouth three times a day as needed for muscle spasm. (Patient not taking: Reported on 08/30/2023) calcium carbonate-vitamin D3 600mg (1,500mg) -1,000 unit cap Take 1 capsule by mouth twice daily. multivitamin tablet Take 1 tablet by mouth once daily. IBUPROFEN (MOTRIN ORAL) Take by mouth once daily. (Patient not taking: Reported on 11/08/2023) No current facility-administered medications on file prior to visit. Social History Social History Tobacco Use Smoking status: Former Current packs/day: 0.00 Average packs/day: 0.5 packs/day for 7.0 years (3.5 ttl pk-yrs) Types: Cigarettes Start date: 05/03/1996 Quit date: 05/03/2003 Years since quittin.8 Smokeless tobacco: Never Vaping Use Vaping status: Never Used Substance Use Topics Alcohol use: No Drug use: No Review of Symptoms REVIEW OF SYSTEMS GENERAL: No weight loss, malaise or fevers HEENT: Negative for frequent or significant headaches, No changes in hearing or vision, no nose bleeds or other nasal problems NECK: Negative for lumps, goiter, pain and significant neck swelling RESPIRATORY: Negative for cough, hemoptysis, wheezing, COPD, dyspnea or shortness of breath CARDIOVASCULAR: Negative for chest pain, leg swelling, hypertension, CHF or palpitations GI: No nausea, vomiting, or diarrhea, No heartburn or reflux symptoms, and no blood : No history of dysuria, frequency or blood MUSCULOSKELETAL: Negative for new or changes in her typical joint pain or swelling, back pain or muscle pain SKIN: Negative for lesions, rash, and itching PSYCH: Negative for sleep disturbance, mood disorder and recent psychosocial stressors HEMATOLOGY/LYMPHOLOGY: Negative for prolonged bleeding, bruising easily or swollen nodes ENDOCRINE: Negative for cold or heat intolerance, polyuria, polydipsia and goiter NEURO: No history of headaches, syncope, paralysis, seizures or tremors. See HPI EXAM: BP 118/66 (BP Site: Right Arm, BP Position: Sitting, BP Cuff Size: Large Adult) Pulse 93 Resp 16 Ht 157 cm (5' 1.81 ) Wt 105.8 kg (233 lb 3.2 oz) SpO2 93% BMI 42.91 kg/m Last 5 Encounter Wt Readings: Date: Wt: 02/28/2024 105.8 kg (233 lb 3.2 oz) 02/11/2024 106.1 kg (234 lb) 02/07/2024 105.5 kg (232 lb 9.4 oz) 01/14/2024 106.3 kg (234 lb 6.4 oz) 01/08/2024 108.1 kg (238 lb 5.1 oz) General Appearance: Well appearing, alert, in no acute distress, well-hydrated, well nourished. and Morbidly obese. Skin: Skin color, texture, turgor normal, no suspicious rashes or lesions. Head: Normocephalic, no masses, lesions, tenderness or abnormalities. Eyes: Anicteric sclera. Pupils are equally round and reactive to light. Extraocular movements are intact. . Ears: External ears, TM's normal, canals clear. Nose/Sinuses: Nares normal, septum midline, mucosa normal, no drainage or sinus tenderness. Oropharynx: Lips, mucosa, and tongue normal, teeth and gums normal, oropharynx normal. Neck: Supple, no adenopathy; thyroid symmetric, normal size, no bruits. Lungs: Lungs clear to auscultation. No wheezing, rhonchi, rales.. Heart: RRR without murmur, gallop, or rubs. No ectopy. Abdomen: Normal abdominal exam, Abdomen soft, non-tender. Bowel sounds normal. No masses, organomegaly. Extremities: No deformities, edema, skin discoloration, Good capillary refill. . Musculoskeletal: Muscular strength intact, No joint swelling, deformity, or tenderness. Peripheral Pulses: Normal. Neurologic: Gait normal. Reflexes normal and symmetric. Sensation to light touch and crainal nerves 2-12 intact.. Health Maintenance List Depression Screening Never done Anxiety Screening Never done RSV Vaccine(1 - Risk 60-74 years 1-dose series) Never done Bone Density Screening due on 02/01/2022 Mammogram Screening due on 03/22/2023 Advance Directive Discussion due on 06/03/2023 DTaP,Tdap,Td Vaccine(2 - Td or Tdap) due on 07/06/2023 Covid-19 Vaccine(3 - 2023- season) due on 02/02/2024 Influenza Vaccine(1) due on 02/02/2024 Annual PCP Team Chronic Disease Visit due on 02/10/2025 BP Controlled (<130/80) due on 02/10/2025 Colorectal Cancer Screening due on 07/15/2025 Diabetes Screening due on 01/13/2027 Lipid Screening due on 02/21/2028 Hepatitis C Screening Completed Shingrix Vaccine Completed Pneumococcal Vaccine: 65+ Completed Data reviewed A/P ASSESSMENT/PLAN: 1. Well adult exam - ICD9: V70.0, ICD10: Z00.00 (primary diagnosis) - Counseled on healthy diet and regular exercise - Discussed need and benefit for weight loss. BMI 42.91 kg/(m^2) - Patient counseled on and acknowledged vaccine benefits/risks/side effects; VIS provided: TdaP - Follow up for annual exam in one year - advised on flu and RSV 2. Hypertension, essential - ICD9: 401.9, ICD10: I10 - Controlled - Continue current medications - Recommend home blood pressure monitoring, to bring results to next visit - Encouraged sodium restriction, DASH or Mediterranean diet - Recommend regular aerobic exercise - Discussed need for and benefit of weight loss. BMI 42.91 kg/(m^2) Check - COMPREHENSIVE METABOLIC PANEL - URINALYSIS, WITH MICROSCOPIC - LIPID PANEL, NONFASTING 3. Elevated hemoglobin A1c - ICD9: 790.29, ICD10: R73.09 Check - HEMOGLOBIN A1C 4. Obesity, Class III, BMI 40-49.9 (morbid obesity) (HCC) - ICD9: 278.01, ICD10: E66.01 Stable - Behavioral intervention 5. Peripheral edema - ICD9: 782.3, ICD10: R60.0 None on exam today. 6. Age-related osteoporosis without current pathological fracture - ICD9: 733.01, ICD10: M81.0 - Reviewed the need for Calcium and Vitamin D supplements and weight bearing exercise as tolerated Check - DXA-AXIAL SKELETON - DXA TRABECULAR BONE SCORE (TBS) 7. Benign paroxysmal positional vertigo, unspecified laterality - ICD9: 386.11, ICD10: H81.10 Cont with PHYSICAL THERAPY Cont prn - MECLIZINE 25 MG TABLET 8. Need for vaccination - ICD9: V05.9, ICD10: Z23 - TDAP VACCINE, AGE 7+ YR (ADACEL, BOOSTRIX): given Requested Prescriptions Signed Prescriptions Disp Refills meclizine (ANTIVERT) 25 mg tab 30 tablet 0 Sig: Take 1 tablet by mouth three times a day. F/u 6 months routine Jamie Juarez MD documented in this encounter [facility] 02-28-2024 Note HNO ID: [id number] Author: JAMIE JUAREZ MD Service: ? Author Type: Physician Type: Progress Notes Filed: 02/28/2024 11:47 Note Text: Chief Complaint Patient presents with: Physical HPI Leandro Fontanez is a 68 year old female who presents here today for physical. Patient still on private insurance Patient with hx of HTN, BPPV, elevated a1c, osteoporosis, and those as below. Patient was seen in the ER 02/25/2024 for dizziness/chest pain. D/C summary instructed patient to follow up in 3-5 days. Patient was seen in in early Feb for BPV and hd CT head, MRI head and Echo which were all normal. Last hospital follow up; patient was placed on meclizine and told to follow up with PT Patient is in PHYSICAL THERAPY for vestibular Tx. Has noted reduced frequency of symptoms. Past medical history, appointments, medications, allergies reviewed. Previous Medical History PAST MEDICAL HISTORY Diagnosis Date Benign paroxysmal positional vertigo 07/13/2021 Elevated hemoglobin A1c 01/22/2020 Hypertension, essential 08/29/2022 Left hip pain 2016 Obesity, Class III, BMI 40-49.9 (morbid obesity) ([facility]) 01/22/2020 Peripheral edema 01/27/2021 Urge incontinence 01/25/2015 Previous Surgical History PAST SURGICAL HISTORY Procedure Laterality Date COLONOSCOPY FLX DX W/COLLJ SPEC WHEN PFRMD 07/15/15 normal 10 year follow up DANDC (INCOMPLETE AB), ANY TRIMESTER FECAL OCCULT BLOOD TEST 07/15/2017 negative LAMINECTOMY W/O FFD 1/2 VERT SEG LUMBAR N/A 1999 Family History FAMILY HISTORY Problem Relation Age of Onset Heart Mother Diabetes Mother Heart Father not sure of exact issue No Known Problems Brother No Known Problems Brother No Known Problems Brother Diabetes Maternal Grandmother No Known Problems Daughter No Known Problems Son No Known Problems Son No Known Problems Son Patient Allergies ALLERGIES Allergen Reactions Bee Sting Swelling Has not had SOB or other issues other than extreme swelling at site of sting Lisinopril Cough Current Medications Current Outpatient Medications on File Prior to Visit Medication Sig meclizine (ANTIVERT) 25 mg tab Take 1 tablet by mouth three times a day. hydroCHLOROthiazide 12.5 mg capsule Take 1 capsule by mouth once daily. alendronate (FOSAMAX) 70 mg tablet Take 1 tablet by mouth one time a week. Take with a full glass of water, on an empty stomach; do NOT lie down for 30minutes. mirabegron (MYRBETRIQ) 50 mg Tb24 Take 1 tablet by mouth once daily. losartan (COZAAR) 25 mg tablet Take 1 tablet by mouth once daily. acetaminophen (TYLENOL EXTRA STRENGTH) 500 mg tablet Take 1,000 mg by mouth once daily. cyclobenzaprine (FLEXERIL) 10 mg tablet Take 1 tablet by mouth three times a day as needed for muscle spasm. (Patient not taking: Reported on 08/30/2023) calcium carbonate-vitamin D3 600mg (1,500mg) -1,000 unit cap Take 1 capsule by mouth twice daily. multivitamin tablet Take 1 tablet by mouth once daily. IBUPROFEN (MOTRIN ORAL) Take by mouth once daily. (Patient not taking: Reported on 11/08/2023) No current facility-administered medications on file prior to visit. Social History Social History Tobacco Use Smoking status: Former Current packs/day: 0.00 Average packs/day: 0.5 packs/day for 7.0 years (3.5 ttl pk-yrs) Types: Cigarettes Start date: 05/03/1996 Quit date: 05/03/2003 Years since quittin.8 Smokeless tobacco: Never Vaping Use Vaping status: Never Used Substance Use Topics Alcohol use: No Drug use: No Review of Symptoms REVIEW OF SYSTEMS GENERAL: No weight loss, malaise or fevers HEENT: Negative for frequent or significant headaches, No changes in hearing or vision, no nose bleeds or other nasal problems NECK: Negative for lumps, goiter, pain and significant neck swelling RESPIRATORY: Negative for cough, hemoptysis, wheezing, COPD, dyspnea or shortness of breath CARDIOVASCULAR: Negative for chest pain, leg swelling, hypertension, CHF or palpitations GI: No nausea, vomiting, or diarrhea, No heartburn or reflux symptoms, and no blood : No history of dysuria, frequency or blood MUSCULOSKELETAL: Negative for new or changes in her typical joint pain or swelling, back pain or muscle pain SKIN: Negative for lesions, rash, and itching PSYCH: Negative for sleep disturbance, mood disorder and recent psychosocial stressors HEMATOLOGY/LYMPHOLOGY: Negative for prolonged bleeding, bruising easily or swollen nodes ENDOCRINE: Negative for cold or heat intolerance, polyuria, polydipsia and goiter NEURO: No history of headaches, syncope, paralysis, seizures or tremors. See HPI EXAM: BP 118/66 (BP Site: Right Arm, BP Position: Sitting, BP Cuff Size: Large Adult) Pulse 93 Resp 16 Ht 157 cm (5' 1.81 ) Wt 105.8 kg (233 lb 3.2 oz) SpO2 93% BMI 42.91 kg/m? Last 5 Encounter Wt Readings: Date: Wt: 02/28/2024 105.8 kg (233 lb 3.2 oz) 02/11/2024 106.1 kg (234 lb) (more content not included)... [facility] 02-17-2024 Telephone encounter Note Pt notified and voiced understanding. Herminia Holder MA [facility] 02-17-2024 Miscellaneous Notes Pt notified and voiced understanding. Herminia Holder MA Recommend seeing PT on Saturday. Pt was seen 02/10 for hospital discharge for vertigo. Pt was prescribed meclizine 25 mg tid and set up with [facility] for 02/18 for vestibular therapy. Pt reports vertigo was only bothering her when she got up in the morning and at night. Pt reports today she has had vertigo the whole morning. Pt reports whenever she moves her head. Pt reports she is about out of meclizine and is asking if provider will send in a rx for medication. Pt is also asking if she needs to be seen or if she can wait it out until vestibular therapy on . Pt also asking if there is anything else she should or could do for the dizziness. Please review and advise. Kaylan Ruiz LPN documented in this encounter [facility] 02-17-2024 Telephone encounter Note Recommend seeing PT on Saturday. [facility] 02-17-2024 Telephone encounter Note Pt was seen 02/10 for hospital discharge for vertigo. Pt was prescribed meclizine 25 mg tid and set up with [facility] for 02/18 for vestibular therapy. Pt reports vertigo was only bothering her when she got up in the morning and at night. Pt reports today she has had vertigo the whole morning. Pt reports whenever she moves her head. Pt reports she is about out of meclizine and is asking if provider will send in a rx for medication. Pt is also asking if she needs to be seen or if she can wait it out until vestibular therapy on . Pt also asking if there is anything else she should or could do for the dizziness. Please review and advise. Kaylan Ruiz LPN [facility] 02-11-2024 Telephone encounter Note Refaxed- pt notified and verbalized understanding Saima Carlson MA [facility] 02-11-2024 Miscellaneous Notes Refaxed- pt notified and verbalized understanding Saima Carlson MA This order was placed and faxed during patient appt. Patient is asking for an order Sleep Study to go to [facility]. Advised Patient once the order, information needed has been faxed, [facility] will contact her to schedule. Alicia Lopez LPN documented in this encounter [facility] 02-11-2024 Telephone encounter Note This order was placed and faxed during patient appt. [facility] 02-11-2024 Telephone encounter Note Patient is asking for an order Sleep Study to go to [facility]. Advised Patient once the order, information needed has been faxed, [facility] will contact her to schedule. Alicia Lopez LPN [facility] 02-11-2024 Note HNO ID: [id number] Author: EVE CUI APRN.SQL APPLICATION DEVELOPER Service: ? Author Type: Nurse Practitioner Type: Progress Notes Filed: 02/11/2024 09:41 Note Text: Chief Complaint Patient presents with: ER F/U HPI Leandro Fontanez is a 68 year old female who presents here today for Above Complaints.. Patient presents for hospital follow up. Patient reports she was admitted for dizziness and CT and echo were done. Echo shows stage 1 diastolic dysfunction with normal EF. CT and MRI negative for stroke. Given referral to PT for vestibular therapy. Was noted to have low pulse ox at night during hospital stay and recommended to have sleep study done. Past medical history, appointments, medications, allergies reviewed. Previous Medical History PAST MEDICAL HISTORY 07/13/2021: Benign paroxysmal positional vertigo 01/22/2020: Elevated hemoglobin A1c 08/29/2022: Hypertension, essential 2017: Left hip pain 01/22/2020: Obesity, Class III, BMI 40-49.9 (morbid obesity) (HCC) 01/27/2021: Peripheral edema 01/25/2015: Urge incontinence Previous Surgical History PAST SURGICAL HISTORY 07/15/15: COLONOSCOPY FLX DX W/COLLJ SPEC WHEN PFRMD Comment: normal 10 year follow up No date: DANDC (INCOMPLETE AB), ANY TRIMESTER 07/15/2017: FECAL OCCULT BLOOD TEST Comment: negative 1999: LAMINECTOMY W/O FFD 06/04 VERT SEG LUMBAR; N/A Family History FAMILY HISTORY Problem Relation Age of Onset Heart Mother Diabetes Mother Heart Father not sure of exact issue No Known Problems Brother No Known Problems Brother No Known Problems Brother Diabetes Maternal Grandmother No Known Problems Daughter No Known Problems Son No Known Problems Son No Known Problems Son Patient Allergies ALLERGIES Allergen Reactions Bee Sting Swelling Has not had SOB or other issues other than extreme swelling at site of sting Lisinopril Cough Current Medications Current Outpatient Medications on File Prior to Visit Medication Sig hydroCHLOROthiazide 12.5 mg capsule Take 1 capsule by mouth once daily. alendronate (FOSAMAX) 70 mg tablet Take 1 tablet by mouth one time a week. Take with a full glass of water, on an empty stomach; do NOT lie down for 30minutes. mirabegron (MYRBETRIQ) 50 mg Tb24 Take 1 tablet by mouth once daily. losartan (COZAAR) 25 mg tablet Take 1 tablet by mouth once daily. acetaminophen (TYLENOL EXTRA STRENGTH) 500 mg tablet Take 1,000 mg by mouth once daily. cyclobenzaprine (FLEXERIL) 10 mg tablet Take 1 tablet by mouth three times a day as needed for muscle spasm. (Patient not taking: Reported on 08/30/2023) calcium carbonate-vitamin D3 600mg (1,500mg) -1,000 unit cap Take 1 capsule by mouth twice daily. multivitamin tablet Take 1 tablet by mouth once daily. IBUPROFEN (MOTRIN ORAL) Take by mouth once daily. (Patient not taking: Reported on 11/08/2023) No current facility-administered medications on file prior to visit. Social History Social History Tobacco Use Smoking status: Former Current packs/day: 0.00 Average packs/day: 0.5 packs/day for 7.0 years (3.5 ttl pk-yrs) Types: Cigarettes Start date: 05/03/1996 Quit date: 05/03/2003 Years since quittin.7 Smokeless tobacco: Never Vaping Use Vaping status: Never Used Substance Use Topics Alcohol use: No Drug use: No Review of Symptoms REVIEW OF SYSTEMS SEE HPI EXAM: BP 119/77 Pulse 88 Resp 16 Wt 106.1 kg (234 lb) SpO2 97% BMI 41.45 kg/m? General Appearance: Well appearing, alert, in no acute distress, well-hydrated, well nourished.. Lungs: Lungs clear to auscultation. No wheezing, rhonchi, rales.. Heart: RRR without murmur, gallop, or rubs. No ectopy. Peripheral Pulses: Normal. Neurologic: Gait normal. Reflexes normal and symmetric. Sensation grossly intact.. Health Maintenance List Depression Screening Never done Anxiety Screening Never done BP Controlled (<130/80) Never done RSV Vaccine(1 - 1-dose 60+ series) Never done Bone Density Screening due on 02/01/2022 Mammogram Screening due on 03/22/2023 Advance Directive Discussion due on 06/03/2023 DTaP,Tdap,Td Vaccine(2 - Td or Tdap) due on 07/06/2023 Covid-19 Vaccine(3 - season) due on 02/02/2024 Influenza Vaccine(1) due on 02/02/2024 Annual PCP Team Chronic Disease Visit due on 01/13/2025 Colorectal Cancer Screening due on 07/15/2025 Diabetes Screening due on 01/13/2027 Lipid Screening due on 02/21/2028 Hepatitis C Screening Completed Shingrix Vaccine Completed Pneumococcal Vaccine: 65+ Completed ASSESSMENT/PLAN: 1. Hospital discharge follow-up - ICD9: V67.59, ICD10: Z09 (primary diagnosis) -Patient d/c'd 02/07 fro [facility] for BPPV 2. Sleep apnea, unspecified type - ICD9: 780.57, ICD10: G47.30 - POLYSOMNOGRAM (PSG) 3. Benign paroxysmal positional vertigo, unspecified laterality - ICD9: 386.11, ICD10: H81.10 -Continue meclizine -Follow up with PT as ordered from [facility] Eve Cui APRN.SQL APPLICATION DEVELOPER [facility] 02-11-2024 History of Present illness Narrative Chief Complaint Patient presents with: ER F/U HPI Leandro Fontanez is a 68 year old female who presents here today for Above Complaints.. Patient presents for hospital follow up. Patient reports she was admitted for dizziness and CT and echo were done. Echo shows stage 1 diastolic dysfunction with normal EF. CT and MRI negative for stroke. Given referral to PT for vestibular therapy. Was noted to have low pulse ox at night during hospital stay and recommended to have sleep study done. Past medical history, appointments, medications, allergies reviewed. Previous Medical History PAST MEDICAL HISTORY 07/13/2021: Benign paroxysmal positional vertigo 01/22/2020: Elevated hemoglobin A1c 08/29/2022: Hypertension, essential 2017: Left hip pain 01/22/2020: Obesity, Class III, BMI 40-49.9 (morbid obesity) ([facility]) 01/27/2021: Peripheral edema 01/25/2015: Urge incontinence Previous Surgical History PAST SURGICAL HISTORY 07/15/15: COLONOSCOPY FLX DX W/COLLJ SPEC WHEN PFRMD Comment: normal 10 year follow up No date: D&C (INCOMPLETE AB), ANY TRIMESTER 07/15/2017: FECAL OCCULT BLOOD TEST Comment: negative 1999: LAMINECTOMY W/O FFD 06/04 VERT SEG LUMBAR; N/A Family History FAMILY HISTORY Problem Relation Age of Onset Heart Mother Diabetes Mother Heart Father not sure of exact issue No Known Problems Brother No Known Problems Brother No Known Problems Brother Diabetes Maternal Grandmother No Known Problems Daughter No Known Problems Son No Known Problems Son No Known Problems Son Patient Allergies ALLERGIES Allergen Reactions Bee Sting Swelling Has not had SOB or other issues other than extreme swelling at site of sting Lisinopril Cough Current Medications Current Outpatient Medications on File Prior to Visit Medication Sig hydroCHLOROthiazide 12.5 mg capsule Take 1 capsule by mouth once daily. alendronate (FOSAMAX) 70 mg tablet Take 1 tablet by mouth one time a week. Take with a full glass of water, on an empty stomach; do NOT lie down for 30minutes. mirabegron (MYRBETRIQ) 50 mg Tb24 Take 1 tablet by mouth once daily. losartan (COZAAR) 25 mg tablet Take 1 tablet by mouth once daily. acetaminophen (TYLENOL EXTRA STRENGTH) 500 mg tablet Take 1,000 mg by mouth once daily. cyclobenzaprine (FLEXERIL) 10 mg tablet Take 1 tablet by mouth three times a day as needed for muscle spasm. (Patient not taking: Reported on 08/30/2023) calcium carbonate-vitamin D3 600mg (1,500mg) -1,000 unit cap Take 1 capsule by mouth twice daily. multivitamin tablet Take 1 tablet by mouth once daily. IBUPROFEN (MOTRIN ORAL) Take by mouth once daily. (Patient not taking: Reported on 11/08/2023) No current facility-administered medications on file prior to visit. Social History Social History Tobacco Use Smoking status: Former Current packs/day: 0.00 Average packs/day: 0.5 packs/day for 7.0 years (3.5 ttl pk-yrs) Types: Cigarettes Start date: 05/03/1996 Quit date: 05/03/2003 Years since quittin.7 Smokeless tobacco: Never Vaping Use Vaping status: Never Used Substance Use Topics Alcohol use: No Drug use: No Review of Symptoms REVIEW OF SYSTEMS SEE HPI EXAM: BP 119/77 Pulse 88 Resp 16 Wt 106.1 kg (234 lb) SpO2 97% BMI 41.45 kg/m General Appearance: Well appearing, alert, in no acute distress, well-hydrated, well nourished.. Lungs: Lungs clear to auscultation. No wheezing, rhonchi, rales.. Heart: RRR without murmur, gallop, or rubs. No ectopy. Peripheral Pulses: Normal. Neurologic: Gait normal. Reflexes normal and symmetric. Sensation grossly intact.. Health Maintenance List Depression Screening Never done Anxiety Screening Never done BP Controlled (<130/80) Never done RSV Vaccine(1 - 1-dose 60+ series) Never done Bone Density Screening due on 02/01/2022 Mammogram Screening due on 03/22/2023 Advance Directive Discussion due on 06/03/2023 DTaP,Tdap,Td Vaccine(2 - Td or Tdap) due on 07/06/2023 Covid-19 Vaccine(3 - 2022- season) due on 02/02/2024 Influenza Vaccine(1) due on 02/02/2024 Annual PCP Team Chronic Disease Visit due on 01/13/2025 Colorectal Cancer Screening due on 07/15/2025 Diabetes Screening due on 01/13/2027 Lipid Screening due on 02/21/2028 Hepatitis C Screening Completed Shingrix Vaccine Completed Pneumococcal Vaccine: 65+ Completed ASSESSMENT/PLAN: 1. Hospital discharge follow-up - ICD9: V67.59, ICD10: Z09 (primary diagnosis) -Patient d/c'd 02/07 [facility] for BPPV 2. Sleep apnea, unspecified type - ICD9: 780.57, ICD10: G47.30 - POLYSOMNOGRAM (PSG) 3. Benign paroxysmal positional vertigo, unspecified laterality - ICD9: 386.11, ICD10: H81.10 -Continue meclizine -Follow up with PT as ordered from [facility] Eve Cui APRN.SQL APPLICATION DEVELOPER documented in this encounter [facility] 02-10-2024 Note HNO ID: [id number] Author: NGUYEN LAY MA Service: ? Author Type: Needle Process Felt Goods Supervisor Type: Progress Notes Filed: 02/10/2024 12:45 Note Text: Scan on 02/07/2024 9:34 PM by Anand Rivero PA-C: Consultation - Emergency Medicine Scan on 02/07/2024 9:34 PM by Anand Rivero PA-C: Consultation - Emergency Medicine Scan on 02/08/2024 4:50 PM by Anand Rivero PA-C: Discharge Summary Review of the chart patient is scheduled with Eve on 02/10. Nguyen Lay MA [facility] 02-10-2024 History of Present illness Narrative Scan on 02/07/2024 9:34 PM by Anand Rivero PA-C: Consultation - Emergency Medicine Scan on 02/07/2024 9:34 PM by Anand Rivero PA-C: Consultation - Emergency Medicine Scan on 02/08/2024 4:50 PM by Anand Rivero PA-C: Discharge Summary Review of the chart patient is scheduled with Eve on 02/10. Nguyen Lay MA documented in this encounter [facility] 02-07-2024 Note HNO ID: [id number] Author: ESTEE KAUR PA Service: ? Author Type: Physician Kiln Door Repairer Type: Progress Notes Filed: 02/07/2024 14:11 Note Text: This note was created using NoteWriter. Subjective Leandro Fontanez is a 68 year old female. HPI 68-year-old female presents for dizziness. Patient states that she has been dizzy upon standing for the past 3 days. She states that today the dizziness is more constant. She states whenever she stands, turns her head she becomes dizzy. She has unable to walk without holding onto somebody or the wall due to dizziness and feeling off balance. No numbness or weakness in the arms or legs. She has been diagnosed with vertigo in the past and states that she has been given a pill which helps. However, she states that today's dizziness seems worse than normal. She denies any headaches. No chest pain or shortness of breath. No cough. Patient was seen about a month ago for leg swelling and had a DVT study which was negative. She denies any recent travel, hospitalization or surgery. PAST MEDICAL HISTORY 07/13/2021: Benign paroxysmal positional vertigo 01/22/2020: Elevated hemoglobin A1c 08/29/2022: Hypertension, essential 2017: Left hip pain 01/22/2020: Obesity, Class III, BMI 40-49.9 (morbid obesity) ([facility]) 01/27/2021: Peripheral edema 01/25/2015: Urge incontinence PAST SURGICAL HISTORY 07/15/15: COLONOSCOPY FLX DX W/COLLJ SPEC WHEN PFRMD Comment: normal 10 year follow up No date: DANDC (INCOMPLETE AB), ANY TRIMESTER 07/15/2017: FECAL OCCULT BLOOD TEST Comment: negative 1999: LAMINECTOMY W/O FFD 1/2 VERT SEG LUMBAR; N/A ALLERGIES Bee Sting and Lisinopril MEDICATIONS hydroCHLOROthiazide 12.5 mg capsule Take 1 capsule by mouth once daily. alendronate (FOSAMAX) 70 mg tablet Take 1 tablet by mouth one time a week. Take with a full glass of water, on an empty stomach; do NOT lie down for 30minutes. mirabegron (MYRBETRIQ) 50 mg Tb24 Take 1 tablet by mouth once daily. losartan (COZAAR) 25 mg tablet Take 1 tablet by mouth once daily. acetaminophen (TYLENOL EXTRA STRENGTH) 500 mg tablet Take 1,000 mg by mouth once daily. cyclobenzaprine (FLEXERIL) 10 mg tablet Take 1 tablet by mouth three times a day as needed for muscle spasm. (Patient not taking: Reported on 08/30/2023) calcium carbonate-vitamin D3 600mg (1,500mg) -1,000 unit cap Take 1 capsule by mouth twice daily. multivitamin tablet Take 1 tablet by mouth once daily. IBUPROFEN (MOTRIN ORAL) Take by mouth once daily. (Patient not taking: Reported on 11/08/2023) FAMILY HISTORY Problem Relation Age of Onset Heart Mother Diabetes Mother Heart Father not sure of exact issue No Known Problems Brother No Known Problems Brother No Known Problems Brother Diabetes Maternal Grandmother No Known Problems Daughter No Known Problems Son No Known Problems Son No Known Problems Son Social History Tobacco Use Smoking status: Former Current packs/day: 0.00 Average packs/day: 0.5 packs/day for 7.0 years (3.5 ttl pk-yrs) Types: Cigarettes Start date: 05/03/1996 Quit date: 05/03/2003 Years since quittin.7 Smokeless tobacco: Never Vaping Use Vaping status: Never Used Substance Use Topics Alcohol use: No Drug use: No Review of Systems Constitutional: Negative for chills and fever. HENT: Negative for congestion, ear pain and sore throat. Respiratory: Negative for cough and shortness of breath. Cardiovascular: Negative for chest pain. Gastrointestinal: Negative for diarrhea and vomiting. Neurological: Positive for dizziness. Objective BP 147/91 Pulse 66 Temp 36.4 ?C (97.5 ?F) Resp 18 Wt 105.5 kg (232 lb 9.4 oz) SpO2 91% BMI 41.20 kg/m? Physical Exam Vitals and nursing note reviewed. Constitutional: General: She is not in acute distress. Appearance: Normal appearance. She is not toxic-appearing. Eyes: Extraocular Movements: Extraocular movements intact. Conjunctiva/sclera: Conjunctivae normal. Pupils: Pupils are equal, round, and reactive to light. Cardiovascular: Rate and Rhythm: Normal rate and regular rhythm. Pulmonary: Effort: Pulmonary effort is normal. Breath sounds: Normal breath sounds. Skin: General: Skin is warm and dry. Neurological: Mental Status: She is alert and oriented to person, place, and time. Cranial Nerves: No facial asymmetry. Gait: Gait abnormal. Comments: No facial asymmetry. No arm drift. Patient unable to ambulate straight. She needs to hold onto the wall to ambulate. Assessment and Plan ASSESSMENT/PLAN: 1. Dizziness - ICD9: 780.4, ICD10: R42 (primary diagnosis) -Dizziness today, patient states worse than her normal vertigo. Unable to walk without holding onto an object. -Patient also hypoxic today at 90 to 91% on room air. No cough or URI symptoms. -At this time, I recommended evaluation in the emergency room for further workup. Patient declines EMS. Her family member with her will take her (more content not included)... [facility] 02-07-2024 History of Present illness Narrative This note was created using DWNLDriter. Subjective Leandro Fontanez is a 68 year old female. HPI 68-year-old female presents for dizziness. Patient states that she has been dizzy upon standing for the past 3 days. She states that today the dizziness is more constant. She states whenever she stands, turns her head she becomes dizzy. She has unable to walk without holding onto somebody or the wall due to dizziness and feeling off balance. No numbness or weakness in the arms or legs. She has been diagnosed with vertigo in the past and states that she has been given a pill which helps. However, she states that today's dizziness seems worse than normal. She denies any headaches. No chest pain or shortness of breath. No cough. Patient was seen about a month ago for leg swelling and had a DVT study which was negative. She denies any recent travel, hospitalization or surgery. PAST MEDICAL HISTORY 07/13/2021: Benign paroxysmal positional vertigo 01/22/2020: Elevated hemoglobin A1c 08/29/2022: Hypertension, essential 2017: Left hip pain 01/22/2020: Obesity, Class III, BMI 40-49.9 (morbid obesity) ([facility]) 01/27/2021: Peripheral edema 01/25/2015: Urge incontinence PAST SURGICAL HISTORY 07/15/15: COLONOSCOPY FLX DX W/COLLJ SPEC WHEN PFRMD Comment: normal 10 year follow up No date: D&C (INCOMPLETE AB), ANY TRIMESTER 07/15/2017: FECAL OCCULT BLOOD TEST Comment: negative 1999: LAMINECTOMY W/O FFD 1/2 VERT SEG LUMBAR; N/A ALLERGIES Bee Sting and Lisinopril MEDICATIONS hydroCHLOROthiazide 12.5 mg capsule Take 1 capsule by mouth once daily. alendronate (FOSAMAX) 70 mg tablet Take 1 tablet by mouth one time a week. Take with a full glass of water, on an empty stomach; do NOT lie down for 30minutes. mirabegron (MYRBETRIQ) 50 mg Tb24 Take 1 tablet by mouth once daily. losartan (COZAAR) 25 mg tablet Take 1 tablet by mouth once daily. acetaminophen (TYLENOL EXTRA STRENGTH) 500 mg tablet Take 1,000 mg by mouth once daily. cyclobenzaprine (FLEXERIL) 10 mg tablet Take 1 tablet by mouth three times a day as needed for muscle spasm. (Patient not taking: Reported on 08/30/2023) calcium carbonate-vitamin D3 600mg (1,500mg) -1,000 unit cap Take 1 capsule by mouth twice daily. multivitamin tablet Take 1 tablet by mouth once daily. IBUPROFEN (MOTRIN ORAL) Take by mouth once daily. (Patient not taking: Reported on 11/08/2023) FAMILY HISTORY Problem Relation Age of Onset Heart Mother Diabetes Mother Heart Father not sure of exact issue No Known Problems Brother No Known Problems Brother No Known Problems Brother Diabetes Maternal Grandmother No Known Problems Daughter No Known Problems Son No Known Problems Son No Known Problems Son Social History Tobacco Use Smoking status: Former Current packs/day: 0.00 Average packs/day: 0.5 packs/day for 7.0 years (3.5 ttl pk-yrs) Types: Cigarettes Start date: 05/03/1996 Quit date: 05/03/2003 Years since quittin.7 Smokeless tobacco: Never Vaping Use Vaping status: Never Used Substance Use Topics Alcohol use: No Drug use: No Review of Systems Constitutional: Negative for chills and fever. HENT: Negative for congestion, ear pain and sore throat. Respiratory: Negative for cough and shortness of breath. Cardiovascular: Negative for chest pain. Gastrointestinal: Negative for diarrhea and vomiting. Neurological: Positive for dizziness. Objective BP 147/91 Pulse 66 Temp 36.4 C (97.5 F) Resp 18 Wt 105.5 kg (232 lb 9.4 oz) SpO2 91% BMI 41.20 kg/m Physical Exam Vitals and nursing note reviewed. Constitutional: General: She is not in acute distress. Appearance: Normal appearance. She is not toxic-appearing. Eyes: Extraocular Movements: Extraocular movements intact. Conjunctiva/sclera: Conjunctivae normal. Pupils: Pupils are equal, round, and reactive to light. Cardiovascular: Rate and Rhythm: Normal rate and regular rhythm. Pulmonary: Effort: Pulmonary effort is normal. Breath sounds: Normal breath sounds. Skin: General: Skin is warm and dry. Neurological: Mental Status: She is alert and oriented to person, place, and time. Cranial Nerves: No facial asymmetry. Gait: Gait abnormal. Comments: No facial asymmetry. No arm drift. Patient unable to ambulate straight. She needs to hold onto the wall to ambulate. Assessment and Plan ASSESSMENT/PLAN: 1. Dizziness - ICD9: 780.4, ICD10: R42 (primary diagnosis) -Dizziness today, patient states worse than her normal vertigo. Unable to walk without holding onto an object. -Patient also hypoxic today at 90 to 91% on room air. No cough or URI symptoms. -At this time, I recommended evaluation in the emergency room for further workup. Patient declines EMS. Her family member with her will take her to ER now. 2. Hypoxia - ICD9: 799.02, ICD10: R09.02 -See above Diagnosis and treatment plan were discussed and questions were answered to the patient's satisfaction. Pt acknowledged understanding of concepts and follow up plan. Specific signs and symptoms that would indicate the need for higher level of care were discussed in detail warranting prompt ER evaluation. MARIAM Martin documented in this encounter [facility] 02-05-2024 Note Patient Outreach (IN [facility]) LEANDRO FONTANEZ ([id number]) 1955 F Date Time Provider Department 02/05/24 JAMIE JUAREZ During your visit today, we recorded the following information about you: Allergies As of Date: 02/05/2024 Noted Allergy Reaction BEE STING 01/25/2015 7 - Swelling Comments: Has not had SOB or other issues other than extreme swelling at site of sting LISINOPRIL 11/27/2022 3 - Cough Date Reviewed: 01/14/2024 Reviewed by: Jamie Juarez MD - Fully Assessed Visit Diagnosis:Encounter for screening mammogram for breast cancer [Z12.31] Order(s):CARLOS SCREENING Nate CORDON [[id number]] Order #: [id number] FUTURE Prescriptions as of 02/10/2024 - hydroCHLOROthiazide 12.5 mg capsule Take 1 capsule by mouth once daily. - alendronate (FOSAMAX) 70 mg tablet Take 1 tablet by mouth one time a week. Take with a full glass of water, on an empty stomach; do NOT lie down for 30minutes. - mirabegron (MYRBETRIQ) 50 mg Tb24 Take 1 tablet by mouth once daily. - losartan (COZAAR) 25 mg tablet Take 1 tablet by mouth once daily. - acetaminophen (TYLENOL EXTRA STRENGTH) 500 mg tablet Take 1,000 mg by mouth once daily. - cyclobenzaprine (FLEXERIL) 10 mg tablet Take 1 tablet by mouth three times a day as needed for muscle spasm. - calcium carbonate-vitamin D3 600mg (1,500mg) -1,000 unit cap Take 1 capsule by mouth twice daily. - multivitamin tablet Take 1 tablet by mouth once daily. - IBUPROFEN (MOTRIN ORAL) Take by mouth once daily. Problem List As Of Date 02/05/2024 Noted Resolved Urge incontinence [N39.41] 01/25/2015 Tendonitis, Achilles, right [M76.61] 01/25/2015 Head lump [R22.0] 01/25/2015 Midline cystocele [N81.11] 06/13/2015 Encounter for screening for cardiovascular diso*11/01/2015 Encounter for routine gynecological examination*11/08/2015 Well adult exam [Z00.00] 11/08/2015 Encounter for screening mammogram for breast ca*07/12/2017 Screening for colon cancer [Z12.11] 07/12/2017 Left hip pain [M25.552] 2016 Obesity, Class III, BMI 40-49.9 (morbid obesity*01/22/2020 Elevated hemoglobin A1c [R73.09] 01/22/2020 Age-related osteoporosis without current pathol*02/04/2020 Peripheral edema [R60.0] 01/27/2021 Benign paroxysmal positional vertigo [H81.10] 07/13/2021 Advance directive discussed with patient [Z71.8*02/27/2022 Hypertension, essential [I10] 08/29/2022 Chronic bilateral low back pain without sciatic*11/22/2023 Physical deconditioning [R53.81] 11/22/2023 Encounter Status:Closed by EPIC, PRODUSER on 02/10/24 [facility] 02-04-2024 Telephone encounter Note Pt notified of results. Kaylan Ruiz LPN [facility] 02-04-2024 Miscellaneous Notes Pt notified of results. Kaylan Ruiz LPN Left message for pt to contact office. Barb Garcia LPN Let patient know the US of her heart was ok. documented in this encounter [facility] 02-04-2024 Telephone encounter Note Left message for pt to contact office. Barb Garcia LPN [facility] 02-03-2024 Telephone encounter Note Let patient know the US of her heart was ok. [facility] 01-15-2024 Telephone encounter Note Patient notified of results and provider's instructions. Patient verbalizes understanding. Diya Quintana RN [facility] 01-15-2024 Miscellaneous Notes Patient notified of results and provider's instructions. Patient verbalizes understanding. Diya Quintana RN Left message for pt to contact office. Barb Garcia LPN Labs look okay. Continue as discussed with dr. Juarez. documented in this encounter [facility] 01-15-2024 Note HNO ID: [id number] Author: CANDELARIO HALL PT Service: ? Author Type: Physical Therapist Type: Progress Notes Filed: 01/15/2024 13:15 Note Text: Episode Visit Count: 10 Therapist That Will Accept/Oversee The Plan Of Care: Candelario Hall PT Start of Care Date: 11/22/23 Onset Date: 08/22/23 Patient Identified by Name and Date of : Yes REHABILITATION AND SPORTS THERAPY PHYSICAL THERAPY DISCONTINUANCE OF CARE PLAN OF CARE UPDATE: Assessment: Leandro Fontanez is discontinued from Physical Therapy services due to goal achievement and maximal benefit. and Patient/Clinician mutual decision to discontinue current plan of care.. Patient was seen for 10 visits from Start of Care Date: 11/22/23 to 01/15/2024 and treatment included: Therapeutic exercise, Self-usp management, Gait training, Patient/Family/Caregiver Education, Body mechanics training, and General conditioning. Updated: 12/18/23 and 01/15/24 Goals for Episode of Care: created on 11/22/23 through 01/17/24 Independent in home exercises. - MET Patient will decrease pain rating by 2 points to meet minimal clinical important difference for numeric pain rating scale. - MET Restore pain-free lumbar ROM to WFL to allow for improved sleep quality. - MET Stand / Walk without limitations, without pain/symptoms. - MET Sleep through night without pain/symptoms. - MET Patient will increase strength of core and LEs to WFL to allow for improve gait mechanics/gait pattern. - MET Patient will report no falls. - MET Improve score on Timed Up and Go Test to 8.54 seconds to reflect decreased fall risk. - Partially MET Improve score on 30 Second Chair Stand to 10 repetitions to reflect decreased fall risk. - MET Patient Goals: decrease back pain and walk better - MET SUBJECTIVE: Pt reports that her low back is a lot better. She reports intermittent pain but that this is much less frequent. She reports compliance with HEP 2x day. She reports that DKTC is difficult for her. She denies any back or hip symptoms to start today. She denies any limitations with sleeping. She denies any limitations in standing or walking tolerance that she would attribute to low back symptoms. She denies any falls since starting therapy. Pain: Pain Pain Level: 0 Description: (No pain to start today) Post Treatment Pain Post Treatment Pain Level: No Change PROMIS Scales 01/06/2024 11/22/2023 Higher is Better Phys Func - Score 43 (mild dysfunction) 47 (within normal limits) Phys Func - Percentile 24 38 Self-Eff Symptom - Score 50 (Average) 46 (Average) Self-Eff Symptom - Percentile 50 34 T-scores: mean of general population = 50. 5 points is clinically meaningfully difference Percentiles provide an indication of how the patient's score ranks in relation to the general population. Higher percentile rankings indicate better function/quality of life. 50th percentile is the average of the general population and indicates half of respondents had a worse score. OBJECTIVE MEASURES WITH LEVEL OF FUNCTION: Lumbar Spine AROM Lumbar Flexion: Normal Lumbar Extension: Normal Lumbar R Side-Bend: Normal Lumbar L Side-Bend: Minimal limitation Lumbar R Rotation: Normal Lumbar L Rotation: Normal Gait Gait Observation: Improved significantly but not normalized Functional Performance Test Results 30 Second Chair Stand Test: 12 reps Timed Up and Go (sec): 9.44 sec TREATMENT: Therapeutic Exercise: 1: SciFit StepOne seat #13 x5 minutes (Pt provided an update on her condition and plan of care reviewed.) 2: B sidelying hip abduction 2x12 each 3: B sidelying clamshells 2x12 each with pink t-band 4: supine bridging 2x12 5: sit to stand from table 19 inches tall 2x10 with 11# ball in hands 6: 6 inch forward step up B with gait belt and no UE support 2x10 B 7: supine LTR 2x10 8: *seated Pallof press with purple t-band 2x10 each lateral direction 9: *seated purple t-band stirring the pot 2x10 CW and 2x10 CCW facing both lateral directions. 10: supine B SKTC x30 seconds 11: supine DKTC x30 seconds Skilled Intervention: Patient was educated in proper exercise technique and purpose for exercises. Reviewed and educated patient on additions/changes for home exercise program as above (*). Skilled judgment was used in selection of appropriate interventions. Provided written instruction for home exercise program to facilitate proper performance and compliance. Correct performance of therapeutic exercises was facilitated with verbal, visual, and tactile cuing. Patient education as noted. Gait Trainin: Gati training with use of mirror for visual feedback. Pt able to correct gait without verbal cueing. Decreased lateral sway compared to start of session, but still some due to pt's knees hurting. Skilled Intervention: Facilitated proper gait cycle with the use of verbal and visual cues for correction of gait deviations identified i (more content not included)... [facility] 01-15-2024 History of Present illness Narrative Images from the original note were not included. Episode Visit Count: 10 Therapist That Will Accept/Oversee The Plan Of Care: Candelario Hall PT Start of Care Date: 11/22/23 Onset Date: 08/22/23 Patient Identified by Name and Date of : Yes REHABILITATION AND SPORTS THERAPY PHYSICAL THERAPY DISCONTINUANCE OF CARE PLAN OF CARE UPDATE: Assessment: Leandro Fontanez is discontinued from Physical Therapy services due to goal achievement and maximal benefit. and Patient/Clinician mutual decision to discontinue current plan of care.. Patient was seen for 10 visits from Start of Care Date: 11/22/23 to 01/15/2024 and treatment included: Therapeutic exercise, Self-usp management, Gait training, Patient/Family/Caregiver Education, Body mechanics training, and General conditioning. Updated: 12/18/23 and 01/15/24 Goals for Episode of Care: created on 11/22/23 through 01/17/24 Independent in home exercises. - MET Patient will decrease pain rating by 2 points to meet minimal clinical important difference for numeric pain rating scale. - MET Restore pain-free lumbar ROM to WFL to allow for improved sleep quality. - MET Stand / Walk without limitations, without pain/symptoms. - MET Sleep through night without pain/symptoms. - MET Patient will increase strength of core and LEs to WFL to allow for improve gait mechanics/gait pattern. - MET Patient will report no falls. - MET Improve score on Timed Up and Go Test to 8.54 seconds to reflect decreased fall risk. - Partially MET Improve score on 30 Second Chair Stand to 10 repetitions to reflect decreased fall risk. - MET Patient Goals: decrease back pain and walk better - MET SUBJECTIVE: Pt reports that her low back is a lot better. She reports intermittent pain but that this is much less frequent. She reports compliance with HEP 2x day. She reports that DKTC is difficult for her. She denies any back or hip symptoms to start today. She denies any limitations with sleeping. She denies any limitations in standing or walking tolerance that she would attribute to low back symptoms. She denies any falls since starting therapy. Pain: Pain Pain Level: 0 Description: (No pain to start today) Post Treatment Pain Post Treatment Pain Level: No Change PROMIS Scales 01/06/2024 11/22/2023 Higher is Better Phys Func - Score 43 (mild dysfunction) 47 (within normal limits) Phys Func - Percentile 24 38 Self-Eff Symptom - Score 50 (Average) 46 (Average) Self-Eff Symptom - Percentile 50 34 T-scores: mean of general population = 50. 5 points is clinically meaningfully difference Percentiles provide an indication of how the patient's score ranks in relation to the general population. Higher percentile rankings indicate better function/quality of life. 50th percentile is the average of the general population and indicates half of respondents had a worse score. OBJECTIVE MEASURES WITH LEVEL OF FUNCTION: Lumbar Spine AROM Lumbar Flexion: Normal Lumbar Extension: Normal Lumbar R Side-Bend: Normal Lumbar L Side-Bend: Minimal limitation Lumbar R Rotation: Normal Lumbar L Rotation: Normal Gait Gait Observation: Improved significantly but not normalized Functional Performance Test Results 30 Second Chair Stand Test: 12 reps Timed Up and Go (sec): 9.44 sec TREATMENT: Therapeutic Exercise: 1: SciFit StepOne seat #13 x5 minutes (Pt provided an update on her condition and plan of care reviewed.) 2: B sidelying hip abduction 2x12 each 3: B sidelying clamshells 2x12 each with pink t-band 4: supine bridging 2x12 5: sit to stand from table 19 inches tall 2x10 with 11# ball in hands 6: 6 inch forward step up B with gait belt and no UE support 2x10 B 7: supine LTR 2x10 8: *seated Pallof press with purple t-band 2x10 each lateral direction 9: *seated purple t-band stirring the pot 2x10 CW and 2x10 CCW facing both lateral directions. 10: supine B SKTC x30 seconds 11: supine DKTC x30 seconds Skilled Intervention: Patient was educated in proper exercise technique and purpose for exercises. Reviewed and educated patient on additions/changes for home exercise program as above (*). Skilled judgment was used in selection of appropriate interventions. Provided written instruction for home exercise program to facilitate proper performance and compliance. Correct performance of therapeutic exercises was facilitated with verbal, visual, and tactile cuing. Patient education as noted. Gait Trainin: Gati training with use of mirror for visual feedback. Pt able to correct gait without verbal cueing. Decreased lateral sway compared to start of session, but still some due to pt's knees hurting. Skilled Intervention: Facilitated proper gait cycle with the use of verbal and visual cues for correction of gait deviations identified in the objective section above. Billing Therapeutic Exercise Treatment Minutes: 45 Gait Training Treatment Minutes: 5 Skilled Treatment Time Minutes (timed and untimed codes): 50 Total Session Time (minutes): 50 Session Start Time : 1156 Session Stop Time : 1246 Candelario Hall PT Program_ID:[id number] Access Code: [email or web address] URL: [email or web address] Date: 01-15-2024 Prepared By: Candelario Hall Program Notes Exercises - Hooklying Single Knee to Chest Stretch with Towel - 3 x daily - 7 x weekly - sets - 3 reps - Supine Double Knee to Chest - 3 x daily - 7 x weekly - sets - 3 reps - Supine Transversus Abdominis Bracing - Hands on Ground - 2-3 x daily - 7 x weekly - 2 sets - 10 reps - Supine Pelvic Tilt with Straight Leg Raise - 2-3 x daily - 7 x weekly - 2 sets - 10 reps - Sidelying Hip Abduction - 2-3 x daily - 7 x weekly - 2 sets - 10 reps - Clamshell - 2-3 x daily - 7 x weekly - 2 sets - 10 reps - Seated Anti-Rotation Press With Anchored Resistance - 2 x daily - 7 x weekly - 2 sets - 10 reps - Stir the Pot - 2 x daily - 7 x weekly - 2 sets - 10 reps documented in this encounter [facility] 01-15-2024 Telephone encounter Note Left message for pt to contact office. Barb Garcia LPN [facility] 01-15-2024 Telephone encounter Note Labs look okay. Continue as discussed with dr. Juarez. [facility] 01-15-2024 Telephone encounter Note Pt notified of same. Barb Garcia LPN [facility] 01-15-2024 Miscellaneous Notes Pt notified of same. Barb Garcia LPN Let patient know chest x-ray was ok. documented in this encounter [facility] 01-14-2024 Telephone encounter Note Let patient know chest x-ray was ok. [facility] 01-14-2024 History of Present illness Narrative Radiology Service Progress Note PATIENT NAME: Leandro Fontanez DATE OF SERVICE: January 14, 2024 TIME: 11:18 AM PATIENT IDENTITY VERIFICATION COMPLETED USING TWO (2) IDENTIFIERS: Name and Date of confirmed by patient verbally. FALL SCREENING: Has the patient had 2 falls in the last year or 1 fall with injury or currently using an Ambulatory Assistive Device (Walker, Cane, Wheelchair, Crutches, etc.)? No PATIENT GENDER DATA: Female. status: : No status: NO. PATIENT RELEVANT IMPLANT DATA REVIEWED: Not Applicable PATIENT PRESENTS WITH AN IMPLANTABLE OR ATTACHED ONCOLOGY PHARMACIST: No RADIOLOGY DEPARTMENT: General X-ray: Exam(s) Completed: Chest X-Ray PERIPHERAL IV DATA: Not applicable SIGNED BY: RT Jerrod(Raulito) January 14, 2024 11:18 AM documented in this encounter [facility] 01-14-2024 Note HNO ID: [id number] Author: ARMANDO LEUNG RT (R) Service: Radiology Author Type: Technologist Type: Progress Notes Filed: 01/14/2024 11:27 Note Text: Radiology Service Progress Note PATIENT NAME: Leandro Fontanez DATE OF SERVICE: January 14, 2024 TIME: 11:18 AM PATIENT IDENTITY VERIFICATION COMPLETED USING TWO (2) IDENTIFIERS: Name and Date of confirmed by patient verbally. FALL SCREENING: Has the patient had 2 falls in the last year or 1 fall with injury or currently using an Ambulatory Assistive Device (Walker, Cane, Wheelchair, Crutches, etc.)? No PATIENT GENDER DATA: Female. status: : No status: NO. PATIENT RELEVANT IMPLANT DATA REVIEWED: Not Applicable PATIENT PRESENTS WITH AN IMPLANTABLE OR ATTACHED ONCOLOGY PHARMACIST: No RADIOLOGY DEPARTMENT: General X-ray: Exam(s) Completed: Chest X-Ray PERIPHERAL IV DATA: Not applicable SIGNED BY: HERON Elder) January 14, 2024 11:18 AM [facility] 01-14-2024 Instructions Jamie Juarez MD - 01/14/2024 10:59 AM EDT On [employer] look up compression socks 10-15 mm Hg documented in this encounter [facility] 01-14-2024 History of Present illness Narrative Chief Complaint Patient presents with: Follow Up: Seen in for bilateral leg pain and swelling, US completed which was negative for DVT HPI Leandro Fontanez is a 68 year old female who presents here today for follow up from . Patient was seen in on 01/08/2024 for swelling/pain in lower extremity: US was negative and was instructed to wear compression stockings. Patient did get a pair of compression socks and has been wearing them daily. They do help but still getting swelling in the lower legs and pain with the swelling. Denies excessive salt intake while she was in [place] or increased intake now at home. She has had swelling in her ankles and feet in the past after vacations and this would typically resolve but this is the first time it extended up the legs to the knees. Was not walking or siting an excessive amount while on vacation. No chest pain, palpitations or atypical cough. Slight shortness of breath with climbing a set of steps. Past medical history, appointments, medications, allergies reviewed. Previous Medical History PAST MEDICAL HISTORY 07/13/2021: Benign paroxysmal positional vertigo 01/22/2020: Elevated hemoglobin A1c 08/29/2022: Hypertension, essential 2017: Left hip pain 01/22/2020: Obesity, Class III, BMI 40-49.9 (morbid obesity) ([facility]) 01/27/2021: Peripheral edema 01/25/2015: Urge incontinence Previous Surgical History PAST SURGICAL HISTORY 07/15/15: COLONOSCOPY FLX DX W/COLLJ SPEC WHEN PFRMD Comment: normal 10 year follow up No date: D&C (INCOMPLETE AB), ANY TRIMESTER 07/15/2017: FECAL OCCULT BLOOD TEST Comment: negative 1999: LAMINECTOMY W/O FFD 1/2 VERT SEG LUMBAR; N/A Family History FAMILY HISTORY Problem Relation Age of Onset Heart Mother Diabetes Mother Heart Father not sure of exact issue No Known Problems Brother No Known Problems Brother No Known Problems Brother Diabetes Maternal Grandmother No Known Problems Daughter No Known Problems Son No Known Problems Son No Known Problems Son Patient Allergies ALLERGIES Allergen Reactions Bee Sting Swelling Has not had SOB or other issues other than extreme swelling at site of sting Lisinopril Cough Current Medications Current Outpatient Medications on File Prior to Visit Medication Sig alendronate (FOSAMAX) 70 mg tablet Take 1 tablet by mouth one time a week. Take with a full glass of water, on an empty stomach; do NOT lie down for 30minutes. mirabegron (MYRBETRIQ) 50 mg Tb24 Take 1 tablet by mouth once daily. losartan (COZAAR) 25 mg tablet Take 1 tablet by mouth once daily. acetaminophen (TYLENOL EXTRA STRENGTH) 500 mg tablet Take 1,000 mg by mouth once daily. cyclobenzaprine (FLEXERIL) 10 mg tablet Take 1 tablet by mouth three times a day as needed for muscle spasm. (Patient not taking: Reported on 08/30/2023) calcium carbonate-vitamin D3 600mg (1,500mg) -1,000 unit cap Take 1 capsule by mouth twice daily. multivitamin tablet Take 1 tablet by mouth once daily. IBUPROFEN (MOTRIN ORAL) Take by mouth once daily. (Patient not taking: Reported on 11/08/2023) No current facility-administered medications on file prior to visit. Social History Social History Tobacco Use Smoking status: Former Packs/day: 0.50 Years: 7.00 Additional pack years: 0.00 Total pack years: 3.50 Types: Cigarettes Quit date: 05/03/2003 Years since quittin.7 Smokeless tobacco: Never Vaping Use Vaping Use: Never used Substance Use Topics Alcohol use: No Drug use: No Review of Symptoms REVIEW OF SYSTEMS See HPI EXAM: BP 128/64 (BP Site: Left Arm, BP Position: Sitting) Pulse 98 Resp 18 Wt 106.3 kg (234 lb 6.4 oz) SpO2 95% BMI 41.52 kg/m General Appearance: Well appearing, alert, in no acute distress, well-hydrated, well nourished.. Lungs: Lungs clear to auscultation. No wheezing, rhonchi, rales.. Heart: RRR without murmur, gallop, or rubs. No ectopy. Extremities: No deformities, skin discoloration. Good capillary refill. Has 1+ pitting edema up to mid shine on both sides. No calf tenderness to palpation and homans' was neg. Health Maintenance List Depression Screening Never done Anxiety Screening Never done BP Controlled (<130/80) Never done RSV Vaccine(1 - 1-dose 60+ series) Never done Bone Density Screening due on 02/01/2022 Covid-19 Vaccine(3 - 2022- season) due on 02/01/2023 Mammogram Screening due on 03/22/2023 Advance Directive Discussion due on 06/03/2023 DTaP,Tdap,Td Vaccine(2 - Td or Tdap) due on 07/06/2023 Influenza Vaccine(1) due on 02/02/2024 Annual PCP Team Chronic Disease Visit due on 08/29/2024 Colorectal Cancer Screening due on 07/15/2025 Diabetes Screening due on 09/22/2026 Lipid Screening due on 02/21/2028 Hepatitis C Screening Completed Shingrix Vaccine Completed Pneumococcal Vaccine: 65+ Completed Data reviewed Results US DVT LOWER BILATERAL (Acc#[id number] -[facility]) (Order [id number]) Patient Info Patient Name Sex Leandro Singletary ([id number]) Female 1955 01/08/2024 3:48 PM - Radiology, [place] In Impression IMPRESSION: Negative study for proximal DVT in the left and right lower extremities. Negative study for calf DVT in the left and right lower extremities. Negative study for superficial thrombophlebitis in the imaged segments of the left and right lower extremities. Banjo Repair Person: PSCB Transcribe Date/Time: Jan 08 2024 3:45P Dictated by : GEORGE MALONEY MD This examination was interpreted and the report reviewed and electronically signed by: GEORGE MALONEY MD on Jan 08 2024 3:46PM EST A/P ASSESSMENT/PLAN: 1. Leg swelling - ICD9: 729.81, ICD10: M79.89 (primary diagnosis) - suspect venous insufficiency. Encouraged wearing support socks at 10-15 mm Hg Check - ECHO - PERFLUTREN LIPID MICROSPHERES 1.1 MG/ML INJECTION IN NS 10 ML - SODIUM CHLORIDE 0.9 % (FLUSH) INJECTION SYRINGE - XR CHEST 2V FRONTAL/LAT - BASIC METABOLIC PANEL - NT PRO BNP 2. Hypertension, essential - ICD9: 401.9, ICD10: I10 - Controlled - Continue current medications - Start hydrochlorothiazide 12.5 mg a day - Recommend home blood pressure monitoring, to bring results to next visit - Encouraged sodium restriction, DASH or Mediterranean diet - Recommend regular aerobic exercise Check - ECHO - PERFLUTREN LIPID MICROSPHERES 1.1 MG/ML INJECTION IN NS 10 ML - SODIUM CHLORIDE 0.9 % (FLUSH) INJECTION SYRINGE - XR CHEST 2V FRONTAL/LAT 3. SOB (shortness of breath) - ICD9: 786.05, ICD10: R06.02 Check - ECHO - PERFLUTREN LIPID MICROSPHERES 1.1 MG/ML INJECTION IN NS 10 ML - SODIUM CHLORIDE 0.9 % (FLUSH) INJECTION SYRINGE - XR CHEST 2V FRONTAL/LAT - BASIC METABOLIC PANEL - NT PRO BNP Requested Prescriptions Signed Prescriptions Disp Refills hydroCHLOROthiazide 12.5 mg capsule 30 capsule 5 Sig: Take 1 capsule by mouth once daily. Patient has routine f/u in late Feb and will see how she is doing then. Jamie Juarez MD documented in this encounter [facility] 01-14-2024 Note HNO ID: [id number] Author: JAMIE JUAREZ MD Service: ? Author Type: Physician Type: Progress Notes Filed: 01/14/2024 15:24 Note Text: Chief Complaint Patient presents with: Follow Up: Seen in for bilateral leg pain and swelling, US completed which was negative for DVT HPI Leandro Fontanez is a 68 year old female who presents here today for follow up from . Patient was seen in on 01/08/2024 for swelling/pain in lower extremity: US was negative and was instructed to wear compression stockings. Patient did get a pair of compression socks and has been wearing them daily. They do help but still getting swelling in the lower legs and pain with the swelling. Denies excessive salt intake while she was in [place] or increased intake now at home. She has had swelling in her ankles and feet in the past after vacations and this would typically resolve but this is the first time it extended up the legs to the knees. Was not walking or siting an excessive amount while on vacation. No chest pain, palpitations or atypical cough. Slight shortness of breath with climbing a set of steps. Past medical history, appointments, medications, allergies reviewed. Previous Medical History PAST MEDICAL HISTORY 07/13/2021: Benign paroxysmal positional vertigo 01/22/2020: Elevated hemoglobin A1c 08/29/2022: Hypertension, essential 2017: Left hip pain 01/22/2020: Obesity, Class III, BMI 40-49.9 (morbid obesity) ([facility]) 01/27/2021: Peripheral edema 01/25/2015: Urge incontinence Previous Surgical History PAST SURGICAL HISTORY 07/15/15: COLONOSCOPY FLX DX W/COLLJ SPEC WHEN PFRMD Comment: normal 10 year follow up No date: DANDC (INCOMPLETE AB), ANY TRIMESTER 07/15/2017: FECAL OCCULT BLOOD TEST Comment: negative 1999: LAMINECTOMY W/O FFD 06/04 VERT SEG LUMBAR; N/A Family History FAMILY HISTORY Problem Relation Age of Onset Heart Mother Diabetes Mother Heart Father not sure of exact issue No Known Problems Brother No Known Problems Brother No Known Problems Brother Diabetes Maternal Grandmother No Known Problems Daughter No Known Problems Son No Known Problems Son No Known Problems Son Patient Allergies ALLERGIES Allergen Reactions Bee Sting Swelling Has not had SOB or other issues other than extreme swelling at site of sting Lisinopril Cough Current Medications Current Outpatient Medications on File Prior to Visit Medication Sig alendronate (FOSAMAX) 70 mg tablet Take 1 tablet by mouth one time a week. Take with a full glass of water, on an empty stomach; do NOT lie down for 30minutes. mirabegron (MYRBETRIQ) 50 mg Tb24 Take 1 tablet by mouth once daily. losartan (COZAAR) 25 mg tablet Take 1 tablet by mouth once daily. acetaminophen (TYLENOL EXTRA STRENGTH) 500 mg tablet Take 1,000 mg by mouth once daily. cyclobenzaprine (FLEXERIL) 10 mg tablet Take 1 tablet by mouth three times a day as needed for muscle spasm. (Patient not taking: Reported on 08/30/2023) calcium carbonate-vitamin D3 600mg (1,500mg) -1,000 unit cap Take 1 capsule by mouth twice daily. multivitamin tablet Take 1 tablet by mouth once daily. IBUPROFEN (MOTRIN ORAL) Take by mouth once daily. (Patient not taking: Reported on 11/08/2023) No current facility-administered medications on file prior to visit. Social History Social History Tobacco Use Smoking status: Former Packs/day: 0.50 Years: 7.00 Additional pack years: 0.00 Total pack years: 3.50 Types: Cigarettes Quit date: 05/03/2003 Years since quittin.7 Smokeless tobacco: Never Vaping Use Vaping Use: Never used Substance Use Topics Alcohol use: No Drug use: No Review of Symptoms REVIEW OF SYSTEMS See HPI EXAM: BP 128/64 (BP Site: Left Arm, BP Position: Sitting) Pulse 98 Resp 18 Wt 106.3 kg (234 lb 6.4 oz) SpO2 95% BMI 41.52 kg/m? General Appearance: Well appearing, alert, in no acute distress, well-hydrated, well nourished.. Lungs: Lungs clear to auscultation. No wheezing, rhonchi, rales.. Heart: RRR without murmur, gallop, or rubs. No ectopy. Extremities: No deformities, skin discoloration. Good capillary refill. Has 1+ pitting edema up to mid shine on both sides. No calf tenderness to palpation and homans' was neg. Health Maintenance List Depression Screening Never done Anxiety Screening Never done BP Controlled (<130/80) Never done RSV Vaccine(1 - 1-dose 60+ series) Never done Bone Density Screening due on 02/01/2022 Covid-19 Vaccine(3 - 2022- season) due on 02/01/2023 Mammogram Screening due on 03/22/2023 Advance Directive Discussion due on 06/03/2023 DTaP,Tdap,Td Vaccine(2 - Td or Tdap) due on 07/06/2023 Influenza Vaccine(1) due on 02/02/2024 Annual PCP Team Chronic Disease Visit due on 08/29/2024 Colorectal Cancer Screening due on 07/15/2025 Diabetes Screening due on 09/22/2026 Lipid Screening due on 02/21/2028 Hepatitis C Screening Completed Shingrix Vacci (more content not included)... [facility] 01-13-2024 Note HNO ID: [id number] Author: CANDELARIO HALL PT Service: ? Author Type: Physical Therapist Type: Progress Notes Filed: 01/13/2024 13:59 Note Text: Episode Visit Count: 9 Therapist That Will Accept/Oversee The Plan Of Care: Candelario Hall PT Start of Care Date: 11/22/23 Onset Date: 08/22/23 Patient Identified by Name and Date of : Yes REHABILITATION AND SPORTS THERAPY PHYSICAL THERAPY TREATMENT NOTE ASSESSMENT: Leandro Fontanez tolerated the session with fatigue and expected muscle soreness. She demonstrated improvements in gait without verbal cues given. The patient will continue to benefit from ongoing skilled physical therapy to progress toward set goals. PLAN FOR NEXT VISIT: PN SUBJECTIVE: Pt reports that her BLE are still bothering her and still are swollen, has an appointment with her doctor tomorrow. Back is fine today. Pain: Pain Pain Level: 0 Pain Location: Low Back/Lumbar Spine - Right, Low Back/Lumbar Spine - Left Post Treatment Pain Post Treatment Pain Level: No Change OBJECTIVE MEASURES WITH LEVEL OF FUNCTION: Increased confidence to complete step ups without BUE assistance. TREATMENT: Therapeutic Exercise: 1: [employer] StepOne seat #13 x5 minutes (Pt provided an update on her condition and plan of care reviewed.) 2: B sidelying hip abduction 2x10 each 3: B sidelying clamshells 2x10 each with pink t-band 4: supine bridging 2x10 5: sit to stand from table 21 inches tall 2x10 with 11# ball in hands 6: 4 inch forward step up B with gait belt and no UE support 2x10 B 7: Standing hip abduction 2x10 B 8: seated Pallof press with blue t-band 2x10 each lateral direction 9: seated blue t-band stirring the pot 2x10 CW adn 2x10 CCW facing both lateral directions. 10: Seated TA activation with 7 # med ball chop 2x10 each 11: Seated TA activation with 7# med ball chest press 2x10 Skilled Intervention: Patient was educated in proper exercise technique and purpose for exercises. Skilled judgment was used in selection of appropriate interventions. Correct performance of therapeutic exercises was facilitated with verbal and visual cuing. Gait Trainin: Gati training with use of mirror for visual feedback. Pt able to correct gait without verbal cueing. Decreased lateral sway compared to start of session, but still some due to pt's knees hurting. Skilled Intervention: Patient was provided stand by assist during pre-gait/gait training to prevent falls and insure safety. Facilitated proper gait cycle with the use of visual cues for correction of gait deviations identified in the objective section above. Billing Therapeutic Exercise Treatment Minutes: 38 Gait Training Treatment Minutes: 3 Skilled Treatment Time Minutes (timed and untimed codes): 41 Total Session Time (minutes): 41 Session Start Time : 1148 Session Stop Time : 1229 Jennifer Summers, TATYANA Candelario Hall, SHARLA [facility] 01-13-2024 History of Present illness Narrative Episode Visit Count: 9 Therapist That Will Accept/Oversee The Plan Of Care: Candelario Hall PT Start of Care Date: 11/22/23 Onset Date: 08/22/23 Patient Identified by Name and Date of : Yes REHABILITATION AND SPORTS THERAPY PHYSICAL THERAPY TREATMENT NOTE ASSESSMENT: Leandro Fontanez tolerated the session with fatigue and expected muscle soreness. She demonstrated improvements in gait without verbal cues given. The patient will continue to benefit from ongoing skilled physical therapy to progress toward set goals. PLAN FOR NEXT VISIT: PN SUBJECTIVE: Pt reports that her BLE are still bothering her and still are swollen, has an appointment with her doctor tomorrow. Back is fine today. Pain: Pain Pain Level: 0 Pain Location: Low Back/Lumbar Spine - Right, Low Back/Lumbar Spine - Left Post Treatment Pain Post Treatment Pain Level: No Change OBJECTIVE MEASURES WITH LEVEL OF FUNCTION: Increased confidence to complete step ups without BUE assistance. TREATMENT: Therapeutic Exercise: 1: [employer] StepOne seat #13 x5 minutes (Pt provided an update on her condition and plan of care reviewed.) 2: B sidelying hip abduction 2x10 each 3: B sidelying clamshells 2x10 each with pink t-band 4: supine bridging 2x10 5: sit to stand from table 21 inches tall 2x10 with 11# ball in hands 6: 4 inch forward step up B with gait belt and no UE support 2x10 B 7: Standing hip abduction 2x10 B 8: seated Pallof press with blue t-band 2x10 each lateral direction 9: seated blue t-band stirring the pot 2x10 CW adn 2x10 CCW facing both lateral directions. 10: Seated TA activation with 7 # med ball chop 2x10 each 11: Seated TA activation with 7# med ball chest press 2x10 Skilled Intervention: Patient was educated in proper exercise technique and purpose for exercises. Skilled judgment was used in selection of appropriate interventions. Correct performance of therapeutic exercises was facilitated with verbal and visual cuing. Gait Trainin: Gati training with use of mirror for visual feedback. Pt able to correct gait without verbal cueing. Decreased lateral sway compared to start of session, but still some due to pt's knees hurting. Skilled Intervention: Patient was provided stand by assist during pre-gait/gait training to prevent falls and insure safety. Facilitated proper gait cycle with the use of visual cues for correction of gait deviations identified in the objective section above. Billing Therapeutic Exercise Treatment Minutes: 38 Gait Training Treatment Minutes: 3 Skilled Treatment Time Minutes (timed and untimed codes): 41 Total Session Time (minutes): 41 Session Start Time : 1148 Session Stop Time : 1229 TATYANA Wilcox PT documented in this encounter [facility] 01-10-2024 Note HNO ID: [id number] Author: CANDELARIO HALL PT Service: ? Author Type: Physical Therapist Type: Progress Notes Filed: 01/10/2024 12:14 Note Text: Episode Visit Count: 8 Therapist That Will Accept/Oversee The Plan Of Care: Candelario Hall PT Start of Care Date: 11/22/23 Onset Date: 08/22/23 Patient Identified by Name and Date of : Yes REHABILITATION AND SPORTS THERAPY PHYSICAL THERAPY TREATMENT NOTE ASSESSMENT: Leandro Fontanez tolerated the session with fatigue, expected muscle soreness, and no issues. She demonstrated improvements in exercise tolerance and gait after training. The patient will continue to benefit from ongoing skilled physical therapy to progress toward set goals. PLAN FOR NEXT VISIT: Continue with gait training prn. Continue with BLE and core strengthening. Incorporate balance training prn. SUBJECTIVE: Pt reports that overall her low back is still doing very well and getting progressively better. She reports that her LEs are getting slightly better as well. She reports that her knee and LEs are bigger concerns than her low back. She reports increased swelling in B feet and ankles up to knees after vacation. She reports that US was negative for any blood clots. She reports compliance with HEP 2x day. Pain: Pain Pain Level: 0 Pain Location: Low Back/Lumbar Spine - Right, Low Back/Lumbar Spine - Left Post Treatment Pain Post Treatment Pain Level: No Change Post Treatment Symptoms: After session, pt reported fatigue from a good workout but she denied any increased pain or problems. OBJECTIVE MEASURES WITH LEVEL OF FUNCTION: LE Strength R Hip ABduction: 3/5 L Hip ABduction: 3/5 Gait Gait Observation: Pt with increased lateral trunk sway and shorter step length this visit. Absent heel strike and push off as well. TREATMENT: Therapeutic Exercise: 1: [employer] StepOne seat #13 x5 minutes (Pt provided an update on her condition and plan of care reviewed.) 2: B sidelying hip abduction 2x10 each 3: B sidelying clamshells 2x10 each with pink t-band 4: supine bridging 2x10 5: sit to stand from table 21 inches tall 2x10 with 11# ball in hands 6: seated blue t-band stirring the pot 2x10 CW adn 2x10 CCW facing both lateral directions. 7: seated Pallof press with blue t-band 2x10 each lateral direction 8: 4 inch forward step up B with gait belt and no UE support 2x10 B Skilled Intervention: Patient was educated in proper exercise technique and purpose for exercises. Skilled judgment was used in selection of appropriate interventions. Correct performance of therapeutic exercises was facilitated with verbal and visual cuing. Patient education as noted. Gait Trainin: gait training completed with mirror and verbal cues to correct lateral trunk sway, knee rigidity, heel strike and push off. Skilled Intervention: Facilitated proper gait cycle with the use of verbal and visual cues for correction of gait deviations identified in the objective section above. Billing Therapeutic Exercise Treatment Minutes: 33 Gait Training Treatment Minutes: 12 Skilled Treatment Time Minutes (timed and untimed codes): 45 Total Session Time (minutes): 45 Session Start Time : 1116 Session Stop Time : 1201 Candelario Hall PT [facility] 01-10-2024 History of Present illness Narrative Episode Visit Count: 8 Therapist That Will Accept/Oversee The Plan Of Care: Candelario Hall PT Start of Care Date: 11/22/23 Onset Date: 08/22/23 Patient Identified by Name and Date of : Yes REHABILITATION AND SPORTS THERAPY PHYSICAL THERAPY TREATMENT NOTE ASSESSMENT: Leandro Fontanez tolerated the session with fatigue, expected muscle soreness, and no issues. She demonstrated improvements in exercise tolerance and gait after training. The patient will continue to benefit from ongoing skilled physical therapy to progress toward set goals. PLAN FOR NEXT VISIT: Continue with gait training prn. Continue with BLE and core strengthening. Incorporate balance training prn. SUBJECTIVE: Pt reports that overall her low back is still doing very well and getting progressively better. She reports that her LEs are getting slightly better as well. She reports that her knee and LEs are bigger concerns than her low back. She reports increased swelling in B feet and ankles up to knees after vacation. She reports that US was negative for any blood clots. She reports compliance with HEP 2x day. Pain: Pain Pain Level: 0 Pain Location: Low Back/Lumbar Spine - Right, Low Back/Lumbar Spine - Left Post Treatment Pain Post Treatment Pain Level: No Change Post Treatment Symptoms: After session, pt reported fatigue from a good workout but she denied any increased pain or problems. OBJECTIVE MEASURES WITH LEVEL OF FUNCTION: LE Strength R Hip ABduction: 3/5 L Hip ABduction: 3/5 Gait Gait Observation: Pt with increased lateral trunk sway and shorter step length this visit. Absent heel strike and push off as well. TREATMENT: Therapeutic Exercise: 1: [employer] StepOne seat #13 x5 minutes (Pt provided an update on her condition and plan of care reviewed.) 2: B sidelying hip abduction 2x10 each 3: B sidelying clamshells 2x10 each with pink t-band 4: supine bridging 2x10 5: sit to stand from table 21 inches tall 2x10 with 11# ball in hands 6: seated blue t-band stirring the pot 2x10 CW adn 2x10 CCW facing both lateral directions. 7: seated Pallof press with blue t-band 2x10 each lateral direction 8: 4 inch forward step up B with gait belt and no UE support 2x10 B Skilled Intervention: Patient was educated in proper exercise technique and purpose for exercises. Skilled judgment was used in selection of appropriate interventions. Correct performance of therapeutic exercises was facilitated with verbal and visual cuing. Patient education as noted. Gait Trainin: gait training completed with mirror and verbal cues to correct lateral trunk sway, knee rigidity, heel strike and push off. Skilled Intervention: Facilitated proper gait cycle with the use of verbal and visual cues for correction of gait deviations identified in the objective section above. Billing Therapeutic Exercise Treatment Minutes: 33 Gait Training Treatment Minutes: 12 Skilled Treatment Time Minutes (timed and untimed codes): 45 Total Session Time (minutes): 45 Session Start Time : 1116 Session Stop Time : 1201 Candelario Hall PT documented in this encounter [facility] 01-08-2024 Telephone encounter Note Patient notified of results, verbalized understanding of instructions given and will follow up with Dr. Juarez on 01/14/24. Vika Siddiqi MA [facility] 01-08-2024 Miscellaneous Notes Patient notified of results, verbalized understanding of instructions given and will follow up with Dr. Juarez on 01/14/24. Vika Siddiqi MA Left VM with both patient and patient son asking for patient to return call to discuss results. Vika Siddiqi MA I tried calling patient to discuss ultrasound results. Ultrasound negative for dvt. I advise patient to wear compression stalkings and we will call to make follow up appointment next week. documented in this encounter [facility] 01-08-2024 Telephone encounter Note Left VM with both patient and patient son asking for patient to return call to discuss results. Vika Siddiqi MA [facility] 01-08-2024 History of Present illness Narrative Subjective HPI HPI Leandro Fontanez is a 68 year old female who presents today for CC of bilat lower leg pain/swelling. This started 2 weeks ago while on vacation. Was in car for 12 hours X2 driving and walked a lot on vacation. Has tried nothing for relief. Symptoms are worsened by rom/walking. Denies cp/sob. Denies injury. Reports has not taken bp meds yet today .Patient presents with: Musculoskeletal Problem: bilateral legs painful and swollen x 2 weeks PAST MEDICAL HISTORY 07/13/2021: Benign paroxysmal positional vertigo 01/22/2020: Elevated hemoglobin A1c 08/29/2022: Hypertension, essential 2017: Left hip pain 01/22/2020: Obesity, Class III, BMI 40-49.9 (morbid obesity) ([facility]) 01/27/2021: Peripheral edema 01/25/2015: Urge incontinence PAST SURGICAL HISTORY 07/15/15: COLONOSCOPY FLX DX W/COLLJ SPEC WHEN PFRMD Comment: normal 10 year follow up No date: D&C (INCOMPLETE AB), ANY TRIMESTER 07/15/2017: FECAL OCCULT BLOOD TEST Comment: negative 1999: LAMINECTOMY W/O FFD 06/04 VERT SEG LUMBAR; N/A ALLERGIES Bee Sting and Lisinopril MEDICATIONS alendronate (FOSAMAX) 70 mg tablet Take 1 tablet by mouth one time a week. Take with a full glass of water, on an empty stomach; do NOT lie down for 30minutes. mirabegron (MYRBETRIQ) 50 mg Tb24 Take 1 tablet by mouth once daily. losartan (COZAAR) 25 mg tablet Take 1 tablet by mouth once daily. acetaminophen (TYLENOL EXTRA STRENGTH) 500 mg tablet Take 1,000 mg by mouth once daily. calcium carbonate-vitamin D3 600mg (1,500mg) -1,000 unit cap Take 1 capsule by mouth twice daily. multivitamin tablet Take 1 tablet by mouth once daily. cyclobenzaprine (FLEXERIL) 10 mg tablet Take 1 tablet by mouth three times a day as needed for muscle spasm. (Patient not taking: Reported on 08/30/2023) IBUPROFEN (MOTRIN ORAL) Take by mouth once daily. (Patient not taking: Reported on 11/08/2023) FAMILY HISTORY Problem Relation Age of Onset Heart Mother Diabetes Mother Heart Father not sure of exact issue No Known Problems Brother No Known Problems Brother No Known Problems Brother Diabetes Maternal Grandmother No Known Problems Daughter No Known Problems Son No Known Problems Son No Known Problems Son Social History Tobacco Use Smoking status: Former Packs/day: 0.50 Years: 7.00 Additional pack years: 0.00 Total pack years: 3.50 Types: Cigarettes Quit date: 05/03/2003 Years since quittin.6 Smokeless tobacco: Never Vaping Use Vaping Use: Never used Substance Use Topics Alcohol use: No Drug use: No ROS Objective Blood pressure 142/102, pulse 64, temperature 36.6 C (97.8 F), resp. rate 18, weight 108.1 kg (238 lb 5.1 oz), SpO2 96%. Physical Exam Constitutional: General: She is not in acute distress. Appearance: She is not toxic-appearing or diaphoretic. HENT: Head: Normocephalic and atraumatic. Pulmonary: Effort: Pulmonary effort is normal. No accessory muscle usage or respiratory distress. Neurological: Mental Status: She is alert and oriented to person, place, and time. ASSESSMENT/PLAN: 1. Pain and swelling of lower leg, unspecified laterality - ICD9: 729.5, 729.81, ICD10: M79.669, M79.89 Ultrasound negative Advised compression stalkings Will schedule recheck with pcp in 3-4 days. - US DVT LOWER BILATERAL Veronique Fuentes APRN.SQL APPLICATION DEVELOPER documented in this encounter [facility] 01-08-2024 Note HNO ID: [id number] Author: VERONIQUE FUENTES APRN.SQL APPLICATION DEVELOPER Service: ? Author Type: Nurse Practitioner Type: Progress Notes Filed: 01/08/2024 18:39 Note Text: Subjective HPI HPI Leandro Fontanez is a 68 year old female who presents today for CC of bilat lower leg pain/swelling. This started 2 weeks ago while on vacation. Was in car for 12 hours X2 driving and walked a lot on vacation. Has tried nothing for relief. Symptoms are worsened by rom/walking. Denies cp/sob. Denies injury. Reports has not taken bp meds yet today .Patient presents with: Musculoskeletal Problem: bilateral legs painful and swollen x 2 weeks PAST MEDICAL HISTORY 07/13/2021: Benign paroxysmal positional vertigo 01/22/2020: Elevated hemoglobin A1c 08/29/2022: Hypertension, essential 2017: Left hip pain 01/22/2020: Obesity, Class III, BMI 40-49.9 (morbid obesity) ([facility]) 01/27/2021: Peripheral edema 01/25/2015: Urge incontinence PAST SURGICAL HISTORY 07/15/15: COLONOSCOPY FLX DX W/COLLJ SPEC WHEN PFRMD Comment: normal 10 year follow up No date: DANWV (INCOMPLETE AB), ANY TRIMESTER 07/15/2017: FECAL OCCULT BLOOD TEST Comment: negative 1999: LAMINECTOMY W/O FFD / VERT SEG LUMBAR; N/A ALLERGIES Bee Sting and Lisinopril MEDICATIONS alendronate (FOSAMAX) 70 mg tablet Take 1 tablet by mouth one time a week. Take with a full glass of water, on an empty stomach; do NOT lie down for 30minutes. mirabegron (MYRBETRIQ) 50 mg Tb24 Take 1 tablet by mouth once daily. losartan (COZAAR) 25 mg tablet Take 1 tablet by mouth once daily. acetaminophen (TYLENOL EXTRA STRENGTH) 500 mg tablet Take 1,000 mg by mouth once daily. calcium carbonate-vitamin D3 600mg (1,500mg) -1,000 unit cap Take 1 capsule by mouth twice daily. multivitamin tablet Take 1 tablet by mouth once daily. cyclobenzaprine (FLEXERIL) 10 mg tablet Take 1 tablet by mouth three times a day as needed for muscle spasm. (Patient not taking: Reported on 08/30/2023) IBUPROFEN (MOTRIN ORAL) Take by mouth once daily. (Patient not taking: Reported on 11/08/2023) FAMILY HISTORY Problem Relation Age of Onset Heart Mother Diabetes Mother Heart Father not sure of exact issue No Known Problems Brother No Known Problems Brother No Known Problems Brother Diabetes Maternal Grandmother No Known Problems Daughter No Known Problems Son No Known Problems Son No Known Problems Son Social History Tobacco Use Smoking status: Former Packs/day: 0.50 Years: 7.00 Additional pack years: 0.00 Total pack years: 3.50 Types: Cigarettes Quit date: 05/03/2003 Years since quittin.6 Smokeless tobacco: Never Vaping Use Vaping Use: Never used Substance Use Topics Alcohol use: No Drug use: No ROS Objective Blood pressure 142/102, pulse 64, temperature 36.6 ?C (97.8 ?F), resp. rate 18, weight 108.1 kg (238 lb 5.1 oz), SpO2 96%. Physical Exam Constitutional: General: She is not in acute distress. Appearance: She is not toxic-appearing or diaphoretic. HENT: Head: Normocephalic and atraumatic. Pulmonary: Effort: Pulmonary effort is normal. No accessory muscle usage or respiratory distress. Neurological: Mental Status: She is alert and oriented to person, place, and time. ASSESSMENT/PLAN: 1. Pain and swelling of lower leg, unspecified laterality - ICD9: 729.5, 729.81, ICD10: M79.669, M79.89 Ultrasound negative Advised compression stalkings Will schedule recheck with pcp in 3-4 days. - US DVT LOWER BILATERAL Veronique Fuentes APRN.CNP [facility] 01-08-2024 Telephone encounter Note I tried calling patient to discuss ultrasound results. Ultrasound negative for dvt. I advise patient to wear compression stalkings and we will call to make follow up appointment next week. [facility] Work Phone: 01-08-2024 History of Present illness Narrative Radiology Service Progress Note PATIENT NAME: Leandro Fontanez DATE OF SERVICE: January 08, 2024 TIME: 3:44 PM PATIENT IDENTITY VERIFICATION COMPLETED USING TWO (2) IDENTIFIERS: Name and Date of confirmed by patient verbally. FALL SCREENING: Has the patient had 2 falls in the last year or 1 fall with injury or currently using an Ambulatory Assistive Device (Walker, Cane, Wheelchair, Crutches, etc.)? No PATIENT GENDER DATA: Female. status: : No status: NO. PATIENT RELEVANT IMPLANT DATA REVIEWED: Not Applicable PATIENT PRESENTS WITH AN IMPLANTABLE OR ATTACHED ONCOLOGY PHARMACIST: No RADIOLOGY DEPARTMENT: Ultrasound PERIPHERAL IV DATA: Not applicable SIGNED BY: Juliana Terry RDMS January 08, 2024 3:44 PM documented in this encounter [facility] 01-08-2024 Note HNO ID: [id number] Author: JULIANA TERRY RDMS Service: ? Author Type: Technologist Type: Progress Notes Filed: 01/08/2024 15:44 Note Text: Radiology Service Progress Note PATIENT NAME: Leandro Fontanez DATE OF SERVICE: January 08, 2024 TIME: 3:44 PM PATIENT IDENTITY VERIFICATION COMPLETED USING TWO (2) IDENTIFIERS: Name and Date of confirmed by patient verbally. FALL SCREENING: Has the patient had 2 falls in the last year or 1 fall with injury or currently using an Ambulatory Assistive Device (Walker, Cane, Wheelchair, Crutches, etc.)? No PATIENT GENDER DATA: Female. status: : No status: NO. PATIENT RELEVANT IMPLANT DATA REVIEWED: Not Applicable PATIENT PRESENTS WITH AN IMPLANTABLE OR ATTACHED ONCOLOGY PHARMACIST: No RADIOLOGY DEPARTMENT: Ultrasound PERIPHERAL IV DATA: Not applicable SIGNED BY: Juliana Terry RDMS January 08, 2024 3:44 PM [facility] 01-06-2024 Note HNO ID: [id number] Author: CANDELARIO HALL PT Service: ? Author Type: Physical Therapist Type: Progress Notes Filed: 01/06/2024 12:45 Note Text: Episode Visit Count: 7 Therapist That Will Accept/Oversee The Plan Of Care: Candelario Hall PT Start of Care Date: 11/22/23 Onset Date: 08/22/23 Patient Identified by Name and Date of : Yes REHABILITATION AND SPORTS THERAPY PHYSICAL THERAPY TREATMENT NOTE ASSESSMENT: Leandro Fontanez tolerated the session with fatigue and expected muscle soreness. She demonstrated difficulty with STS and LAQ due to LE stiffness. The patient will continue to benefit from ongoing skilled physical therapy to progress toward set goals. PLAN FOR NEXT VISIT: Continue with gait training prn. Continue with BLE and core strengthening. Incorporate balance training prn. SUBJECTIVE: Pt reports that she was on vacation and that her BLE feel stiff and swollen today and it is affecting her gait pattern. Pt reports that her back is feeling good. Pain: Pain Pain Level: 0 Pain Location: Low Back/Lumbar Spine - Right, Low Back/Lumbar Spine - Left OBJECTIVE MEASURES WITH LEVEL OF FUNCTION: Gait Gait Observation: Pt with increased lateral trunk sway and shorter step length this visit. TREATMENT: Therapeutic Exercise: 1: [employer] StepOne seat #13 x5 minutes (1:1 throughout. Subjective collected.) 2: Seated Pallof's press with GTB 2x10 each side 3: Seated Stir the Pot with GTB 2x10 CW and CCW both lateral directions. 4: seated blue t-band hip abduction 3x10 5: STS from chair without use of UE 6: LAQ 2x10 B Skilled Intervention: Patient was educated in proper exercise technique and purpose for exercises. Skilled judgment was used in selection of appropriate interventions. Correct performance of therapeutic exercises was facilitated with verbal and visual cuing. Billing Therapeutic Exercise Treatment Minutes: 41 Skilled Treatment Time Minutes (timed and untimed codes): 41 Total Session Time (minutes): 41 Session Start Time : 1145 Session Stop Time : 1226 Jennifer Summers, ACCESSIONER Candelario Hall, PT [facility] 01-06-2024 History of Present illness Narrative Episode Visit Count: 7 Therapist That Will Accept/Oversee The Plan Of Care: Candelario Hall PT Start of Care Date: 11/22/23 Onset Date: 08/22/23 Patient Identified by Name and Date of : Yes REHABILITATION AND SPORTS THERAPY PHYSICAL THERAPY TREATMENT NOTE ASSESSMENT: Leandro Fontanez tolerated the session with fatigue and expected muscle soreness. She demonstrated difficulty with STS and LAQ due to LE stiffness. The patient will continue to benefit from ongoing skilled physical therapy to progress toward set goals. PLAN FOR NEXT VISIT: Continue with gait training prn. Continue with BLE and core strengthening. Incorporate balance training prn. SUBJECTIVE: Pt reports that she was on vacation and that her BLE feel stiff and swollen today and it is affecting her gait pattern. Pt reports that her back is feeling good. Pain: Pain Pain Level: 0 Pain Location: Low Back/Lumbar Spine - Right, Low Back/Lumbar Spine - Left OBJECTIVE MEASURES WITH LEVEL OF FUNCTION: Gait Gait Observation: Pt with increased lateral trunk sway and shorter step length this visit. TREATMENT: Therapeutic Exercise: 1: [employer] StepOne seat #13 x5 minutes (1:1 throughout. Subjective collected.) 2: Seated Pallof's press with GTB 2x10 each side 3: Seated Stir the Pot with GTB 2x10 CW and CCW both lateral directions. 4: seated blue t-band hip abduction 3x10 5: STS from chair without use of UE 6: LAQ 2x10 B Skilled Intervention: Patient was educated in proper exercise technique and purpose for exercises. Skilled judgment was used in selection of appropriate interventions. Correct performance of therapeutic exercises was facilitated with verbal and visual cuing. Billing Therapeutic Exercise Treatment Minutes: 41 Skilled Treatment Time Minutes (timed and untimed codes): 41 Total Session Time (minutes): 41 Session Start Time : 1145 Session Stop Time : 1226 Jennifer Summers, TATYANA Hall PT documented in this encounter [facility] 01-01-2024 Telephone encounter Note Pt requesting refill per below. Rx was refilled 08/12/23 Qty: 4 with 11 refills. Spoke with Aditya at [facility]. He is not sure what happened but their system shows that pt does not have any refills on file. Barb Garcia LPN [facility] 01-01-2024 Miscellaneous Notes Pt requesting refill per below. Rx was refilled 08/12/23 Qty: 4 with 11 refills. Spoke with Aditya at [facility]. He is not sure what happened but their system shows that pt does not have any refills on file. Barb Garcia LPN Prescription Refill Information The patient has been identified by name and date of : Yes Caregiver verified no other encounters exist for this prescription request: Yes Caregiver confirmed with patient/requestor that no other refills are due, in the near future, with this provider at this time: Yes The last office visit in the department: 08-30-23 Does the patient have a future office visit with this provider/department: Yes Requested Prescriptions Pending Prescriptions Disp Refills alendronate (FOSAMAX) 70 mg tablet 4 tablet 11 Sig: Take 1 tablet by mouth one time a week. Take with a full glass of water, on an empty stomach; do NOT lie down for 30minutes. Marian Jenkins January 01, 2024 1:51 PM documented in this encounter [facility] 01-01-2024 Telephone encounter Note Prescription Refill Information The patient has been identified by name and date of : Yes Caregiver verified no other encounters exist for this prescription request: Yes Caregiver confirmed with patient/requestor that no other refills are due, in the near future, with this provider at this time: Yes The last office visit in the department: 08-30-23 Does the patient have a future office visit with this provider/department: Yes Requested Prescriptions Pending Prescriptions Disp Refills alendronate (FOSAMAX) 70 mg tablet 4 tablet 11 Sig: Take 1 tablet by mouth one time a week. Take with a full glass of water, on an empty stomach; do NOT lie down for 30minutes. Marian Jenkins January 01, 2024 1:51 PM [facility] 12-19-2023 Telephone encounter Note Prescription Refill Information The patient has been identified by name and date of : Yes Caregiver verified no other encounters exist for this prescription request: Yes Caregiver confirmed with patient/requestor that no other refills are due, in the near future, with this provider at this time: Yes The last office visit in the department: 08-30-23 Does the patient have a future office visit with this provider/department: Yes Requested Prescriptions Pending Prescriptions Disp Refills mirabegron (MYRBETRIQ) 50 mg Tb24 90 tablet 3 Sig: Take 1 tablet by mouth once daily. Ellen Ambrosio December 19, 2023 12:32 PM [facility] Work Phone: 12-19-2023 Miscellaneous Notes Prescription Refill Information The patient has been identified by name and date of : Yes Caregiver verified no other encounters exist for this prescription request: Yes Caregiver confirmed with patient/requestor that no other refills are due, in the near future, with this provider at this time: Yes The last office visit in the department: 08-30-23 Does the patient have a future office visit with this provider/department: Yes Requested Prescriptions Pending Prescriptions Disp Refills mirabegron (MYRBETRIQ) 50 mg Tb24 90 tablet 3 Sig: Take 1 tablet by mouth once daily. Ellen Ambrosio December 19, 2023 12:32 PM documented in this encounter [facility] 12-18-2023 Note HNO ID: [id number] Author: CANDELARIO HALL PT Service: ? Author Type: Physical Therapist Type: Progress Notes Filed: 12/18/2023 13:32 Note Text: Episode Visit Count: 6 Therapist That Will Accept/Oversee The Plan Of Care: Candelario Hall PT Start of Care Date: 11/22/23 Onset Date: 08/22/23 Patient Identified by Name and Date of : Yes REHABILITATION AND SPORTS THERAPY PHYSICAL THERAPY PROGRESS REPORT PLAN OF CARE UPDATE: Assessment: Leandro Fontanez demonstrates significant improvement in rising from a chair and walking . She has progressed toward goals. Patient continues to present with impairments in balance, gait, independence in exercise, overall function, and strength that interfere with walking, standing, stair negotiation . Current prognosis is Good due to: current objective clinical presentation, positive past response to therapy, good support system/ coping skills. She will benefit from continued skilled therapy services to meet the updated goals for this plan of care as noted below. Updated: 12/18/23 Goals for Episode of Care: created on 11/22/23 through 01/17/24 Independent in home exercises. - MET, will continue and progress to tolerance Patient will decrease pain rating by 2 points to meet minimal clinical important difference for numeric pain rating scale. - MET, will monitor Restore pain-free lumbar ROM to WFL to allow for improved sleep quality. - MET, will monitor Stand / Walk without limitations, without pain/symptoms. - Partially MET, will continue Sleep through night without pain/symptoms. - MET, will monitor Patient will increase strength of core and LEs to WFL to allow for improve gait mechanics/gait pattern. - Partially MET, will continue Patient will report no falls. - MET, will monitor Improve score on Timed Up and Go Test to 8.54 seconds to reflect decreased fall risk. - Partially MET, will continue Improve score on 30 Second Chair Stand to 10 repetitions to reflect decreased fall risk. - MET, will monitor Patient Goals: decrease back pain and walk better - Partially MET, will continue Patient Goals: Improve gait, decrease pain and improve functional mobility/stability overall. Planned Interventions, Frequency, and Duration: 2x/week, 4 weeks Total Number of Visits Planned: 8 Patient to be seen for Therapeutic exercise (68621), Patient/Family/Caregiver Education, Neuromuscular re-education (66635), Manual therapy (01015), Therapeutic activities (11969), Self-usp management (16880), Gait Training (26178), Body Mechanics Training, Functional training, General Conditioning PLAN FOR NEXT VISIT: Continue with gait training prn. Continue with BLE and core strengthening. Incorporate balance training prn. Classification Pain Mechanism Classification: Nociceptive Low Back Pain Classification: Movement Control SUBJECTIVE: Pt feels that overall she is doing better since starting PT on 11/22/23. She feels that her strength and endurance with therex is improved. She also reports that she is working to improve her gait as instructed and as a result, she is walking better. She reports compliance with HEP 2x day and occassionally 3x day. She reports that pain is less intense and less frequent, especially after work. She is unable to measure her standing and walking tolerance. She denies any limitations with sleeping currently. She denies any falls. Patient Goals: Improve gait, decrease pain and improve functional mobility/stability overall. Functional Limitations: walking, standing, stair negotiation Prior Level of Function: Independent without limitations Intake Information: Prescription present Pain: Pain Pain Level: 0 Pain Location: Low Back/Lumbar Spine - Right, Low Back/Lumbar Spine - Left Description: (She denies any pain today despite the rain ) Post Treatment Pain Post Treatment Pain Level: No Change PROMIS Scales 11/22/2023 Higher is Better Phys Func - Score 47 (within normal limits) Phys Func - Percentile 38 Self-Eff Symptom - Score 46 (Average) Self-Eff Symptom - Percentile 34 T-scores: mean of general population = 50. 5 points is clinically meaningfully difference Percentiles provide an indication of how the patient's score ranks in relation to the general population. Higher percentile rankings indicate better function/quality of life. 50th percentile is the average of the general population and indicates half of respondents had a worse score. OBJECTIVE MEASURES WITH LEVEL OF FUNCTION: Lumbar Spine AROM Lumbar Flexion: Normal Lumbar Extension: Normal Lumbar R Side-Bend: Normal Lumbar L Side-Bend: Normal Lumbar R Rotation: Normal Lumbar L Rotation: Normal LE Strength Trunk Strength: Improving R LE Strength: Improving L LE Strength: Improving Gait Gait Observation: Pt gait is dramatically improved with improved heel to toe pattern, less antalgia and less lateral trunk sway. This still (more content not included)... [facility] 12-18-2023 History of Present illness Narrative Episode Visit Count: 6 Therapist That Will Accept/Oversee The Plan Of Care: Candelario Hall PT Start of Care Date: 11/22/23 Onset Date: 08/22/23 Patient Identified by Name and Date of : Yes REHABILITATION AND SPORTS THERAPY PHYSICAL THERAPY PROGRESS REPORT PLAN OF CARE UPDATE: Assessment: Leandro Fontanez demonstrates significant improvement in rising from a chair and walking . She has progressed toward goals. Patient continues to present with impairments in balance, gait, independence in exercise, overall function, and strength that interfere with walking, standing, stair negotiation . Current prognosis is Good due to: current objective clinical presentation, positive past response to therapy, good support system/ coping skills. She will benefit from continued skilled therapy services to meet the updated goals for this plan of care as noted below. Updated: 12/18/23 Goals for Episode of Care: created on 11/22/23 through 01/17/24 Independent in home exercises. - MET, will continue and progress to tolerance Patient will decrease pain rating by 2 points to meet minimal clinical important difference for numeric pain rating scale. - MET, will monitor Restore pain-free lumbar ROM to WFL to allow for improved sleep quality. - MET, will monitor Stand / Walk without limitations, without pain/symptoms. - Partially MET, will continue Sleep through night without pain/symptoms. - MET, will monitor Patient will increase strength of core and LEs to WFL to allow for improve gait mechanics/gait pattern. - Partially MET, will continue Patient will report no falls. - MET, will monitor Improve score on Timed Up and Go Test to 8.54 seconds to reflect decreased fall risk. - Partially MET, will continue Improve score on 30 Second Chair Stand to 10 repetitions to reflect decreased fall risk. - MET, will monitor Patient Goals: decrease back pain and walk better - Partially MET, will continue Patient Goals: Improve gait, decrease pain and improve functional mobility/stability overall. Planned Interventions, Frequency, and Duration: 2x/week, 4 weeks Total Number of Visits Planned: 8 Patient to be seen for Therapeutic exercise (50871), Patient/Family/Caregiver Education, Neuromuscular re-education (23798), Manual therapy (61608), Therapeutic activities (59960), Self-usp management (54026), Gait Training (41715), Body Mechanics Training, Functional training, General Conditioning PLAN FOR NEXT VISIT: Continue with gait training prn. Continue with BLE and core strengthening. Incorporate balance training prn. Classification Pain Mechanism Classification: Nociceptive Low Back Pain Classification: Movement Control SUBJECTIVE: Pt feels that overall she is doing better since starting PT on 11/22/23. She feels that her strength and endurance with therex is improved. She also reports that she is working to improve her gait as instructed and as a result, she is walking better. She reports compliance with HEP 2x day and occassionally 3x day. She reports that pain is less intense and less frequent, especially after work. She is unable to measure her standing and walking tolerance. She denies any limitations with sleeping currently. She denies any falls. Patient Goals: Improve gait, decrease pain and improve functional mobility/stability overall. Functional Limitations: walking, standing, stair negotiation Prior Level of Function: Independent without limitations Intake Information: Prescription present Pain: Pain Pain Level: 0 Pain Location: Low Back/Lumbar Spine - Right, Low Back/Lumbar Spine - Left Description: (She denies any pain today despite the rain ) Post Treatment Pain Post Treatment Pain Level: No Change PROMIS Scales 11/22/2023 Higher is Better Phys Func - Score 47 (within normal limits) Phys Func - Percentile 38 Self-Eff Symptom - Score 46 (Average) Self-Eff Symptom - Percentile 34 T-scores: mean of general population = 50. 5 points is clinically meaningfully difference Percentiles provide an indication of how the patient's score ranks in relation to the general population. Higher percentile rankings indicate better function/quality of life. 50th percentile is the average of the general population and indicates half of respondents had a worse score. OBJECTIVE MEASURES WITH LEVEL OF FUNCTION: Lumbar Spine AROM Lumbar Flexion: Normal Lumbar Extension: Normal Lumbar R Side-Bend: Normal Lumbar L Side-Bend: Normal Lumbar R Rotation: Normal Lumbar L Rotation: Normal LE Strength Trunk Strength: Improving R LE Strength: Improving L LE Strength: Improving Gait Gait Observation: Pt gait is dramatically improved with improved heel to toe pattern, less antalgia and less lateral trunk sway. This still takes effort and verbal cues but significantly better than at evaluation. Functional Performance Test Results 30 Second Chair Stand Test: 11 reps Timed Up and Go (sec): 9.79 sec TREATMENT: Therapeutic Exercise: 1: [employer] StepOne seat #13 x5 minutes 2: HEP was thoroughly reviewed and continuation encouraged to tolerance, especially while on vacation. 3: Re-assessment results were explained to pt in detail and this information was used as rationale for plan of care recommendations. 4: Repeated sit to stand from table 21 inches tall 2x12 5: seated blue t-band hip abduction 3x10 6: Seated Stir the Pot with PTB 2x10 CW and CCW both lateral directions. 7: Seated Pallof's press with PTB 2x10 each side Skilled Intervention: Patient was educated in proper exercise technique and purpose for exercises. Reviewed and educated patient on additions/changes for home exercise program as above (*). Skilled judgment was used in selection of appropriate interventions. Correct performance of therapeutic exercises was facilitated with verbal, visual, and tactile cuing. Patient education as noted. Gait Trainin: Gait training with emphasis on improved push off with LLE and improved heel to toe pattern. Pt demonstrated improved gait training with use of verbal cues and mirror for visual feedback. Skilled Intervention: Facilitated proper gait cycle with the use of verbal and visual cues for correction of gait deviations identified in the objective section above. Billing Therapeutic Exercise Treatment Minutes: 28 Gait Training Treatment Minutes: 12 Skilled Treatment Time Minutes (timed and untimed codes): 40 Total Session Time (minutes): 40 Session Start Time : 1205 Session Stop Time : 1245 Candelario Hall PT documented in this encounter [facility] 12-16-2023 Note HNO ID: [id number] Author: CANDELARIO HALL PT Service: ? Author Type: Physical Therapist Type: Progress Notes Filed: 12/16/2023 12:52 Note Text: Episode Visit Count: 5 Therapist That Will Accept/Oversee The Plan Of Care: Candelario Hall PT Start of Care Date: 11/22/23 Onset Date: 08/22/23 Patient Identified by Name and Date of : Yes REHABILITATION AND SPORTS THERAPY PHYSICAL THERAPY TREATMENT NOTE ASSESSMENT: Leandro Fontanez tolerated the session with fatigue and expected muscle soreness. She demonstrated improvements in endurance with core strengthening. The patient will continue to benefit from ongoing skilled physical therapy to progress toward set goals. PLAN FOR NEXT VISIT: Continue with gait training prn. Continue with BLE and core strengthening. SUBJECTIVE: Pt reports that she is doing pretty good today. Denies any pain to start today. Pain: Pain Pain Level: 0 Pain Location: Low Back/Lumbar Spine - Right, Low Back/Lumbar Spine - Left Post Treatment Pain Post Treatment Symptoms: Faituge OBJECTIVE MEASURES WITH LEVEL OF FUNCTION: Improved heel to toe pattern with visual and verbal cueing. TREATMENT: Therapeutic Exercise: 1: [employer] StepOne seat #13 x5 minutes (1:1 throughout; discussed current HEP) 2: Weight shifting in // bars x10 leading with each foot. 3: supine B SKTC 2x30 seconds 4: supine DKTC 2x30 seconds 5: supine B SLR 2x10 6: Seated Stir the Pot with BTB 2x10 CW and CCW 7: Seated Pallof's press with BTB 2x10 each side 8: STS 2x5 9: Seated press into 55cm physioball with TA activation 3x10 Skilled Intervention: Patient was educated in proper exercise technique and purpose for exercises. Skilled judgment was used in selection of appropriate interventions. Correct performance of therapeutic exercises was facilitated with verbal and visual cuing. Gait Trainin: Gait training with emphasis on improved push off with LLE and improved heel to toe pattern. Pt demonstrated improved gait training with use of verbal cues and mirror for visual feedback. Skilled Intervention: Patient was provided stand by assist during pre-gait/gait training to prevent falls and insure safety. Facilitated proper gait cycle with the use of verbal and visual cues for correction of gait deviations identified in the objective section above. Billing Therapeutic Exercise Treatment Minutes: 30 Gait Training Treatment Minutes: 12 Skilled Treatment Time Minutes (timed and untimed codes): 42 Total Session Time (minutes): 42 Session Start Time : 1143 Session Stop Time : 1225 TATYANA Wilcox PT [facility] 12-16-2023 History of Present illness Narrative Episode Visit Count: 5 Therapist That Will Accept/Oversee The Plan Of Care: Candelario Hall PT Start of Care Date: 11/22/23 Onset Date: 08/22/23 Patient Identified by Name and Date of : Yes REHABILITATION AND SPORTS THERAPY PHYSICAL THERAPY TREATMENT NOTE ASSESSMENT: Leandro Fontanez tolerated the session with fatigue and expected muscle soreness. She demonstrated improvements in endurance with core strengthening. The patient will continue to benefit from ongoing skilled physical therapy to progress toward set goals. PLAN FOR NEXT VISIT: Continue with gait training prn. Continue with BLE and core strengthening. SUBJECTIVE: Pt reports that she is doing pretty good today. Denies any pain to start today. Pain: Pain Pain Level: 0 Pain Location: Low Back/Lumbar Spine - Right, Low Back/Lumbar Spine - Left Post Treatment Pain Post Treatment Symptoms: Faituge OBJECTIVE MEASURES WITH LEVEL OF FUNCTION: Improved heel to toe pattern with visual and verbal cueing. TREATMENT: Therapeutic Exercise: 1: [employer] StepOne seat #13 x5 minutes (1:1 throughout; discussed current HEP) 2: Weight shifting in // bars x10 leading with each foot. 3: supine B SKTC 2x30 seconds 4: supine DKTC 2x30 seconds 5: supine B SLR 2x10 6: Seated Stir the Pot with BTB 2x10 CW and CCW 7: Seated Pallof's press with BTB 2x10 each side 8: STS 2x5 9: Seated press into 55cm physioball with TA activation 3x10 Skilled Intervention: Patient was educated in proper exercise technique and purpose for exercises. Skilled judgment was used in selection of appropriate interventions. Correct performance of therapeutic exercises was facilitated with verbal and visual cuing. Gait Trainin: Gait training with emphasis on improved push off with LLE and improved heel to toe pattern. Pt demonstrated improved gait training with use of verbal cues and mirror for visual feedback. Skilled Intervention: Patient was provided stand by assist during pre-gait/gait training to prevent falls and insure safety. Facilitated proper gait cycle with the use of verbal and visual cues for correction of gait deviations identified in the objective section above. Billing Therapeutic Exercise Treatment Minutes: 30 Gait Training Treatment Minutes: 12 Skilled Treatment Time Minutes (timed and untimed codes): 42 Total Session Time (minutes): 42 Session Start Time : 1143 Session Stop Time : 1225 Jennifer KasTATYANA gipson PT documented in this encounter [facility] 12-12-2023 History of Present illness Narrative Program_ID:[id number] Access Code: [email or web address] URL: [email or web address] Date: 12-12-2023 Prepared By: Candelario Hall Program Notes Exercises - Hooklying Single Knee to Chest Stretch with Towel - 3 x daily - 7 x weekly - sets - 3 reps - Supine Double Knee to Chest - 3 x daily - 7 x weekly - sets - 3 reps - Supine Transversus Abdominis Bracing - Hands on Ground - 2-3 x daily - 7 x weekly - 2 sets - 10 reps - Supine Pelvic Tilt with Straight Leg Raise - 2-3 x daily - 7 x weekly - 2 sets - 10 reps - Sidelying Hip Abduction - 2-3 x daily - 7 x weekly - 2 sets - 10 reps - Clamshell - 2-3 x daily - 7 x weekly - 2 sets - 10 reps Episode Visit Count: 4 Therapist That Will Accept/Oversee The Plan Of Care: Candelario Hall PT Start of Care Date: 11/22/23 Onset Date: 08/22/23 Patient Identified by Name and Date of : Yes REHABILITATION AND SPORTS THERAPY PHYSICAL THERAPY TREATMENT NOTE ASSESSMENT: Leandro Fontanez tolerated the session with fatigue and expected muscle soreness. She demonstrated difficulty with step ups due to discomfort in LLE. The patient will continue to benefit from ongoing skilled physical therapy to progress toward set goals. PLAN FOR NEXT VISIT: Gati training SUBJECTIVE: Pt denies any pain to start todays session. No adverses response to last ssession. Pain: Pain Pain Level: 0 Post Treatment Pain Post Treatment Pain Level: No Change OBJECTIVE MEASURES WITH LEVEL OF FUNCTION: Increased difficulty with performing clamshell on RLE vs. LLE. TREATMENT: Therapeutic Exercise: 1: [employer] StepOne seat #13 x5 minutes (1:1 throughout; discussed current HEP) 2: supine B SKTC 3x30 seconds 3: supine DKTC 3x30 seconds 4: supine isometric abdominal exercise via shoulder ext 2 seconds holds 2x10 5: supine B SLR 2x10 6: *Clamshells 2x10 7: B sidelying hip abd SLR 2x10 each 8: Seated GTB Pallof's press with GTB 2x10 each side 9: Seated Stir the Pot with GTB 2x10 CW and CCW 10: Step ups on 4 inch step x10, irritated LLE when stepping up with Left Skilled Intervention: Patient was educated in proper exercise technique and purpose for exercises. Reviewed and educated patient on additions/changes for home exercise program as above (*). Skilled judgment was used in selection of appropriate interventions. Provided written instruction for home exercise program to facilitate proper performance and compliance. Correct performance of therapeutic exercises was facilitated with verbal and visual cuing. Billing Therapeutic Exercise Treatment Minutes: 41 Skilled Treatment Time Minutes (timed and untimed codes): 41 Total Session Time (minutes): 41 Session Start Time : 1144 Session Stop Time : 1225 TATYANA Wilcox PT, DPT. documented in this encounter [facility] 12-12-2023 Note HNO ID: [id number] Author: DIEGO MALIK PT Service: ? Author Type: Physical Therapist Type: Progress Notes Filed: 12/12/2023 13:42 Note Text: Episode Visit Count: 4 Therapist That Will Accept/Oversee The Plan Of Care: Candelario Hall PT Start of Care Date: 11/22/23 Onset Date: 08/22/23 Patient Identified by Name and Date of : Yes REHABILITATION AND SPORTS THERAPY PHYSICAL THERAPY TREATMENT NOTE ASSESSMENT: Leandro Fontanez tolerated the session with fatigue and expected muscle soreness. She demonstrated difficulty with step ups due to discomfort in LLE. The patient will continue to benefit from ongoing skilled physical therapy to progress toward set goals. PLAN FOR NEXT VISIT: Gati training SUBJECTIVE: Pt denies any pain to start todays session. No adverses response to last ssession. Pain: Pain Pain Level: 0 Post Treatment Pain Post Treatment Pain Level: No Change OBJECTIVE MEASURES WITH LEVEL OF FUNCTION: Increased difficulty with performing clamshell on RLE vs. LLE. TREATMENT: Therapeutic Exercise: 1: [employer] StepOne seat #13 x5 minutes (1:1 throughout; discussed current HEP) 2: supine B SKTC 3x30 seconds 3: supine DKTC 3x30 seconds 4: supine isometric abdominal exercise via shoulder ext 2 seconds holds 2x10 5: supine B SLR 2x10 6: *Clamshells 2x10 7: B sidelying hip abd SLR 2x10 each 8: Seated GTB Pallof's press with GTB 2x10 each side 9: Seated Stir the Pot with GTB 2x10 CW and CCW 10: Step ups on 4 inch step x10, irritated LLE when stepping up with Left Skilled Intervention: Patient was educated in proper exercise technique and purpose for exercises. Reviewed and educated patient on additions/changes for home exercise program as above (*). Skilled judgment was used in selection of appropriate interventions. Provided written instruction for home exercise program to facilitate proper performance and compliance. Correct performance of therapeutic exercises was facilitated with verbal and visual cuing. Billing Therapeutic Exercise Treatment Minutes: 41 Skilled Treatment Time Minutes (timed and untimed codes): 41 Total Session Time (minutes): 41 Session Start Time : 1144 Session Stop Time : 1225 TATYANA Wilcox, PT, DPT. [facility] 12-09-2023 Note HNO ID: [id number] Author: DEONNA MELENDEZ PT Service: ? Author Type: Physical Therapist Type: Progress Notes Filed: 12/09/2023 14:18 Note Text: Episode Visit Count: 3 Therapist That Will Accept/Oversee The Plan Of Care: Candelario Hall PT Start of Care Date: 11/22/23 Onset Date: 08/22/23 Patient Identified by Name and Date of : Yes REHABILITATION AND SPORTS THERAPY PHYSICAL THERAPY TREATMENT NOTE ASSESSMENT: Leandro Fontanez tolerated the session with fatigue and expected muscle soreness. She demonstrated difficulty with sustaining TA activation with alt toe taps. The patient will continue to benefit from ongoing skilled physical therapy to progress toward set goals. PLAN FOR NEXT VISIT: Continue with BLE and core strengthening. Flexion directional preference SUBJECTIVE: Pt reports that her back is feeling oretty good. Pt states that she is not having the knife stabbing me in the back sensation that she was having. Pain: Pain Pain Level: 0 Pain Location: Low Back/Lumbar Spine - Right, Low Back/Lumbar Spine - Left Frequency: Intermittent Post Treatment Pain Post Treatment Pain Level: No Change OBJECTIVE MEASURES WITH LEVEL OF FUNCTION: TREATMENT: Therapeutic Exercise: 1: [employer] StepOne seat #13 x5 minutes (1:1 throughout; discussed current HEP) 2: supine B SKTC 3x30 seconds 3: supine DKTC 3x30 seconds 4: supine isometric abdominal exercise via shoulder ext 2 seconds holds 2x10 5: supine B SLR 2x10 6: Supine isometric abdominals with alt toe taps 7: B sidelying hip abd SLR 2x10 each 8: Seated GTB perturbations 3x15 each, forward, left, and right Skilled Intervention: Patient was educated in proper exercise technique and purpose for exercises. Skilled judgment was used in selection of appropriate interventions. Correct performance of therapeutic exercises was facilitated with verbal and visual cuing. Billing Therapeutic Exercise Treatment Minutes: 39 Skilled Treatment Time Minutes (timed and untimed codes): 39 Total Session Time (minutes): 39 Session Start Time : 1146 Session Stop Time : 1225 Jennifer Summers, TATYANA Melendez, PT [facility] 12-09-2023 History of Present illness Narrative Episode Visit Count: 3 Therapist That Will Accept/Oversee The Plan Of Care: Candelario Hall PT Start of Care Date: 11/22/23 Onset Date: 08/22/23 Patient Identified by Name and Date of : Yes REHABILITATION AND SPORTS THERAPY PHYSICAL THERAPY TREATMENT NOTE ASSESSMENT: Leandro Fontanez tolerated the session with fatigue and expected muscle soreness. She demonstrated difficulty with sustaining TA activation with alt toe taps. The patient will continue to benefit from ongoing skilled physical therapy to progress toward set goals. PLAN FOR NEXT VISIT: Continue with BLE and core strengthening. Flexion directional preference SUBJECTIVE: Pt reports that her back is feeling oretty good. Pt states that she is not having the knife stabbing me in the back sensation that she was having. Pain: Pain Pain Level: 0 Pain Location: Low Back/Lumbar Spine - Right, Low Back/Lumbar Spine - Left Frequency: Intermittent Post Treatment Pain Post Treatment Pain Level: No Change OBJECTIVE MEASURES WITH LEVEL OF FUNCTION: TREATMENT: Therapeutic Exercise: 1: [employer] StepOne seat #13 x5 minutes (1:1 throughout; discussed current HEP) 2: supine B SKTC 3x30 seconds 3: supine DKTC 3x30 seconds 4: supine isometric abdominal exercise via shoulder ext 2 seconds holds 2x10 5: supine B SLR 2x10 6: Supine isometric abdominals with alt toe taps 7: B sidelying hip abd SLR 2x10 each 8: Seated GTB perturbations 3x15 each, forward, left, and right Skilled Intervention: Patient was educated in proper exercise technique and purpose for exercises. Skilled judgment was used in selection of appropriate interventions. Correct performance of therapeutic exercises was facilitated with verbal and visual cuing. Billing Therapeutic Exercise Treatment Minutes: 39 Skilled Treatment Time Minutes (timed and untimed codes): 39 Total Session Time (minutes): 39 Session Start Time : 1146 Session Stop Time : 1225 TATYANA Wilcox PT documented in this encounter [facility] 12-02-2023 Telephone encounter Note Prescription Refill Information The patient has been identified by name and date of : Yes Caregiver verified no other encounters exist for this prescription request: Yes Caregiver confirmed with patient/requestor that no other refills are due, in the near future, with this provider at this time: Yes The last office visit in the department: 08/30/23 Does the patient have a future office visit with this provider/department: No Left message for pt that she is over due for her 6 month f/u. She was advised at ov 03/01/23 to have a f/u in 6 months. Requested Prescriptions Pending Prescriptions Disp Refills losartan (COZAAR) 25 mg tablet 30 tablet 5 Sig: Take 1 tablet by mouth once daily. Barb Garcia LPN December 02, 2023 1:08 PM [facility] 12-02-2023 Miscellaneous Notes Prescription Refill Information The patient has been identified by name and date of : Yes Caregiver verified no other encounters exist for this prescription request: Yes Caregiver confirmed with patient/requestor that no other refills are due, in the near future, with this provider at this time: Yes The last office visit in the department: 08/30/23 Does the patient have a future office visit with this provider/department: No Left message for pt that she is over due for her 6 month f/u. She was advised at ov 03/01/23 to have a f/u in 6 months. Requested Prescriptions Pending Prescriptions Disp Refills losartan (COZAAR) 25 mg tablet 30 tablet 5 Sig: Take 1 tablet by mouth once daily. Barb Garcia LPN December 02, 2023 1:08 PM Prescription Refill Information The patient has been identified by name and date of : Yes Caregiver verified no other encounters exist for this prescription request: Yes Caregiver confirmed with patient/requestor that no other refills are due, in the near future, with this provider at this time: Yes The last office visit in the department: 08/30/23 Does the patient have a future office visit with this provider/department: No Requested Prescriptions Pending Prescriptions Disp Refills losartan (COZAAR) 25 mg tablet 30 tablet 5 Sig: Take 1 tablet by mouth once daily. Sheela Ambrosio December 02, 2023 12:23 PM documented in this encounter [facility] 12-02-2023 Telephone encounter Note Prescription Refill Information The patient has been identified by name and date of : Yes Caregiver verified no other encounters exist for this prescription request: Yes Caregiver confirmed with patient/requestor that no other refills are due, in the near future, with this provider at this time: Yes The last office visit in the department: 08/30/23 Does the patient have a future office visit with this provider/department: No Requested Prescriptions Pending Prescriptions Disp Refills losartan (COZAAR) 25 mg tablet 30 tablet 5 Sig: Take 1 tablet by mouth once daily. Sheela Rocha Pss December 02, 2023 12:23 PM [facility] Work Phone: 11-25-2023 Note HNO ID: [id number] Author: CANDELARIO HALL PT Service: ? Author Type: Physical Therapist Type: Progress Notes Filed: 11/25/2023 10:27 Note Text: Episode Visit Count: 2 Therapist That Will Accept/Oversee The Plan Of Care: Candelario Hall PT Start of Care Date: 11/22/23 Onset Date: 08/22/23 Patient Identified by Name and Date of : Yes REHABILITATION AND SPORTS THERAPY PHYSICAL THERAPY TREATMENT NOTE ASSESSMENT: Leandro Fontanez tolerated the session with fatigue, expected muscle soreness, and no issues. She demonstrated improvements in understanding of gait deficits. The patient will continue to benefit from ongoing skilled physical therapy to progress toward set goals. PLAN FOR NEXT VISIT: Review, correct and progress HEP to tolerance. Continue with postural stretching and strengthening with flexion directional preference. Also, focus on LE strengthening to normal gait, especially trunk sway. Continue gait training prn. SUBJECTIVE: Pt reports compliance with HEP 3x day since evaluation. Overall she denies any significant changes since evaluation on 11/22/23. She denies any pain to start today. Pain: Pain Pain Level: 0 Pain Location: Low Back/Lumbar Spine - Right, Low Back/Lumbar Spine - Left Description: (no pain to start today) Frequency: Intermittent, Standing, Walking Post Treatment Pain Post Treatment Pain Level: No Change OBJECTIVE MEASURES WITH LEVEL OF FUNCTION: Posture / Alignment Posture: Forward head, Increased thoracic kyphosis, Rounded shoulders Gait Gait Observation: Pt has antalgic pattern with increased lateral trunk sway, small step lengths and absent heel strike and push off. Gait is improved with cues but same pattern persists. Functional Performance Test Results 30 Second Chair Stand Test: 6 reps Timed Up and Go (sec): 12.61 sec TREATMENT: Therapeutic Exercise: 1: SciFit StepOne seat #13 x5 minutes (Pt provided an update on her condition and plan of care reviewed.) 2: supine B SKTC 3x30 seconds 3: supine DKTC 3x30 seconds 4: *supine B SLR 2x10 5: *B sidelying hip abd SLR 2x10 each 6: *supine isometric abdominal exercise via shoulder ext 2 seconds holds 2x10 7: Plan of care and HEP reviewed. She was advised to stop any exercise that causes increased pain. Skilled Intervention: Patient was educated in proper exercise technique and purpose for exercises. Reviewed and educated patient on additions/changes for home exercise program as above (*). Skilled judgment was used in selection of appropriate interventions. Provided written instruction for home exercise program to facilitate proper performance and compliance. Correct performance of therapeutic exercises was facilitated with verbal, visual, and tactile cuing. Patient education as noted. Gait Trainin: Pt was educated on the gait deviations observed, how to correct and the importance of correcting gait. She was advised that LBP is likely contributing to gait deviations but that her gait is likely contributing to her LBP. She practiced correcting gait and therapist provided verbal cues as she walked throughout the department. Skilled Intervention: Facilitated proper gait cycle with the use of verbal and visual cues for correction of gait deviations identified in the objective section above. Billing Therapeutic Exercise Treatment Minutes: 37 Gait Training Treatment Minutes: 10 Skilled Treatment Time Minutes (timed and untimed codes): 47 Total Session Time (minutes): 47 Session Start Time : 934 Session Stop Time : 1021 Candelario Hall PT [facility] 11-25-2023 History of Present illness Narrative Episode Visit Count: 2 Therapist That Will Accept/Oversee The Plan Of Care: Candelario Hall PT Start of Care Date: 11/22/23 Onset Date: 08/22/23 Patient Identified by Name and Date of : Yes REHABILITATION AND SPORTS THERAPY PHYSICAL THERAPY TREATMENT NOTE ASSESSMENT: Leandro Fontanez tolerated the session with fatigue, expected muscle soreness, and no issues. She demonstrated improvements in understanding of gait deficits. The patient will continue to benefit from ongoing skilled physical therapy to progress toward set goals. PLAN FOR NEXT VISIT: Review, correct and progress HEP to tolerance. Continue with postural stretching and strengthening with flexion directional preference. Also, focus on LE strengthening to normal gait, especially trunk sway. Continue gait training prn. SUBJECTIVE: Pt reports compliance with HEP 3x day since evaluation. Overall she denies any significant changes since evaluation on 11/22/23. She denies any pain to start today. Pain: Pain Pain Level: 0 Pain Location: Low Back/Lumbar Spine - Right, Low Back/Lumbar Spine - Left Description: (no pain to start today) Frequency: Intermittent, Standing, Walking Post Treatment Pain Post Treatment Pain Level: No Change OBJECTIVE MEASURES WITH LEVEL OF FUNCTION: Posture / Alignment Posture: Forward head, Increased thoracic kyphosis, Rounded shoulders Gait Gait Observation: Pt has antalgic pattern with increased lateral trunk sway, small step lengths and absent heel strike and push off. Gait is improved with cues but same pattern persists. Functional Performance Test Results 30 Second Chair Stand Test: 6 reps Timed Up and Go (sec): 12.61 sec TREATMENT: Therapeutic Exercise: 1: SciFit StepOne seat #13 x5 minutes (Pt provided an update on her condition and plan of care reviewed.) 2: supine B SKTC 3x30 seconds 3: supine DKTC 3x30 seconds 4: *supine B SLR 2x10 5: *B sidelying hip abd SLR 2x10 each 6: *supine isometric abdominal exercise via shoulder ext 2 seconds holds 2x10 7: Plan of care and HEP reviewed. She was advised to stop any exercise that causes increased pain. Skilled Intervention: Patient was educated in proper exercise technique and purpose for exercises. Reviewed and educated patient on additions/changes for home exercise program as above (*). Skilled judgment was used in selection of appropriate interventions. Provided written instruction for home exercise program to facilitate proper performance and compliance. Correct performance of therapeutic exercises was facilitated with verbal, visual, and tactile cuing. Patient education as noted. Gait Trainin: Pt was educated on the gait deviations observed, how to correct and the importance of correcting gait. She was advised that LBP is likely contributing to gait deviations but that her gait is likely contributing to her LBP. She practiced correcting gait and therapist provided verbal cues as she walked throughout the department. Skilled Intervention: Facilitated proper gait cycle with the use of verbal and visual cues for correction of gait deviations identified in the objective section above. Billing Therapeutic Exercise Treatment Minutes: 37 Gait Training Treatment Minutes: 10 Skilled Treatment Time Minutes (timed and untimed codes): 47 Total Session Time (minutes): 47 Session Start Time : 934 Session Stop Time : 102 Candelario Hall PT Program_ID:[id number] Access Code: [email or web address] URL: [email or web address] Date: 11-25-2023 Prepared By: Candelario Hall Program Notes Exercises - Hooklying Single Knee to Chest Stretch with Towel - 3 x daily - 7 x weekly - sets - 3 reps - Supine Double Knee to Chest - 3 x daily - 7 x weekly - sets - 3 reps - Supine Transversus Abdominis Bracing - Hands on Ground - 2-3 x daily - 7 x weekly - 2 sets - 10 reps - Supine Pelvic Tilt with Straight Leg Raise - 2-3 x daily - 7 x weekly - 2 sets - 10 reps - Sidelying Hip Abduction - 2-3 x daily - 7 x weekly - 2 sets - 10 reps documented in this encounter [facility] 11-22-2023 Note HNO ID: [id number] Author: CANDELARIO HALL PT Service: ? Author Type: Physical Therapist Type: Progress Notes Filed: 11/22/2023 16:11 Note Text: Episode Visit Count: 1 Therapist That Will Accept/Oversee The Plan Of Care: Candelario Hall PT Start of Care Date: 11/22/23 Onset Date: 08/22/23 Patient Identified by Name and Date of : Yes REHABILITATION AND SPORTS THERAPY PHYSICAL THERAPY EVALUATION PLAN OF CARE: Assessment: Leandro Fontanez presents with diagnosis of low back pain with radicular symptoms and resulting LE weakness and gait deviations that interfere with stair negotiation, walking, standing, sleeping (prolonged positions). She presents with impairments in ADL's, balance, gait, overall function, range of motion, strength, symptom management, and tissue tenderness. PROMIS? (Patient-Reported Outcomes Measurement Information System) scores were reviewed and identified as within normal limits. Prognosis for therapy is Good due to: current objective clinical presentation, good overall health status, within-session changes. She will benefit from skilled therapy services to meet the goals established for this plan of care as noted below. Classification Pain Mechanism Classification: Nociceptive Low Back Pain Classification: Movement Control Goals for Episode of Care: created on 11/22/23 through 01/17/24 Independent in home exercises. Patient will decrease pain rating by 2 points to meet minimal clinical important difference for numeric pain rating scale. Restore pain-free lumbar ROM to WFL to allow for improved sleep quality. Stand / Walk without limitations, without pain/symptoms. Sleep through night without pain/symptoms. Patient will increase strength of core and LEs to WFL to allow for improve gait mechanics/gait pattern. Patient will report no falls. Improve score on Timed Up and Go Test to 8.54 seconds to reflect decreased fall risk. Improve score on 30 Second Chair Stand to 10 repetitions to reflect decreased fall risk. Patient Goals: decrease back pain and walk better Planned Interventions, Frequency, and Duration: Current Frequency: 2x/week Duration: 8 weeks Total Number of Visits Planned: 16 Planned Treatment Interventions: Therapeutic exercise (78694), Patient/Family/Caregiver Education, Neuromuscular re-education (85100), Manual therapy (26775), Therapeutic activities (48716), Self-usp management (36933), Gait Training (74790), Body Mechanics Training, Functional training, General Conditioning PLAN FOR NEXT VISIT: Review, correct and progress HEP to tolerance. Continue with postural stretching and strengthening with flexion directional preference. Also, focus on LE strengthening to normal gait, especially trunk sway. Continue gait training and perform TUG and 30 second sit to stand test. Patient demonstrates good understanding of plan of care and treatment. The above goals and plan of care were discussed and agreed upon by patient/family. SUBJECTIVE: Pt reports intermittent pain in both sides of low back that varies in intensity. She reports that pain fluctuates but has been chronic for many years. She reports that this episode became severe 3 months ago without explanation. She reports she had low back surgery in 1994. Patient Goals: decrease back pain and walk better Functional Limitations: stair negotiation, walking, standing, sleeping (prolonged positions) Prior Level of Function: Independent without limitations (pt reports that her function has been declining over the past several years but prior to that she was functioning normal.) Relevant History Past Relevant Surgical Conditions: Spine fusion - Lumbar (low back surgery 1994) Spine Fusion - Lumbar Comments: 1994 Employment: Carpet [employer]ovator: See Comment Carpet [employer] Occupation: Housekeeping at [employer] Home Environment Patient Lives With: Family (Pt livesl alone in [id number] suite attached to her son's house) Assistance Available: PRN Home Type: Ranch Entry To Home: Stairs, Without Rail Number Of Stairs Into Home: 1 Intake Information: Prescription present Previous Treatment: None Red Flags Vertebral Fracture Red Flags: Female Vertebral Fracture Clinical Reasoning: Proceed with caution due to the above (1-2) risk factors Abdominal Aortic Aneurysm Clinical Reasoning: No identified risk factors. Cancer Clinical Reasoning: No identified risk factors. Infection Clinical Reasoning: No identified risk factors. Cauda Equina Syndrome Clinical Reasoning: Proceed with caution (Pt has a history of bowel and bladder dysfunction at time of last low back surgery 1994) Red Flags - Cervical Cancer Clinical Reasoning: No identified risk factors. Infection Clinical Reasoning: No identified risk factors. Spine History Symptoms Location at Onset: Back Symptoms Since Onset: Improving Pain is Worse Always: Standing, Walking (stairs) Pain is Better Sometimes: (heat, tyl (more content not included)... [facility] 11-22-2023 History of Present illness Narrative Episode Visit Count: 1 Therapist That Will Accept/Oversee The Plan Of Care: Candelario Hall PT Start of Care Date: 11/22/23 Onset Date: 08/22/23 Patient Identified by Name and Date of : Yes REHABILITATION AND SPORTS THERAPY PHYSICAL THERAPY EVALUATION PLAN OF CARE: Assessment: Leandro Fontanez presents with diagnosis of low back pain with radicular symptoms and resulting LE weakness and gait deviations that interfere with stair negotiation, walking, standing, sleeping (prolonged positions). She presents with impairments in ADL's, balance, gait, overall function, range of motion, strength, symptom management, and tissue tenderness. PROMIS (Patient-Reported Outcomes Measurement Information System) scores were reviewed and identified as within normal limits. Prognosis for therapy is Good due to: current objective clinical presentation, good overall health status, within-session changes. She will benefit from skilled therapy services to meet the goals established for this plan of care as noted below. Classification Pain Mechanism Classification: Nociceptive Low Back Pain Classification: Movement Control Goals for Episode of Care: created on 11/22/23 through 01/17/24 Independent in home exercises. Patient will decrease pain rating by 2 points to meet minimal clinical important difference for numeric pain rating scale. Restore pain-free lumbar ROM to WFL to allow for improved sleep quality. Stand / Walk without limitations, without pain/symptoms. Sleep through night without pain/symptoms. Patient will increase strength of core and LEs to WFL to allow for improve gait mechanics/gait pattern. Patient will report no falls. Improve score on Timed Up and Go Test to 8.54 seconds to reflect decreased fall risk. Improve score on 30 Second Chair Stand to 10 repetitions to reflect decreased fall risk. Patient Goals: decrease back pain and walk better Planned Interventions, Frequency, and Duration: Current Frequency: 2x/week Duration: 8 weeks Total Number of Visits Planned: 16 Planned Treatment Interventions: Therapeutic exercise (54082), Patient/Family/Caregiver Education, Neuromuscular re-education (57157), Manual therapy (36131), Therapeutic activities (43846), Self-usp management (99910), Gait Training (17247), Body Mechanics Training, Functional training, General Conditioning PLAN FOR NEXT VISIT: Review, correct and progress HEP to tolerance. Continue with postural stretching and strengthening with flexion directional preference. Also, focus on LE strengthening to normal gait, especially trunk sway. Continue gait training and perform TUG and 30 second sit to stand test. Patient demonstrates good understanding of plan of care and treatment. The above goals and plan of care were discussed and agreed upon by patient/family. SUBJECTIVE: Pt reports intermittent pain in both sides of low back that varies in intensity. She reports that pain fluctuates but has been chronic for many years. She reports that this episode became severe 3 months ago without explanation. She reports she had low back surgery in 1994. Patient Goals: decrease back pain and walk better Functional Limitations: stair negotiation, walking, standing, sleeping (prolonged positions) Prior Level of Function: Independent without limitations (pt reports that her function has been declining over the past several years but prior to that she was functioning normal.) Relevant History Past Relevant Surgical Conditions: Spine fusion - Lumbar (low back surgery 1994) Spine Fusion - Lumbar Comments: 1994 Employment: Carpet [employer]ovator: See Comment Carpet [employer] Occupation: Housekeeping at [employer] Home Environment Patient Lives With: Family (Pt livesl alone in [id number] suite attached to her son's house) Assistance Available: PRN Home Type: Ranch Entry To Home: Stairs, Without Rail Number Of Stairs Into Home: 1 Intake Information: Prescription present Previous Treatment: None Red Flags Vertebral Fracture Red Flags: Female Vertebral Fracture Clinical Reasoning: Proceed with caution due to the above (1-2) risk factors Abdominal Aortic Aneurysm Clinical Reasoning: No identified risk factors. Cancer Clinical Reasoning: No identified risk factors. Infection Clinical Reasoning: No identified risk factors. Cauda Equina Syndrome Clinical Reasoning: Proceed with caution (Pt has a history of bowel and bladder dysfunction at time of last low back surgery 1994) Red Flags - Cervical Cancer Clinical Reasoning: No identified risk factors. Infection Clinical Reasoning: No identified risk factors. Spine History Symptoms Location at Onset: Back Symptoms Since Onset: Improving Pain is Worse Always: Standing, Walking (stairs) Pain is Better Sometimes: (heat, tylenol) Previous Episodes: Yes Previous Spine Episodes: low back surgery 1994 Sleeping Position: Side lying right, Side lying left Sleep Affected by Pain: Pain keeps from falling asleep Pain: Pain Pain Level: 0 Pain Location: Low Back/Lumbar Spine - Right, Low Back/Lumbar Spine - Left Description: Sharp, Stabbing Frequency: Intermittent, Standing, Walking Detailed Pain Score: Yes Worst Pain Level: 8 Best Pain Level: 0 Post Treatment Pain Post Treatment Pain Level: No Change PROMIS Scales 11/22/2023 Higher is Better Phys Func - Score 47 (within normal limits) Phys Func - Percentile 38 Self-Eff Symptom - Score 46 (Average) Self-Eff Symptom - Percentile 34 T-scores: mean of general population = 50. 5 points is clinically meaningfully difference Percentiles provide an indication of how the patient's score ranks in relation to the general population. Higher percentile rankings indicate better function/quality of life. 50th percentile is the average of the general population and indicates half of respondents had a worse score. OBJECTIVE MEASURES WITH LEVEL OF FUNCTION: Posture / Alignment Posture: Forward head, Increased thoracic kyphosis, Rounded shoulders Spine Observations R Lumbar Spine Palpation Tenderness: Piriformis L Lumbar Spine Palpation Tenderness: Piriformis Sensation - Lumbar Sensation: Grossly Intact Lumbar Spine AROM Lumbar Flexion: Normal Lumbar Extension: Moderate limitation Lumbar R Side-Bend: Moderate limitation Lumbar L Side-Bend: Moderate limitation Lumbar R Rotation: Minimal limitation Lumbar L Rotation: Minimal limitation LE Strength Trunk Strength: Pt's gait deficits, postural deficits and reported functional difficulties indicate the need for increased core and funtional LE strength R LE Strength: Pt's gait deficits, postural deficits and reported functional difficulties indicate the need for increased core and funtional LE strength. No asymmetrical myotomal weakness detected. L LE Strength: Pt's gait deficits, postural deficits and reported functional difficulties indicate the need for increased core and funtional LE strength. No asymmetrical myotomal weakness detected. Special Tests - Hip and Spine Hip and Spine Special Tests: SLR Test SLR Test: Right Positive, Left Positive Gait Gait Observation: Pt has antalgic pattern with increased lateral trunk sway, small step lengths and absent heel strike and push off. Stairs: Pt reports that she must negotiate steps by sidestepping one at a time and not reciprocally. Vitals BP: 122/80 Pulse: 78 Education: Education Learning Preferences: Demonstration, Explanation, Performance, Printed Materials Barriers: None Learning/educational needs: Plan of Care, Home exercise program, Posture, Body Mechanics, Lifestyle changes, Gait Training Education Provided: Yes, see treatment interventions for education provided Education Provided To: Patient Education Mode/Type: Demonstration, Explanation/Discussion, Literature/Printed Materials, Performance Response to Education/Teach Back: States/Identifies, Return Demonstration, Requires Review/Additional Education TREATMENT: PT Treatment Interventions: Therapeutic Exercise, Gait Training Evaluation Therapeutic Exercise: 1: Pt was educated on the anatomy of lumbar spine and B LEs. She was also educated on her directional preference, likely etiology of symptoms and rationale for proposed PT plan of care. She was advised to stop any exercise that causes increased pain. Pt was advised to use sheet or towel behind thighs during SKTC and DKTC. 2: *supine B SKTC 3x30 seconds 3: *supine DKTC 3x30 seconds Skilled Intervention: Patient was educated in proper exercise technique and purpose for exercises. Reviewed and educated patient on additions/changes for home exercise program as above (*). Skilled judgment was used in selection of appropriate interventions. Provided written instruction for home exercise program to facilitate proper performance and compliance. Correct performance of therapeutic exercises was facilitated with verbal, visual, and tactile cuing. Patient education as noted. Gait Trainin: Pt was educated on the gait deviations observed, how to correct and the importance of correcting gait. She was advised that LBP is likely contributing to gait deviations but that her gait is likely contributing to her LBP. Seh practiced correcting gait and therapist provided verbal cues. Skilled Intervention: Facilitated proper gait cycle with the use of verbal and visual cues for correction of gait deviations identified in the objective section above. Billing * Evaluation Low Complexity: 1 Unit Therapeutic Exercise Treatment Minutes: 15 Gait Training Treatment Minutes: 15 Skilled Treatment Time Minutes (timed and untimed codes): 50 Total Session Time (minutes): 50 Session Start Time : 0930 Session Stop Time : 1020 Candelario Hall PT Program_ID:[id number] Access Code: [email or web address] URL: [email or web address] Date: 11-22-2023 Prepared By: Candelario Hall Program Notes Exercises - Hooklying Single Knee to Chest Stretch with Towel - 3 x daily - 7 x weekly - sets - 3 reps - Supine Double Knee to Chest - 3 x daily - 7 x weekly - sets - 3 reps documented in this encounter [facility] 11-08-2023 Note HNO ID: [id number] Author: DAVID BERGER PA-C Service: ? Author Type: Physician Kiln Door Repairer Type: Progress Notes Filed: 11/08/2023 13:08 Note Text: [facility] [address] [address] 11/08/2023 ASSESSMENT AND PLAN: Assessment : Encounter Diagnosis ICD-10-CM 1. Chronic bilateral low back pain without sciatica M54.50 CONSULT TO PHYSICAL THERAPY G89.29 2. Physical deconditioning R53.81 CONSULT [facility] CONSULT TO PHYSICAL THERAPY 3. Morbid obesity (HCC) E66.01 CONSULT BAR[facility]ATRIC[facility] Discussion: Ms. Fontanez is a pleasant 68-year-old female here for evaluation of low back pain over a number of years but it has gotten a little bit worse recently and she wanted to have this evaluated. She notices symptoms on the upper posterior buttocks left or right depending on the day. She takes Tylenol at home and it seems to work as well or better than OTC NSAIDs. She had a fairly severe surgical episode back in 1994 that required urgent lumbar decompression for apparent possible cauda equina syndrome EXAM Highlights: A little bit slow to mobilize from sitting standing posture but is able to stand erect. When she walks, she waddles from amjm-[id number] and does not pickling solution maker her knees very much at all. Her feet are somewhat everted as she walks. She has pain on palpation bilaterally over PSIS. The remainder of the neurologic exam is normal as noted below. IMAGING: We reviewed her October 11, 2023 lumbar plain radiographs and sacrococcygeal radiographs in epic. She does have age-appropriate degenerative findings throughout with lower lumbar facet arthrosis but no instability or apparent fracture. Sacrum has a moderately acute kyphotic shape and the tailbone appears to be properly lined up with the distal sacral trajectory. On the spot lateral of the lumbar spine, there appears to be tiny anterior listhesis at the lowest mobile segment. There appears to be some disc space calcification at what would be a transitional segment below the tiny listhesis. The level of the presumed listhesis is just below the level of the iliac crests on the lateral views SUMMARY/PLAN: It appears that her symptoms today are limited to mechanical type pain at bilateral PSIS. I do not see any neurologic deficit. I think she would benefit from supervised PT and home exercises. I also would like her to consider nonsurgical bariatric care at [facility] to see if it could also help her with her low back symptoms over a longer course of time. Plan : REFERAL FOR SERVICES: -Physical therapy will be instituted. -Referral to [facility] nonsurgical bariatrics ACTIVITY RECOMMENDATIONS: -The patient is encouraged to avoid bed rest and maintain normal activity. NUTRITION RECOMMENDATIONS: -The patient is carrying a significant amount of weight above an ideal BMI. We discussed how this impacts overall health and back pain. FOLLOW-UP: -The patient is instructed to return as needed. ADDITIONAL DISCUSSION: -We discussed the difference between hurt vs harm as it relates to chronic pain. This document has been created with the use of voice recognition technology. It may contain inaccuracies: (e.g. misspellings, inaccurate syntax or word sense) that have escaped review. Time spent: 40 minutes today with this patient visit. This includes dptz-wy-ktre time, review of chart records regarding conservative care history, spine-pertinent imaging, and communication/care coordination with referring provider, problem-specific history-taking and counseling/education regarding treatment options. cc: Ronnie Lay [address] [facility] [address] Results of consultation to be transmitted via electronic medical record for those providers who practice within [facility] or with access to [employer] via MD Connect, or via letter. ____ ################################## ################################## #### CHIEF COMPLAINT: Patient is here for the lower back pain, and buttocks area, both sides- pain goes from left to right buttocks area. Has this pain for years. Level of the pain is at 3/10. Pain will get worse depends on what she was going. HPI: see Discussion above History of bowel or bladder dysfunction (not IBS or constipation): Yes, Urge incontinence, frequency History of previous spinal surgery: Yes, performed in 1994 at [facility]. The procedure was a Lumbar. Before surgery she could barely walk, and couldn't control her bladder. 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 [facility] 11-08-2023 History of Present illness Narrative Images from the original note were not included. David Berger PA-C [facility] [address] [address] 11/08/2023 ASSESSMENT AND PLAN: Assessment : Encounter Diagnosis ICD-10-CM 1. Chronic bilateral low back pain without sciatica M54.50 CONSULT TO PHYSICAL THERAPY G89.29 2. Physical deconditioning R53.81 CONSULT [facility] CONSULT TO PHYSICAL THERAPY 3. Morbid obesity (HCC) E66.01 CONSULT [facility] Discussion: Ms. Fontanez is a pleasant 68-year-old female here for evaluation of low back pain over a number of years but it has gotten a little bit worse recently and she wanted to have this evaluated. She notices symptoms on the upper posterior buttocks left or right depending on the day. She takes Tylenol at home and it seems to work as well or better than OTC NSAIDs. She had a fairly severe surgical episode back in 1994 that required urgent lumbar decompression for apparent possible cauda equina syndrome EXAM Highlights: A little bit slow to mobilize from sitting standing posture but is able to stand erect. When she walks, she waddles from bksk-us-zpot and does not pickling solution maker her knees very much at all. Her feet are somewhat everted as she walks. She has pain on palpation bilaterally over PSIS. The remainder of the neurologic exam is normal as noted below. IMAGING: We reviewed her October 11, 2023 lumbar plain radiographs and sacrococcygeal radiographs in [facility]. She does have age-appropriate degenerative findings throughout with lower lumbar facet arthrosis but no instability or apparent fracture. Sacrum has a moderately acute kyphotic shape and the tailbone appears to be properly lined up with the distal sacral trajectory. On the spot lateral of the lumbar spine, there appears to be tiny anterior listhesis at the lowest mobile segment. There appears to be some disc space calcification at what would be a transitional segment below the tiny listhesis. The level of the presumed listhesis is just below the level of the iliac crests on the lateral views SUMMARY/PLAN: It appears that her symptoms today are limited to mechanical type pain at bilateral PSIS. I do not see any neurologic deficit. I think she would benefit from supervised PT and home exercises. I also would like her to consider nonsurgical bariatric care at [facility] to see if it could also help her with her low back symptoms over a longer course of time. Plan : REFERAL FOR SERVICES: -Physical therapy will be instituted. -Referral to [facility] nonsurgical bariatrics ACTIVITY RECOMMENDATIONS: -The patient is encouraged to avoid bed rest and maintain normal activity. NUTRITION RECOMMENDATIONS: -The patient is carrying a significant amount of weight above an ideal BMI. We discussed how this impacts overall health and back pain. FOLLOW-UP: -The patient is instructed to return as needed. ADDITIONAL DISCUSSION: -We discussed the difference between hurt vs harm as it relates to chronic pain. This document has been created with the use of voice recognition technology. It may contain inaccuracies: (e.g. misspellings, inaccurate syntax or word sense) that have escaped review. Time spent: 40 minutes today with this patient visit. This includes djuu-sn-eibn time, review of chart records regarding conservative care history, spine-pertinent imaging, and communication/care coordination with referring provider, problem-specific history-taking and counseling/education regarding treatment options. cc: Ronnie Lay [address] [place] [address] Results of consultation to be transmitted via electronic medical record for those providers who practice within [facility] or with access to [employer] via MD Connect, or via letter. ____ ################################## ################################## #### CHIEF COMPLAINT: Patient is here for the lower back pain, and buttocks area, both sides- pain goes from left to right buttocks area. Has this pain for years. Level of the pain is at 3/10. Pain will get worse depends on what she was going. HPI: see Discussion above History of bowel or bladder dysfunction (not IBS or constipation): Yes, Urge incontinence, frequency History of previous spinal surgery: Yes, performed in 1994 at [facility]. The procedure was a Lumbar. Before surgery she could barely walk, and couldn't control her bladder. 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 Spinal Injections: She has not gotten prior spinal injections. Other: None Current Outpatient Medications Medication Sig Dispense Refill acetaminophen (TYLENOL EXTRA STRENGTH) 500 mg tablet Take 1,000 mg by mouth once daily. alendronate (FOSAMAX) 70 mg tablet Take 1 tablet by mouth one time a week. Take with a full glass of water, on an empty stomach; do NOT lie down for 30minutes. 4 tablet 11 losartan (COZAAR) 25 mg tablet Take 1 tablet by mouth once daily. 30 tablet 5 mirabegron (MYRBETRIQ) 50 mg Tb24 Take 1 tablet by mouth once daily. 90 tablet 3 calcium carbonate-vitamin D3 600mg (1,500mg) -1,000 unit cap Take 1 capsule by mouth twice daily. multivitamin tablet Take 1 tablet by mouth once daily. cyclobenzaprine (FLEXERIL) 10 mg tablet Take 1 tablet by mouth three times a day as needed for muscle spasm. (Patient not taking: Reported on 08/30/2023) 20 tablet 0 IBUPROFEN (MOTRIN ORAL) Take by mouth once daily. (Patient not taking: Reported on 11/08/2023) No current facility-administered medications for this visit. Allergies: Bee Sting and Lisinopril PAST MEDICAL HISTORY Diagnosis Date Benign paroxysmal positional vertigo 07/13/2021 Elevated hemoglobin A1c 01/22/2020 Hypertension, essential 08/29/2022 Left hip pain 2016 Obesity, Class III, BMI 40-49.9 (morbid obesity) (HCC) 01/22/2020 Peripheral edema 01/27/2021 Urge incontinence 01/25/2015 PAST SURGICAL HISTORY Procedure Laterality Date COLONOSCOPY FLX DX W/COLLJ SPEC WHEN PFRMD 07/15/15 normal 10 year follow up D&C (INCOMPLETE AB), ANY TRIMESTER FECAL OCCULT BLOOD TEST 07/15/2017 negative LAMINECTOMY W/O FFD 06/04 VERT SEG LUMBAR N/A 1999 Social History Tobacco Use Smoking status: Former Packs/day: 0.50 Years: 7.00 Additional pack years: 0.00 Total pack years: 3.50 Types: Cigarettes Quit date: 05/03/2003 Years since quittin.5 Smokeless tobacco: Never Vaping Use Vaping Use: Never used Substance Use Topics Alcohol use: No Drug use: No FAMILY HISTORY Problem Relation Age of Onset Heart Mother Diabetes Mother Heart Father not sure of exact issue No Known Problems Brother No Known Problems Brother No Known Problems Brother Diabetes Maternal Grandmother No Known Problems Daughter No Known Problems Son No Known Problems Son No Known Problems Son REVIEW OF SYSTEMS: Constitutional: (-) Fever/Chills (+) Night Sweats (-) Weight Gain (-) Weight Loss Gastrointestinal: (-) Abdominal Pain (-) Diarrhea (-) Constipation (-) Heart Burn Cardiovascular: (-) Chest Pain (-) Palpitations (-) Lightheadedness (-) Hx Heart Surgery/Stent Respiratory: (-) Short of Breath (-) Cough (+) Snoring Neurologic: (-) Headache (-) Blurry Vision (-) Fainting Skin: (-) Rashes (-) Itching (-) Other Lesions Psychiatric: (-) Depression (-) Anxiety (-) Suicidal Thoughts Genitourinary: (+) Frequency (+) Urgency Endocrine: (-) Thyroid Disorder (-) Diabetes Hematologic: (-) Prolonged Bleeding (-) Easy Bruising ################################## ################################## ################################## ########################### PHYSICAL EXAM: Blood pressure 132/64, pulse 80, height 160 cm (5' 3 ), weight 104 kg (229 lb 4.5 oz), SpO2 93%. Body mass index is 40.61 kg/m . General: Patient is a(n) average historian. The patient appears approximately the recorded age and is sitting comfortably in the examining room. The patient is short in stature and is morbidly obese in appearance. This individual has difficulty arising from a sitting position and does not have difficulty acquiring a full, upright position when standing. Station and Gait: wide-based and waddles considerably from [id number] as she walks with feet everted MENTAL STATUS EXAMINATION: The patient was well groomed and casually attired. The patient had good eye contact and rapport was average to establish. The patient appeared to be alert and oriented in all spheres. The patient's overall medical judgment appeared to be fair.The patient's motivation for treatment was judged based on today's encounter to be fair. SPINE: Lumbar Lordosis: unable to assess due to body habitus Thoracic Kyphosis: unable to assess due to body habitus RANGE OF MOTION: Flexion: normal, as expected for age and weight Pain: No Extension: normal, as expected for age and weight Pain: No Lateral Bending: Right normal, as expected for age and weight Pain: Yes, axial pain Left normal, as expected for age and weight Pain: Yes, axial pain PALPATION TENDERNESS: Moderate tenderness at: posterior pelvis Hyperesthesia present: No Regional symptoms present: No Increased pain with axial loading: No Distraction: Normal Pain responses: appropriate NEUROLOGIC EXAM: MOTOR: Requires verbal cues to minimize cog-wheel or give-way resistance: No Hip Flexor R: 4/5 L: 4/5 Hip Abductor R: 5/5 L: 5/5 Hip Adductor R: 4/5 L: 4/5 Knee Extension R: 5/5 L: 5/5 Foot Dorsiflexion R: 5/5 L: 5/5 Foot Plantar Flexion R: 5/5 L: 5/5 Ext Hallicus Longus R: 5/5 L: 5/5 Toe Extensors R: 5/5 L: 5/5 SENSATION to Light Touch: Lumbar: L2-S1 symmetrically normal. REFLEXES: Lower Extremity: All Lower Extremity reflexes symmetrically normal. Clonus: R: 0 beats/Normal L: 0 beats/Normal Babinski Sign: Negative bilaterally. VASCULAR: Skin appearance: Right: Warm/pink Left: Warm/pink Capillary refill: Right: brisk Left: brisk ADDITIONAL MUSCULOSKELETAL EXAM: HIP/PELVIS EXAM: Tenderness over the PSIS: Right: Yes Left: Yes Greater Trochanteric pain: Right: No Left: No Motion restriction: Right: No Left: No Pain: Right: No Left: No SPECIAL TESTS: Straight Leg Raise: negative bilaterally Contralateral Straight Leg Raise: negative bilaterally IMAGING STUDIES: See discussion above documented in this encounter [facility] 10-11-2023 History of Present illness Narrative Radiology Service Progress Note PATIENT NAME: Leandro Fontanez DATE OF SERVICE: October 11, 2023 TIME: 12:17 PM PATIENT IDENTITY VERIFICATION COMPLETED USING TWO (2) IDENTIFIERS: Name and Date of confirmed by patient verbally. FALL SCREENING: Has the patient had 2 falls in the last year or 1 fall with injury or currently using an Ambulatory Assistive Device (Walker, Cane, Wheelchair, Crutches, etc.)? No PATIENT GENDER DATA: Female. status: : No status: NO. PATIENT RELEVANT IMPLANT DATA REVIEWED: Yes PATIENT PRESENTS WITH AN IMPLANTABLE OR ATTACHED ONCOLOGY PHARMACIST: No RADIOLOGY DEPARTMENT: General X-ray: Exam(s) Completed: Spine X-Ray(s): Lumbar AP / LAT / L5-S1 and Sacrum/Coccyx PERIPHERAL IV DATA: Not applicable SIGNED BY: RT Solitario(Raulito) October 11, 2023 12:17 PM documented in this encounter [facility] 10-11-2023 Note HNO ID: [id number] Author: RODRIGUE PHILLIPS RT(R) Service: Radiology Author Type: Technologist Type: Progress Notes Filed: 10/11/2023 12:17 Note Text: Radiology Service Progress Note PATIENT NAME: Leandro Fontanez DATE OF SERVICE: October 11, 2023 TIME: 12:17 PM PATIENT IDENTITY VERIFICATION COMPLETED USING TWO (2) IDENTIFIERS: Name and Date of confirmed by patient verbally. FALL SCREENING: Has the patient had 2 falls in the last year or 1 fall with injury or currently using an Ambulatory Assistive Device (Walker, Cane, Wheelchair, Crutches, etc.)? No PATIENT GENDER DATA: Female. status: : No status: NO. PATIENT RELEVANT IMPLANT DATA REVIEWED: Yes PATIENT PRESENTS WITH AN IMPLANTABLE OR ATTACHED ONCOLOGY PHARMACIST: No RADIOLOGY DEPARTMENT: General X-ray: Exam(s) Completed: Spine X-Ray(s): Lumbar AP / LAT / L5-S1 and Sacrum/Coccyx PERIPHERAL IV DATA: Not applicable SIGNED BY: RT Solitario(Raulito) October 11, 2023 12:17 PM [facility] 10-11-2023 Note HNO ID: [id number] Author: RONNIE LAY APRN.SQL APPLICATION DEVELOPER Service: ? Author Type: Nurse Practitioner Type: Progress Notes Filed: 10/11/2023 12:44 Note Text: Subjective Patient came in with complaints of lower back pain. Patient says she did not injure it in any way. Patient says it tends to hurt more after she has worked all day on it. Patient says it just feels achy. Denies any radiating pain numbness or tingling down the leg. Denies any difficulty having bowel movements or urinating. Scribes the pain as an achy pain The history is provided by the patient. No language teacher was used. Back Pain Review of Systems Constitutional: Negative. Musculoskeletal: Positive for back pain. Skin: Negative. Objective Physical Exam Constitutional: Appearance: Normal appearance. Pulmonary: Effort: Pulmonary effort is normal. Skin: Comments: Patient says she is has pain in the area marked above slightly tender when palpated no deformities noted. Patient was able to lift legs and range of motion within normal limits. Neurological: Mental Status: She is alert. PAST MEDICAL HISTORY Diagnosis Date Benign paroxysmal positional vertigo 07/13/2021 Elevated hemoglobin A1c 01/22/2020 Hypertension, essential 08/29/2022 Left hip pain 2016 Obesity, Class III, BMI 40-49.9 (morbid obesity) ([facility]) 01/22/2020 Peripheral edema 01/27/2021 Urge incontinence 01/25/2015 PAST SURGICAL HISTORY Procedure Laterality Date COLONOSCOPY FLX DX W/COLLJ SPEC WHEN PFRMD 07/15/15 normal 10 year follow up DANDC (INCOMPLETE AB), ANY TRIMESTER FECAL OCCULT BLOOD TEST 07/15/2017 negative LAMINECTOMY W/O FFD 06/04 VERT SEG LUMBAR N/A 1999 ALLERGIES Bee Sting and Lisinopril MEDICATIONS meloxicam (MOBIC) 15 mg tablet Take 1 tablet by mouth once daily. alendronate (FOSAMAX) 70 mg tablet Take 1 tablet by mouth one time a week. Take with a full glass of water, on an empty stomach; do NOT lie down for 30minutes. losartan (COZAAR) 25 mg tablet Take 1 tablet by mouth once daily. mirabegron (MYRBETRIQ) 50 mg Tb24 Take 1 tablet by mouth once daily. calcium carbonate-vitamin D3 600mg (1,500mg) -1,000 unit cap Take 1 capsule by mouth twice daily. multivitamin tablet Take 1 tablet by mouth once daily. IBUPROFEN (MOTRIN ORAL) Take by mouth once daily. cyclobenzaprine (FLEXERIL) 10 mg tablet Take 1 tablet by mouth three times a day as needed for muscle spasm. (Patient not taking: Reported on 08/30/2023) FAMILY HISTORY Problem Relation Age of Onset Heart Mother Diabetes Mother Heart Father not sure of exact issue No Known Problems Brother No Known Problems Brother No Known Problems Brother Diabetes Maternal Grandmother No Known Problems Daughter No Known Problems Son No Known Problems Son No Known Problems Son Social History Tobacco Use Smoking status: Former Packs/day: 0.50 Years: 7.00 Additional pack years: 0.00 Total pack years: 3.50 Types: Cigarettes Quit date: 05/03/2003 Years since quittin.4 Smokeless tobacco: Never Vaping Use Vaping Use: Never used Substance Use Topics Alcohol use: No Drug use: No ASSESSMENT/PLAN: 1. Pain - ICD9: 780.96, ICD10: R52 - XR SACRUM/COCCYX 3V AP/LAT - XR LUMBAR GENERAL 3V AP/LAT/L5-S1 * * * * Physician Interpretation * * * * X-ray lumbosacral spine, AP, lateral and L5-S1 views X-ray sacrum and coccyx, AP and lateral views Indication: Low back pain Comparison: X-ray lumbar spine 01/22/2020 Counting reference: Lumbosacral junction. For the purposes of this report, L5S1 is considered the last lumbar type disc space and L4-5 is considered the level of the iliac crest. Transitional vertebra at S1. No fracture is visualized. There is good alignment of the vertebrae. There is degenerative disc disease at multiple levels of the lumbar spine with endplate sclerosis, intervertebral disc space narrowing and osteophyte formation. Sacroiliac joints appear normal. IMPRESSION IMPRESSION: No acute fracture. Degenerative disease of the lumbar spine. Banjo Repair Person: KELLY Transcribe Date/Time: Oct 11 2023 12:32P Dictated by : ERYN MEADOWS MD - [facility] Is on daily for 5 days. Patient will make her own spine appointment. Was okay with this care plan. Ronnie Lay APRN.[facility] 10-11-2023 History of Present illness Narrative Images from the original note were not included. Subjective Patient came in with complaints of lower back pain. Patient says she did not injure it in any way. Patient says it tends to hurt more after she has worked all day on it. Patient says it just feels achy. Denies any radiating pain numbness or tingling down the leg. Denies any difficulty having bowel movements or urinating. Scribes the pain as an achy pain The history is provided by the patient. No language teacher was used. Back Pain Review of Systems Constitutional: Negative. Musculoskeletal: Positive for back pain. Skin: Negative. Objective Physical Exam Constitutional: Appearance: Normal appearance. Pulmonary: Effort: Pulmonary effort is normal. Skin: Comments: Patient says she is has pain in the area marked above slightly tender when palpated no deformities noted. Patient was able to lift legs and range of motion within normal limits. Neurological: Mental Status: She is alert. PAST MEDICAL HISTORY Diagnosis Date Benign paroxysmal positional vertigo 07/13/2021 Elevated hemoglobin A1c 01/22/2020 Hypertension, essential 08/29/2022 Left hip pain 2016 Obesity, Class III, BMI 40-49.9 (morbid obesity) ([facility]) 01/22/2020 Peripheral edema 01/27/2021 Urge incontinence 01/25/2015 PAST SURGICAL HISTORY Procedure Laterality Date COLONOSCOPY FLX DX W/COLLJ SPEC WHEN PFRMD 07/15/15 normal 10 year follow up D&C (INCOMPLETE AB), ANY TRIMESTER FECAL OCCULT BLOOD TEST 07/15/2017 negative LAMINECTOMY W/O FFD / VERT SEG LUMBAR N/A 1999 ALLERGIES Bee Sting and Lisinopril MEDICATIONS meloxicam (MOBIC) 15 mg tablet Take 1 tablet by mouth once daily. alendronate (FOSAMAX) 70 mg tablet Take 1 tablet by mouth one time a week. Take with a full glass of water, on an empty stomach; do NOT lie down for 30minutes. losartan (COZAAR) 25 mg tablet Take 1 tablet by mouth once daily. mirabegron (MYRBETRIQ) 50 mg Tb24 Take 1 tablet by mouth once daily. calcium carbonate-vitamin D3 600mg (1,500mg) -1,000 unit cap Take 1 capsule by mouth twice daily. multivitamin tablet Take 1 tablet by mouth once daily. IBUPROFEN (MOTRIN ORAL) Take by mouth once daily. cyclobenzaprine (FLEXERIL) 10 mg tablet Take 1 tablet by mouth three times a day as needed for muscle spasm. (Patient not taking: Reported on 08/30/2023) FAMILY HISTORY Problem Relation Age of Onset Heart Mother Diabetes Mother Heart Father not sure of exact issue No Known Problems Brother No Known Problems Brother No Known Problems Brother Diabetes Maternal Grandmother No Known Problems Daughter No Known Problems Son No Known Problems Son No Known Problems Son Social History Tobacco Use Smoking status: Former Packs/day: 0.50 Years: 7.00 Additional pack years: 0.00 Total pack years: 3.50 Types: Cigarettes Quit date: 05/03/2003 Years since quittin.4 Smokeless tobacco: Never Vaping Use Vaping Use: Never used Substance Use Topics Alcohol use: No Drug use: No ASSESSMENT/PLAN: 1. Pain - ICD9: 780.96, ICD10: R52 - XR SACRUM/COCCYX 3V AP/LAT - XR LUMBAR GENERAL 3V AP/LAT/L5-S1 * * * * Physician Interpretation * * * * X-ray lumbosacral spine, AP, lateral and L5-S1 views X-ray sacrum and coccyx, AP and lateral views Indication: Low back pain Comparison: X-ray lumbar spine 01/22/2020 Counting reference: Lumbosacral junction. For the purposes of this report, L5S1 is considered the last lumbar type disc space and L4-5 is considered the level of the iliac crest. Transitional vertebra at S1. No fracture is visualized. There is good alignment of the vertebrae. There is degenerative disc disease at multiple levels of the lumbar spine with endplate sclerosis, intervertebral disc space narrowing and osteophyte formation. Sacroiliac joints appear normal. IMPRESSION IMPRESSION: No acute fracture. Degenerative disease of the lumbar spine. Banjo Repair Person: KELLY Transcribe Date/Time: Oct 11 2023 12:32P Dictated by : ERYN MEADOWS MD - CONSULT TO [facility] Is on daily for 5 days. Patient will make her own spine appointment. Was okay with this care plan. Ronnei Lay APRN.HECTOR documented in this encounter [facility] 09-30-2023 Miscellaneous Notes Patient picked up medication. Macrina Sheldon LPN Called patient to inform her medication had been sent in. No response. Left VM. Macrina Sheldon LPN Images from the original note were not included. Shahrzad Ewing 39 minutes ago (7:36 AM) Order for mobic sent to [facility]. She can take once daily with food. Shahrzad Ewing DPM Pt returned called. Message below from Dr. Ewing received. She said she would try the anti-inflammatory. [facility] pharmacy would be her choice for pharmacy. Attempted to call patient to relay below message. No answer, left voicemail for her to call office back Please call patient to inform her that her blood work is fine. If she wishes for me to call in an anti-inflammatory, let us know what pharmacy works the best and I will call that in. Shahrzad Ewing DPM documented in this encounter [facility] 09-30-2023 Telephone encounter Note Patient picked up medication. Macrina Sheldon LPN [facility] Work Phone: 09-25-2023 Telephone encounter Note Called patient to inform her medication had been sent in. No response. Left VM. Macrina Sheldon LPN [facility] 09-24-2023 Telephone encounter Note Images from the original note were not included. Testrake, Shahrzad You 39 minutes ago (7:36 AM) Order for mobic sent to [facility]. She can take once daily with food. Shahrzad Ewing DPM [facility] 09-23-2023 Telephone encounter Note Pt returned called. Message below from Dr. Ewing received. She said she would try the anti-inflammatory. [facility] pharmacy would be her choice for pharmacy. [facility] Work Phone: 09-23-2023 Telephone encounter Note Attempted to call patient to relay below message. No answer, left voicemail for her to call office back T [facility] 09-23-2023 Telephone encounter Note Please call patient to inform her that her blood work is fine. If she wishes for me to call in an anti-inflammatory, let us know what pharmacy works the best and I will call that in. Shahrzad Ewing DPM [facility] Work Phone: 09-23-2023 Instructions Shahrzad Ewing - 09/23/2023 10:52 AM EDT Powerstep Original Full length. Can purchase at [facility] Runner and boots,shoes and more here in [place], [employer] in [place] or [place]. Also can find in [employer] in [facility]. Powersteps can also be purchased online, starting around $45.00 If you have a metatarsal or dancer pad for your feet apply the pad directly to the insole so you can interchange between your shoes. Find a shoe with a removable insole and take this out and replace with your powerstep insole. Always bring powersteps with you when shopping for shoes so that you can make sure that everything fits well together Recommend shoes that lace up, such as hoka, asics, rai, new balance documented in this encounter [facility] 09-23-2023 Note HNO ID: [id number] Author: SHAHRZAD EWING, ? Service: ? Author Type: Physician Type: Progress Notes Filed: 09/23/2023 11:00 Note Text: Consultation requested by Dr. Juarez for an opinion regarding b/l ankle pain. My final recommendations will be communicated back to the requesting physician by way of shared Medical record or letter to requesting physician via US mail. Initial Podiatric Office Visit: Chief Complaint: This 68 year old female who presents with chief complaint: b/l ankle pain HPI Patient presents to clinic with complaint of b/l ankle pain. She has pain to b/l lower extremity that has been present for several years. She states the pain is very intermittent, worse with walking. Does fear that her ankles are going to give out. Currently not doing much for the pain Has xrays to review. If the pain gets really bad, she will take motrin PAIN EVALUATION 09/23/2023 1027 Pain Level: 5 Pain Location: Other: See Comment bilateral ankles Description: Throbbing;Aching Duration Units: Years Frequency: Continuous Intervention/Comfort measure: Relaxation;Reposition Hemoglobin A1C (%) Date Value 02/20/2023 5.7 01/26/2022 6.0 08/02/2021 5.8 01/27/2021 5.9 01/25/2020 5.9 08/08/2018 5.8 07/15/2017 5.8 Hemoglobin A1C (POCT) (%) Date Value 08/29/2022 5.9 PCP: Jamie Juarez MD PAST MEDICAL HISTORY Diagnosis Date Benign paroxysmal positional vertigo 07/13/2021 Elevated hemoglobin A1c 01/22/2020 Hypertension, essential 08/29/2022 Left hip pain 2017 Obesity, Class III, BMI 40-49.9 (morbid obesity) (HCC) 01/22/2020 Peripheral edema 01/27/2021 Urge incontinence 01/25/2015 Current Outpatient Medications Medication Sig alendronate (FOSAMAX) 70 mg tablet Take 1 tablet by mouth one time a week. Take with a full glass of water, on an empty stomach; do NOT lie down for 30minutes. losartan (COZAAR) 25 mg tablet Take 1 tablet by mouth once daily. mirabegron (MYRBETRIQ) 50 mg Tb24 Take 1 tablet by mouth once daily. calcium carbonate-vitamin D3 600mg (1,500mg) -1,000 unit cap Take 1 capsule by mouth twice daily. multivitamin tablet Take 1 tablet by mouth once daily. IBUPROFEN (MOTRIN ORAL) Take by mouth once daily. cyclobenzaprine (FLEXERIL) 10 mg tablet Take 1 tablet by mouth three times a day as needed for muscle spasm. (Patient not taking: Reported on 08/30/2023) No current facility-administered medications for this visit. ALLERGIES Allergen Reactions Bee Sting Swelling Has not had SOB or other issues other than extreme swelling at site of sting Lisinopril Cough PAST SURGICAL HISTORY Procedure Laterality Date COLONOSCOPY FLX DX W/COLLJ SPEC WHEN PFRMD 07/15/15 normal 10 year follow up DANDC (INCOMPLETE AB), ANY TRIMESTER FECAL OCCULT BLOOD TEST 07/15/2017 negative LAMINECTOMY W/O FFD 06/04 VERT SEG LUMBAR N/A 1999 FAMILY HISTORY Problem Relation Age of Onset Heart Mother Diabetes Mother Heart Father not sure of exact issue No Known Problems Brother No Known Problems Brother No Known Problems Brother Diabetes Maternal Grandmother No Known Problems Daughter No Known Problems Son No Known Problems Son No Known Problems Son Social History Tobacco Use Smoking status: Former Packs/day: 0.50 Years: 7.00 Additional pack years: 0.00 Total pack years: 3.50 Types: Cigarettes Quit date: 05/03/2003 Years since quittin.4 Smokeless tobacco: Never Vaping Use Vaping Use: Never used Substance Use Topics Alcohol use: No Drug use: No REVIEW OF SYSTEMS GENERAL: Negative for Malaise, significant weight loss, fever RESPIRATORY: Negative for cough, wheezing and shortness of breath CARDIOVASCULAR: Negative for chest pain, leg swelling and palpitations GI: Negative for abdominal discomfort, blood in stools or black stools and change in bowel habits : Negative for dysuria, frequency and incontinence MUSCULOSKELETAL: Negative for joint pain or swelling, back pain, and muscle pain. SKIN: Negative for lesions, rash, and itching. HEMATOLOGY/LYMPHOLOGY Negative for prolonged bleeding, bruising easily, and swollen nodes. ENDOCRINE: Negative for cold or heat intolerance, polyuria, polydipsia and goiter. NEURO: negative Physical Exam: Constitutional: Pt is a well developed 68 year old female who is alert, oriented and cooperative Eyes: Following during examination. No redness or drainage. Respiratory: RR normal and nonlabored. Even breathing. No evidence of distress or shortness of breath. Psychology: Patient is engaged during conversation. Normal affect and mood. Does not appear depressed or anxious during encounter. Vascular: Dorsalis pedis and posterior tibial pulses palpable as b/l Capillary Fill time < 5 seconds to digits 1-5 b/l Skin temperature warm to warm proximal to distal b/l Hair growth present to digits Neurological: intact light touch/epicritic sensation b/l intact protective (more content not included)... [facility] 09-23-2023 History of Present illness Narrative Images from the original note were not included. Consultation requested by Dr. Juarez for an opinion regarding b/l ankle pain. My final recommendations will be communicated back to the requesting physician by way of shared Medical record or letter to requesting physician via US mail. Initial Podiatric Office Visit: Chief Complaint: This 68 year old female who presents with chief complaint: b/l ankle pain HPI Patient presents to clinic with complaint of b/l ankle pain. She has pain to b/l lower extremity that has been present for several years. She states the pain is very intermittent, worse with walking. Does fear that her ankles are going to give out. Currently not doing much for the pain Has xrays to review. If the pain gets really bad, she will take motrin PAIN EVALUATION 09/23/2023 1027 Pain Level: 5 Pain Location: Other: See Comment bilateral ankles Description: Throbbing;Aching Duration Units: Years Frequency: Continuous Intervention/Comfort measure: Relaxation;Reposition Hemoglobin A1C (%) Date Value 02/20/2023 5.7 01/26/2022 6.0 08/02/2021 5.8 01/27/2021 5.9 01/25/2020 5.9 08/08/2018 5.8 07/15/2017 5.8 Hemoglobin A1C (POCT) (%) Date Value 08/29/2022 5.9 PCP: Jamie Juarez MD PAST MEDICAL HISTORY Diagnosis Date Benign paroxysmal positional vertigo 07/13/2021 Elevated hemoglobin A1c 01/22/2020 Hypertension, essential 08/29/2022 Left hip pain 2016 Obesity, Class III, BMI 40-49.9 (morbid obesity) (HCC) 01/22/2020 Peripheral edema 01/27/2021 Urge incontinence 01/25/2015 Current Outpatient Medications Medication Sig alendronate (FOSAMAX) 70 mg tablet Take 1 tablet by mouth one time a week. Take with a full glass of water, on an empty stomach; do NOT lie down for 30minutes. losartan (COZAAR) 25 mg tablet Take 1 tablet by mouth once daily. mirabegron (MYRBETRIQ) 50 mg Tb24 Take 1 tablet by mouth once daily. calcium carbonate-vitamin D3 600mg (1,500mg) -1,000 unit cap Take 1 capsule by mouth twice daily. multivitamin tablet Take 1 tablet by mouth once daily. IBUPROFEN (MOTRIN ORAL) Take by mouth once daily. cyclobenzaprine (FLEXERIL) 10 mg tablet Take 1 tablet by mouth three times a day as needed for muscle spasm. (Patient not taking: Reported on 08/30/2023) No current facility-administered medications for this visit. ALLERGIES Allergen Reactions Bee Sting Swelling Has not had SOB or other issues other than extreme swelling at site of sting Lisinopril Cough PAST SURGICAL HISTORY Procedure Laterality Date COLONOSCOPY FLX DX W/COLLJ SPEC WHEN PFRMD 07/15/15 normal 10 year follow up D&C (INCOMPLETE AB), ANY TRIMESTER FECAL OCCULT BLOOD TEST 07/15/2017 negative LAMINECTOMY W/O FFD / VERT SEG LUMBAR N/A 1999 FAMILY HISTORY Problem Relation Age of Onset Heart Mother Diabetes Mother Heart Father not sure of exact issue No Known Problems Brother No Known Problems Brother No Known Problems Brother Diabetes Maternal Grandmother No Known Problems Daughter No Known Problems Son No Known Problems Son No Known Problems Son Social History Tobacco Use Smoking status: Former Packs/day: 0.50 Years: 7.00 Additional pack years: 0.00 Total pack years: 3.50 Types: Cigarettes Quit date: 05/03/2003 Years since quittin.4 Smokeless tobacco: Never Vaping Use Vaping Use: Never used Substance Use Topics Alcohol use: No Drug use: No REVIEW OF SYSTEMS GENERAL: Negative for Malaise, significant weight loss, fever RESPIRATORY: Negative for cough, wheezing and shortness of breath CARDIOVASCULAR: Negative for chest pain, leg swelling and palpitations GI: Negative for abdominal discomfort, blood in stools or black stools and change in bowel habits : Negative for dysuria, frequency and incontinence MUSCULOSKELETAL: Negative for joint pain or swelling, back pain, and muscle pain. SKIN: Negative for lesions, rash, and itching. HEMATOLOGY/LYMPHOLOGY Negative for prolonged bleeding, bruising easily, and swollen nodes. ENDOCRINE: Negative for cold or heat intolerance, polyuria, polydipsia and goiter. NEURO: negative Physical Exam: Constitutional: Pt is a well developed 68 year old female who is alert, oriented and cooperative Eyes: Following during examination. No redness or drainage. Respiratory: RR normal and nonlabored. Even breathing. No evidence of distress or shortness of breath. Psychology: Patient is engaged during conversation. Normal affect and mood. Does not appear depressed or anxious during encounter. Vascular: Dorsalis pedis and posterior tibial pulses palpable as b/l Capillary Fill time < 5 seconds to digits 1-5 b/l Skin temperature warm to warm proximal to distal b/l Hair growth present to digits Neurological: intact light touch/epicritic sensation b/l intact protective sensation no significant neurological deficits Dermatological: Nails 1-5 b/l appear normal. Webspaces clean and dry 1-4 b/l. Skin appears well hydrated and supple. good color, texture, turgor. No open lesions present. No callosities present. Musculoskeletal/Orthopaedic: Patient has pain to palpation of b/l subtalar joint Foot type is slightly pronated structurally AJ ROM is full with knee extended and flexed 1st MPJ is full when loaded and no pain or crepitus are noted with ROM. MTJ, STJ are full and free of pain and crepitus. +5/5 muscle strength dorsiflexion, plantarflexion, inversion, eversion b/l Radiographs: 3 views b/l ankle ordered September 23, 2023: I have personally reviewed and interpreted these XR myself: b/l subtalar joint arthritis. 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 History and physical examination performed. 2. XR reviewed with patient and interpreted today 3. Discussed b/l ankle pain. I suspect the pain is more related to arthritis in the subtalar joint rather than ankle joint. I will have patient try powerstep inserts and purchase more supportive shoes. 4. In addition, may consider mobic pending blood work Shahrzad Ewing DPM Podiatry [address] [facility] [id number] Dept: [phone] Dept [facility] DATA Pain Pain Level: 5 Pain Location: Other: See Comment (bilateral ankles) Description: Throbbing, Aching Duration Units: Years Frequency: Continuous Intervention/Comfort measure: Relaxation, Reposition Patient presents with: Right Ankle - New, Pain, Swelling Left Ankle - New, Pain, Swelling Patient presents for bilateral ankle pain and swelling. States that it has been ongoing for years and worsened recently. Patient states that Left is worse than right. Pain and swelling worse at the end of the day. XR prior to appointment. documented in this encounter [facility] 09-23-2023 Note HNO ID: [id number] Author: MELANY VARGAS RN Service: ? Author Type: Registered Nurse Type: Progress Notes Filed: 09/23/2023 11:00 Note Text: [facility] Pain Pain Level: 5 Pain Location: Other: See Comment (bilateral ankles) Description: Throbbing, Aching Duration Units: Years Frequency: Continuous Intervention/Comfort measure: Relaxation, Reposition Patient presents with: Right Ankle - New, Pain, Swelling Left Ankle - New, Pain, Swelling Patient presents for bilateral ankle pain and swelling. States that it has been ongoing for years and worsened recently. Patient states that Left is worse than right. Pain and swelling worse at the end of the day. XR prior to appointment. [facility] 09-23-2023 History of Present illness Narrative Radiology Service Progress Note PATIENT NAME: Leandro Fontanez DATE OF SERVICE: September 23, 2023 TIME: 9:50 AM PATIENT IDENTITY VERIFICATION COMPLETED USING TWO (2) IDENTIFIERS: Name and Date of confirmed by patient verbally. FALL SCREENING: Has the patient had 2 falls in the last year or 1 fall with injury or currently using an Ambulatory Assistive Device (Walker, Cane, Wheelchair, Crutches, etc.)? No PATIENT GENDER DATA: Female. status: : No status: NO. PATIENT RELEVANT IMPLANT DATA REVIEWED: Yes PATIENT PRESENTS WITH AN IMPLANTABLE OR ATTACHED ONCOLOGY PHARMACIST: No RADIOLOGY DEPARTMENT: General X-ray: Exam(s) Completed: Lower Extremity X-Ray(s): Ankle, Bilateral PERIPHERAL IV DATA: Not applicable SIGNED BY: RT Liza(Raulito) September 23, 2023 9:50 AM documented in this encounter [facility] 09-23-2023 Note HNO ID: [id number] Author: TABITHA HOOKS RT(R) Service: ? Author Type: Electronic Engraver Type: Progress Notes Filed: 09/23/2023 10:06 Note Text: Radiology Service Progress Note PATIENT NAME: Leandro Fontanez DATE OF SERVICE: September 23, 2023 TIME: 9:50 AM PATIENT IDENTITY VERIFICATION COMPLETED USING TWO (2) IDENTIFIERS: Name and Date of confirmed by patient verbally. FALL SCREENING: Has the patient had 2 falls in the last year or 1 fall with injury or currently using an Ambulatory Assistive Device (Walker, Cane, Wheelchair, Crutches, etc.)? No PATIENT GENDER DATA: Female. status: : No status: NO. PATIENT RELEVANT IMPLANT DATA REVIEWED: Yes PATIENT PRESENTS WITH AN IMPLANTABLE OR ATTACHED ONCOLOGY PHARMACIST: No RADIOLOGY DEPARTMENT: General X-ray: Exam(s) Completed: Lower Extremity X-Ray(s): Ankle, Bilateral PERIPHERAL IV DATA: Not applicable SIGNED BY: RT Liza(Raulito) September 23, 2023 9:50 AM [facility] 09-02-2023 Miscellaneous Notes Pt notified of results and provider message. Kaylan Ruiz LPN Left message for patient to contact office. Nguyen Lay MA Covid/flu/rsv negative. Continue as discussed with Dr. Juarez. documented in this encounter [facility] 08-30-2023 Note HNO ID: [id number] Author: JAMIE JUAREZ MD Service: ? Author Type: Physician Type: Progress Notes Filed: 08/30/2023 12:35 Note Text: Chief Complaint Patient presents with: Cough HPI Leandro Fontanez is a 68 year old female who presents here today for Acute onset of cough.. Patient indicated cough started on Saturday. No fevers or chills. Slight ear discomfort. Headache in the forehead and worse with coughing. No nasal discharge. Post nasal drainage. Slight throat irritation yesterday. Has a dry cough. No nausea, vomiting diarrhea. No new body aches. Past medical history, appointments, medications, allergies reviewed. Previous Medical History PAST MEDICAL HISTORY Diagnosis Date Benign paroxysmal positional vertigo 07/13/2021 Elevated hemoglobin A1c 01/22/2020 Hypertension, essential 08/29/2022 Left hip pain 2016 Obesity, Class III, BMI 40-49.9 (morbid obesity) (HCC) 01/22/2020 Peripheral edema 01/27/2021 Urge incontinence 01/25/2015 Previous Surgical History PAST SURGICAL HISTORY Procedure Laterality Date COLONOSCOPY FLX DX W/COLLJ SPEC WHEN PFRMD 07/15/15 normal 10 year follow up DANDC (INCOMPLETE AB), ANY TRIMESTER FECAL OCCULT BLOOD TEST 07/15/2017 negative LAMINECTOMY W/O FFD 1/2 VERT SEG LUMBAR N/A 1999 Family History FAMILY HISTORY Problem Relation Age of Onset Heart Mother Diabetes Mother Heart Father not sure of exact issue No Known Problems Brother No Known Problems Brother No Known Problems Brother Diabetes Maternal Grandmother No Known Problems Daughter No Known Problems Son No Known Problems Son No Known Problems Son Patient Allergies ALLERGIES Allergen Reactions Lisinopril Cough Bee Sting Swelling Has not had SOB or other issues other than extreme swelling at site of sting Current Medications Current Outpatient Medications on File Prior to Visit Medication Sig alendronate (FOSAMAX) 70 mg tablet Take 1 tablet by mouth one time a week. Take with a full glass of water, on an empty stomach; do NOT lie down for 30minutes. losartan (COZAAR) 25 mg tablet Take 1 tablet by mouth once daily. mirabegron (MYRBETRIQ) 50 mg Tb24 Take 1 tablet by mouth once daily. calcium carbonate-vitamin D3 600mg (1,500mg) -1,000 unit cap Take 1 capsule by mouth twice daily. multivitamin tablet Take 1 tablet by mouth once daily. IBUPROFEN (MOTRIN ORAL) Take by mouth once daily. albuterol HFA (PROAIR HFA) 90 mcg/actuation inhaler Inhale 2 Puffs as instructed every 6 hours as needed. (Patient not taking: Reported on 08/30/2023) benzonatate (TESSALON PERLES) 100 mg capsule Take 2 capsules by mouth three times a day as needed. (Patient not taking: Reported on 08/30/2023) cyclobenzaprine (FLEXERIL) 10 mg tablet Take 1 tablet by mouth three times a day as needed for muscle spasm. (Patient not taking: Reported on 08/30/2023) No current facility-administered medications on file prior to visit. Social History Social History Tobacco Use Smoking status: Former Packs/day: 0.50 Years: 7.00 Additional pack years: 0.00 Total pack years: 3.50 Types: Cigarettes Quit date: 05/03/2003 Years since quittin.3 Smokeless tobacco: Never Vaping Use Vaping Use: Never used Substance Use Topics Alcohol use: No Drug use: No Review of Symptoms REVIEW OF SYSTEMS See HPI EXAM: BP 112/70 (BP Site: Left Arm, BP Position: Sitting, BP Cuff Size: Large Adult) Pulse 82 Temp 37.1 ?C (98.8 ?F) (Tympanic) Resp 22 Wt 103.9 kg (229 lb) SpO2 94% BMI 41.87 kg/m? General Appearance: Well appearing, alert, in no acute distress, well-hydrated, well nourished. and Morbidly obese. Eyes: Anicteric sclera. Pupils are equally round and reactive to light. Extraocular movements are intact. . Ears: External ears normal, canals clear. Nose/Sinuses: Nares normal, septum midline, mucosa normal, no drainage or sinus tenderness. Oropharynx: Lips, mucosa, and tongue normal, teeth and gums normal, oropharynx normal. Right tonsil is enlarged. Neck: Supple, no adenopathy; thyroid symmetric, normal size, no bruits. Lungs: Lungs clear to auscultation. No wheezing, rhonchi, rales.. Heart: RRR without murmur, gallop, or rubs. No ectopy. Abdomen: Normal abdominal exam, Abdomen soft, non-tender. Bowel sounds normal. No masses, organomegaly. Health Maintenance List BP Controlled (<130/80) Never done RSV Vaccine(1 - 1-dose 60+ series) Never done Covid-19 Vaccine( season) due on 02/01/2023 Mammogram Screening due on 03/22/2023 Advance Directive Discussion due on 06/03/2023 Depression Assessment Never done DTaP,Tdap,Td Vaccine(2 - Td or Tdap) due on 07/06/2023 Annual PCP Team Chronic Disease Visit due on 03/01/2024 Colorectal Cancer Screening due on 07/15/2025 Diabetes Screening due on 02/20/2026 Lipid Screening due on 02/21/2028 Bone Density Screening Completed Influenza Vaccine Completed Hepatitis C Screening Completed Shingri (more content not included)... [facility] 08-12-2023 Miscellaneous Notes Patient has been identified by name and date of : Yes, Provider Dr. Juarez Date 08-12-23 Time 12:12 pm Pharmacy phones for refill(s): Requested Prescriptions Pending Prescriptions Disp Refills alendronate (FOSAMAX) 70 mg tablet 4 tablet 11 Sig: Take 1 tablet by mouth one time a week. Take with a full glass of water, on an empty stomach; do NOT lie down for 30minutes. Date of last office visit in primary care: 03/01/2023 Date of next office visit in primary care: 08/30/2023 Please advise. Thank you. Silvia Ambrosio. documented in this encounter [facility] 06-16-2023 Miscellaneous Notes Patient given results and verbalized understanding of instructions given. Delaney Dunlap Left VM instructing patient to return call to receive results. Vika Siddiqi MA COVID-19, influenza A, and influenza B PCR test are negative. Continue supportive therapies as discussed during visit. Follow-up with PCP if symptoms are not improving. Jamie Morrow APRN.SQL APPLICATION DEVELOPER documented in this encounter [facility] 06-14-2023 Note HNO ID: [id number] Author: MEME CROW PA-C Service: ? Author Type: Physician Kiln Door Repairer Type: Progress Notes Filed: 06/14/2023 10:59 Note Text: This note was created using DWNLDriter. Subjective Leandro Fontanez is a 67 year old female. HPI Patient presents with a chief complaint of cough, nasal congestion, sore throat over the past 4 days. She was seen at another urgent care and had a COVID flu test that was negative. She states she had gotten the test back within 45 minutes so she thinks it was rapid. She denies shortness of breath. Cough sometimes keeps her up at night. She denies history of asthma or COPD. Sometimes it hurts in her chest when she coughs. No diarrhea or vomiting. Review of Systems Constitutional: Positive for fatigue. Negative for fever. HENT: Positive for congestion, rhinorrhea and sore throat. Negative for ear pain. Respiratory: Positive for cough. Negative for shortness of breath and wheezing. Cardiovascular: Negative. Gastrointestinal: Negative. Genitourinary: Negative. Musculoskeletal: Negative. All other systems reviewed and are negative. PAST MEDICAL HISTORY Diagnosis Date Benign paroxysmal positional vertigo 07/13/2021 Elevated hemoglobin A1c 01/22/2020 Hypertension, essential 08/29/2022 Left hip pain 2016 Obesity, Class III, BMI 40-49.9 (morbid obesity) ([facility]) 01/22/2020 Peripheral edema 01/27/2021 Urge incontinence 01/25/2015 Current Outpatient Medications Medication Sig Dispense Refill losartan (COZAAR) 25 mg tablet Take 1 tablet by mouth once daily. 30 tablet 5 cyclobenzaprine (FLEXERIL) 10 mg tablet Take 1 tablet by mouth three times a day as needed for muscle spasm. 20 tablet 0 mirabegron (MYRBETRIQ) 50 mg Tb24 Take 1 tablet by mouth once daily. 90 tablet 3 alendronate (FOSAMAX) 70 mg tablet Take 1 tablet by mouth one time a week. Take with a full glass of water, on an empty stomach; do NOT lie down for 30minutes. 4 tablet 11 calcium carbonate-vitamin D3 600mg (1,500mg) -1,000 unit cap Take 1 capsule by mouth twice daily. multivitamin tablet Take 1 tablet by mouth once daily. IBUPROFEN (MOTRIN ORAL) Take by mouth once daily. albuterol HFA (PROAIR HFA) 90 mcg/actuation inhaler Inhale 2 Puffs as instructed every 6 hours as needed. 1 Each 0 benzonatate (TESSALON PERLES) 100 mg capsule Take 2 capsules by mouth three times a day as needed. 30 capsule 0 No current facility-administered medications for this visit. PAST SURGICAL HISTORY Procedure Laterality Date COLONOSCOPY FLX DX W/COLLJ SPEC WHEN PFRMD 07/15/15 normal 10 year follow up DANDC (INCOMPLETE AB), ANY TRIMESTER FECAL OCCULT BLOOD TEST 07/15/2017 negative LAMINECTOMY W/O FFD 1/ VERT SEG LUMBAR N/A 1999 FAMILY HISTORY Problem Relation Age of Onset Heart Mother Diabetes Mother Heart Father not sure of exact issue No Known Problems Brother No Known Problems Brother No Known Problems Brother Diabetes Maternal Grandmother No Known Problems Daughter No Known Problems Son No Known Problems Son No Known Problems Son Social History Tobacco Use Smoking status: Former Packs/day: 0.50 Years: 7.00 Additional pack years: 0.00 Total pack years: 3.50 Types: Cigarettes Quit date: 05/03/2003 Years since quittin.1 Smokeless tobacco: Never Vaping Use Vaping Use: Never used Substance Use Topics Alcohol use: No Drug use: No Objective BP 137/85 Pulse 84 Temp 36.9 ?C (98.4 ?F) Resp 22 Wt 102.1 kg (225 lb) SpO2 93% BMI 41.14 kg/m? Physical Exam Vitals reviewed. Constitutional: Appearance: Normal appearance. HENT: Head: Normocephalic and atraumatic. Right Ear: Tympanic membrane, ear canal and external ear normal. Left Ear: Tympanic membrane, ear canal and external ear normal. Nose: Congestion present. Mouth/Throat: Mouth: Mucous membranes are moist. Pharynx: Oropharynx is clear. Cardiovascular: Rate and Rhythm: Normal rate and regular rhythm. Heart sounds: Normal heart sounds. Pulmonary: Effort: Pulmonary effort is normal. Breath sounds: Normal breath sounds. Musculoskeletal: Cervical back: Neck supple. Skin: General: Skin is warm and dry. Findings: No rash. Neurological: General: No focal deficit present. Mental Status: She is alert. Assessment and Plan ASSESSMENT/PLAN: 1. Viral URI - ICD9: 465.9, ICD10: J06.9 - Discussed viral etiology and rationale for treatment. - Symptomatic treatment with prn analgesia - Supportive care with fluids and rest -Patient given DuoNeb treatment here. Chest x-ray shows no pneumonia. I feel she does have a viral URI. Discussed with patient if she is worsening or feeling short of breath recommend being seen in the ER. Pulse ox here 93, she is not in any respiratory distress. Prescription for albuterol inhaler and Tessalon sent. Repeat COVID flu RSV pending. - IPRATROPIUM 0.5 MG-ALBUTEROL 3 MG (2.5 MG BASE)/3 ML NEBULIZATION SOLN - XR CHEST 2V F (more content not included)... [facility] 06-14-2023 History of Present illness Narrative Radiology Service Progress Note PATIENT NAME: Leandro Fontanez DATE OF SERVICE: June 14, 2023 TIME: 10:34 AM PATIENT IDENTITY VERIFICATION COMPLETED USING TWO (2) IDENTIFIERS: Name and Date of confirmed by patient verbally. FALL SCREENING: Has the patient had 2 falls in the last year or 1 fall with injury or currently using an Ambulatory Assistive Device (Walker, Cane, Wheelchair, Crutches, etc.)? No PATIENT GENDER DATA: Female. status: : No status: NO. PATIENT RELEVANT IMPLANT DATA REVIEWED: Yes RADIOLOGY DEPARTMENT: General X-ray: Exam(s) Completed: Chest X-Ray PERIPHERAL IV DATA: Not applicable SIGNED BY: RT Liza(R) June 14, 2023 10:34 AM documented in this encounter [facility] 06-14-2023 Note HNO ID: [id number] Author: TABITHA HOOKS RT(R) Service: ? Author Type: Electronic Engraver Type: Progress Notes Filed: 06/14/2023 10:42 Note Text: Radiology Service Progress Note PATIENT NAME: Leandro Fontanez DATE OF SERVICE: June 14, 2023 TIME: 10:34 AM PATIENT IDENTITY VERIFICATION COMPLETED USING TWO (2) IDENTIFIERS: Name and Date of confirmed by patient verbally. FALL SCREENING: Has the patient had 2 falls in the last year or 1 fall with injury or currently using an Ambulatory Assistive Device (Walker, Cane, Wheelchair, Crutches, etc.)? No PATIENT GENDER DATA: Female. status: : No status: NO. PATIENT RELEVANT IMPLANT DATA REVIEWED: Yes RADIOLOGY DEPARTMENT: General X-ray: Exam(s) Completed: Chest X-Ray PERIPHERAL IV DATA: Not applicable SIGNED BY: RT Liza(R) June 14, 2023 10:34 AM [facility] 03-27-2023 Miscellaneous Notes Spoke with pt and information listed below given. Pt verbalizes understanding. Izabella Constantino LPN Left message for patient to contact office. Nguyen Lay MA Le patient know mammogram was ok. Received results of pt's mammogram ordered by Albina. Please review. Thank you. Barb Garcia LPN Scan on 03/25/2023 12:18 PM by Provider, Anand, RADHA: Mammography documented in this encounter [facility] 01-31-2023 Miscellaneous Notes Noted. Pt called to report she was seen at [facility] ER 01/16/23 & dx'd with vertigo. Pt calling in with an update & reports she is doing better, has a little lightheadedness when she goes to lie down & when getting up from lying down, only lasts a few seconds then goes away. Pt denies any spinning feeling or nausea. Was asking pt questions & the call was disconnected, attempted to call pt back & the call went to her voice mail. Message was left asking her to call back. Felipa Lorenzo LPN documented in this encounter [facility] 01-16-2023 History of Present illness Narrative Triage note: Patient presented for dizziness that started overnight, nausea. Upon initial intake exam patient had slurred speech and slight left upper extremity drift. Recommended to call EMS to take patient to ER. Patient refused EMS and will drive herself. Educated patient that I did not agree with patient driving herself and concern for potential stroke, voiced understanding and continued to refuse EMS. documented in this encounter [facility] 01-16-2023 Miscellaneous Notes Patient call in for dizziness since last night which has been getting worse. Patient states that she has a wrist blood pressure cuff at home, however patient states that it does not work. It reads high a lot. Nurse Triage assessment completed with protocol recommending for disposition of Go to ED now. Care advice reviewed with patient, patient stated understanding. Reason for Disposition SEVERE dizziness (e.g., unable to stand, requires support to walk, feels like passing out now) Answer Assessment - Initial Assessment Questions 1. DESCRIPTION: Feel not right and woozy. 2. LIGHTHEADED: Woozy, weak upon standing. 3. VERTIGO: Denies 4. SEVERITY: Severe, Patient states that she is unable to walk without holding on to objects. 5. ONSET: Last night dizziness started. Dizziness started out with patient just feeling dizzy when standing. Dizziness has gotten worse. Patient has slight dizziness when sitting and needs to hold on to objects when walking. 6. AGGRAVATING FACTORS: Standing. 7. HEART RATE: Thinks her heart rate has been good. 8. CAUSE: Losartan that was started in November 09. RECURRENT SYMPTOM: Denies 10. OTHER SYMPTOMS: Do you have any other symptoms? (e.g., fever, chest pain, vomiting, diarrhea, bleeding) Vomiting. Protocols used: Dizziness - [id number] documented in this encounter [facility] 12-17-2022 Miscellaneous Notes Judson--11/27/22 Nov--12/21/22 Last refill--08/09/22 30 with 5 refills Last labs--08/29/22 documented in this encounter [facility] 11-27-2022 History of Present illness Narrative Chief Complaint Patient presents with: Recheck: pneumonia HPI Leandro Fontanez is a 67 year old female who presents here today for Above Complaints.. Patient states that she is feeling better. She is still having her chronic cough that was similar to pre-pneumonia cough. Worse at night. Some days are better than others. No fevers. Past medical history, appointments, medications, allergies reviewed. Previous Medical History PAST MEDICAL HISTORY Diagnosis Date Benign paroxysmal positional vertigo 07/13/2021 Elevated hemoglobin A1c 01/22/2020 Hypertension, essential 08/29/2022 Left hip pain 2016 Obesity, Class III, BMI 40-49.9 (morbid obesity) ([facility]) 01/22/2020 Peripheral edema 01/27/2021 Urge incontinence 01/25/2015 Previous Surgical History PAST SURGICAL HISTORY Procedure Laterality Date COLONOSCOPY FLX DX W/COLLJ SPEC WHEN PFRMD 07/15/15 normal 10 year follow up D&C (INCOMPLETE AB), ANY TRIMESTER FECAL OCCULT BLOOD TEST 07/15/2017 negative LAMINECTOMY W/O FFD 06/04 VERT SEG LUMBAR N/A 1999 Family History FAMILY HISTORY Problem Relation Age of Onset Heart Mother Diabetes Mother Heart Father not sure of exact issue No Known Problems Brother No Known Problems Brother No Known Problems Brother Diabetes Maternal Grandmother No Known Problems Daughter No Known Problems Son No Known Problems Son No Known Problems Son Patient Allergies ALLERGIES Allergen Reactions Bee Sting Swelling Has not had SOB or other issues other than extreme swelling at site of sting Current Medications Current Outpatient Medications on File Prior to Visit Medication Sig alendronate (FOSAMAX) 70 mg tablet Take 1 tablet by mouth one time a week. Take with a full glass of water, on an empty stomach; do NOT lie down for 30minutes. mirabegron (MYRBETRIQ) 50 mg Tb24 Take 1 tablet by mouth once daily. lisinopril (ZESTRIL) 10 mg tablet Take 1 tablet by mouth once daily. Cholecalciferol, Vitamin D3, 25 mcg (1,000 unit) cap Take 1,000 Units by mouth once daily. calcium carbonate-vitamin D3 600mg (1,500mg) -1,000 unit cap Take 1 capsule by mouth twice daily. multivitamin tablet Take 1 tablet by mouth once daily. IBUPROFEN (MOTRIN ORAL) Take by mouth once daily. loperamide (IMODIUM A-D) 2 mg cap(s) Take 1 capsule by mouth four times daily as needed for diarrhea. (Patient not taking: Reported on 11/27/2022) Benzonatate 200 mg capsule Take 1 capsule by mouth three times daily as needed. (Patient not taking: Reported on 11/27/2022) meclizine (ANTIVERT) 25 mg tab Take 1 tablet by mouth every 6 hours as needed (dizziness). (Patient not taking: Reported on 11/27/2022) No current facility-administered medications on file prior to visit. Social History Social History Tobacco Use Smoking status: Former Packs/day: 0.50 Years: 7.00 Pack years: 3.50 Types: Cigarettes Quit date: 05/03/2003 Years since quittin.5 Smokeless tobacco: Never Vaping Use Vaping Use: Never used Substance Use Topics Alcohol use: No Drug use: No Review of Symptoms REVIEW OF SYSTEMS See hpi EXAM: BP 112/80 (BP Site: Left Arm, BP Position: Sitting, BP Cuff Size: Large Adult) Pulse 80 Temp 36.6 C (97.9 F) Resp 18 Wt 102.1 kg (225 lb) SpO2 96% BMI 40.88 kg/m General Appearance: Well appearing, alert, in no acute distress, well-hydrated, well nourished.. Lungs: Lungs clear to auscultation. No wheezing, rhonchi, rales.. Heart: RRR without murmur, gallop, or rubs. No ectopy. Health Maintenance List ADVANCE DIRECTIVE DISCUSSION due on 06/03/2022 DEPRESSION ASSESSMENT Never done COVID-19 VACCINE(3 - Booster for Moderna series) due on 09/29/2023 MAMMOGRAM due on 03/22/2023 DTAP,TDAP,TD(2 - Td or Tdap) due on 07/06/2023 ANNUAL PCP TEAM CHRONIC DISEASE VISIT due on 11/06/2023 BP CONTROLLED (<130/80) due on 11/06/2023 COLORECTAL CANCER SCREENING due on 07/15/2025 DIABETES SCREEN due on 08/29/2025 LIPID SCREEN due on 01/26/2027 BONE DENSITY Completed INFLUENZA Completed HEPATITIS C SCREENING Completed SHINGRIX VACCINE Completed PNEUMOCOCCAL: 65+ Completed Data reviewed ASSESSMENT/PLAN: 1. Bacterial pneumonia - ICD9: 482.9, ICD10: J15.9 (primary diagnosis) Improved. Will get repeat CXR - XR CHEST 2V FRONTAL/LAT 2. Chronic cough - ICD9: 786.2, ICD10: R05.3 May be STEVO-I related. Will switch to losartan. Recheck bp in 1 month. Albina Salcedo PA-C documented in this encounter [facility] 11-05-2022 History of Present illness Narrative Chief Complaint Patient presents with: Cough: diarrhea HPI Leandro Fontanez is a 67 year old female who presents here today for EC f/u. Patient was dx with pneumonia on 11/03. Started atb that day. Yesterday (11/04) she started having diarrhea Still coughing. +sinus congestion. No fevers. Past medical history, appointments, medications, allergies reviewed. Previous Medical History PAST MEDICAL HISTORY Diagnosis Date Benign paroxysmal positional vertigo 07/13/2021 Elevated hemoglobin A1c 01/22/2020 Hypertension, essential 08/29/2022 Left hip pain 2016 Obesity, Class III, BMI 40-49.9 (morbid obesity) ([facility]) 01/22/2020 Peripheral edema 01/27/2021 Urge incontinence 01/25/2015 Previous Surgical History PAST SURGICAL HISTORY Procedure Laterality Date COLONOSCOPY FLX DX W/COLLJ SPEC WHEN PFRMD 07/15/15 normal 10 year follow up D&C (INCOMPLETE AB), ANY TRIMESTER FECAL OCCULT BLOOD TEST 07/15/2017 negative LAMINECTOMY W/O FFD / VERT SEG LUMBAR N/A 1999 Family History FAMILY HISTORY Problem Relation Age of Onset Heart Mother Diabetes Mother Heart Father not sure of exact issue No Known Problems Brother No Known Problems Brother No Known Problems Brother Diabetes Maternal Grandmother No Known Problems Daughter No Known Problems Son No Known Problems Son No Known Problems Son Patient Allergies ALLERGIES Allergen Reactions Bee Sting Swelling Has not had SOB or other issues other than extreme swelling at site of sting Current Medications Current Outpatient Medications on File Prior to Visit Medication Sig azithromycin (ZITHROMAX) 250 mg tablet Take 2 tablets by mouth once daily for 1 day, THEN 1 tablet once daily for 4 days. amoxicillin-clavulanic acid (AUGMENTIN) 875-125 mg per tablet Take 1 tablet by mouth twice daily for 5 days. Benzonatate 200 mg capsule Take 1 capsule by mouth three times daily as needed. alendronate (FOSAMAX) 70 mg tablet Take 1 tablet by mouth one time a week. Take with a full glass of water, on an empty stomach; do NOT lie down for 30minutes. mirabegron (MYRBETRIQ) 50 mg Tb24 Take 1 tablet by mouth once daily. lisinopril (ZESTRIL) 10 mg tablet Take 1 tablet by mouth once daily. meclizine (ANTIVERT) 25 mg tab Take 1 tablet by mouth every 6 hours as needed (dizziness). Cholecalciferol, Vitamin D3, 25 mcg (1,000 unit) cap Take 1,000 Units by mouth once daily. calcium carbonate-vitamin D3 600mg (1,500mg) -1,000 unit cap Take 1 capsule by mouth twice daily. multivitamin tablet Take 1 tablet by mouth once daily. IBUPROFEN (MOTRIN ORAL) Take by mouth once daily. No current facility-administered medications on file prior to visit. Social History Social History Tobacco Use Smoking status: Former Packs/day: 0.50 Years: 7.00 Pack years: 3.50 Types: Cigarettes Quit date: 05/03/2003 Years since quittin.5 Smokeless tobacco: Never Vaping Use Vaping Use: Never used Substance Use Topics Alcohol use: No Drug use: No Review of Symptoms REVIEW OF SYSTEMS See hpi EXAM: BP 108/78 (BP Site: Left Arm, BP Position: Sitting, BP Cuff Size: Large Adult) Pulse 82 Temp 36.9 C (98.4 F) Resp 18 Wt 100.2 kg (221 lb) BMI 40.16 kg/m General Appearance: Well appearing, alert, in no acute distress, well-hydrated, well nourished.. Neck: Supple, no adenopathy; thyroid symmetric, normal size, no bruits. Lungs: decrease breath sounds in lower lung [place]. Heart: RRR without murmur, gallop, or rubs. No ectopy. Abdomen: Normal abdominal exam, Abdomen soft, non-tender. Bowel sounds normal. No masses, organomegaly. Health Maintenance List ADVANCE DIRECTIVE DISCUSSION due on 06/03/2022 DEPRESSION ASSESSMENT Never done COVID-19 VACCINE(3 - Booster for Moderna series) due on 09/29/2023 MAMMOGRAM due on 03/22/2023 DTAP,TDAP,TD(2 - Td or Tdap) due on 07/06/2023 ANNUAL PCP TEAM CHRONIC DISEASE VISIT due on 09/29/2023 BP CONTROLLED (<130/80) due on 11/04/2023 COLORECTAL CANCER SCREENING due on 07/15/2025 DIABETES SCREEN due on 08/29/2025 LIPID SCREEN due on 01/26/2027 BONE DENSITY Completed INFLUENZA Completed HEPATITIS C SCREENING Completed SHINGRIX VACCINE Completed PNEUMOCOCCAL: 65+ Completed Data reviewed ASSESSMENT/PLAN: 1. Bacterial pneumonia - ICD9: 482.9, ICD10: J15.9 (primary diagnosis) Finish atb Can use robitussin AC as needed. Follow up in 3 weeks Sooner prn - CODEINE 10 MG-GUAIFENESIN 100 MG/5 ML ORAL LIQUID 2. Diarrhea, unspecified type - ICD9: 787.91, ICD10: R19.7 Suspect atb induced. Could consider change in atb therapy but potentially would have same side effects. Will tx symptoms with imodium. Push fluids. Advised patient to let me know if symptoms continue off of atb. Discussed possible red flags and when to seek medical attention. Follow up in 3 weeks for recheck. sooner prn. Albina Salcedo PA-C documented in this encounter [facility] 11-03-2022 History of Present illness Narrative CC: Patient presents with: Cough: With sore throat, left ear ache HPI: Leandro Fontanez is a 67 year old female who presents to the office with complaint of respiratory symptoms for over one week. Symptoms are worsening Associated symptoms includes sore throat, nasal congestion, rhinorrhea, non-productive cough, wheezing Denies fever, dyspnea, nausea, vomiting , and diarrhea. 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 History of asthma, frequent episodes of bronchitis, chronic bronchitis, bronchiectasis or COPD: No Smoker: No Seasonal/environmental allergies: No The ROS is otherwise negative. The patient's pmh, medications, allergies, and past visits are reviewed. PHYSICAL EXAM: BP 112/78 Pulse 86 Temp 36.6 C (97.8 F) Resp 18 Wt 101.2 kg (223 lb) SpO2 96% BMI 40.52 kg/m General appearance: tired/ill appearing, alert, cooperative, pleasant, in no acute distress Head: Normocephalic Eyes: conjunctiva pink and moist, no icterus, sclera white, non-injected Ears: Right ear: External ear/canal- Normal, TM - clear with good landmarks. Left ear: External ear/canal- Normal, TM - clear with good landmarks Nose: clear, no sinus tenderness. Oropharynx:No erythema, exudates or tonsillar hypertrophy. Neck:supple and no adenopathy Heart: Negative. RRR without obvious murmur, gallop, or rubs. No ectopy. Lungs: without rales or wheeze, good air exchange except diminished left posterior base ASSESSMENT/PLAN: 1. Acute cough - ICD9: 786.2, ICD10: R05.1 (primary diagnosis) X-ray concerning for pneumonia by my interpretation, radiologist final reading pending. Treatment with antibiotics clinically indicated. Start treatment with Augmentin plus Zpack. Tessalon Perles as needed for cough Follow-up with PCP in one week if no improvement or sooner if worsening - XR CHEST 2V FRONTAL/LAT 2. Wheezing - ICD9: 786.07, ICD10: R06.2 As above - XR CHEST 2V FRONTAL/LAT Prescription instructions reviewed with patient as applicable. Potential red flag symptoms discussed with the patient. Reviewed appropriate action plan to take if red flag symptoms occur. Patient agreeable to treatment plan. Patti Garland APRN.CNP documented in this encounter [facility] 09-28-2022 Instructions Albina Salcedo PA-C - 09/28/2022 11:48 AM EDT If the cough and throat symptoms continue, let us know and we can try a different BP medication. Otherwise keep follow up as scheduled visit documented in this encounter [facility] 09-28-2022 History of Present illness Narrative Chief Complaint Patient presents with: Recheck: Blood pressure HPI Leandro Fontanez is a 67 year old female who presents here today for Above Complaints.. Patient was seen last month and was started on lisinopril 10mg. She is doing well with this dose. Doesn't routinely check bp at home but just got a wrist cuff. Otherwise doing okay. Has had a slight tickle in her throat for the past few weeks. Past medical history, appointments, medications, allergies reviewed. Previous Medical History PAST MEDICAL HISTORY Diagnosis Date Benign paroxysmal positional vertigo 07/13/2021 Elevated hemoglobin A1c 01/22/2020 Hypertension, essential 08/29/2022 Left hip pain 2016 Obesity, Class III, BMI 40-49.9 (morbid obesity) ([facility]) 01/22/2020 Peripheral edema 01/27/2021 Urge incontinence 01/25/2015 Previous Surgical History PAST SURGICAL HISTORY Procedure Laterality Date COLONOSCOPY FLX DX W/COLLJ SPEC WHEN PFRMD 07/15/15 normal 10 year follow up D&C (INCOMPLETE AB), ANY TRIMESTER FECAL OCCULT BLOOD TEST 07/15/2017 negative LAMINECTOMY W/O FFD 06/04 VERT SEG LUMBAR N/A 1999 Family History FAMILY HISTORY Problem Relation Age of Onset Heart Mother Diabetes Mother Heart Father not sure of exact issue No Known Problems Brother No Known Problems Brother No Known Problems Brother Diabetes Maternal Grandmother No Known Problems Daughter No Known Problems Son No Known Problems Son No Known Problems Son Patient Allergies ALLERGIES Allergen Reactions Bee Sting Swelling Has not had SOB or other issues other than extreme swelling at site of sting Current Medications Current Outpatient Medications on File Prior to Visit Medication Sig alendronate (FOSAMAX) 70 mg tablet Take 1 tablet by mouth one time a week. Take with a full glass of water, on an empty stomach; do NOT lie down for 30minutes. mirabegron (MYRBETRIQ) 50 mg Tb24 Take 1 tablet by mouth once daily. lisinopril (ZESTRIL) 10 mg tablet Take 1 tablet by mouth once daily. meclizine (ANTIVERT) 25 mg tab Take 1 tablet by mouth every 6 hours as needed (dizziness). Cholecalciferol, Vitamin D3, 25 mcg (1,000 unit) cap Take 1,000 Units by mouth once daily. calcium carbonate-vitamin D3 600mg (1,500mg) -1,000 unit cap Take 1 capsule by mouth twice daily. multivitamin tablet Take 1 tablet by mouth once daily. IBUPROFEN (MOTRIN ORAL) Take by mouth once daily. No current facility-administered medications on file prior to visit. Social History Social History Tobacco Use Smoking status: Former Packs/day: 0.50 Years: 7.00 Pack years: 3.50 Types: Cigarettes Quit date: 05/03/2003 Years since quittin.4 Smokeless tobacco: Never Vaping Use Vaping Use: Never used Substance Use Topics Alcohol use: No Drug use: No Review of Symptoms REVIEW OF SYSTEMS See hpi EXAM: BP 126/76 (BP Site: Left Arm, BP Position: Sitting, BP Cuff Size: Large Adult) Pulse 72 Temp 36.6 C (97.8 F) Resp 18 Wt 100.2 kg (221 lb) BMI 40.16 kg/m General Appearance: Well appearing, alert, in no acute distress, well-hydrated, well nourished.. Neck: Supple, no adenopathy; thyroid symmetric, normal size, no bruits. Lungs: Lungs clear to auscultation. No wheezing, rhonchi, rales.. Heart: RRR without murmur, gallop, or rubs. No ectopy. Health Maintenance List BP CONTROLLED (<130/80) Never done ADVANCE DIRECTIVE DISCUSSION due on 06/03/2022 DEPRESSION ASSESSMENT Never done COVID-19 VACCINE(3 - Booster for Moderna series) due on 09/29/2023 MAMMOGRAM due on 03/22/2023 DTAP,TDAP,TD(2 - Td or Tdap) due on 07/06/2023 ANNUAL PCP TEAM CHRONIC DISEASE VISIT due on 08/30/2023 COLORECTAL CANCER SCREENING due on 07/15/2025 DIABETES SCREEN due on 08/29/2025 LIPID SCREEN due on 01/26/2027 BONE DENSITY Completed INFLUENZA Completed HEPATITIS C SCREENING Completed SHINGRIX VACCINE Completed PNEUMOCOCCAL: 65+ Completed Data reviewed ASSESSMENT/PLAN: 1. Hypertension, essential - ICD9: 401.9, ICD10: I10 - good control - Continue current medication(s) - Recommended regular aerobic exercise. - Recommend home blood pressure monitoring, to bring results in on next visit - patient's throat tickle/cough may be related to the new medication but also could be seasonal changes. Will have patient try claritin for 2 weeks. If the cough/throat symptoms continue, will switch patient's lisinopril to losartan. She will call with update in 2-4 weeks. - Goal of BP <130/80 Albina Salcedo PA-C documented in this encounter [facility] 08-27-2022 Instructions Jamie Morrow APRN.SQL APPLICATION DEVELOPER - 08/27/2022 11:19 AM EDT R.I.C.E. The general care of your injury includes the following: Resting, Icing, Compressing and Elevating the injured area. Remember this as RICE. REST: Limit the use of the injured body part. ICE: By applying ice to the affected area, swelling and pain can be reduced. Place some ice cubes in a re-sealable (Ziploc) bag and add some water. Put a thin washcloth between the bag and your skin. Apply the ice bag to the area for at least 20 minutes. Do this at least 4 times per day. Using the ice for longer times and more frequently is OK. NEVER APPLY ICE DIRECTLY TO THE SKIN. COMPRESS: Compression means to apply pressure around the injured area such as with a splint, cast or an stevo bandage. Compression decreases swelling and improves comfort. Compression should be tight enough to relieve swelling but not so tight as to decrease circulation. Increasing pain, numbness, tingling, or change in skin color, are all signs of decreased circulation. ELEVATE: Elevate the injured part. For example, elevate your foot by placing it on a chair while sitting, or propping it up on pillows when lying down. documented in this encounter [facility] 08-27-2022 History of Present illness Narrative Radiology Service Progress Note PATIENT NAME: Leandro Fontanez DATE OF SERVICE: August 27, 2022 TIME: 10:41 AM PATIENT IDENTITY VERIFICATION COMPLETED USING TWO (2) IDENTIFIERS: Name and Date of confirmed by patient verbally. FALL SCREENING: Has the patient had 2 falls in the last year or 1 fall with injury or currently using an Ambulatory Assistive Device (Walker, Cane, Wheelchair, Crutches, etc.)? Yes, Patient High Risk for Falls What interventions were put in place to prevent falls during this visit? Offered Assistance with Transfers/Clothing, Instructed Patient to Remain Seated (Not on Exam Table) Until Exam, and Increased Observations by Caregivers PATIENT GENDER DATA: Female. status: : No status: NO. PATIENT RELEVANT IMPLANT DATA REVIEWED: Yes RADIOLOGY DEPARTMENT: General X-ray: Exam(s) Completed: Lower Extremity X-Ray(s): Foot, Left PERIPHERAL IV DATA: Not applicable SIGNED BY: RT Solitario(R) August 27, 2022 10:41 AM documented in this encounter [facility] 08-27-2022 History of Present illness Narrative Subjective HPI Nontoxic-appearing female presents urgent care chief complaint left foot pain. Duration of symptom 1 day. Associated symptoms left foot trauma. Patient states she dropped a piece of frozen meat on her foot last night. Describes weight is approximately 5 pounds. States frozen piece of meat struck her over the first metatarsal. This resulted in pain swelling and bruising. Presents today for evaluation. Denies any numbness no tingling. No decrease sensation. Denies fractures or surgeries to this foot or ankle in the past. Past medical history prescription medication use allergies reviewed. .Patient presents with: Pain (foot): left foot, dropped frozen deer meat on foot x last night PAST MEDICAL HISTORY Diagnosis Date Benign paroxysmal positional vertigo 07/13/2021 Elevated hemoglobin A1c 01/22/2020 Left hip pain 2017 Obesity, Class III, BMI 40-49.9 (morbid obesity) (HCC) 01/22/2020 Peripheral edema 01/27/2021 Urge incontinence 01/25/2015 PAST SURGICAL HISTORY Procedure Laterality Date COLONOSCOPY FLX DX W/COLLJ SPEC WHEN PFRMD 07/15/15 normal 10 year follow up D&C (INCOMPLETE AB), ANY TRIMESTER FECAL OCCULT BLOOD TEST 07/15/2017 negative LAMINECTOMY W/O FFD 1/2 VERT SEG LUMBAR N/A 1999 ALLERGIES Bee Sting MEDICATIONS alendronate (FOSAMAX) 70 mg tablet Take 1 tablet by mouth one time a week. Take with a full glass of water, on an empty stomach; do NOT lie down for 30minutes. mirabegron (MYRBETRIQ) 50 mg Tb24 Take 1 tablet by mouth once daily. meclizine (ANTIVERT) 25 mg tab Take 1 tablet by mouth every 6 hours as needed (dizziness). Cholecalciferol, Vitamin D3, 25 mcg (1,000 unit) cap Take 1,000 Units by mouth once daily. calcium carbonate-vitamin D3 600mg (1,500mg) -1,000 unit cap Take 1 capsule by mouth twice daily. multivitamin tablet Take 1 tablet by mouth once daily. IBUPROFEN (MOTRIN ORAL) Take by mouth once daily. FAMILY HISTORY Problem Relation Age of Onset Heart Mother Diabetes Mother Heart Father not sure of exact issue No Known Problems Brother No Known Problems Brother No Known Problems Brother Diabetes Maternal Grandmother No Known Problems Daughter No Known Problems Son No Known Problems Son No Known Problems Son Social History Tobacco Use Smoking status: Former Packs/day: 0.50 Years: 7.00 Pack years: 3.50 Types: Cigarettes Quit date: 05/03/2003 Years since quittin.3 Smokeless tobacco: Never Vaping Use Vaping Use: Never used Substance Use Topics Alcohol use: No Drug use: No BP 136/84 Pulse 82 Temp 36.3 C (97.4 F) Resp 18 Wt 100.2 kg (221 lb) SpO2 95% BMI 40.16 kg/m Review of Systems Constitutional: Negative for chills, fever and malaise/fatigue. HENT: Negative for congestion, ear discharge, ear pain, sinus pain and sore throat. Eyes: Negative for blurred vision, pain, discharge and redness. Respiratory: Negative for cough, hemoptysis, sputum production, shortness of breath, wheezing and stridor. Cardiovascular: Negative for chest pain. Gastrointestinal: Negative for abdominal pain, diarrhea, nausea and vomiting. Musculoskeletal: Positive for joint pain. Negative for myalgias. Skin: Negative for itching and rash. Neurological: Negative for dizziness and headaches. Objective Physical Exam Constitutional: General: She is not in acute distress. Appearance: She is not diaphoretic. HENT: Head: Normocephalic. Eyes: Conjunctiva/sclera: Conjunctivae normal. Pupils: Pupils are equal, round, and reactive to light. Cardiovascular: Rate and Rhythm: Normal rate and regular rhythm. Heart sounds: Normal heart sounds. Pulmonary: Effort: Pulmonary effort is normal. No tachypnea, accessory muscle usage or respiratory distress. Breath sounds: Normal breath sounds. No stridor. No wheezing, rhonchi or rales. Abdominal: Palpations: Abdomen is soft. Musculoskeletal: Cervical back: Normal range of motion. Right ankle: Normal. Left ankle: Normal. Right foot: Normal. Left foot: Normal range of motion and normal capillary refill. Swelling, tenderness and bony tenderness present. No deformity. Normal pulse. Comments: Pain with palpation over first metatarsal. Neurovascular intact. Moderate amount of edema and bruising noted. Neurovascular intact. No breaks in skin. Skin: General: Skin is warm and dry. Neurological: Mental Status: She is alert and oriented to person, place, and time. ASSESSMENT/PLAN: 1. Injury of left foot, initial encounter - ICD9: 959.7, ICD10: S99.922A - XR FOOT GENERAL 3V AP/LAT/OBL LEFT IMPRESSION: No acute radiographic abnormalities seen in the left foot. Patient can be reevaluated in 10-14 days if symptoms persist No fractures noted on x-ray. Treat as a contusion. Postop shoe provided. Follow-up with PCP symptoms or not improving in 7 to 10 days. Patient was educated on supportive therapies. Patient was instructed to immediately proceed to emergency room for any new, worsening, or symptoms lasting longer than anticipated. The patient's clinical presentation is otherwise unremarkable at this time. Based on exam and clinical finding, the patient is stable for discharge. Plan of care was discussed with patient. Patient verbalizes understanding and agrees to plan of care. This note was generated using CustomMade software. It may contain errors in wording, punctuation, or spelling. Jamie Morrow APRN.HECTOR R documented in this encounter [facility] 03-27-2022 Miscellaneous Notes Left message of same on pt's vm. Barb Garcia LPN Normal mammogram. Repeat in 1 year. Received pt's mammogram results via fax. Results on your desk for review. Barb Garcia LPN documented in this encounter [facility] 03-20-2022 Miscellaneous Notes Order faxed as requested. Catia Kelly RN updated [facility] Mammography Dept calling and states patient coming in there for a mammogram on 03/21. They state they need a mammogram order to include 3D or NERIS. Please fax order to [phone], if provider agreeable. Thank you. documented in this encounter [facility] 02-27-2022 Instructions Albina Salcedo PA-C - 02/27/2022 12:33 PM EDT BONE MINERAL DENSITY PATIENT INSTRUCTIONS ======= Bone mineral density testing measures the amount of calcium in certain parts of your bones. This information determines how strong your bones are. The test is used to detect osteoporosis, a disease in which the bone's mineral content and density are low, increasing a person's risk of fractures. The lumbar spine (lower back) and the hip are the skeletal sites usually examined. For the test, remember that: 1. You cannot take this test if you are . 2. Eat a normal diet on the day of the test. 3. Take your medications as you normally would. 4. DO NOT take calcium supplements (such as Tums) for 24 hours before the test. 5. On the day of the test, leave valuables (jewelry or credit cards) at home. 6. The test should be performed prior to oral, rectal or IV contrast studies, or at least 7 days after any of these studies. For the test, you may be asked to wear a hospital gown. You will lie on your back, on a padded table, in a comfortable position. Generally, you can resume your usual activities immediately. documented in this encounter [facility] 02-27-2022 History of Present illness Narrative Chief Complaint Patient presents with: Medicare Wellness Exam HPI Leandro Fontanez is a 66 year old female who presents here today for physical. Patient with hx of elevated a1c, Osteoporosis, obesity, elevated bp without hx of HTN, BPPV, and those as below. Patient overall doing well. Denies specific concerns. Past medical history, appointments, medications, allergies reviewed. Previous Medical History PAST MEDICAL HISTORY Diagnosis Date Benign paroxysmal positional vertigo 07/13/2021 Elevated hemoglobin A1c 01/22/2020 Left hip pain 2016 Obesity, Class III, BMI 40-49.9 (morbid obesity) (HCC) 01/22/2020 Peripheral edema 01/27/2021 Urge incontinence 01/25/2015 Previous Surgical History PAST SURGICAL HISTORY Procedure Laterality Date COLONOSCOPY FLX DX W/COLLJ SPEC WHEN PFRMD 07/15/15 normal 10 year follow up D&C (INCOMPLETE AB), ANY TRIMESTER FECAL OCCULT BLOOD TEST 07/15/2017 negative LAMINECTOMY W/O FFD 1/2 VERT SEG LUMBAR N/A 1999 Family History FAMILY HISTORY Problem Relation Age of Onset Heart Mother Diabetes Mother Heart Father not sure of exact issue No Known Problems Brother No Known Problems Brother No Known Problems Brother Diabetes Maternal Grandmother No Known Problems Daughter No Known Problems Son No Known Problems Son No Known Problems Son Patient Allergies ALLERGIES Allergen Reactions Bee Sting Swelling Has not had SOB or other issues other than extreme swelling at site of sting Current Medications Current Outpatient Medications on File Prior to Visit Medication Sig alendronate (FOSAMAX) 70 mg tablet Take 1 tablet by mouth one time a week. Take with a full glass of water, on an empty stomach; do NOT lie down for 30minutes. mirabegron (MYRBETRIQ) 50 mg Tb24 Take 1 tablet by mouth once daily. meclizine (ANTIVERT) 25 mg tab Take 1 tablet by mouth every 6 hours as needed (dizziness). Cholecalciferol, Vitamin D3, 25 mcg (1,000 unit) cap Take 1,000 Units by mouth once daily. calcium carbonate-vitamin D3 600mg (1,500mg) -1,000 unit cap Take 1 capsule by mouth twice daily. multivitamin tablet Take 1 tablet by mouth once daily. IBUPROFEN (MOTRIN ORAL) Take by mouth once daily. No current facility-administered medications on file prior to visit. Social History Social History Tobacco Use Smoking status: Former Packs/day: 0.50 Years: 7.00 Pack years: 3.50 Types: Cigarettes Quit date: 05/03/2003 Years since quittin.8 Smokeless tobacco: Never Vaping Use Vaping Use: Never used Substance Use Topics Alcohol use: No Drug use: No Review of Symptoms REVIEW OF SYSTEMS GENERAL: No weight loss, malaise or fevers HEENT: No changes in hearing or vision, no nose bleeds or other nasal problems NECK: Negative for lumps, goiter, pain and significant neck swelling RESPIRATORY: Negative for cough, hemoptysis, wheezing, COPD, dyspnea or shortness of breath CARDIOVASCULAR: +stable leg edema. Negative for chest pain, lhypertension, CHF or palpitations GI: Negative for abdominal discomfort, blood in stools or black stools, change in bowel habit, heart burn, nausea, vomiting : No history of dysuria, frequency or incontinence MUSCULOSKELETAL: Negative for joint pain or swelling, back pain or muscle pain SKIN: Negative for lesions, rash, and itching PSYCH: Negative for sleep disturbance, mood disorder and recent psychosocial stressors HEMATOLOGY/LYMPHOLOGY: Negative for prolonged bleeding, bruising easily or swollen nodes ENDOCRINE: Negative for cold or heat intolerance, polyuria, polydipsia and goiter NEURO: No history of headaches, syncope, paralysis, seizures or tremors EXAM: BP 126/86 (BP Site: Left Arm, BP Position: Sitting, BP Cuff Size: Large Adult) Pulse 72 Temp 36.4 C (97.6 F) Resp 18 Ht 158 cm (5' 2.21 ) Wt 100.2 kg (221 lb) BMI 40.16 kg/m Last 4 Encounter Wt Readings: Date: Wt: 02/27/2022 100.2 kg (221 lb) 08/02/2021 99.3 kg (219 lb) 06/28/2021 100.2 kg (221 lb) 05/21/2021 99.3 kg (219 lb) General Appearance: Well appearing, alert, in no acute distress, well-hydrated, well nourished.. Skin: Skin color, texture, turgor normal, no suspicious rashes or lesions. Head: Normocephalic, no masses, lesions, tenderness or abnormalities. Eyes: Anicteric sclera. Pupils are equally round and reactive to light. Extraocular movements are intact. . Ears: External ears normal, canals clear. Neck: Supple, no adenopathy; thyroid symmetric, normal size, no bruits. Lungs: Lungs clear to auscultation. No wheezing, rhonchi, rales.. Heart: RRR without murmur, gallop, or rubs. No ectopy. Abdomen: Normal abdominal exam, Abdomen soft, non-tender. Bowel sounds normal. No masses, organomegaly. Extremities: 1+ edema b/l. No deformities, skin discoloration, clubbing or cyanosis. Good capillary refill. . Peripheral Pulses: Normal. Neurologic: Gait normal. Reflexes normal and symmetric. Sensation grossly intact.. Health Maintenance List COVID-19 VACCINE(3 - Booster for Moderna series) due on 08/30/2020 ADVANCE DIRECTIVE DISCUSSION Never done DEPRESSION ASSESSMENT Never done INFLUENZA(1) due on 02/01/2022 MAMMOGRAM due on 03/03/2022 DTAP,TDAP,TD(2 - Td or Tdap) due on 07/06/2023 DIABETES SCREEN due on 01/26/2025 COLORECTAL CANCER SCREENING due on 07/15/2025 LIPID SCREEN due on 01/26/2027 BONE DENSITY Completed HEPATITIS C SCREENING Completed SHINGRIX VACCINE Completed PNEUMOCOCCAL: 65+ Completed Data reviewed Component Latest Ref Rng & Units 01/26/2022 Total Cholesterol, Nonfasting <200 mg/dL 174 Triglycerides, Nonfasting <150 mg/dL 61 HDL Cholesterol, Nonfasting >39 mg/dL 48 LDL Cholesterol, Nonfasting <100 mg/dL 114 (H) Non HDL Cholesterol, Nonfasting <130 mg/dL 126 VLDL Cholesterol, Nonfasting <30 mg/dL 12 Total Chol/HDL Ratio, Nonfasting <5.10 mg/dL 3.63 LDL/HDL Ratio, Nonfasting <2.54 mg/dL 2.38 Hemoglobin A1C 4.3 - 5.6 % 6.0 (H) Estimated Average Glucose mg/dL 126 ASSESSMENT/PLAN: 1. Well adult exam - ICD9: V70.0, ICD10: Z00.00 (primary diagnosis) - Counseled on healthy diet and regular exercise - Calcium intake with supplements or by diet of 1000 mg/day for under 50, 8355-3194 mg/day for 50+ 2. Advance directive discussed with patient - ICD9: V65.49, ICD10: Z71.89 Papers will be mailed to patient. 3. Elevated hemoglobin A1c - ICD9: 790.29, ICD10: R73.09 stable 4. Obesity, Class III, BMI 40-49.9 (morbid obesity) (HCC) - ICD9: 278.01, ICD10: E66.01 Stable - Behavioral intervention 5. Elevated blood pressure reading without diagnosis of hypertension - ICD9: 796.2, ICD10: R03.0 - Encouraged dietary sodium restriction/DASH diet - Recommended regular aerobic exercise. - Recommend home blood pressure monitoring, to bring results in on next visit - Goal of BP <130/80 6. Benign paroxysmal positional vertigo, unspecified laterality - ICD9: 386.11, ICD10: H81.10 stable 7. Age-related osteoporosis without current pathological fracture - ICD9: 733.01, ICD10: M81.0 - DXA-AXIAL SKELETON 8. Screening mammogram for breast cancer - ICD9: V76.12, ICD10: Z12.31 - stable. - CARLOS SCREENING 9. Peripheral edema - ICD9: 782.3, ICD10: R60.9 Cont conservative management. Advised patient to use compression socks while at work. Leg elevation at rest. Albina Salcedo PA-C documented in this encounter [facility] 07-15-2020 History of Present illness Narrative Radiology Service Progress Note PATIENT NAME: Leandro Fontanez DATE OF SERVICE: July 15, 2020 TIME: 2:07 PM PATIENT IDENTITY VERIFICATION COMPLETED USING TWO (2) IDENTIFIERS: Name and Date of confirmed by patient verbally. FALL SCREENING: Has the patient had 2 falls in the last year or 1 fall with injury or currently using an Ambulatory Assistive Device (Walker, Cane, Wheelchair, Crutches, etc.)? No PATIENT GENDER DATA: Female. status: : No status: NO. PATIENT RELEVANT IMPLANT DATA REVIEWED: Not Applicable RADIOLOGY DEPARTMENT: General X-ray: Exam(s) Completed: Lower Extremity X-Ray(s): Ankle, Left and Wt. Bearing: PERIPHERAL IV DATA: Not applicable SIGNED BY: RT Solitario July 15, 2020 2:07 PM documented in this encounter [facility] Evaluation note Diagnosis Well adult exam- Primary Routine general medical examination at a [facility] Advance directive discussed with patient Other specified counseling Elevated hemoglobin A1c Other abnormal blood chemistry Obesity, Class III, BMI 40-49.9 (morbid obesity) (HCC) Morbid obesity Elevated blood pressure reading without diagnosis of hypertension Benign paroxysmal positional vertigo, unspecified laterality Age-related osteoporosis without current pathological fracture Senile osteoporosis Screening mammogram for breast cancer Peripheral edema Edema [facility] Diagnosis [facility]ening [facility]- [facility] Diagnosis Injury of left foot, initial encounter- Primary [facility] Diagnosis Hypertension, essential- Primary Unspecified essential hypertension [facility] Diagnosis Acute cough- Primary Wheezing [facility] Diagnosis Bacterial pneumonia- Primary Bacterial pneumonia, unspecified Diarrhea, unspecified type [facility] Diagnosis Bacterial pneumonia- Primary Bacterial pneumonia, unspecified Chronic cough Cough [facility] Diagnosis Dizziness- Primary Dizziness and giddiness [facility] Diagnosis Bilateral ankle pain, unspecified chronicity- Primary [facility] Diagnosis 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- Primary Bilateral ankle pain, unspecified chronicity [facility] Diagnosis Bilateral ankle pain, unspecified chronicity [facility] Diagnosis Pain- Primary Generalized pain Pain Generalized pain [facility] Diagnosis Chronic bilateral low back pain without sciatica- Primary Physical deconditioning Debility, unspecified Morbid obesity (HCC) Morbid obesity [facility] Diagnosis Chronic bilateral low back pain without sciatica Physical deconditioning Debility, unspecified [facility] Diagnosis Chronic bilateral low back pain without sciatica- Primary Physical deconditioning Debility, unspecified documented in this encounter [facility] note* Diagnosis Chronic bilateral low back pain without sciatica- Primary Physical deconditioning Debility, unspecified documented in this encounter [facility] note* Diagnosis Chronic bilateral low back pain without sciatica- Primary Physical deconditioning Debility, unspecified documented in this encounter [facility] note* Diagnosis Chronic bilateral low back pain without sciatica- Primary Physical deconditioning Debility, unspecified documented in this encounter [facility] note* Diagnosis Chronic bilateral low back pain without sciatica- Primary Physical deconditioning Debility, unspecified documented in this encounter [facility] note* Diagnosis Pain and swelling of lower leg, unspecified laterality- Primary documented in this encounter [facility] note* Diagnosis Leg swelling- Primary Swelling of limb Hypertension, essential Unspecified essential hypertension SOB (shortness of breath) Shortness of breath Leg swelling Swelling of limb Hypertension, essential Unspecified essential hypertension SOB (shortness of breath) Shortness of breath documented in this encounter [facility] note* Diagnosis Chronic bilateral low back pain without sciatica- Primary Physical deconditioning Debility, unspecified documented in this encounter [facility] note* Diagnosis Leg swelling Swelling of limb Hypertension, essential Unspecified essential hypertension SOB (shortness of breath) Shortness of breath documented in this encounter [facility] note* Diagnosis Dizziness- Primary Dizziness and giddiness Hypoxia Hypoxemia documented in this encounter [facility] note* Diagnosis Encounter for screening mammogram for breast cancer [facility] Diagnosis Pain Generalized [facility] Diagnosis Hospital discharge follow-up- Primary Other follow-up examination Sleep apnea, unspecified type Benign paroxysmal positional vertigo, unspecified laterality documented in this encounter [facility] note* Diagnosis Acute cough documented in this encounter [facility] note* Diagnosis Benign paroxysmal positional vertigo, unspecified laterality- Primary documented in this encounter [facility] note* Diagnosis Bacterial pneumonia Bacterial pneumonia, unspecified [facility] Diagnosis Acute cough Wheezing documented in this encounter [facility] note* Diagnosis Injury of left foot, initial encounter documented in this encounter [facility] note* Diagnosis Well adult exam- Primary Routine general medical examination at a health care facility Hypertension, essential Unspecified essential hypertension Elevated hemoglobin A1c Other abnormal blood chemistry Obesity, Class III, BMI 40-49.9 (morbid obesity) (HCC) Morbid obesity Peripheral edema Edema Age-related osteoporosis without current pathological fracture Senile osteoporosis Benign paroxysmal positional vertigo, unspecified laterality Need for vaccination Need for prophylactic vaccination and inoculation against unspecified single disease documented in this encounter [facility] note* Diagnosis Hypertension, essential- Primary Unspecified essential hypertension Screening for depression Benign paroxysmal positional vertigo, unspecified laterality Elevated hemoglobin A1c Other abnormal blood chemistry Age-related osteoporosis without current pathological fracture Senile osteoporosis Obesity, Class III, BMI 40-49.9 (morbid obesity) (HCC) Morbid obesity Sleep apnea, unspecified type documented in this encounter [facility] note* Diagnosis Acute left ankle pain [facility] Diagnostic Procedure Only (Routine) - Pending Review Specialty Diagnoses / Procedures Referred By Kalpana gray Referred To Contact BR IMAGING Diagnoses Screening mammogram for breast cancer Procedures CARLOS SCREENING SCREENING MAMMOGRAPHY BI 2-VIEW BREAST INC Albina Julian PA-C [address] [place] [address] Br Imaging [facility] [place] [address] Referral ID Status Reason Start Date Expiration Date Visits Requested Visits Authorized [id number] Pending Review Auto-Generat ed Referral 02/27/2022 03/29/2023 1 1 [facility] Diagnostic Procedure Only (Routine) - Pending Review Specialty Diagnoses / Procedures Referred By Kalpana gray Referred To Contact [facility] IMAG[facility] Diagnoses Screening mammogram for breast cancer Procedures CARLOS SCREENING W NERIS SCREENING DIGITAL BREAST TOMOSYNTHESIS BI SCREENING MAMMOGRAPHY BI 2-VIEW BREAST INC Albina Julian PA-C [address] [place] [address] Br Imaging [address] [place] [address] Referral ID Status Reason Start Date Expiration Date Visits Requested Visits Authorized [id number] Pending Review Auto-Generat ed Referral 2 04/19/2023 1 1 [place] for referral (narrative)* Diagnostic Procedure Only (Urgent) - Closed Specialty Diagnoses / Procedures Referred By Contac t Referred To Contact XR IMAGING Diagnoses Injury of left foot, initial encounter Procedures XR FOOT GENERAL 3V AP/LAT/OBL LEFT RADEX FOOT COMPLETE MINIMUM 3 VIEWS Jamie Morrow APRN.SQL APPLICATION DEVELOPER [address] [place] [address] X[facility] Imaging Referral ID Status Reason Start Date Expiration Date V isits Requested Visits Authorized [id number] Closed Auto-Generate d Referral 08/27/2022 09/26/2023 1 1 T [place] for referral (narrative)* Diagnostic Procedure Only (Routine) - Pending Review Specialty Diagnoses / Procedures Referred By Contac t Referred To Contact XR IMAGING Diagnoses Bilateral ankle pain, unspecified chronicity Procedures XR ANKLE GENERAL 3V AP/LAT/OBL BILATERAL RADEX ANKLE COMPLETE MINIMUM 3 VIEWS Shahrzad Ewing [address] [place] [address] [place] [address] Referral ID Status Reason Start Date Expiration Date Visits Requested Visits Authorized [id number] Pending Review Auto-Generat ed Referral 09/19/2023 10/18/2024 1 1 [facility] for referral (narrative)* Diagnostic Procedure Only (Urgent) - Closed Specialty Diagnoses / Procedures Referred By Contac t Referred To Contact US IMAGING Diagnoses Pain and swelling of lower leg, unspecified laterality Procedures US DVT LOWER BILATERAL DUP-SCAN XTR VEINS COMPLETE BILATERAL STUDY Veronique Fuentes [employer].SQL APPLICATION DEVELOPER [address] [place] [address] [facility] [address] Referral ID Status Reason Start Date Expiration Date V isits Requested Visits Authorized [id number] Closed Auto-Generate d Referral 01/08/2024 02/06/2025 1 1 [place] for referral (narrative)* Outpatient Procedure (Routine) - Authorized Specialty Diagnoses / Procedures Referred By Contac t Referred To Contact [facility] Diagnoses Leg swelling Hypertension, essential SOB (shortness of breath) Procedures ECHO ECHO TTHRC R-T 2D W/WOM-MODE COMPL SPEC&COLR D Jamie Juarez MD [address] [place] [address] [facility] [place] [address] [place] [address] Referral ID Status Reason Start Date Expiration Date Visits Requested Visits Authorized [id number] Authorized Auto-Generat ed Referral 01/14/2024 01/13/2025 1 1 [place] for referral (narrative)* Diagnostic Procedure Only (Routine) - New Request Specialty Diagnoses / Procedures Referred By Kalpana gray Referred To Contact BR IMAGING Diagnoses Encounter for screening mammogram for breast cancer Procedures CARLOS SCREENING W NERIS SCREENING DIGITAL BREAST TOMOSYNTHESIS BI SCREENING MAMMOGRAPHY BI 2-VIEW BREAST INC CAD Jamie Juarez MD [address] [place] [address] Br Imaging [address] [place] [phone] Referral ID Status Reason Start Date Expiration Date Visits Requested Visits Authorized [id number] New Request Auto-Generat ed Referral 02/05/2024 03/06/2025 1 1 [place] for referral (narrative)* Diagnostic Procedure Only (Urgent) - Closed Specialty Diagnoses / Procedures Referred By Feac t Referred To Contact XR IMAGING Diagnoses Pain Procedures XR LUMBAR GENERAL 3V AP/LAT/L5-S1 RADEX SPINE LUMBOSACRAL 2/3 VIEWS Ronnie Lay APRN.SQL APPLICATION DEVELOPER [address] [place] [address] [place] [address] Referral ID Status Reason Start Date Expiration Date V isits Requested Visits Authorized [id number] Closed Auto-Generate d Referral 10/11/2023 11/09/2024 1 1 * Diagnostic Procedure Only (Urgent) - Closed Specialty Diagnoses / Procedures Referred By Contac t Referred To Contact XR IMAGING Diagnoses Pain Procedures XR SACRUM/COCCYX 3V AP/LAT RADEX SACRUM & COCCYX MINIMUM 2 VIEWS Ronnie Lay APRN.SQL APPLICATION DEVELOPER [address] [place] [address] [place] [address] Referral ID Status Reason Start Date Expiration Date V isits Requested Visits Authorized [id number] Closed Auto-Generate d Referral 10/11/2023 11/09/2024 1 1 [place] for referral (narrative)* Diagnostic Procedure Only (Urgent) - Closed Specialty Diagnoses / Procedures Referred By Contac t Referred To Contact XR IMAGING Diagnoses Injury of left foot, initial encounter Procedures XR FOOT GENERAL 3V AP/LAT/OBL LEFT RADEX FOOT COMPLETE MINIMUM 3 VIEWS Jamie Morrow APRN.SQL APPLICATION DEVELOPER [address] [place] [address] [place] [address] Referral ID Status Reason Start Date Expiration Date V isits Requested Visits Authorized [id number] Closed Auto-Generate d Referral 08/27/2022 09/26/2023 1 1 [place] for referral (narrative)* Diagnostic Procedure Only (Routine) - New Request Specialty Diagnoses / Procedures Referred By Contac t Referred To Contact XR IMAGING Diagnoses Age-related osteoporosis without current pathological fracture Procedures DXA-AXIAL SKELETON DXA BONE DENSITY STUDY 1/> SITES AXIAL TIFFANYEL Jamie Juarez MD [address] [place] [address] [place] [address] Referral ID Status Reason Start Date Expiration Date Visits Requested Visits Authorized [id number] New Request Auto-Generat ed Referral 02/28/2024 03/29/2025 1 1 [place] for visit Narrative* Diagnostic Procedure Only (Routine) - Closed Specialty Diagnoses / Procedures Referred By Contac t Referred To Contact XR IMAGING Diagnoses Bilateral ankle pain, unspecified chronicity Procedures XR ANKLE GENERAL 3V AP/LAT/OBL BILATERAL RADEX ANKLE COMPLETE MINIMUM 3 VIEWS Shahrzad Ewing [address] [place] [address] [place] [address] Referral ID Status Reason Start Date Expiration Date V isits Requested Visits Authorized [id number] Closed Auto-Generate d Referral 09/19/2023 10/18/2024 1 1 [place] for visit Narrative* Diagnostic Procedure Only (Urgent) - Closed Specialty Diagnoses / Procedures Referred By Contac t Referred To Contact XR IMAGING Diagnoses Pain Procedures XR LUMBAR GENERAL 3V AP/LAT/L5-S1 RADEX SPINE LUMBOSACRAL 2/3 VIEWS Ronnie Lay APRN.SQL APPLICATION DEVELOPER [address] [place] [address] [place] [address] Referral ID Status Reason Start Date Expiration Date V isits Requested Visits Authorized [id number] Closed Auto-Generate d Referral 10/11/2023 11/09/2024 1 1 [place] for visit Narrative* Diagnostic Procedure Only (Routine) - Closed Specialty Diagnoses / Procedures Referred By Contac t Referred To Contact Radiology / [facility] Diagnoses room 5 Procedures XR CHEST Meme Crow PA-C [address] [place] [address] Radio General [facility] [address] [place] [address] Referral ID Status Reason Start Date Expiration Date Visits Re quested Visits Authorized [id number] Closed 06/14/2023 06/14/2023 1 1 [facility] Diagnostic Procedure Only (Urgent) - Closed Specialty Diagnoses / Procedures Referred By Contac t Referred To Contact XR IMAGING Diagnoses Injury of left foot, initial encounter Procedures XR FOOT GENERAL 3V AP/LAT/OBL LEFT RADEX FOOT COMPLETE MINIMUM 3 VIEWS Jamie Morrow APRN.SQL APPLICATION DEVELOPER [address] [place] [address] [place] [address] Referral ID Status Reason Start Date Expiration Date V isits Requested Visits Authorized [id number] Closed Auto-Generate d Referral 08/27/2022 09/26/2023 1 1 [facility] Reason for Referral Specialty Diagnoses / Procedures Referred By Contac t Referred To Contact [facility] [place] Diagnoses Pain Procedures CONSULT TO [facility] OFFICE/OUTPATIENT [facility] 60 MINUTES Ronnie Lay, [employer].SQL APPLICATION DEVELOPER [address] [place] [address] Referral ID Status Reason Start Date Expiration Date Visits Requested Visits Authorized [id number] Authorized PCP Requested Referral 10/11/2023 10/10/2024 1 1 Specialty Diagnoses / Procedures Referred By Contac t Referred To Contact XR IMAGING Diagnoses Pain Procedures XR LUMBAR GENERAL 3V AP/LAT/L5-S1 RADEX SPINE LUMBOSACRAL 2/3 VIEWS Ronnie Lay APRN.SQL APPLICATION DEVELOPER [address] [place] [address] [place] [address] Referral ID Status Reason Start Date Expiration Date V isits Requested Visits Authorized [id number] Closed Auto-Generate d Referral 10/11/2023 11/09/2024 1 1 Specialty Diagnoses / Procedures Referred By Contac t Referred To Contact XR IMAGING Diagnoses Pain Procedures XR SACRUM/COCCYX 3V AP/LAT RADEX SACRUM & COCCYX MINIMUM 2 VIEWS Ronnie Lay, NIKITA.SQL APPLICATION DEVELOPER [address] [place] [address] [place] [address] Referral ID Status Reason Start Date Expiration Date V isits Requested Visits Authorized [id number] Closed Auto-Generate d Referral 10/11/2023 11/09/2024 1 1 Specialty Diagnoses / Procedures Referred By Contac t Referred To Contact [facility] Diagnoses Chronic bilateral low back pain without sciatica Physical deconditioning Procedures CONSULT TO PHYSICAL THERAPY PHYSICAL THERAPY EVALUATION HIGH COMPLEX 45 MINS David Berger PA-C [address] [place] [address] [facility] [place] [address] [place] [address] Referral ID Status Reason Start Date Expiration Date Visits Requested Visits Authorized [id number] Pending Review Auto-Generat ed Referral 11/08/2023 11/07/2024 1 1 Specialty Diagnoses / Procedures Referred By Contac t Referred To Contact Diagnoses Physical deconditioning Morbid obesity (HCC) Procedures CONSULT [facility] OFFICE/OUTPATIENT NEW HIGH MDM 60 MINUTES David Berger PA-C [address] [place] [address] Referral ID Status Reason Start Date Expiration Date Visits Requested Visits Authorized [id number] Authorized PCP Requested Referral 11/08/2023 11/07/2024 1 1 Summary Purpose Family History No Family History Records FoundNo Family History Records Found Advance Directives No Advanced Directives Records FoundNo Advanced Directives Records Found Additional Source Comments Source Comments (unrecognize d section and content) In the event this informatio n is protected by the Federal Confidentiality of Alcohol and Drug Abuse Patient Records regulations: The Federal rules restrict any use of the information to criminally investigate or prosecute any alcohol or drug abuse patient.[facility] the event this information is protected by the Federal Confidentiality of Alcohol and Drug Abuse Patient Records regulations: The Federal rules restrict any use of the information to criminally investigate or prosecute any alcohol or drug abuse patient.[facility] the event this information is protected by the Federal Confidentiality of Alcohol and Drug Abuse Patient Records regulations: The Federal rules restrict any use of the information to criminally investigate or prosecute any alcohol or drug abuse patient.[facility] the event this information is protected by the Federal Confidentiality of Alcohol and Drug Abuse Patient Records regulations: The Federal rules restrict any use of the information to criminally investigate or prosecute any alcohol or drug abuse patient.[facility] the event this information is protected by the Federal Confidentiality of Alcohol and Drug Abuse Patient Records regulations: The Federal rules restrict any use of the information to criminally investigate or prosecute any alcohol or drug abuse patient.[facility] the event this information is protected by the Federal Confidentiality of Alcohol and Drug Abuse Patient Records regulations: The Federal rules restrict any use of the information to criminally investigate or prosecute any alcohol or drug abuse patient.[facility] the event this information is protected by the Federal Confidentiality of Alcohol and Drug Abuse Patient Records regulations: The Federal rules restrict any use of the information to criminally investigate or prosecute any alcohol or drug abuse patient.[facility] the event this information is protected by the Federal Confidentiality of Alcohol and Drug Abuse Patient Records regulations: The Federal rules restrict any use of the information to criminally investigate or prosecute any alcohol or drug abuse patient.[facility] the event this information is protected by the Federal Confidentiality of Alcohol and Drug Abuse Patient Records regulations: The Federal rules restrict any use of the information to criminally investigate or prosecute any alcohol or drug abuse patient.[facility] the event this information is protected by the Federal Confidentiality of Alcohol and Drug Abuse Patient Records regulations: The Federal rules restrict any use of the information to criminally investigate or prosecute any alcohol or drug abuse patient.[facility] the event this information is protected by the Federal Confidentiality of Alcohol and Drug Abuse Patient Records regulations: The Federal rules restrict any use of the information to criminally investigate or prosecute any alcohol or drug abuse patient.[facility] the event this information is protected by the Federal Confidentiality of Alcohol and Drug Abuse Patient Records regulations: The Federal rules restrict any use of the information to criminally investigate or prosecute any alcohol or drug abuse patient.[facility] the event this information is protected by the Federal Confidentiality of Alcohol and Drug Abuse Patient Records regulations: The Federal rules restrict any use of the information to criminally investigate or prosecute any alcohol or drug abuse patient.[facility] the event this information is protected by the Federal Confidentiality of Alcohol and Drug Abuse Patient Records regulations: The Federal rules restrict any use of the information to criminally investigate or prosecute any alcohol or drug abuse patient.[facility] the event this information is protected by the Federal Confidentiality of Alcohol and Drug Abuse Patient Records regulations: The Federal rules restrict any use of the information to criminally investigate or prosecute any alcohol or drug abuse patient.[facility] the event this information is protected by the Federal Confidentiality of Alcohol and Drug Abuse Patient Records regulations: The Federal rules restrict any use of the information to criminally investigate or prosecute any alcohol or drug abuse patient.[facility] the event this information is protected by the Federal Confidentiality of Alcohol and Drug Abuse Patient Records regulations: The Federal rules restrict any use of the information to criminally investigate or prosecute any alcohol or drug abuse patient.[facility] the event this information is protected by the Federal Confidentiality of Alcohol and Drug Abuse Patient Records regulations: The Federal rules restrict any use of the information to criminally investigate or prosecute any alcohol or drug abuse patient.[facility] the event this information is protected by the Federal Confidentiality of Alcohol and Drug Abuse Patient Records regulations: The Federal rules restrict any use of the information to criminally investigate or prosecute any alcohol or drug abuse patient.[facility] the event this information is protected by the Federal Confidentiality of Alcohol and Drug Abuse Patient Records regulations: The Federal rules restrict any use of the information to criminally investigate or prosecute any alcohol or drug abuse patient.[facility] the event this information is protected by the Federal Confidentiality of Alcohol and Drug Abuse Patient Records regulations: The Federal rules restrict any use of the information to criminally investigate or prosecute any alcohol or drug abuse patient.[facility] the event this information is protected by the Federal Confidentiality of Alcohol and Drug Abuse Patient Records regulations: The Federal rules restrict any use of the information to criminally investigate or prosecute any alcohol or drug abuse patient.[facility] the event this information is protected by the Federal Confidentiality of Alcohol and Drug Abuse Patient Records regulations: The Federal rules restrict any use of the information to criminally investigate or prosecute any alcohol or drug abuse patient.[facility] the event this information is protected by the Federal Confidentiality of Alcohol and Drug Abuse Patient Records regulations: The Federal rules restrict any use of the information to criminally investigate or prosecute any alcohol or drug abuse patient.[facility] the event this information is protected by the Federal Confidentiality of Alcohol and Drug Abuse Patient Records regulations: The Federal rules restrict any use of the information to criminally investigate or prosecute any alcohol or drug abuse patient.[facility] CenterIn the event this information is protected by the Federal Confidentiality of Alcohol and Drug Abuse Patient Records regulations: The Federal rules restrict any use of the information to criminally investigate or prosecute any alcohol or drug abuse patient.[facility] CenterIn the event this information is protected by the Federal Confidentiality of Alcohol and Drug Abuse Patient Records regulations: The Federal rules restrict any use of the information to criminally investigate or prosecute any alcohol or drug abuse patient.[facility] the event this information is protected by the Federal Confidentiality of Alcohol and Drug Abuse Patient Records regulations: The Federal rules restrict any use of the information to criminally investigate or prosecute any alcohol or drug abuse patient.[facility] CenterIn the event this information is protected by the Federal Confidentiality of Alcohol and Drug Abuse Patient Records regulations: The Federal rules restrict any use of the information to criminally investigate or prosecute any alcohol or drug abuse patient.[facility] the event this information is protected by the Federal Confidentiality of Alcohol and Drug Abuse Patient Records regulations: The Federal rules restrict any use of the information to criminally investigate or prosecute any alcohol or drug abuse patient.[facility] CenterIn the event this information is protected by the Federal Confidentiality of Alcohol and Drug Abuse Patient Records regulations: The Federal rules restrict any use of the information to criminally investigate or prosecute any alcohol or drug abuse patient.[facility]In the event this information is protected by the Federal Confidentiality of Alcohol and Drug Abuse Patient Records regulations: The Federal rules restrict any use of the information to criminally investigate or prosecute any alcohol or drug abuse patient.[facility] the event this information is protected by the Federal Confidentiality of Alcohol and Drug Abuse Patient Records regulations: The Federal rules restrict any use of the information to criminally investigate or prosecute any alcohol or drug abuse patient.[facility] the event this information is protected by the Federal Confidentiality of Alcohol and Drug Abuse Patient Records regulations: The Federal rules restrict any use of the information to criminally investigate or prosecute any alcohol or drug abuse patient.[facility] the event this information is protected by the Federal Confidentiality of Alcohol and Drug Abuse Patient Records regulations: The Federal rules restrict any use of the information to criminally investigate or prosecute any alcohol or drug abuse patient.[facility] CenterIn the event this information is protected by the Federal Confidentiality of Alcohol and Drug Abuse Patient Records regulations: The Federal rules restrict any use of the information to criminally investigate or prosecute any alcohol or drug abuse patient.[facility] CenterIn the event this information is protected by the Federal Confidentiality of Alcohol and Drug Abuse Patient Records regulations: The Federal rules restrict any use of the information to criminally investigate or prosecute any alcohol or drug abuse patient.[facility] CenterIn the event this information is protected by the Federal Confidentiality of Alcohol and Drug Abuse Patient Records regulations: The Federal rules restrict any use of the information to criminally investigate or prosecute any alcohol or drug abuse patient.[facility] CenterIn the event this information is protected by the Federal Confidentiality of Alcohol and Drug Abuse Patient Records regulations: The Federal rules restrict any use of the information to criminally investigate or prosecute any alcohol or drug abuse patient.[facility] CenterIn the event this information is protected by the Federal Confidentiality of Alcohol and Drug Abuse Patient Records regulations: The Federal rules restrict any use of the information to criminally investigate or prosecute any alcohol or drug abuse patient.[facility] CenterIn the event this information is protected by the Federal Confidentiality of Alcohol and Drug Abuse Patient Records regulations: The Federal rules restrict any use of the information to criminally investigate or prosecute any alcohol or drug abuse patient.[facility] CenterIn the event this information is protected by the Federal Confidentiality of Alcohol and Drug Abuse Patient Records regulations: The Federal rules restrict any use of the information to criminally investigate or prosecute any alcohol or drug abuse patient.[facility] CenterIn the event this information is protected by the Federal Confidentiality of Alcohol and Drug Abuse Patient Records regulations: The Federal rules restrict any use of the information to criminally investigate or prosecute any alcohol or drug abuse patient.[facility] CenterIn the event this information is protected by the Federal Confidentiality of Alcohol and Drug Abuse Patient Records regulations: The Federal rules restrict any use of the information to criminally investigate or prosecute any alcohol or drug abuse patient.[facility] CenterIn the event this information is protected by the Federal Confidentiality of Alcohol and Drug Abuse Patient Records regulations: The Federal rules restrict any use of the information to criminally investigate or prosecute any alcohol or drug abuse patient.[facility] CenterIn the event this information is protected by the Federal Confidentiality of Alcohol and Drug Abuse Patient Records regulations: The Federal rules restrict any use of the information to criminally investigate or prosecute any alcohol or drug abuse patient.[facility] CenterIn the event this information is protected by the Federal Confidentiality of Alcohol and Drug Abuse Patient Records regulations: The Federal rules restrict any use of the information to criminally investigate or prosecute any alcohol or drug abuse patient.[facility] CenterIn the event this information is protected by the Federal Confidentiality of Alcohol and Drug Abuse Patient Records regulations: The Federal rules restrict any use of the information to criminally investigate or prosecute any alcohol or drug abuse patient.[facility] CenterIn the event this information is protected by the Federal Confidentiality of Alcohol and Drug Abuse Patient Records regulations: The Federal rules restrict any use of the information to criminally investigate or prosecute any alcohol or drug abuse patient.[facility] CenterIn the event this information is protected by the Federal Confidentiality of Alcohol and Drug Abuse Patient Records regulations: The Federal rules restrict any use of the information to criminally investigate or prosecute any alcohol or drug abuse patient.[facility] CenterIn the event this information is protected by the Federal Confidentiality of Alcohol and Drug Abuse Patient Records regulations: The Federal rules restrict any use of the information to criminally investigate or prosecute any alcohol or drug abuse patient.[facility] CenterIn the event this information is protected by the Federal Confidentiality of Alcohol and Drug Abuse Patient Records regulations: The Federal rules restrict any use of the information to criminally investigate or prosecute any alcohol or drug abuse patient.[facility] CenterIn the event this information is protected by the Federal Confidentiality of Alcohol and Drug Abuse Patient Records regulations: The Federal rules restrict any use of the information to criminally investigate or prosecute any alcohol or drug abuse patient.[facility] CenterIn the event this information is protected by the Federal Confidentiality of Alcohol and Drug Abuse Patient Records regulations: The Federal rules restrict any use of the information to criminally investigate or prosecute any alcohol or drug abuse patient.[facility] CenterIn the event this information is protected by the Federal Confidentiality of Alcohol and Drug Abuse Patient Records regulations: The Federal rules restrict any use of the information to criminally investigate or prosecute any alcohol or drug abuse patient.[facility] CenterIn the event this information is protected by the Federal Confidentiality of Alcohol and Drug Abuse Patient Records regulations: The Federal rules restrict any use of the information to criminally investigate or prosecute any alcohol or drug abuse patient.[facility] CenterIn the event this information is protected by the Federal Confidentiality of Alcohol and Drug Abuse Patient Records regulations: The Federal rules restrict any use of the information to criminally investigate or prosecute any alcohol or drug abuse patient.[facility] CenterIn the event this information is protected by the Federal Confidentiality of Alcohol and Drug Abuse Patient Records regulations: The Federal rules restrict any use of the information to criminally investigate or prosecute any alcohol or drug abuse patient.[facility] CenterIn the event this information is protected by the Federal Confidentiality of Alcohol and Drug Abuse Patient Records regulations: The Federal rules restrict any use of the information to criminally investigate or prosecute any alcohol or drug abuse patient.[facility] CenterIn the event this information is protected by the Federal Confidentiality of Alcohol and Drug Abuse Patient Records regulations: The Federal rules restrict any use of the information to criminally investigate or prosecute any alcohol or drug abuse patient.[facility] CenterIn the event this information is protected by the Federal Confidentiality of Alcohol and Drug Abuse Patient Records regulations: The Federal rules restrict any use of the information to criminally investigate or prosecute any alcohol or drug abuse patient.[facility] Reason for Visit (unrecogniz ed section and content) Reason Comments PT Progress Note Physical Therapy PT Discharge Specialty Diagnoses / Procedures Referred By Kalpana gray Referred To Contact [facility] Diagnoses Chronic bilateral low back pain without sciatica Physical deconditioning Procedures CONSULT TO PHYSICAL THERAPY PHYSICAL THERAPY EVALUATION HIGH COMPLEX 45 MINS David Berger, RADHA [address] [place] [address] [facility] [address] [address] Referral ID Status Reason Start Date Expiration Date Visits Requested Visits Authorized [id number] Authorized Auto-Generat ed Referral 06/03/2023 06/02/2024 99 99 Reason Comments Physical Therapy Reason Comments PT Progress Note Physical Therapy Reason Comments Medicare Wellness Exam Reason Comments Patient Request Reason Comments Results Reason Comments Pain (foot) left foot, 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 Reason Comments Recheck Blood pressure Reason Comments Cough With sore throat, le ft ear ache Reason Comments Cough diarrhea Reason Comments Recheck pneumonia Specialty Diagnoses / Procedures Referred By Contac t Referred To Contact Family Medicine / FAMILY MEDICINE Diagnoses Follow-up exam 3 week f/u pneumonia Procedures 4C EST Albina Salcedo PA-C [address] [place] [address] Albina Salcedo PA-C [address] [place] [address] Referral ID Status Reason Start Date Expiration Date Visits Re quested Visits Authorized [id number] Closed 11/27/2022 06/02/2023 1 1 Reason Onset Date Comments Refill Request 12/17/2022 Reason Comments Dizziness Reason Comments Patient Update From ER visit Reason Comments Results mammogram Reason Comments Refill Request Reason Comments New Pain Swelling Specialty Diagnoses / Procedures Referred By Contac t Referred To Contact Podiatry Diagnoses Bilateral ankle pain, unspecified chronicity Procedures CONSULT TO PODIATRY OFFICE/OUTPATIENT [facility] MDM 60 MINUTES Jamie Juarez MD [address] [place] [id number] Referral ID Status Reason Start Date Expiration Date V isits Requested Visits Authorized [id number] Closed PCP Requested Referral 08/30/2023 08/29/2024 1 1 Reason Comments Patient Update Reason Comments Back Pain Lower back pain, wor se on R side sharp shooting pain x 1 week Reason Comments New Patient Low Back Pain Buttocks area Specialty Diagnoses / Procedures Referred By Contac t Referred To Contact [facility] [place] Diagnoses Pain Procedures CONSULT TO [facility] OFFICE/OUTPATIENT [facility] 60 MINUTES Ronnie Lay APRN.CNP [address] [place] [id number] Referral ID Status Reason Start Date Expiration Date V isits Requested Visits Authorized [id number] Closed PCP Requested Referral 10/11/2023 10/10/2024 1 1 Reason Comments PT Eval Reason Onset Date Comments Refill Request 12/02/2023 Reason Onset Date Comments Refill Request 12/19/2023 Reason Onset Date Comments Refill Request 01/01/2024 Reason Comments Musculoskeletal Problem bilateral legs p ainful and swollen x 2 weeks Reason Comments Radiology US Specialty Diagnoses / Procedures Referred By Contac t Referred To Contact US IMAGING Diagnoses Pain and swelling of lower leg, unspecified laterality Procedures US DVT LOWER BILATERAL DUP-SCAN XTR VEINS COMPLETE BILATERAL STUDY Veronique Fuentes APRN.CNP [address] [place] [address] [place] [address] Referral ID Status Reason Start Date Expiration Date V isits Requested Visits Authorized [id number] Closed Auto-Generate d Referral 01/08/2024 02/06/2025 1 1 Reason Comments Follow Up Seen in for bilat eral leg pain and swelling, US completed which was negative for DVT Specialty Diagnoses / Procedures Referred By Contac t Referred To Contact Family Medicine / FAMILY MEDICINE Diagnoses Follow-up exam Urgent care follow up Procedures OFFICE/OUTPATIENT ESTABLISHED MOD MDM 30 MIN 4C EST Jamie Juarez MD [address] [place] [address] Jamie Juarez MD [address] [place] [address] Referral ID Status Reason Start Date Expiration Date Visits Re quested Visits Authorized [id number] Closed 01/14/2024 06/02/2024 1 1 Specialty Diagnoses / Procedures Referred By Contac t Referred To Contact Radiology / [facility] Diagnoses Other specified soft tissue disorders main lobby Procedures RADIOLOGIC EXAM CHEST 2 VIEWS XR CHEST Jamie Juarez MD [address] [place], [place] [id number] [facility] [address] [place] [address] Referral ID Status Reason Start Date Expiration Date Visits Re quested Visits Authorized [id number] Closed 01/14/2024 06/02/2024 1 1 Reason Comments Dizziness X3 days, only occurs when standing Reason Comments Hospital F/U [facility] Reason Comments ER F/U Reason Comments Vertigo Specialty Diagnoses / Procedures Referred By Contac t Referred To Contact Radiology / [facility] Diagnoses Bacterial pneumonia XR CHEST 2V FRONTAL/LAT pt in main lobby Procedures RADIOLOGIC EXAM CHEST 2 VIEWS XR CHEST Albina Salcedo PA-C [address] [place] [address] [facility] [address] [place] [address] Referral ID Status Reason Start Date Expiration Date Visits Re quested Visits Authorized [id number] Closed 11/27/2022 06/02/2023 1 1 Specialty Diagnoses / Procedures Referred By Contac t Referred To Contact Radiology / [facility] Diagnoses Dx: Acute cough [R05.1]; Wheezing [R06.2] Procedures RADIOLOGIC EXAM CHEST 2 VIEWS XR CHEST Patti Her, [employer] [address] [place] [address] [facility] [address] [place] [address] Referral ID Status Reason Start Date Expiration Date Visits Re quested Visits Authorized [id number] Closed 11/03/2022 06/02/2023 1 1 Reason Comments Physical Reason Comments Follow Up Specialty Diagnoses / Procedures Referred By Contac t Referred To Contact Internal Medicine / [facility] Diagnoses LEFT ANKLE INJURY Procedures URGENT CARE [facility] [address] [place] [address] Referral ID Status Reason Start Date Expiration Date Visits Re quested Visits Authorized [id number] Closed 07/15/2020 09/13/2020 2 2 Reason Comments Outside PT Care Teams (unrecognized sec tion and content) Pals Nurse Relationship Specialty Start Date End Date Jamie Juarez MD [address] [place], [place] [id number] PCP - General Family Medicine 01/25/15 Pals Nurse Relationship Specialty Start Date End Date Jamie Juarez MD [address] [place], [place] [id number] PCP - General Family Medicine 01/25/15 Pals Nurse Relationship Specialty Start Date End Date Jamie Juarez MD [address] [place] [address] PCP - General Family Medicine 01/25/15 Pals Nurse Relationship Specialty Start Date End Date Jamie Juarez MD [address] [place] [address] PCP - General Family Medicine 01/25/15 Pals Nurse Relationship Specialty Start Date End Date Jamie Juarez MD [address] [place] [address] PCP - General Family Medicine 01/25/15 Pals Nurse Relationship Specialty Start Date End Date Jamie Juarez MD [address] [place] [address] PCP - General Family Medicine 01/25/15 Pals Nurse Relationship Specialty Start Date End Date Jamie Juarez MD [address] [place] [address] PCP - General Family Medicine 01/25/15 Pals Nurse Relationship Specialty Start Date End Date Jamie Juarez MD [address] [place] [address] PCP - General Family Medicine 01/25/15 Pals Nurse Relationship Specialty Start Date End Date Jamie Juarez MD [address] [place] [address] PCP - General Family Medicine 01/25/15 Pals Nurse Relationship Specialty Start Date End Date Jamie Juarez MD [address] [place] [address] PCP - General Family Medicine 01/25/15 Pals Nurse Relationship Specialty Start Date End Date Jamie Juarez MD [address] [place] [address] PCP - General Family Medicine 01/25/15 Pals Nurse Relationship Specialty Start Date End Date Jamie Jaurez MD [address] [place] [address] PCP - General Family Medicine 01/25/15 Pals Nurse Relationship Specialty Start Date End Date Jamie Juarez MD [address] [place] [address] PCP - General Family Medicine 01/25/15 Pals Nurse Relationship Specialty Start Date End Date Jamie Juarez MD [address] [place] [address] PCP - General Family Medicine 01/25/15 Pals Nurse Relationship Specialty Start Date End Date Jamie Juarez MD [address] [place] [address] PCP - General Family Medicine 01/25/15 Pals Nurse Relationship Specialty Start Date End Date Jamie Juarez MD [address] [place] [address] PCP - General Family Medicine 01/25/15 Pals Nurse Relationship Specialty Start Date End Date Jamie Juarez MD [address] [place] [address] PCP - General Family Medicine 01/25/15 Pals Nurse Relationship Specialty Start Date End Date Jamie Juarez MD [address] [place] [address] PCP - General Family Medicine 01/25/15 Pals Nurse Relationship Specialty Start Date End Date Jamie Juarez MD [address] [place] [address] PCP - General Family Medicine 01/25/15 Pals Nurse Relationship Specialty Start Date End Date Jamie Juarez MD [address] [place] [address] PCP - General Family Medicine 01/25/15 Pals Nurse Relationship Specialty Start Date End Date Jamie Juarez MD [address] [place] [address] PCP - General Family Medicine 01/25/15 Pals Nurse Relationship Specialty Start Date End Date Jamie Juarez MD [address] [place] [address] PCP - General Family Medicine 01/25/15 Pals Nurse Relationship Specialty Start Date End Date Jamie Juarez MD [address] [place] [address] PCP - General Family Medicine 01/25/15 Pals Nurse Relationship Specialty Start Date End Date Jamie Juarez MD [address] [place] [address] PCP - General Family Medicine 01/25/15 Pals Nurse Relationship Specialty Start Date End Date Jamie Juarez MD [address] [place] [address] PCP - General Family Medicine 01/25/15 Pals Nurse Relationship Specialty Start Date End Date Jamie Juarez MD [address] [place] [address] PCP - General Family Medicine 01/25/15 Pals Nurse Relationship Specialty Start Date End Date Jamie Juarez MD [address] [place] [address] PCP - General Family Medicine 01/25/15 Pals Nurse Relationship Specialty Start Date End Date Jamie Juarez MD [address] [place] [address] PCP - General Family Medicine 01/25/15 Pals Nurse Relationship Specialty Start Date End Date Jamie Juarez MD [address] [place] [address] PCP - General Family Medicine 01/25/15 Pals Nurse Relationship Specialty Start Date End Date Jamie Juarez MD [address] [place] [address] PCP - General Family Medicine 01/25/15 Pals Nurse Relationship Specialty Start Date End Date Jamie Jaurez MD [address] [place] [address] PCP - General Family Medicine 01/25/15 Pals Nurse Relationship Specialty Start Date End Date Jamie Juarez MD [address] [place] [address] PCP - General Family Medicine 01/25/15 Pals Nurse Relationship Specialty Start Date End Date Jamie Juarez MD [address] [place] [address] PCP - General Family Medicine 01/25/15 Pals Nurse Relationship Specialty Start Date End Date Jamie Juarez MD [address] [place] [address] PCP - General Family Medicine 01/25/15 Pals Nurse Relationship Specialty Start Date End Date Jamie Juarez MD [address] [place] [address] PCP - General Family Medicine 01/25/15 Pals Nurse Relationship Specialty Start Date End Date Jamie Juarez MD [address] [facility] [place] [place] [address] PCP - General Family Medicine 01/25/15 Pals Nurse Relationship Specialty Start Date End Date Jamie Juarez MD [address] [place] [address] PCP - General Family Medicine 01/25/15 INFORMATION SOURCE (unrecogn ized section and content) DATE CREATED AUTHOR 01/11/2024 [facility] DATE CREATED AUTHOR AUTHOR'S ORGANIZ ATION 03/31/2024 [facility] FOR RECORDS PERTAINING TO PATIENTS WHO ARE OR HAVE BEEN ENROLLED IN A CHEMICAL DEPENDENCY/SUBSTANCEABUSE PROGRAM, SOME INFORMATION MAY BE OMITTED. This clinical summary was aggregated from multiple sources. Caution should be exercised in using it in the provision of clinical care. This summary normalizes information from multiple sources, and as a consequence, information in this document may materially change the coding, format and clinical context of patient data. In addition, data may be omitted in some cases. CLINICAL DECISIONS SHOULD BE BASED ON THE PRIMARY CLINICAL RECORDS. [facility] [employer] provides no warranty or guarantee of the accuracy or completeness of information in this document.
== END | disposition home or self-care (01) ==
LOC: OPBD 13:28
PROVIDERS: PCP Family Medicine; Referring Provider Family Medicine; Visit Provider Family Medicine
DX: Z12.31 Encounter for screening mammogram for malignant neoplasm of breast (principal); M81.0 Age-related osteoporosis without current pathological fracture
CPT/HCPCS: 77063; 77067; 77080

== ENCOUNTER → 2024-05-15 | Outpatient (CLI) | payer OTHER, SELFPAY ==
--- NOTE | 2024-05-15 10:37 | RAD_ITS ---
STUDY: X-RAY - LEFT ANKLE REASON FOR EXAM: Female, 68 years old. SPRAIN TECHNIQUE: 3 view(s) of the ankle. COMPARISON: None. FINDINGS: Normal visualized distal tibia and fibula. Normal medial and lateral malleoli. Normal tibiotalar articulation and ankle mortise. Normal visualized talus. There are plantar and dorsal spurs of the calcaneus. The visualized subtalar, talonavicular, calcaneocuboid and tarsal articulations are normal. There is no demonstrated fracture. There is soft tissue swelling. RAD/Ankle min 3 Views IMPRESSION: No fracture. Soft tissue swelling. Heel spurs. Electronically Signed: Mynor Nair MD at 11:50 EST ,
--- NOTE | 2024-05-15 10:37 | RAD_ITS ---
STUDY: X-RAY - LEFT FOOT CLINICAL: Female, 68 years old. SPRAIN TECHNIQUE: 3 view(s) of the foot. COMPARISON: None. FINDINGS: Normal talus. There are plantar and dorsal spurs of the calcaneus. Normal visualized subtalar, talonavicular, calcaneocuboid, tarsal and tarsometatarsal articulations. Normal metatarsi. Normal metatarsophalangeal joint of the great toe. Normal tibial and fibular sesamoid bones. Normal interphalangeal joint of the great toe. Normal phalanges of the great toe. Normal second through fifth metatarsophalangeal joints. Normal interphalangeal joints and phalanges of the lesser toes. The soft tissue structures are unremarkable. There is no demonstrated fracture. RAD/Foot min 3 Views IMPRESSION: Heel spurs. No fracture. Electronically Signed: Mynor Nair MD at 11:52 EST ,
== END | disposition home or self-care (01) ==
LOC: MTRAD 10:37
PROVIDERS: PCP Family Medicine; Referring Provider Physician Assistant Surgical; Visit Provider Physician Assistant Surgical
DX: T14.8XXA Other injury of unspecified body region, initial encounter (principal)
CPT/HCPCS: 73610; 73630

== ENCOUNTER → 2024-08-24 | Outpatient (CLI) | payer OTHER, SELFPAY ==
[2024-08-24 12:54] LABS: Bacteria 0 SEEN /hpf (None Seen); Mucous, Urine 0 SEEN /hpf (<or=2+); White Blood Cells 0 SEEN /hpf (0-5)
[2024-08-24 14:45] LABS: Anion Gap 10 (5-15); BUN 15 mg/dL (4-19); BUN/Creat Ratio 22.3 RATIO (10-20); Calcium,Total 9.4 mg/dL (7.6-11.0); Carbon Dioxide 25.1 mmol/L (21.0-32.0); Chloride 105 mmol/L (98-108); Creatinine, Serum 0.69 mg/dL (0.70-1.20); EST Glomerular Filtration Rate 93 (>60); Glucose 102 mg/dL (70-99); Potassium 4.2 mmol/L (3.3-5.1); Sodium Level 141 mmol/L (133-145)
[2024-08-24 15:41] LABS: Color, Urine Yellow (Yellow); Glucose, Dipstick Normal (Normal); Ketone-Dipstick Negative (Negative); Leukocyte Esterase-Dipstick Negative /ul (Negative); Nitrite-Dipstick Negative (Negative); Occult Blood-Urine Negative /ul (Negative); Protein-Dipstick Negative (Negative); Specific Gravity, Urine 1.005 (1.002-1.030); Urine Bilirubin Dipstick Negative (Negative); Urine Clarity Clear (Clear); Urine Urobilinogen Normal (Normal)
[2024-08-24 16:10] LABS: Red Blood Cells-Urine 0 SEEN /hpf (0-5); Squamous Epithelial Cells - UA 0-5 SEEN /hpf (5-10)
[2024-08-25 13:03] LABS: Hemoglobin A1c 5.6 % (<=5.6)
== END | disposition home or self-care (01) ==
LOC: LAB 12:51 → LABSPEC 14:39
PROVIDERS: PCP Family Medicine; Referring Provider Physician Assistant; Visit Provider Physician Assistant
DX: I10 Essential (primary) hypertension (principal); R73.09 Other abnormal glucose
CPT/HCPCS: 36415; 80048; 81001; 83036

== ENCOUNTER → 2025-02-26 | Outpatient (CLI) | payer OTHER, SELFPAY ==
[2025-02-26 13:18] LABS: AST(SGOT) 17 U/L (<=31); Alanine Aminotransfer ALT/SGPT 13 U/L (<=34); Albumin, Serum 3.3 g/dL (3.4-4.8); Alkaline Phosphatase 69 U/L (35-104); Anion Gap 9 (5-15); BUN 19 mg/dL (4-19); BUN/Creat Ratio 27.5 RATIO (10-20); Calcium,Total 9.1 mg/dL (7.6-11.0); Carbon Dioxide 27.3 mmol/L (21.0-32.0); Chloride 105 mmol/L (98-108); Cholesterol 171 mg/dL (<=200); Globulin 3.3 g/dL (2.2-4.2); Glucose 113 mg/dL (70-99); Low Density Lipoprotein Calc. 103 mg/dL; Potassium 3.9 mmol/L (3.3-5.1); Triglycerides 93 mg/dL; Very Low Density Lipoprotein 19 mg/dL (5-40); cholesterol:hdl ratio screen 3.48
== END | disposition home or self-care (01) ==
LOC: LAB 12:06
PROVIDERS: PCP Family Medicine; Referring Provider Family Medicine; Visit Provider Family Medicine
DX: I10 Essential (primary) hypertension (principal); R73.09 Other abnormal glucose
CPT/HCPCS: 36415; 80053; 80061; 81001; 83036

== ENCOUNTER → 2025-02-27 | Outpatient (CLI) | payer OTHER, SELFPAY ==
--- OUTSIDE RECORDS SUMMARY | 2025-02-26 10:37 | XMS RPT_ITS ---
Author Name Auto Generated Organization OHIP Care Team Providers Care Bladder Trimmer Name Role Phone BOBY JUAREZ Attending Unavailable BOBY JUAREZ Primary Care Unavailable BOBY JUAREZ Primary Care Unavailable SELF Referring Unavailable SANIYA SCHNEIDER Attending Unavailable BOBY JUAREZ Primary Care Unavailable SANIYA SCHNEIDER Attending Unavailable BOBY JUAREZ Primary Care Unavailable ALEX SALCEDO Attending Unavailable PROBLEMS DATE TYPE CONDITION / CODE ATTENDING STATUS [facility] 02/26/2025 Active Advance directiv e discussed with patient / Z71.89(ICD-10) BOBY JUAREZ Active [facility] 02/26/2025 Active Well adult exam / Z00.00(ICD-10) BOBY JUAREZ Active [facility] 11/22/2023 Active Chronic bilatera l low back pain without sciatica / M54.50(ICD-10) BOBY JUAREZ Active [facility] 11/22/2023 Active Chronic bilatera l low back pain without sciatica / G89.29(ICD-10) BOBY JUAREZ Active [facility] 08/29/2022 Active Hypertension, es sential / I10(ICD-10) BOBY JUAREZ Active [facility] 08/02/2021 Active Peripheral edema / R60.0(ICD-10) BOBY JUAREZ Active [facility] 08/02/2021 Active Elevated hemoglo bin A1c / R73.09(ICD-10) BOBY JUAREZ Active [facility] 08/02/2021 Active Obesity, Class I II, BMI 40-49.9 (morbid obesity) (HCC) / E66.813(ICD-10) BOBY JUAREZ Active [facility] 02/26/2025 Active Tinea corporis / B35.4(ICD-10) BOBY JUAREZ Active [facility] 02/26/2025 Active Screening for depression / Z13.31(ICD-10) BOBY JUAREZ Active [facility] 02/26/2025 Active Encounter for sc reening examination for other mental health and behavioral disorders / Z13.39(ICD-10) BOBY JUAREZ Active [facility] 02/26/2025 Active Encounter for sc reening mammogram for malignant neoplasm of breast / Z12.31(ICD-10) BOBY JUAREZ Active [facility] 03/01/2023 Active Age-related osteoporosis without current pathological fracture / M81.0(ICD-10) SANIYA SCHNEIDER Active [facility] 08/02/2021 Active Benign paroxysma l positional vertigo, unspecified laterality / H81.10(ICD-10) SANIYA SCHNEIDER Active [facility] 08/02/2021 Active Obesity, Class I II, BMI 40-49.9 (morbid obesity) (HCC) / E66.01(ICD-10) SANIYA SCHNEIDER Active [facility] 03/02/2024 Active Sleep apnea, unspecified type / G47.30(ICD-10) SANIYA SCHNEIDER Active [facility] PROCEDURES No Procedure Records Found RESULTS PROGRESS Observed: 02/26/2025 10:40 AM Status: COMPLETED Source: [facility] HNO ID: [id number] Author: BOBY JUAREZ MD Service: ? Author Type: Physician Type: Progress Notes Filed: 02/26/2025 12:11 Note Text: Chief Complaint Patient presents with: Well Adult HPI Leandro Poe is a 69 year old female who presents here today for a Physical and chronic health issues.. Patient with Hx of HTN, BPPV, Elevated A1c, Osteoporosis as well as those reviewed and addressed below in ROS. 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 Leandro reports persistent overactive bladder symptoms with no improvement since starting Myrbetriq. She describes variable symptom severity, with some days being better than others. She prefers to continue the medication rather than seeking a urogynecologist specialist at this time. She also reports a persistent rash in the left axillaryl region for several months, characterized by pruritus, burning, and erythema. She has tried various treatments, including OTC cortisone cream, which exacerbated the burning sensation, and a diaper rash ointment, which alleviated the burning but did not resolve the rash. She denies using antifungal creams such as Lamisil or Lotrimin. She occasionally experiences similar rashes under her breasts, which respond to the diaper rash ointment. She denies recent surgeries, fevers, cephalgia, sudden changes in hearing or vision, epistaxis, pharyngitis, hemoptysis, or coloneumucous. She also denies chest pain, palpitations, nausea, emesis, diarrhea, heartburn, hematuria, easy bruising or bleeding, changes in heat or cold tolerance, increased thirst, syncope, seizures, or tremors. She reports intermittent ankle swelling, consistent with her baseline, and denies any new or unusual discomfort or pain, except for arthritis-related aches and pains that are weather-dependent. She also notes occasional muscle tightness in her neck and shoulder. She plans to receive her flu vaccine at work next month and is agreeable to scheduling her mammogram next month, as it will be a year since her last one. She denies any new health issues in her brothers. Past medical history, appointments, medications, allergies reviewed. Previous Medical History PAST MEDICAL HISTORY Diagnosis Date Benign paroxysmal positional vertigo 07/13/2021 Chronic bilateral low back pain without sciatica 11/22/2023 Elevated hemoglobin A1c 01/22/2020 Hypertension, essential 08/29/2022 Left hip pain 2016 Obesity, Class III, BMI 40-49.9 (morbid obesity) ([facility]) 01/22/2020 Peripheral edema 01/27/2021 Urge incontinence 01/25/2015 Previous Surgical History PAST SURGICAL HISTORY Procedure Laterality Date COLONOSCOPY FLX DX W/COLLJ SPEC WHEN PFRMD 07/15/15 normal 10 year follow up DANDC (INCOMPLETE AB), ANY TRIMESTER IMMUNOCHEMICAL FECAL OCCULT BLOOD TEST 07/15/2017 negative LAMINECTOMY [...] tablet by mouth three times a day. losartan (COZAAR) 25 mg tablet Take 1 tablet by mouth once daily. hydroCHLOROthiazide 12.5 mg capsule Take 1 capsule by mouth once daily. acetaminophen (TYLENOL EXTRA STRENGTH) 500 mg tablet Take 1,000 mg by mouth once daily. calcium carbonate-vitamin D3 600mg (1,500mg) -1,000 unit cap Take 1 capsule by mouth twice daily. multivitamin tablet Take 1 tablet by mouth once daily. No current facility-administered medications on file prior to visit. Social History SOCIAL HISTORY[1] Review of Symptoms REVIEW OF SYSTEMS GENERAL: No significant weight loss, malaise or fevers HEENT: Negative for frequent or significant headaches, No changes in hearing or vision, no nose bleeds or other nasal problems NECK: Negative for lumps, goiter, pain and significant neck swelling RESPIRATORY: Negative for cough, hemoptysis, wheezing, COPD, dyspnea or shortness of breath CARDIOVASCULAR: Negative for chest pain, increased leg swelling, hypertension, CHF or palpitations GI: No nausea, vomiting, or diarrhea, No heartburn or reflux symptoms, and no blood : No history of dysuria, for blood, see HPI MUSCULOSKELETAL: Negative for joint pain or swelling, back pain or muscle pain SKIN: Negative for lesions, rash. Has a rash under the left axilla that has been itchy and burning. PSYCH: Negative for sleep disturbance, mood disorder and recent psychosocial stressors HEMATOLOGY/LYMPHOLOGY: Negative for prolonged bleeding, bruising easily or swollen nodes ENDOCRINE: Negative for cold or heat intolerance, polyuria, polydipsia and goiter NEURO: No history of headaches, syncope, paralysis, seizures or tremors SEE HPI EXAM: BP 134/70 (BP Site: Left Arm, BP Position: Sitting, BP Cuff Size: Large Adult) Pulse 68 Resp 18 Ht 157.5 cm (5' 2") Wt 103.1 kg (227 lb 3.2 oz) BMI 41.56 kg/m? Mini-Cog Patient asked to remember the following three words: Banana, [place] and Chair Visuospatial/Executive Functioning: Clock drawin/2 (Normal clock with all number in correct sequence and position, hands are correct = 2 points, inability or refusal to draw a clock = 0) Three word recall: 3/3 Total score: 5/5 (Total score = word recall score + clock draw score) Last 5 Encounter Wt Readings: Date: Wt: 02/26/2025 103.1 kg (227 lb 3.2 oz) 08/24/2024 104.3 kg (230 lb) 07/17/2024 104 kg (229 lb 4.5 oz) 03/02/2024 106.6 kg (235 lb) 02/28/2024 105.8 kg (233 lb 3.2 oz) General Appearance: Well appearing, alert, in no acute distress, well-hydrated, well nourished. and Morbidly obese. Skin: Skin color, texture, turgor normal, no suspicious lesions. Has what appears to be a candidal rash under the left axilla. Head: Normocephalic, no masses, lesions, tenderness or [...] crainal nerves 2-12 intact.. Health Maintenance List Mammogram Screening due on 03/31/2025 RSV Vaccine(1 - Risk 60-74 years 1-dose series) due on 02/27/2025 Influenza Vaccine(1) due on 11/30/2025 Colorectal Cancer Screening due on 07/15/2025 Annual PCP Team Chronic Disease Visit due on 02/26/2026 Depression Screening due on 02/26/2026 Anxiety Screening due on 02/26/2026 Bone Density Screening due on 03/31/2026 Diabetes Screening due on 08/25/2027 Lipid Screening due on 02/27/2029 DTaP,Tdap,Td Vaccine(3 - Td or Tdap) due on 02/27/2034 Advance Directive Discussion Completed Hepatitis C Screening Completed Shingrix Vaccine Completed Pneumococcal Vaccine: 50+ Completed Data reviewed Assessment and Plan 1. Well adult exam (Z00.00) Annual well adult exam completed. - Provided advanced directives, living will, and power of general foreman for healthcare packets. - Discussed flu vaccination timing; patient plans to receive at work in March. - pt to work on weight loss. 2. Hypertension, essential (I10) No new symptoms or changes reported. Good control - Continue current med management. - check CMP, Lipid and UA 3. Chronic bilateral low back pain without sciatica (M54.50) Chronic low back pain without sciatica; no new or unusual pain reported. - Continue current management. will monitor 4. Peripheral edema (R60.0) Chronic ankle edema, stable and unchanged. - Continue current management. 5. Tinea corporis (B35.4) Chronic pruritic, erythematous rash consistent with tinea corporis; prior treatments with non-antifungal creams ineffective. - Prescribed topical Nystatin cream. - Educated patient on the difference between antifungal and barrier creams. 6. Screening for depression (Z13.31) 7. Encounter for screening examination for other mental health and behavioral disorders (Z13.39) No new mental health concerns reported. - Continue routine screening. 8. Encounter for screening mammogram for malignant neoplasm of breast (Z12.31) Mammogram due next month, one year from last screening. - Ordered screening mammogram. 9. Advance directive discussed with patient (Z71.89) Advance directives discussed; patient provided with informational packets. - Patient to review and complete advance directive documents as needed. 10. Elevated hemoglobin A1c (R73.09) - pt to cont work on dietary changes. - check A1c 11. Obesity, Class III, BMI 40-49.9 (morbid obesity) ([facility]) (E66.813) - pt to work on life style changes for weight loss. Requested Prescriptions Signed Prescriptions Disp Refills hydroCHLOROthiazide 12.5 mg capsule 90 capsule 1 Sig: Take 1 capsule by mouth once daily. losartan (COZAAR) 25 mg tablet 90 tablet 1 Sig: Take 1 tablet by mouth once daily. nystatin (MYCOSTATIN) cream 15 g 1 Sig: Apply to affected area two times a day for 14 days. F/u 6 months routine Boby Juarez MD Recording using [employer] software for draft documentation of the visit was discussed with the patient/authorized human resources representative; all questions welcomed and answered. Patient/authorized human resources representative agreed to proceed [1] Social History Tobacco Use Smoking status: Former Current packs/day: 0.00 Average packs/day: 0.5 packs/day for 7.0 years (3.5 ttl pk-yrs) Types: Cigarettes Start date: 05/03/1996 Quit date: 05/03/2003 Years since quittin.8 Smokeless tobacco: Never Vaping Use Vaping status: Never Used Substance Use Topics Alcohol use: No Drug use: No CNOV Observed: 02/26/2025 10:40 AM Status: COMPLETED Source: [facility] LEANDRO POE ([id number]) 1955 F Date Time Provider Department 02/26/25 10:40 AM BOBY JUAREZ During your visit today, we recorded the following information about you: Pulse Respiration Blood pressure Weight 68/minute 18/minute 134/70 103.1 kg Height 1.575 m Boby Juarez MD 02/26/2025 12:11 PM Signed Chief Complaint Patient presents with: Well Adult HPI Leandro Poe is a 69 year old female who presents here today for a Physical and chronic health issues.. Patient with Hx of HTN, BPPV, Elevated A1c, Osteoporosis as well as those reviewed and addressed below in ROS. 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 Leandro reports persistent overactive bladder symptoms with no improvement since starting Myrbetriq. She describes variable symptom severity, with some days being better than others. She prefers to continue the medication rather than seeking a urogynecologist specialist at this time. She also reports a persistent rash in the left axillaryl region for several months, characterized by pruritus, burning, and erythema. She has tried various treatments, including OTC cortisone cream, which exacerbated the burning sensation, and a diaper rash ointment, which alleviated the burning but did not resolve the rash. She denies using antifungal creams such as Lamisil or Lotrimin. She occasionally experiences similar rashes under her breasts, which respond to the diaper rash ointment. She denies recent surgeries, fevers, cephalgia, sudden changes in hearing or vision, epistaxis, pharyngitis, hemoptysis, or coloneumucous. She also denies chest pain, palpitations, nausea, emesis, diarrhea, heartburn, hematuria, easy bruising or bleeding, changes in heat or cold tolerance, increased thirst, syncope, seizures, or tremors. She reports intermittent ankle swelling, consistent with her baseline, and denies any new or unusual discomfort or pain, except for arthritis-related aches and pains that are weather-dependent. She also notes occasional muscle tightness in her neck and shoulder. She plans to receive her flu vaccine at work next month and is agreeable to scheduling her mammogram next month, as it will be a year since her last one. She denies any new health issues in her brothers. Past medical history, appointments, medications, allergies reviewed. [...] follow up DANDC (INCOMPLETE AB), ANY TRIMESTER IMMUNOCHEMICAL FECAL OCCULT BLOOD TEST 07/15/2017 negative LAMINECTOMY [...] tablet by mouth three times a day. losartan (COZAAR) 25 mg tablet Take 1 tablet by mouth once daily. hydroCHLOROthiazide 12.5 mg capsule Take 1 capsule by mouth once daily. acetaminophen (TYLENOL EXTRA STRENGTH) 500 mg tablet Take 1,000 mg by mouth once daily. calcium carbonate-vitamin D3 600mg (1,500mg) -1,000 unit cap Take 1 capsule by mouth twice daily. multivitamin tablet Take 1 tablet by mouth once daily. No current facility-administered medications on file prior to visit. Social History SOCIAL HISTORY[1] Review of Symptoms REVIEW OF SYSTEMS GENERAL: No significant weight loss, malaise or fevers HEENT: Negative for frequent or significant headaches, No changes in hearing or vision, no nose bleeds or other nasal problems NECK: Negative for lumps, goiter, pain and significant neck swelling RESPIRATORY: Negative for cough, hemoptysis, wheezing, COPD, dyspnea or shortness of breath CARDIOVASCULAR: Negative for chest pain, increased leg swelling, hypertension, CHF or palpitations GI: No nausea, vomiting, or diarrhea, No heartburn or reflux symptoms, and no blood : No history of dysuria, for blood, see HPI MUSCULOSKELETAL: Negative for joint pain or swelling, back pain or muscle pain SKIN: Negative for lesions, rash. Has a rash under the left axilla that has been itchy and burning. PSYCH: Negative for sleep disturbance, mood disorder and recent psychosocial stressors HEMATOLOGY/LYMPHOLOGY: Negative for prolonged bleeding, bruising easily or swollen nodes ENDOCRINE: Negative for cold or heat intolerance, polyuria, polydipsia and goiter NEURO: No history of headaches, syncope, paralysis, seizures or tremors SEE HPI EXAM: BP 134/70 (BP Site: Left Arm, BP Position: Sitting, BP Cuff Size: Large Adult) Pulse 68 Resp 18 Ht 157.5 cm (5' 2") Wt 103.1 kg (227 lb 3.2 oz) BMI 41.56 kg/m? Mini-Cog Patient asked to remember the following three words: Banana, [place] and Chair Visuospatial/Executive Functioning: Clock drawin/2 (Normal clock with all number in correct sequence and position, hands are correct = 2 points, inability or refusal to draw a clock = 0) Three word recall: 3/3 Total score: 5/5 (Total score = word recall score + clock draw score) Last 5 Encounter Wt Readings: Date: Wt: 02/26/2025 103.1 kg (227 lb 3.2 oz) 08/24/2024 104.3 kg (230 lb) 07/17/2024 104 kg (229 lb 4.5 oz) 03/02/2024 106.6 kg (235 lb) 02/28/2024 105.8 kg (233 lb 3.2 oz) General Appearance: Well appearing, alert, in no acute distress, well-hydrated, well nourished. and Morbidly obese. Skin: Skin color, texture, turgor normal, no suspicious lesions. Has what appears to be a candidal rash under the left axilla. Head: Normocephalic, no masses, lesions, tenderness or [...] crainal nerves 2-12 intact.. Health Maintenance List Mammogram Screening due on 03/31/2025 RSV Vaccine(1 - Risk 60-74 years 1-dose series) due on 02/27/2025 Influenza Vaccine(1) due on 11/30/2025 Colorectal Cancer Screening due on 07/15/2025 Annual PCP Team Chronic Disease Visit due on 02/26/2026 Depression Screening due on 02/26/2026 Anxiety Screening due on 02/26/2026 Bone Density Screening due on 03/31/2026 Diabetes Screening due on 08/25/2027 Lipid Screening due on 02/27/2029 DTaP,Tdap,Td Vaccine(3 - Td or Tdap) due on 02/27/2034 Advance Directive Discussion Completed Hepatitis C Screening Completed Shingrix Vaccine Completed Pneumococcal Vaccine: 50+ Completed Data reviewed Assessment and Plan 1. Well adult exam (Z00.00) Annual well adult exam completed. - Provided advanced directives, living will, and power of general foreman for healthcare packets. - Discussed flu vaccination timing; patient plans to receive at work in March. - pt to work on weight loss. 2. Hypertension, essential (I10) No new symptoms or changes reported. Good control - Continue current med management. - check CMP, Lipid and UA 3. Chronic bilateral low back pain without sciatica (M54.50) Chronic low back pain without sciatica; no new or unusual pain reported. - Continue current management. will monitor 4. Peripheral edema (R60.0) Chronic ankle edema, stable and unchanged. - Continue current management. 5. Tinea corporis (B35.4) Chronic pruritic, erythematous rash consistent with tinea corporis; prior treatments with non-antifungal creams ineffective. - Prescribed topical Nystatin cream. - Educated patient on the difference between antifungal and barrier creams. 6. Screening for depression (Z13.31) 7. Encounter for screening examination for other mental health and behavioral disorders (Z13.39) No new mental health concerns reported. - Continue routine screening. 8. Encounter for screening mammogram for malignant neoplasm of breast (Z12.31) Mammogram due next month, one year from last screening. - Ordered screening mammogram. 9. Advance directive discussed with patient (Z71.89) Advance directives discussed; patient provided with informational packets. - Patient to review and complete advance directive documents as needed. 10. Elevated hemoglobin A1c (R73.09) - pt to cont work on dietary changes. - check A1c 11. Obesity, Class III, BMI 40-49.9 (morbid obesity) ([facility]) (E66.813) - pt to work on life style changes for weight loss. Requested Prescriptions Signed Prescriptions Disp Refills hydroCHLOROthiazide 12.5 mg capsule 90 capsule 1 Sig: Take 1 capsule by mouth once daily. losartan (COZAAR) 25 mg tablet 90 tablet 1 Sig: Take 1 tablet by mouth once daily. nystatin (MYCOSTATIN) cream 15 g 1 Sig: Apply to affected area two times a day for 14 days. F/u 6 months routine Boby Juarez MD Recording using [employer] software for draft documentation of the visit was discussed with the patient/authorized human resources representative; all questions welcomed and answered. Patient/authorized human resources representative agreed to proceed [1] Social History Tobacco Use Smoking status: Former Current packs/day: 0.00 Average packs/day: 0.5 packs/day for 7.0 years (3.5 ttl pk-yrs) Types: Cigarettes Start date: 05/03/1996 Quit date: 05/03/2003 Years since quittin.8 Smokeless tobacco: Never Vaping Use Vaping status: Never Used Substance Use Topics Alcohol use: No Drug use: No Boby Juarez MD 02/26/2025 11:22 AM Signed We discussed your overactive bladder and incontinence: - You reported that Myrbetriq has not significantly improved your symptoms, but you would like to continue taking it. Please let me know if your symptoms worsen or if you decide you would like to see a urogynecologist for further evaluation. We discussed the rash under your skin fold: - This appears to be a fungal infection, likely caused by Funmi (the same fungus that causes diaper rash). - I have sent a prescription for an antifungal cream to your preferred pharmacy ([facility]). Please apply this cream as directed to the affected area. - The pink salve you have been using is not antifungal and will not resolve the infection, so please discontinue its use for this purpose. - If the rash does not improve after using the antifungal cream, or if it worsens, please contact our office. We discussed your routine health maintenance: - You plan to receive your flu vaccine at work next month. - I have placed an order for your annual mammogram. You mentioned that you will schedule this for next month, as it must be at least one year from your last mammogram. - Your last colon cancer screening was on August 11, 2018. Please let me know if you would like to discuss scheduling an updated screening. We discussed your general health: - You reported no new or concerning symptoms, including no recent fevers, headaches, vision or hearing changes, chest pain, or gastrointestinal issues. - You mentioned occasional swelling in your ankle that comes and goes but has not worsened. Please monitor this and let me know if it becomes more frequent or severe. Please follow up with me if you have any new or worsening symptoms or concerns. Allergies As of Date: 02/26/2025 Noted Allergy Reaction BEE STING 01/25/2015 7 - Swelling Comments: Has not had SOB or other issues other than extreme swelling at site of sting LISINOPRIL 11/27/2022 3 - Cough Date Reviewed: 02/26/2025 Reviewed by: Boby Juarez MD - Fully Assessed Reason for Visit: Well Adult [611] Primary Visit Diagnosis:Well adult exam [Z00.00] Other Visit Diagnoses:Hypertension, essential [I10] Elevated hemoglobin A1c [R73.09] Obesity, Class III, BMI 40-49.9 (morbid obesity) (HCC) [E66.813] Chronic bilateral low back pain without sciatica [M54.50, G89.29] Peripheral edema [R60.0] Tinea corporis [B35.4] Screening for depression [Z13.31] Encounter for screening examination for other mental health and behavioral disorders [Z13.39] Encounter for screening mammogram for malignant neoplasm of breast [Z12.31] Advance directive discussed with patient [Z71.89] Order(s):hydroCHLOROthiazide 12.5 mg capsuleTake 1 capsule by mouth once daily.Disp: 90 capsuleRfl: 1 losartan (COZAAR) 25 mg tabletTake 1 tablet by mouth once daily.Disp: 90 tabletRfl: 1 DEPRESSION SCREENING [] Order #: [id number]: 1 ANXIETY SCREENING [] Order #: [id number]: 1 CARLOS SCREENING W NERIS [[id number]] Order #: [id number] FUTURE COMPREHENSIVE METABOLIC PANEL [SQCMP] Order #: [id number] FUTURE HEMOGLOBIN A1C [DKSIV9B] Order #: [id number] FUTURE URINALYSIS, WITH MICROSCOPIC [SQUAWMIC] Order #: [id number] FUTURE LIPID PANEL, NONFASTING [SQLIPNF] Order #: [id number] FUTURE ADVANCE CARE PLAN DISCUSSION [] Order #: [id number]: 1 nystatin (MYCOSTATIN) creamApply to affected area two times a day for 14 days.Disp: 15 gRfl: 1 Prescriptions as of 02/26/2025 - hydroCHLOROthiazide 12.5 mg capsule Take 1 capsule by mouth once daily. - losartan (COZAAR) 25 mg tablet Take 1 tablet by mouth once daily. - nystatin (MYCOSTATIN) cream Apply to affected area two times a day for 14 days. - alendronate (FOSAMAX) 70 mg tablet Take 1 tablet by mouth one time a week. Take with a full glass of water, on an empty stomach; do NOT lie down for 30minutes. - mirabegron (MYRBETRIQ) 50 mg Tb24 Take 1 tablet by mouth once daily. - meclizine (ANTIVERT) 25 mg tab Take 1 tablet by mouth three times a day. - acetaminophen (TYLENOL EXTRA STRENGTH) 500 mg tablet Take 1,000 mg by mouth once daily. - calcium carbonate-vitamin D3 600mg (1,500mg) -1,000 unit cap Take 1 capsule by mouth twice daily. - multivitamin tablet Take 1 tablet by mouth once daily. Problem List As Of Date 02/26/2025 Noted Resolved Urge incontinence [N39.41] 01/25/2015 Tendonitis, Achilles, right [M76.61] 01/25/2015 Head lump [R22.0] 01/25/2015 Midline cystocele [N81.11] 06/13/2015 Encounter for routine gynecological examination*11/08/2015 Well adult exam [Z00.00] 11/08/2015 Encounter for screening mammogram for breast ca*07/12/2017 Screening for colon cancer [Z12.11] 07/12/2017 Left hip pain [M25.552] 201602/26/2025 Obesity, Class III, BMI 40-49.9 (morbid obesity*01/22/2020 Elevated hemoglobin A1c [R73.09] 01/22/2020 Age-related osteoporosis without current pathol*02/04/2020 Peripheral edema [R60.0] 01/27/2021 Benign paroxysmal positional vertigo [H81.10] 07/13/2021 Advance directive discussed with patient [Z71.8*02/27/2022 Hypertension, essential [I10] 08/29/2022 Chronic bilateral low back pain without sciatic*11/22/2023 Physical deconditioning [R53.81] 11/22/2023 Other instructions from your clinician: We discussed your overactive bladder and incontinence: - You reported that Myrbetriq has not significantly improved your symptoms, but you would like to continue taking it. Please let me know if your symptoms worsen or if you decide you would like to see a urogynecologist for further evaluation. We discussed the rash under your skin fold: - This appears to be a fungal infection, likely caused by Funmi (the same fungus that causes diaper rash). - I have sent a prescription for an antifungal cream to your preferred pharmacy ([facility]). Please apply this cream as directed to the affected area. - The pink salve you have been using is not antifungal and will not resolve the infection, so please discontinue its use for this purpose. - If the rash does not improve after using the antifungal cream, or if it worsens, please contact our office. We discussed your routine health maintenance: - You plan to receive your flu vaccine at work next month. - I have placed an order for your annual mammogram. You mentioned that you will schedule this for next month, as it must be at least one year from your last mammogram. - Your last colon cancer screening was on August 11, 2018. Please let me know if you would like to discuss scheduling an updated screening. We discussed your general health: - You reported no new or concerning symptoms, including no recent fevers, headaches, vision or hearing changes, chest pain, or gastrointestinal issues. - You mentioned occasional swelling in your ankle that comes and goes but has not worsened. Please monitor this and let me know if it becomes more frequent or severe. Please follow up with me if you have any new or worsening symptoms or concerns. Prescriptions ordered this encounter Disp Refills Start End HYDROCHLOROTHIAZIDE 12.5 MG CAPSULE 90 c* 1 02/26/2025 Route: PO Sig: Take 1 capsule by mouth once daily. LOSARTAN 25 MG TABLET 90 t* 1 02/26/2025 Route: PO Sig: Take 1 tablet by mouth once daily. NYSTATIN 100,000 UNIT/GRAM TOPICAL C* 15 g 1 02/26/2025 03/12/2025 Route: TOP Sig: Apply to affected area two times a day for 14 days. Medications Discontinued During This Encounter Prescriptions - losartan (COZAAR) 25 mg tablet (Discontinued) Take 1 tablet by mouth once daily. - hydroCHLOROthiazide 12.5 mg capsule (Discontinued) Take 1 capsule by mouth once daily. Disposition: Return in about 6 months (around 08/26/2025) for routine with Saniya. Follow-up and Disposition History for Encounter Date Provider Department Center 02/26/2025 [id number] JUAREZ [facility] Encounter Status:Closed by BOBY JUAREZ on 02/26/25 FARRUKH Observed: 08/26/2024 12:00 AM Status: COMPLETED Source: [facility] Telephone (LEE ANN) LEANDRO POE ([id number]) 1955 F Date Time Provider Department 08/26/24 NGUYEN LAY During your visit today, we recorded the following information about you: Nguyen Lay MA 08/26/2024 7:49 PM Signed Scan on 08/24/2024 3:14 PM by ProviderAnand PA-C: Chemistry Scan on 08/24/2024 4:37 PM by ProviderAnand PA-C: Chemistry Scan on 08/25/2024 1:45 PM by ProviderAnand PA-C: Chemistry Please review results. WESLEY Adan Jeffrey A, MD 08/26/2024 9:23 PM Signed Let patient know recent labs and UA were all ok. Tarsha Mathews MA 08/27/2024 10:10 AM Signed Message left for return call. WESLEY Mondragon Sherrie, RN 08/27/2024 12:06 PM Signed Patient notified. Catia Kelly RN Allergies As of Date: 08/26/2024 Noted Allergy Reaction BEE STING 01/25/2015 7 - Swelling Comments: Has not had SOB or other issues other than extreme swelling at site of sting LISINOPRIL 11/27/2022 3 - Cough Date Reviewed: 08/24/2024 Reviewed by: Barb Pearson LPN - Fully Assessed Reason for Visit: Results [95] Order(s):BMP - EXTERNAL [[id number]] Order #: [id number] HEMOGLOBIN A1C (EXTERNAL) [9450181] Order #: [id number] Prescriptions as of 08/27/2024 - meclizine (ANTIVERT) 25 mg tab Take 1 tablet by mouth three times a day. - losartan (COZAAR) 25 mg tablet Take 1 tablet by mouth once daily. - hydroCHLOROthiazide 12.5 mg capsule Take 1 [...] once daily. Problem List As Of Date 08/26/2024 Noted Resolved Urge incontinence [N39.41] 01/25/2015 Tendonitis, [...] Physical deconditioning [R53.81] 11/22/2023 Encounter Status:Closed by CATIA KELLY on 08/27/24 PROGRESS Observed: 08/24/2024 12:18 PM Status: COMPLETED Source: [facility] ID: [id number] Author: ALEX SALCEDO PA-C Service: ? Author Type: Physician Webmethods Consultant Type: Progress Notes Filed: 08/24/2024 13:01 Note Text: Chief Complaint Patient presents with: 6 Month Exam HPI Leandro Poe is a 69 year old female who presents here today for Chronic Medical Conditions.. Patient with hx of HTN, BPPV, elevated a1c, osteoporosis, and those as below. Last 3 Encounter Wt Readings: Date: Wt: 08/24/2024 104.3 kg (230 lb) 07/17/2024 104 kg (229 lb 4.5 oz) 03/02/2024 106.6 kg (235 lb) Hypertension: - Taking hydrochlorothiazide; ran out of medication 1.5-2 weeks ago. Osteoporosis: - Recent DEXA scan showed worsening bone density compared to 2021. - Currently taking Fosamax. Vertigo: - Intermittent episodes of vertigo; most recent episode this morning. - Episodes sometimes cause nausea; takes meclizine PRN with relief. - Last episode prior to today was last week. Urinary Incontinence: - Taking medication for bladder control; reports variable effectiveness. Past medical history, appointments, medications, allergies reviewed. Previous Medical History PAST MEDICAL HISTORY Diagnosis Date Benign paroxysmal positional vertigo 07/13/2021 Chronic bilateral low back pain without sciatica 11/22/2023 Elevated hemoglobin A1c 01/22/2020 Hypertension, essential 08/29/2022 Left hip pain 2016 Obesity, Class III, BMI 40-49.9 (morbid obesity) ([facility]) 01/22/2020 Peripheral edema 01/27/2021 Urge incontinence 01/25/2015 Previous Surgical History PAST SURGICAL HISTORY Procedure Laterality Date COLONOSCOPY FLX DX W/COLLJ SPEC WHEN PFRMD 07/15/15 normal 10 year follow up [facility] (INCOMPLETE AB), ANY TRIMESTER FECAL OCCULT BLOOD [...] date: 05/03/1996 Quit date: 05/03/2003 Years since quittin.3 Smokeless tobacco: Never Vaping Use Vaping status: Never Used Substance Use Topics Alcohol use: No Drug use: No Review of Symptoms REVIEW OF SYSTEMS GENERAL: No weight loss, malaise or fevers NECK: Negative for lumps, goiter, pain and significant neck swelling RESPIRATORY: Negative for cough, hemoptysis, wheezing, COPD, dyspnea or shortness of breath CARDIOVASCULAR: Negative for chest pain, leg swelling, hypertension, CHF or palpitations NEURO: No history of headaches, syncope, paralysis, seizures or tremors SEE HPI EXAM: BP 138/80 (BP Site: Right Arm, BP Position: Sitting, BP Cuff Size: Large Adult) Pulse 68 Temp 36.2 ?C (97.1 ?F) Resp 18 Wt 104.3 kg (230 lb) SpO2 96% BMI 42.33 kg/m? General Appearance: Well appearing, alert, in no acute distress, well-hydrated, well nourished. and Obese. Neck: Supple, no adenopathy; thyroid symmetric, normal size, no bruits. Lungs: Lungs clear to auscultation. No wheezing, rhonchi, rales.. Heart: RRR without murmur, gallop, or rubs. No ectopy. Extremities: No deformities, edema, skin discoloration, clubbing or cyanosis. Good capillary refill. . Peripheral Pulses: Normal. Health Maintenance List BP Controlled (<130/80) Never done Advance Directive Discussion due on 06/03/2024 RSV Vaccine(1 - Risk 60-74 years 1-dose series) due on 02/27/2025 Depression Screening due on 03/02/2025 Anxiety Screening due on 03/02/2025 Mammogram Screening due on 03/31/2025 Colorectal Cancer Screening due on 07/15/2025 Annual PCP Team Chronic Disease Visit due on 08/24/2025 Bone Density Screening due on 03/31/2026 Diabetes Screening due on 02/27/2027 Lipid Screening due on 02/27/2029 DTaP,Tdap,Td Vaccine(3 - Td or Tdap) due on 02/27/2034 Influenza Vaccine Completed Hepatitis C Screening Completed Shingrix Vaccine Completed Pneumococcal Vaccine: 50+ Completed Covid-19 Vaccine Discontinued Data reviewed N/a Assessment and Plan 1. Hypertension, essential (I10) - controlled - continue current medication. - Ordered blood work and urine analysis to monitor kidney function; labs to be done at [facility]. 2. Elevated hemoglobin A1c (R73.09) - Ordered updated A1c test to be performed at [facility]. 3. Age-related osteoporosis without current pathological fracture (M81.0) - Recent DEXA scan shows worsening bone density compared to 2021. - Discussed current treatment with Fosamax and potential for a drug holiday in February. - Patient prefers to continue current management; will re-evaluate with Dr. Juarez in February. 4. Obesity, Class III, BMI 40-49.9 (morbid obesity) ([facility]) (E66.01) Weight stable 5. Benign paroxysmal positional vertigo, unspecified laterality (H81.10) - Experiencing intermittent episodes of vertigo with associated nausea. - Currently using meclizine as needed for symptom relief. - Refilled meclizine prescription with additional refills. - discussed ENT/neuro. pt declines at this time. Alex Salcedo PA-C The patient consented to the use of [employer] software for draft documentation of the visit consistent with [facility]?s Notice of Privacy Practices. CNOV Observed: 08/24/2024 12:00 PM Status: COMPLETED Source: [facility] LEANDRO POE ([id number]) 1955 F Date Time Provider Department 08/24/24 12:00 PM ALEX SALCEDO During your visit today, we recorded the following information about you: Temperature Pulse Respiration Blood pressure 97.1 degrees 68/minute 18/minute 138/80 Weight 104.3 kg Alex Salcedo PA-C 08/24/2024 1:01 PM Signed Chief Complaint Patient presents with: 6 Month Exam HPI Leandro Poe is a 69 year old female who presents here today for Chronic Medical Conditions.. Patient with hx of HTN, BPPV, elevated a1c, osteoporosis, and those as below. Last 3 Encounter Wt Readings: Date: Wt: 08/24/2024 104.3 kg (230 lb) 07/17/2024 104 kg (229 lb 4.5 oz) 03/02/2024 106.6 kg (235 lb) Hypertension: - Taking hydrochlorothiazide; ran out of medication 1.5-2 weeks ago. Osteoporosis: - Recent DEXA scan showed worsening bone density compared to 2021. - Currently taking Fosamax. Vertigo: - Intermittent episodes of vertigo; most recent episode this morning. - Episodes sometimes cause nausea; takes meclizine PRN with relief. - Last episode prior to today was last week. Urinary Incontinence: - Taking medication for bladder control; reports variable effectiveness. Past medical history, appointments, medications, allergies reviewed. Previous Medical History PAST MEDICAL HISTORY Diagnosis Date Benign paroxysmal positional vertigo 07/13/2021 Chronic bilateral low back pain without sciatica 11/22/2023 Elevated hemoglobin A1c 01/22/2020 Hypertension, essential 08/29/2022 Left hip pain 2016 Obesity, Class III, BMI 40-49.9 (morbid obesity) ([facility]) 01/22/2020 Peripheral edema 01/27/2021 Urge incontinence 01/25/2015 [...] date: 05/03/1996 Quit date: 05/03/2003 Years since quittin.3 Smokeless tobacco: Never Vaping Use Vaping status: Never Used Substance Use Topics Alcohol use: No Drug use: No Review of Symptoms REVIEW OF SYSTEMS GENERAL: No weight loss, malaise or fevers NECK: Negative for lumps, goiter, pain and significant neck swelling RESPIRATORY: Negative for cough, hemoptysis, wheezing, COPD, dyspnea or shortness of breath CARDIOVASCULAR: Negative for chest pain, leg swelling, hypertension, CHF or palpitations NEURO: No history of headaches, syncope, paralysis, seizures or tremors SEE HPI EXAM: BP 138/80 (BP Site: Right Arm, BP Position: Sitting, BP Cuff Size: Large Adult) Pulse 68 Temp 36.2 ?C (97.1 ?F) Resp 18 Wt 104.3 kg (230 lb) SpO2 96% BMI 42.33 kg/m? General Appearance: Well appearing, alert, in no acute distress, well-hydrated, well nourished. and Obese. Neck: Supple, no adenopathy; thyroid symmetric, normal size, no bruits. Lungs: Lungs clear to auscultation. No wheezing, rhonchi, rales.. Heart: RRR without murmur, gallop, or rubs. No ectopy. Extremities: No deformities, edema, skin discoloration, clubbing or cyanosis. Good capillary refill. . Peripheral Pulses: Normal. Health Maintenance List BP Controlled (<130/80) Never done Advance Directive Discussion due on 06/03/2024 RSV Vaccine(1 - Risk 60-74 years 1-dose series) due on 02/27/2025 Depression Screening due on 03/02/2025 Anxiety Screening due on 03/02/2025 Mammogram Screening due on 03/31/2025 Colorectal Cancer Screening due on 07/15/2025 Annual PCP Team Chronic Disease Visit due on 08/24/2025 Bone Density Screening due on 03/31/2026 Diabetes Screening due on 02/27/2027 Lipid Screening due on 02/27/2029 DTaP,Tdap,Td Vaccine(3 - Td or Tdap) due on 02/27/2034 Influenza Vaccine Completed Hepatitis C Screening Completed Shingrix Vaccine Completed Pneumococcal Vaccine: 50+ Completed Covid-19 Vaccine Discontinued Data reviewed N/a Assessment and Plan 1. Hypertension, essential (I10) - controlled - continue current medication. - Ordered blood work and urine analysis to monitor kidney function; labs to be done at [facility]. 2. Elevated hemoglobin A1c (R73.09) - Ordered updated A1c test to be performed at [facility]. 3. Age-related osteoporosis without current pathological fracture (M81.0) - Recent DEXA scan shows worsening bone density compared to 2021. - Discussed current treatment with Fosamax and potential for a drug holiday in February. - Patient prefers to continue current management; will re-evaluate with Dr. Juarez in February. 4. Obesity, Class III, BMI 40-49.9 (morbid obesity) (HCC) (E66.01) Weight stable 5. Benign paroxysmal positional vertigo, unspecified laterality (H81.10) - Experiencing intermittent episodes of vertigo with associated nausea. - Currently using meclizine as needed for symptom relief. - Refilled meclizine prescription with additional refills. - discussed ENT/neuro. pt declines at this time. Alex Salcedo PA-C The patient consented to the use of [employer] software for draft documentation of the visit consistent with [facility]?s Notice of Privacy Practices. Allergies As of Date: 08/24/2024 Noted Allergy Reaction BEE STING 01/25/2015 7 - Swelling Comments: Has not had SOB or other issues other than extreme swelling at site of sting LISINOPRIL 11/27/2022 3 - Cough Date Reviewed: 08/24/2024 Reviewed by: Barb Pearson LPN - Fully Assessed Reason for Visit: 6 Month Exam [189] Primary Visit Diagnosis:Hypertension, essential [I10] Other Visit Diagnoses:Elevated hemoglobin A1c [R73.09] Age-related osteoporosis without current pathological fracture [M81.0] Obesity, Class III, BMI 40-49.9 (morbid obesity) ([facility]) [E66.01] Benign paroxysmal positional vertigo, unspecified laterality [H81.10] Order(s):meclizine (ANTIVERT) 25 mg tabTake 1 tablet by mouth three times a day.Disp: 30 tabletRfl: 2 losartan (COZAAR) 25 mg tabletTake 1 tablet by mouth once daily.Disp: 90 tabletRfl: 1 hydroCHLOROthiazide 12.5 mg capsuleTake 1 capsule by mouth once daily.Disp: 90 capsuleRfl: 1 HEMOGLOBIN A1C [TODCY1H] Order #: [id number] FUTURE URINALYSIS, WITH MICROSCOPIC [SQUAWMIC] Order #: [id number] FUTURE BASIC METABOLIC PANEL [SQBMP] Order #: [id number] FUTURE Prescriptions as of 08/24/2024 - meclizine (ANTIVERT) 25 mg tab Take 1 tablet by mouth three times a day. - losartan (COZAAR) 25 mg tablet Take 1 tablet by mouth once daily. - hydroCHLOROthiazide 12.5 mg capsule Take 1 [...] once daily. Problem List As Of Date 08/24/2024 Noted Resolved Urge incontinence [N39.41] 01/25/2015 Tendonitis, [...] End MECLIZINE 25 MG TABLET 30 t* 2 08/24/2024 Route: ORAL Sig: Take 1 tablet by mouth three times a day. LOSARTAN 25 MG TABLET 90 t* 1 08/24/2024 Route: ORAL Sig: Take 1 tablet by mouth once daily. HYDROCHLOROTHIAZIDE 12.5 MG CAPSULE 90 c* 1 08/24/2024 Route: ORAL Sig: Take 1 capsule by mouth once daily. Medications Discontinued During This Encounter Prescriptions - hydroCHLOROthiazide 12.5 mg capsule (Discontinued) Take 1 capsule by mouth once daily. - meclizine (ANTIVERT) 25 mg tab (Discontinued) Take 1 tablet by mouth three times a day. - losartan (COZAAR) 25 mg tablet (Discontinued) Take 1 tablet by mouth once daily. Level of Service: OFFICE/OUTPATIENT ESTABLISHED MOD MDM 30 MIN [95730] Additional E/M codes: VISIT CPLX INHERENT EANDM ASSOC WITH MED * Disposition: Return in about 6 months (around 02/24/2025) for Physical. Follow-up and Disposition History for Encounter Date Provider Department Center 08/24/2024 [id number] SALCEDO [facility] Encounter Status:Closed by ALEX CLAY on 08/24/24 PROGRESS Observed: 07/17/2024 11:00 AM Status: COMPLETED Source: [facility] ID: [id number] Author: SANIYA SCHNEIDER APRN.CHARGER TESTER Service: ? Author Type: Nurse Practitioner Type: Progress Notes Filed: 07/17/2024 11:02 Note Text: Chief Complaint Patient presents with: Follow Up: CPAP use HPI Leandro Poe is a 69 year old female who presents here today for Above Complaints.. Patient presents for cpap follow up. Patient reports she is having decreased daytime tiredness and decreased interruptions in sleep. Patient reports she wears her CPAP all night but works 2nd shift so her sleeping hours are 1-2am to late morning. Past medical history, appointments, medications, allergies reviewed. Previous Medical History PAST MEDICAL HISTORY Diagnosis Date Benign paroxysmal positional vertigo 07/13/2021 Chronic bilateral low back pain without sciatica 11/22/2023 Elevated hemoglobin A1c 01/22/2020 Hypertension, essential 08/29/2022 Left hip pain 2016 Obesity, Class III, BMI 40-49.9 (morbid obesity) ([facility]) 01/22/2020 Peripheral edema 01/27/2021 Urge incontinence 01/25/2015 [...] on File Prior to Visit Medication Sig losartan (COZAAR) 25 mg tablet Take 1 [...] date: 05/03/1996 Quit date: 05/03/2003 Years since quittin.2 Smokeless tobacco: Never Vaping Use Vaping status: Never Used Substance Use Topics Alcohol use: No Drug use: No Review of Symptoms REVIEW OF SYSTEMS SEE HPI EXAM: BP 136/75 Pulse 78 Resp 16 Wt 104 kg (229 lb 4.5 oz) SpO2 100% BMI 42.19 kg/m? General Appearance: Well appearing, alert, in no acute distress, well-hydrated, well nourished. Health Maintenance List Bone Density Screening due on 02/01/2022 Mammogram Screening due on 03/22/2023 Advance Directive Discussion due on 06/03/2024 Influenza Vaccine(1) due on 11/30/2024 RSV Vaccine(1 - Risk 60-74 years 1-dose series) due on 02/27/2025 Annual PCP Team Chronic Disease Visit due on 03/02/2025 Depression Screening due on 03/02/2025 Anxiety Screening due on 03/02/2025 BP Controlled (<130/80) due on 03/02/2025 Colorectal Cancer Screening due on 07/15/2025 Diabetes Screening due on 02/27/2027 Lipid Screening due on 02/27/2029 DTaP,Tdap,Td Vaccine(3 - Td or Tdap) due on 02/27/2034 Hepatitis C Screening Completed Shingrix Vaccine Completed Pneumococcal Vaccine: 50+ Completed Covid-19 Vaccine Discontinued Data reviewed Mammogram and DXA from [facility] ASSESSMENT/PLAN: 1. Hypertension, essential - ICD9: 401.9, ICD10: I10 (primary diagnosis) - Controlled - Continue current medications - Recommend home blood pressure monitoring, to bring results to next visit - Encouraged sodium restriction, DASH or Mediterranean diet - Recommend regular aerobic exercise 2. Osteopenia, unspecified location - ICD9: 733.90, ICD10: M85.80 - continue tx with alendronate (Fosamax) - Reviewed the need for Calcium and Vitamin D supplements and weight bearing exercise as tolerated 3. Sleep apnea, unspecified type - ICD9: 780.57, ICD10: G47.30 -Wearing CPAP nightly. Improvement in symptoms reported by patient. Saniya Schneider APRN.HECTOR CNOV Observed: 07/17/2024 11:00 AM Status: COMPLETED Source: [facility] LEANDRO POE ([id number]) 1955 F Date Time Provider Department 07/17/24 11:00 AM SANIYA SCHNEIDER During your visit today, we recorded the following information about you: Pulse Respiration Blood pressure Weight 78/minute 16/minute 136/75 104 kg Saniya Schneider APRN.HECTOR 07/17/2024 11:02 AM Signed Chief Complaint Patient presents with: Follow Up: CPAP use HPI Leandro Poe is a 69 year old female who presents here today for Above Complaints.. Patient presents for cpap follow up. Patient reports she is having decreased daytime tiredness and decreased interruptions in sleep. Patient reports she wears her CPAP all night but works 2nd shift so her sleeping hours are 1-2am to late morning. Past medical history, appointments, medications, allergies reviewed. [...] COLONOSCOPY FLX DX W/COLLJ SPEC WHEN PFRMD 2/12/16 normal 10 year follow up [facility] (INCOMPLETE [...] on File Prior to Visit Medication Sig losartan (COZAAR) 25 mg tablet Take 1 [...] date: 05/03/1996 Quit date: 05/03/2003 Years since quittin.2 Smokeless tobacco: Never Vaping Use Vaping status: Never Used Substance Use Topics Alcohol use: No Drug use: No Review of Symptoms REVIEW OF SYSTEMS SEE HPI EXAM: BP 136/75 Pulse 78 Resp 16 Wt 104 kg (229 lb 4.5 oz) SpO2 100% BMI 42.19 kg/m? General Appearance: Well appearing, alert, in no acute distress, well-hydrated, well nourished. Health Maintenance List Bone Density Screening due on 02/01/2022 Mammogram Screening due on 03/22/2023 Advance Directive Discussion due on 06/03/2024 Influenza Vaccine(1) due on 11/30/2024 RSV Vaccine(1 - Risk 60-74 years 1-dose series) due on 02/27/2025 Annual PCP Team Chronic Disease Visit due on 03/02/2025 Depression Screening due on 03/02/2025 Anxiety Screening due on 03/02/2025 BP Controlled (<130/80) due on 03/02/2025 Colorectal Cancer Screening due on 07/15/2025 Diabetes Screening due on 02/27/2027 Lipid Screening due on 02/27/2029 DTaP,Tdap,Td Vaccine(3 - Td or Tdap) due on 02/27/2034 Hepatitis C Screening Completed Shingrix Vaccine Completed Pneumococcal Vaccine: 50+ Completed Covid-19 Vaccine Discontinued Data reviewed Mammogram and DXA from [facility] ASSESSMENT/PLAN: 1. Hypertension, essential - ICD9: 401.9, ICD10: I10 (primary diagnosis) - Controlled - Continue current medications - Recommend home blood pressure monitoring, to bring results to next visit - Encouraged sodium restriction, DASH or Mediterranean diet - Recommend regular aerobic exercise 2. Osteopenia, unspecified location - ICD9: 733.90, ICD10: M85.80 - continue tx with alendronate (Fosamax) - Reviewed the need for Calcium and Vitamin D supplements and weight bearing exercise as tolerated 3. Sleep apnea, unspecified type - ICD9: 780.57, ICD10: G47.30 -Wearing CPAP nightly. Improvement in symptoms reported by patient. Saniya Schneider, NIKITA.CHARGER TESTER Allergies As of Date: 07/17/2024 Noted Allergy Reaction BEE STING 01/25/2015 7 - Swelling Comments: Has not had SOB or other issues other than extreme swelling at site of sting LISINOPRIL 11/27/2022 3 - Cough Date Reviewed: 07/17/2024 Reviewed by: Herminia Gary MA - Fully Assessed Reason for Visit: Follow Up [171] Cmt: CPAP use Primary Visit Diagnosis:Hypertension, essential [I10] Other Visit Diagnoses:Osteopenia, unspecified location [M85.80] Sleep apnea, unspecified type [G47.30] Prescriptions as of 07/17/2024 - losartan (COZAAR) 25 mg tablet Take 1 tablet by mouth once daily. - meclizine (ANTIVERT) 25 mg tab Take [...] once daily. Problem List As Of Date 07/17/2024 Noted Resolved Urge incontinence [N39.41] 01/25/2015 Tendonitis, [...] Physical deconditioning [R53.81] 11/22/2023 Encounter Status:Closed by SANIYA SCHNEIDER on 07/17/24 FARRUKH Observed: 07/17/2024 12:00 AM Status: COMPLETED [facility] ([id number]) 1955 F Date Time Provider Department 07/17/24 [facility] During your visit today, we recorded the following information about you: Herminia Gary MA 07/17/2024 11:06 AM Signed Pt was seen in office to discuss use of CPAP, [employer] forms completed and OV faxed. Herminia Gary MA Allergies As of Date: 07/17/2024 Noted Allergy Reaction BEE STING 01/25/2015 7 - Swelling Comments: Has not had SOB or other issues other than extreme swelling at site of sting LISINOPRIL 11/27/2022 3 - Cough Date Reviewed: 07/17/2024 Reviewed by: Herminia Gary MA - Fully Assessed Reason for Visit: Forms [913] Cmt: [employer] Prescriptions as of 07/17/2024 - losartan (COZAAR) 25 mg tablet Take 1 tablet by mouth once daily. - meclizine (ANTIVERT) 25 mg tab Take [...] once daily. Problem List As Of Date 07/17/2024 Noted Resolved Urge incontinence [N39.41] 01/25/2015 Tendonitis, [...] Physical deconditioning [R53.81] 11/22/2023 Encounter Status:Closed by HERMINIA GARY on 07/17/24 FARRUKH Observed: 06/22/2024 12:00 AM Status: COMPLETED [facility]: [facility] ([id number]) 1955 F Date Time Provider Department 06/22[facility] During your visit today, we recorded the following information about you: Nguyen Lay MA 06/22/2024 8:46 AM Signed Received paperwork from [facility]. They need face to face appointment for CPAP. Sleep Study and paperwork give to Saniya. Patient is to have a follow up appointment for CPAP. Information given to Saniya. WESLEY Adan Danielle, NIKITA.CHARGER TESTER 06/25/2024 8:57 AM Signed Please contact patient to set up a face to face appointment. Mahnaz Carlson MA 06/25/2024 9:33 AM Signed Left message for patient to return call to office WESLEY King Britt[place], [place] 07/02/2024 2:16 PM Signed Pt scheduled for appointment Mahnaz Carlson MA Allergies As of Date: 06/22/2024 Noted Allergy Reaction BEE STING 01/25/2015 7 - Swelling Comments: Has not had SOB or other issues other than extreme swelling at site of sting LISINOPRIL 11/27/2022 3 - Cough Date Reviewed: 03/02/2024 Reviewed by: Mahnaz Carlson MA - Fully Assessed Reason for Visit: Appointment [186] Prescriptions as of 07/02/2024 - losartan (COZAAR) 25 mg tablet Take 1 tablet by mouth once daily. - meclizine (ANTIVERT) 25 mg tab Take [...] once daily. Problem List As Of Date 06/22/2024 Noted Resolved Urge incontinence [N39.41] 01/25/2015 Tendonitis, [...] Physical deconditioning [R53.81] 11/22/2023 Encounter Status:Closed by WORKMAN MAHNAZ DIAZ on 07/02/24 PROGRESS Observed: 05/18/2024 7:28 AM Status: COMPLETED Source: [facility] HNO ID: [id number] Author: BARB PEARSON LPN Service: ? Author Type: LICENSED NURSE Type: Progress Notes Filed: 05/18/2024 07:29 Note Text: Scan on 05/15/2024 11:55 AM by ProviderAnand PA-C: X-ray Scan on 05/15/2024 11:56 AM by Anand Rivero PA-C: X-ray CNPN Observed: 04/06/2024 12:00 AM Status: COMPLETED Source: [facility] Telephone ([employer] LEANDRO POE ([id number]) 1955 F Date Time Provider Department 04/06/24 NGUYEN LAY [facility] During your visit today, we recorded the following information about you: Allergies As of Date: 04/06/2024 Noted Allergy Reaction BEE STING 01/25/2015 7 - Swelling Comments: Has not had SOB or other issues other than extreme swelling at site of sting LISINOPRIL 11/27/2022 3 - Cough Date Reviewed: 03/02/2024 Reviewed by: Mahnaz Carlson MA - Fully Assessed Prescriptions as of 04/06/2024 - losartan (COZAAR) 25 mg tablet Take 1 tablet by mouth once daily. - meclizine (ANTIVERT) 25 mg tab Take [...] once daily. Problem List As Of Date 04/06/2024 Noted Resolved Urge incontinence [N39.41] 01/25/2015 Tendonitis, [...] Physical deconditioning [R53.81] 11/22/2023 Encounter Status:Closed by NGUYEN LAY on 04/06/24 PROGRESS Observed: 04/03/2024 3:40 PM Status: COMPLETED Source: [facility] HNO ID: [id number] Author: BOBY JUAREZ MD Service: ? Author Type: Physician Type: Progress Notes Filed: 04/03/2024 15:42 Note Text: Let patient know mammo was ok. PROGRESS Observed: 04/03/2024 2:01 PM Status: COMPLETED Source: [facility] HNO ID: [id number] Author: TARSHA MATHEWS MA Service: ? Author Type: Handstitching Machine Collar Feller Type: Progress Notes Filed: 04/03/2024 14:01 Note Text: View External Imaging - Mammography [ID [id number]] CNPN Observed: 03/31/2024 12:00 AM Status: COMPLETED Source: [facility] Telephone ([facility]) LEANDRO POE ([id number]) 1955 F Date Time Provider Department 03/31/24 NGUYEN LAY [facility] During your visit today, we recorded the following information about you: Nguyen Lay MA 03/31/2024 3:54 PM Signed Scan on 03/31/2024 2:54 PM by Provider, RADHA Michel: Mammography Please review results. WESLEY Adan Jeffrey A, MD 03/31/2024 4:14 PM Signed Let patient know mammogram was ok. Herminia Gary MA 03/31/2024 4:16 PM Signed Pt notified. Herminia Gary MA Allergies As of Date: 03/31/2024 Noted Allergy Reaction BEE STING 01/25/2015 7 - Swelling Comments: Has not had SOB or other issues other than extreme swelling at site of sting LISINOPRIL 11/27/2022 3 - Cough Date Reviewed: 03/02/2024 Reviewed by: Mahnaz Carlson MA - Fully Assessed Reason for Visit: Results [95] Cmt: Outside mammogram Prescriptions as of 03/31/2024 - losartan (COZAAR) 25 mg tablet Take 1 tablet by mouth once daily. - meclizine (ANTIVERT) 25 mg tab Take [...] once daily. Problem List As Of Date 03/31/2024 Noted Resolved Urge incontinence [N39.41] 01/25/2015 Tendonitis, [...] Physical deconditioning [R53.81] 11/22/2023 Encounter Status:Closed by HERMINIA GARY on 03/31/24 PROGRESS Observed: 03/30/2024 1:59 PM Status: COMPLETED Source: [facility] HNO ID: [id number] Author: BARB PEARSON LPN Service: ? Author Type: LICENSED NURSE Type: Progress Notes Filed: 03/30/2024 13:59 Note Text: Scan on 03/30/2024 1:16 PM by Provider, RADHA Michel: Consultation - PT/OT/Speech PROGRESS Observed: 03/02/2024 2:27 PM Status: COMPLETED Source: [facility] HNO ID: [id number] Author: SANIYA SCHNEIDER APRN.CHARGER TESTER Service: ? Author Type: Nurse Practitioner Type: Progress Notes Filed: 03/02/2024 14:43 Note Text: Chief Complaint Patient presents with: Follow Up HPI Leandro Poe is a 68 year old female who [...] Obesity, Class III, BMI 40-49.9 (morbid obesity) ([facility]) 01/22/2020 Peripheral edema 01/27/2021 Urge incontinence 01/25/2015 [...] Vaccine Discontinued Data reviewed Labs reviewed from [facility] ASSESSMENT/PLAN: 1. Hypertension, essential - ICD9: 401.9, [...] -Had sleep study 02/27, will await report Saniya Schneider APRN.CHARGER TESTER CNOV Observed: 03/02/2024 2:20 PM Status: COMPLETED Source: [facility] LE[facility] ([id number]) 1955 F Date Time Provider Department 03/02/24 2:20 PM SANIYA SCHNEIDER During your visit today, we recorded the following information about you: Pulse Respiration Blood pressure Weight 79/minute 16/minute 117/78 106.6 kg Saniya Schneider, TAX MAP TECHNICIAN.CHARGER TESTER 03/02/2024 2:43 PM Signed Chief Complaint Patient presents with: Follow Up HPI Leandro Poe is a 68 year old female who [...] Obesity, Class III, BMI 40-49.9 (morbid obesity) ([facility]) 01/22/2020 Peripheral edema 01/27/2021 Urge incontinence 01/25/2015 [...] Vaccine Discontinued Data reviewed Labs reviewed from [facility] ASSESSMENT/PLAN: 1. Hypertension, essential - ICD9: 401.9, [...] -Had sleep study 02/27, will await report Saniya Schneider APRN.CHARGER TESTER Referring Provider: SELF [200] Allergies As of Date: 03/02/2024 Noted Allergy Reaction BEE STING 01/25/2015 7 - Swelling Comments: Has not had SOB or other issues other than extreme swelling at site of sting LISINOPRIL 11/27/2022 3 - Cough Date Reviewed: 03/02/2024 Reviewed by: Mahnaz Carlson MA - Fully Assessed Reason for Visit: Follow Up [171] Primary Visit Diagnosis:Hypertension, essential [I10] Other Visit Diagnoses:Screening for depression [Z13.31] Benign paroxysmal positional vertigo, unspecified laterality [H81.10] Elevated hemoglobin A1c [R73.09] Age-related osteoporosis without current pathological fracture [M81.0] Obesity, Class III, BMI 40-49.9 (morbid obesity) (HCC) [E66.01] Sleep apnea, unspecified type [G47.30] Order(s):losartan (COZAAR) 25 mg tabletTake 1 tablet by mouth once daily.Disp: 90 tabletRfl: 1 DEPRESSION SCREENING [[id number]] Order #: [id number]: 1 Prescriptions as of 03/02/2024 - losartan (COZAAR) 25 mg tablet Take 1 tablet by mouth once daily. - meclizine (ANTIVERT) 25 mg tab Take [...] ordered this encounter Disp Refills Start End LOSARTAN 25 MG TABLET 90 t* 1 03/02/2024 Route: ORAL Sig: Take 1 tablet by mouth once daily. Medications Discontinued During This Encounter Prescriptions - losartan (COZAAR) 25 mg tablet (Discontinued) Take 1 tablet by mouth once daily. Disposition: Return for as scheduled. Follow-up and Disposition History for Encounter Date Provider Department Center 03/02/2024 [id number] SCHNEIDER [facility] Encounter Status:Closed by SANIYA SCHNEIDER on 03/02/24 CNPN Observed: 03/02/2024 12:00 AM Status: COMPLETED Source: [facility] Telephone ([facility]) LEANDRO POE ([id number]) 1955 F Date Time Provider Department 03/02/24 BOBY JUAREZ During your visit today, we recorded the following information about you: Boby Juarez MD 03/02/2024 1:34 PM Signed Let [...] - Cough Date Reviewed: 03/02/2024 Reviewed by: Mahnaz Carlson MA - Fully Assessed Reason for [...] Encounter Status:Closed by SUSIE RIOS on 03/02/24 PROGRESS Observed: 02/28/2024 3:59 PM Status: COMPLETED Source: [facility] HNO ID: [id number] Author: TARSHA MATHEWS MA Service: ? Author Type: Handstitching Machine Collar Feller Type: Progress Notes Filed: 02/28/2024 16:01 Note Text: Scan on 02/28/2024 3:12 PM by Provider, Anand PA-Dom: Chemistry Scan on 02/28/2024 1:22 PM by Provider, Anand PAJulioC: Lipid ALLERGIES DATE TYPE / CODE NAME / CODE REACTION SEVERITY SOURCE 11/27/2022 DRUG INGREDI/[id number](SN OMED CT) LISINOPRIL COUGH [facility] 01/25/2015 Environ/[id number](SN OMED CT) BEE STING SWELLING [facility] ENCOUNTERS ADMIT/DISCHARGE ACCOUNT NUMBER ADMITTING ENCOUNTER CLASS LOC ATION SOURCE 02/26/2025/ 5 [id number] [facility] 08/24/2024/ 5 [id number] [facility] 07/17/2024/ 5 [id number] [facility] 03/02/2024/ 4 [id number] [facility] PAYERS ENCOUNTER GUARANTOR PAYER SUBSCRIBER SOURCE 02/26/2025 [facility]: [id number] Date:[id number] Name:Humberto RIVERA: [id number] [place], [place] [id number] [place] [address] 08/24/2024 Primary Insurance:GL[employer]DA STEPHENS HEALTHPolicy Number: [id number] Date:9219-57-68Yyzq Name:Humberto Rodrigues MIGUEL: [id number] [place] [address] [facility] 07/17/2024 Primary Insurance:GLENDA STEPHENS HEALTHPolicy Number: [id number] Date:8612-74-94Muzk Name:Humberto Rodrigues MIGUEL: [id number] [place] [address] [facility] 03/02/2024 Primary Insurance:GLENDA ROSENPolicy Number: [id number] Date:[id number] Name:Humbetro Rodrigues MIGUEL: [id number] [place] [address] [facility]
[2025-02-27 10:29] LABS: Mucous, Urine 0 SEEN /hpf (<or=2+); Red Blood Cells-Urine 0 SEEN /hpf (0-5); Squamous Epithelial Cells - UA 0 SEEN /hpf (5-10)
[2025-02-27 10:35] LABS: Color, Urine Yellow (Yellow); Glucose, Dipstick Normal (Normal); Ketone-Dipstick Negative (Negative); Leukocyte Esterase-Dipstick Negative /ul (Negative); Nitrite-Dipstick Negative (Negative); Occult Blood-Urine Negative /ul (Negative); Protein-Dipstick Negative (Negative); Specific Gravity, Urine 1.020 (1.002-1.030); Urine Bilirubin Dipstick Negative (Negative)
== END | disposition home or self-care (01) ==
PROVIDERS: PCP Family Medicine; Referring Provider Family Medicine; Visit Provider Family Medicine
DX: I10 Essential (primary) hypertension (principal)
CPT/HCPCS: 81001

== ENCOUNTER → 2025-04-01 | Outpatient (CLI) | payer OTHER, SELFPAY ==
--- NOTE | 2025-04-01 11:56 | BI_ITS ---
EXAM: BI/SCRN MAMM (CAD)W/NERIS BILAT
== END | disposition home or self-care (01) ==
LOC: OPBI 11:55
PROVIDERS: PCP Family Medicine; Referring Provider Family Medicine; Visit Provider Family Medicine
DX: Z12.31 Encounter for screening mammogram for malignant neoplasm of breast (principal)
CPT/HCPCS: 77063; 77067